=== PATIENT | female | born 1940 | race Caucasian/White ===

== ENCOUNTER → 2018-04-27 14:02 | Outpatient (POV) | payer MEDICARE, SELFPAY ==
[2018-04-27 14:19] VITALS: BP 152/66; PULSE 69; RESP 18; TEMP 36.1; O2SAT 98
--- NOTE | 2018-04-27 15:31 | HMH.PMCON ---
Assessment and Plan (1) Scoliosis Current visit: Yes Status: Chronic Category: Medical Code(s): M41.9 - Scoliosis, unspecified (2) Degenerative joint disease (DJD) of lumbar spine Current visit: Yes Status: Chronic Category: Medical Code(s): M47.816 - Spondylosis without myelopathy or radiculopathy, lumbar region - Assessment and plan all Dx Assessment and Plan for all problems:: We will schedule intrathecal pain pump trial for the patient. Patient understands she has to be off her [place] for 48 hours prior. Patient's tried and failed other conservative measures. I will follow-up with the patient after her trial if necessary. Patient has been told to call the office if she has any issues prior to her next appointment. Patient is not on any anticoagulation therapy. This note was dictated using voice recognition software and may contain errors or omissions HPI - Data of Consult Consult date: 04/27/18 Requesting Physician: Soledad Morales APRN - Consult Narrative Reason for consult: Back pain History of present illness: Ms. Van is a 78 year old female who presents today for intrathecal pain pump consultation. Patient rates her pain today a 3 out of 10. Patient has terrible scoliosis along with other degenerative issues. Patient has tried and failed injections in the past she is also tried and failed RFA therapy. Patient is interested in intrathecal therapy. Patient also has a psychological evaluation set up for Friday. Patient's currently on [place] 10 mg 1 p.o. 3 times daily from her primary care physician. Patient and I discussed weaning off of this she is more than willing to do so. Patient and I had a long discussion about intrathecal therapy, realistic goal setting. I answered the patient's questions. Patient has tried and failed physical therapy along with home stretching therapy. Patient is not on any anticoagulation therapy. Patient states most of her pain is in her low back and thoracic spine. States that it is constant pain. CC: Soledad Morales APRN [facility] History I have reviewed the patient's past medical history: Yes Medical History: Reports:: Heart Murmur, Hypertension Denies:: Cancer, Diabetes Mellitus Type 1, Diabetes Mellitus Type 2, MRSA Other Medical History: Reports: Arthritis Laterality Cases: Right: Carpal Tunnel Release Other Surgeries: Yes: Colon Resection Amputation: No Fractures: No - *Social History Educational Level: Completed High School Alcohol Intake: never Occupational Status: retired Housing: house Household Members: spouse - Psychiatric History Expresses thoughts of harming self/others: None Suicide Plan Description: No Plan *Family Hx:: Cancer Review of Systems - Review of Systems ROS General: no recent weight change, no fever, no sleep disturbances Respiratory: no cough, no shortness of air, no recurring pulmonary infections Cardiovascular/Peripheral Vascular: No chest pain, No palpitations, no edema, no shortness of breath. Gastrointestinal: no incontinence, normal bowel movements reported Genitourinary: no incontinence Musculoskeletal: Back pain Psychiatric: normal mood/ affect Neurological: [denies weakness in extremities], [denies balance issues] Meds Home Medications Medication Instructions Recorded Confirmed Type Amlodipine Besylate [Amlodipine 10 mg PO DAILY 04/27/18 04/27/18 History 10mg Tab] Fluoxetine HCl 20 mg PO DAILY 04/27/18 04/27/18 History Hydrocodone/Acetaminophen 1 each PO TID PRN 04/27/18 04/27/18 History [Hydrocodone-Acetamin 10-325 mg] Irbesartan 300 mg PO DAILY 04/27/18 04/27/18 History Tizanidine HCl 4 mg PO DAILY 04/27/18 04/27/18 History levETIRAcetam [Keppra Xr] 500 mg PO BID 04/27/18 04/27/18 History Objective Vital signs: Temp Pulse Resp BP Pulse Ox 97.0 F L 69 18 152/66 98 04/27/18 14:19 04/27/18 14:19 04/27/18 14:19 04/27/18 14:19 04/27/18 14:19 Narrative
--- NOTE | 2018-04-27 15:34 | P.CONS_ITS ---
Assessment and Plan (1) Scoliosis Current visit: Yes Status: Chronic Category: Medical Code(s): M41.9 - Scoliosis, unspecified (2) Degenerative joint disease (DJD) of lumbar spine Current visit: Yes Status: Chronic Category: Medical Code(s): M47.816 - Spondylosis without myelopathy or radiculopathy, lumbar region - Assessment and plan all Dx Assessment and Plan for all problems:: We will schedule intrathecal pain pump trial for the patient. Patient understands she has to be off her [place] for 48 hours prior. Patient's tried and failed other conservative measures. I will follow-up with the patient after her trial if necessary. Patient has been told to call the office if she has any issues prior to her next appointment. Patient is not on any anticoagulation therapy. This note was dictated using voice recognition software and may contain errors or omissions HPI - Data of Consult Consult date: 04/27/18 Requesting Physician: Soledad Morales APRN - Consult Narrative Reason for consult: Back pain History of present illness: Ms. Van is a 78 year old female who presents today for intrathecal pain pump consultation. Patient rates her pain today a 3 out of 10. Patient has terrible scoliosis along with other degenerative issues. Patient has tried and failed injections in the past she is also tried and failed RFA therapy. Patient is interested in intrathecal therapy. Patient also has a psychological evaluation set up for Friday. Patient's currently on [place] 10 mg 1 p.o. 3 times daily from her primary care physician. Patient and I discussed weaning off of this she is more than willing to do so. Patient and I had a long discussion about intrathecal therapy, realistic goal setting. I answered the patient's questions. Patient has tried and failed physical therapy along with home stretching therapy. Patient is not on any anticoagulation therapy. Patient states most of her pain is in her low back and thoracic spine. States that it is constant pain. CC: Soledad Morales APRN [facility] History I have reviewed the patient's past medical history: Yes Medical History: Reports:: Heart Murmur, Hypertension Denies:: Cancer, Diabetes Mellitus Type 1, Diabetes Mellitus Type 2, MRSA Other Medical History: Reports: Arthritis Laterality Cases: Right: Carpal Tunnel Release Other Surgeries: Yes: Colon Resection Amputation: No Fractures: No - *Social History Educational Level: Completed High School Alcohol Intake: never Occupational Status: retired Housing: house Household Members: spouse - Psychiatric History Expresses thoughts of harming self/others: None Suicide Plan Description: No Plan *Family Hx:: Cancer Review of Systems - Review of Systems ROS General: no recent weight change, no fever, no sleep disturbances Respiratory: no cough, no shortness of air, no recurring pulmonary infections Cardiovascular/Peripheral Vascular: No chest pain, No palpitations, no edema, no shortness of breath. Gastrointestinal: no incontinence, normal bowel movements reported Genitourinary: no incontinence Musculoskeletal: Back pain Psychiatric: normal mood/ affect Neurological: [denies weakness in extremities], [denies balance issues] Meds Home Medications Medication Instructions Recorded Confirmed Type Amlodipine Besylate [Amlodipine 10 mg PO DAILY 04/27/18 04/27/18 History 10mg Tab] Fluoxetine HCl 20 mg PO DAILY 04/27/18 04/27/18 History Hydrocodone/Acetaminophen 1 ea
== END ==
PROVIDERS: Visit Provider Clinical Nurse Specialist Family Health
DX: M47.816 Spondylosis without myelopathy or radiculopathy, lumbar region (principal); M41.9 Scoliosis, unspecified
CPT/HCPCS: 99202

== ENCOUNTER → 2018-05-20 09:11 | Outpatient (POV) | payer MEDICARE, SELFPAY ==
[2018-05-20 09:30] VITALS: BP 108/79; PULSE 68; RESP 18; O2SAT 98; BMI 20.1
--- NOTE | 2018-05-20 10:34 | P.CONS_ITS ---
Assessment and Plan (1) Degenerative joint disease (DJD) of lumbar spine Current visit: No Status: Chronic Category: Medical Code(s): M47.816 - Spondylosis without myelopathy or radiculopathy, lumbar region Consideration for pain stimulator implant trial with placement of the system if indicated (2) Scoliosis Current visit: No Status: Chronic Category: Medical Code(s): M41.9 - Scoliosis, unspecified Consideration for pain stimulator implant trial with placement permanently if indicated HPI - Data of Consult Patient: new to practice Consult date: 05/20/18 Requesting Physician: Maximiliano Fox MD Primary Care Provider: Moody Beth MD - Consult Narrative Reason for consult: Consideration for stimulator implant for management of chronic back pain History of present illness: Ms. Van is a 78 year old female seen by Dr. Stanton who is referred for consideration for placement of a pain stimulator implant for management of degenerative disc disease of the lumbar and thoracic spine as well as scoliosis. Per Dr. Palencia she is not an operative candidate. She has had other attempts at pain management with medications as well as procedures without success. CC: Maximiliano Fxo MD [facility] History Medical History: Reports:: Heart Murmur, Hypertension Denies:: Cancer, Diabetes Mellitus Type 1, Diabetes Mellitus Type 2, MRSA Other Medical History: Reports: Arthritis Comment: Illnesses-hypertension, heart murmur, anxiety, arthritis Laterality Cases: Right: Carpal Tunnel Release Other Surgeries: Yes: Colon Resection Amputation: No Fractures: No Comment: Operations-carpal tunnel surgery, hernia repair, colon surgery for colitis - *Social History Alcohol Intake: never Occupational Status: retired Housing: house Household Members: spouse - Psychiatric History Expresses thoughts of harming self/others: None Suicide Plan Description: No Plan *Family Hx:: Cancer Review of Systems - Review of Systems Review of systems:: pertinent systems reviewed and negative unless documented below - Constitutional Comments: Healthy-appearing white female in no distress - *Musculoskeletal Reports back pain, Reports muscle weakness, Reports radiating pain into limb Meds Home Medications Medication Instructions Recorded Confirmed Type Amlodipine Besylate [Amlodipine 10 mg PO DAILY 04/27/18 04/27/18 History 10mg Tab] Fluoxetine HCl 20 mg PO DAILY 04/27/18 04/27/18 History Hydrocodone/Acetaminophen 1 each PO TID PRN 04/27/18 04/27/18 History [Hydrocodone-Acetamin 10-325 mg] Irbesartan 300 mg PO DAILY 04/27/18 04/27/18 History Tizanidine HCl 4 mg PO DAILY 04/27/18 04/27/18 History levETIRAcetam [Keppra Xr] 500 mg PO BID 04/27/18 04/27/18 History Objective Vital signs: Pulse Resp BP Pulse Ox 68 18 108/79 98 05/20/18 09:30 05/20/18 09:30 05/20/18 09:30 05/20/18 09:30 Comments: Healthy-appearing white female in no distress - *Routine Respiratory Exam Comments: Chest clear - *Routine Cardiovascular Exam Present: RRR - *Routine Abdominal Exam Present: soft
== END ==
PROVIDERS: PCP Emergency Medicine; Visit Provider Surgery
DX: M41.9 Scoliosis, unspecified (principal); M47.816 Spondylosis without myelopathy or radiculopathy, lumbar region
CPT/HCPCS: 99212

== ENCOUNTER → 2021-08-13 14:50 | Day surgery (SDC) | payer MEDICARE, SELFPAY ==
[2021-08-13 14:57] VITALS: BP 150/54; PULSE 62; RESP 18; TEMP 36.9; O2SAT 98
[2021-08-13 15:04] VITALS: BP 157/64; PULSE 63; RESP 18; O2SAT 98
[2021-08-13 15:05] VITALS: BP 148/67; PULSE 58; RESP 18; O2SAT 100
--- NOTE | 2021-08-13 15:34 | P.PCN_ITS ---
- Procedure Date: 08/13/21 Time: 15:34 Anesthesiologist:: Virginia Silvestre APRN Complications:: None Pre-procedure Diagnosis:: Degenerative disc disease lumbar spine with lumbar radiculopathy symptoms Post-procedure Diagnosis:: Same Indications for Procedure:: Patient is a pleasant 81-year-old white female who presents today for intrathecal pain pump refill and reprogram. She previously seen in [place] and then transferred to the [facility]. She has asked to transfer to the [facility]. She is currently on intrathecal therapy of morphine at 1.8 mg/day. She denies any side effects and would like an increase. She was also started on diclofenac 75 mg 1 tablet p.o. twice daily. She does need a refill on this medication. She rates her pain a 5 out of 10. She has pain in her low back area. Physical exam General: Alert and oriented x3, no acute distress, pleasant and cooperative Lungs: Respirations even and unlabored, symmetrical chest expansion Eyes: PERRL Musculoskeletal: Flexion and extension of lumbar [spine] somewhat guarded secondary to pain, [antalgic gait noted] Neurological: Speech clear, no gross sensory deficit Procedure Details:: Informed consent was obtained and the risk and benefits of the procedure were explained to the patient. The patient was taken to the procedure room where noninvasive monitoring was placed including noninvasive blood pressure cuff and pulse oximeter. Patient's pump was interrogated. The area over the pump was cleansed with chlorhexidine as a cleansing solution. In sterile fashion the pump was accessed with a 22-gauge needle. Approximately 8 mls of the pump solution was removed and discarded appropriately. The pump was then refilled with 20 mL's of morphine 5 mg per male. The needle was withdrawn and a bandage was placed over the puncture site. The infusion rate was reprogrammed at increased to morphine at 2 mg/day. The patient tolerated well with no complication. Plan and Disposition:: We will refill the patient's diclofenac 75 mg 1 tablet p.o. twice daily. We will see the patient back in the clinic at the next intrathecal refill. Patient has been instructed to contact the clinic with any concerns before the next appointment. Dr. Stanton has reviewed this note and agrees with this plan of care. This note was dictated using voice recognition software and make contain errors or omissions.
== END ==
PROVIDERS: PCP Emergency Medicine; Visit Provider Clinical Nurse Specialist Family Health
DX: M51.16 Intervertebral disc disorders with radiculopathy, lumbar region (principal); Z45.1 Encounter for adjustment and management of infusion pump
CPT/HCPCS: 62370

== ENCOUNTER 2021-08-25 13:53 | Emergency (ER) | payer MEDICARE, SELFPAY ==
[2021-08-25] VITALS (7 sets, daily range): BP systolic 144–176; BP diastolic 68–99; PULSE 56–63; RESP 18–20; TEMP 36.8–36.9; O2SAT 97–100; BMI 22.0; BMI 22.8
--- NOTE | 2021-08-25 14:19 | XR_ITS ---
PROCEDURE INFORMATION: Exam: XR Chest Exam date and time: 08/25/2021 2:19 PM Age: 81 years old Clinical indication: Other: Weakness TECHNIQUE: Imaging protocol: XR of the chest. Views: 1 view. COMPARISON: No relevant prior studies available. FINDINGS: Tubes, catheters and devices: Metallic device overlies the left hemidiaphragm Lungs: Hyperexpanded lung gomez consistent with COPD Pleural spaces: Unremarkable. No pleural effusion. No pneumothorax. Heart/Mediastinum: Unremarkable. No cardiomegaly. Bones/joints: Levoscoliosis of the lumbar spine IMPRESSION: Hyperexpanded lung gomez consistent with COPD
--- NOTE | 2021-08-25 14:39 | ECG_ITS ---
APPROVED REPORT Exam: Resting ECG HR:57 bpm ECG Measurements Heart Rate 57 AXES WI 168 P 29 QRSd 88 QRS -31 QT 494 T 2 QTc 480 Conclusion Sinus bradycardia Left atrial enlargement Left axis deviation Left ventricular hypertrophy Nonspecific ST abnormality Abnormal ECG Electronically signed by : Edward Driver MD 08/26/2021 08:46:31
--- NOTE | 2021-08-25 14:40 | HMH.EDGENADL ---
ED Disposition Clinical Impression: Hot flashes, Chills, Hypokalemia Disposition: Home, Self-Care Condition on Discharge: Fair Instructions: DI for Hypokalemia Additional Instructions: Potassium as prescribed. Follow-up with your primary care provider on Friday for repeat potassium level. Follow-up with your primary care provider next week for your other symptoms, chills, hot flashes, restlessness. Prescriptions: Potassium Chloride [K-Tab ER 20 mEq] 20 meq PO DAILY #7 tab Transmission Status: Pending to [facility] Referrals: Moody Beth MD [Staff Physician] - - Critical Care Critical Care Time: No Attestation: On 08/25/21, the high probability of a clinically significant, sudden or life threatening deterioration of the following system(s) required my full and direct attention, intervention and personal management. The time I documented below is in addition to time spent performing reported procedures but includes the following listed in this critical care notation. Medical Decision Making - Bello Inquiry Pt receiving controlled substance: No Vital Signs: 08/25/21 13:54 08/25/21 18:00 08/25/21 18:30 Temperature 98.5 F Temperature Source Oral Pulse Rate 61 63 Pulse Rate [Radial] 58 L Respiratory Rate 18 Blood Pressure 160/68 H 157/75 H Blood Pressure [Right Arm] 171/75 H Blood Pressure Mean 119 120 Blood Pressure Mean [Right Arm] 107 Blood Pressure Position [Right Arm] Sitting 02 Sat by Pulse Oximetry 98 100 97 Oxygen Delivery Method Room Air 08/25/21 19:00 08/25/21 19:30 Temperature Temperature Source Pulse Rate 56 L 60 Pulse Rate [Radial] Respiratory Rate 20 20 Blood Pressure 144/99 H 165/69 H Blood Pressure [Right Arm] Blood Pressure Mean 114 101 Blood Pressure Mean [Right Arm] Blood Pressure Position [Right Arm] 02 Sat by Pulse Oximetry 100 100 Oxygen Delivery Method - Lab Data Lab Results 08/25/21 15:20: WBC 9.0, RBC 4.27, Hgb 13.8, Hct 39.4, MCV 92.2, MCH 32.4 H, MCHC 35.2, RDW 12.5, Plt Count 394, MPV 9.0, Neut % (Auto) 69.9, Lymph % (Auto) 21.8, [place] % (Auto) 6.1, Eos % (Auto) 1.5, Baso % (Auto) 0.7, Neut # (Auto) 6.3, Lymph # (Auto) 2.0, [place] # (Auto) 0.6, Eos # (Auto) 0.1, Baso # (Auto) 0.1 08/25/21 15:20: Sodium 122 L, Potassium 2.5 L*, Chloride 79 L, Carbon Dioxide 36 H, Anion Gap 9.5, BUN 13, Creatinine 0.40 L, Estimated Creat Clear 46, Estimated GFR 153, Est GFR ( Amer) 185, Glucose 109 H, Calcium 9.5, Total Bilirubin 0.7, AST 36, ALT 29, Alkaline Phosphatase 85, Total Protein 7.3, Albumin 4.3, Globulin 3.0, Albumin/Globulin Ratio 1.4 08/25/21 15:20: Troponin I < 0.01, Procalcitonin 0.059 08/25/21 15:20: SARS-CoV-2 (PCR) Not detected, Influenza A Untype (PCR) Not detected, Influenza Type B (PCR) Not detected 08/25/21 16:00: Urine Color Yellow, Urine Appearance Clear, Urine pH 7.0, Ur Specific [place] 1.015, Urine Protein Negative, Urine Glucose (UA) Negative, Urine Ketones Negative, Urine Blood Negative, Urine Nitrate Negative, Urine Bilirubin Negative, Urine Urobilinogen 1.0, Ur Leukocyte Esterase Negative, Urine RBC None, Urine WBC None, Ur Squamous Epith Cells None, Urine Bacteria None 08/25/21 18:00: Lactate 1.6 Result diagrams: 08/25/21 15:20 08/25/21 15:20 Orders (Tests/Meds): ED MEDICATIONS Generic Name Dose Route Start Last Admin Trade Name Freq PRN Reason Stop Dose Admin Potassium Chloride/Water 100 mls @ 100 mls/hr 08/25/21 18:15 08/25/21 20:02 Potassium Chloride 10meq/100ml Ivpb IV 08/25/21 20:14 100 mls/hr Q1H JAKUB Administration Sodium Chloride 1,000 mls @ 999 mls/hr 08/25/21 18:15 08/25/21 18:06 Sod Chlor 0.9% 1000ml Bag IV 08/25/21 19:15 999 mls/hr .Q1H1M JAKUB Administration Discontinued Medications Generic Name Dose Route Start Last Admin Trade Name Freq PRN Reason Stop Dose Admin Potassium Chloride 40 meq 08/25/21 16:09 08/25/21 16:36 Potassium Chloride 20meq Tab
[2021-08-25 15:45] LABS: Basophils # 0.1 K/mm3 (0-0.2); Basophils % 0.7 % (0.1-2.0); Eosinophils # 0.1 K/mm3 (0.0-0.4); Eosinophils % 1.5 % (0.1-12.0); Hematocrit 39.4 % (37.0-47.0); Hemoglobin 13.8 g/dL (12.2-16.2); Lymphocytes % 21.8 % (10-50); Mean Corpuscular HGB Conc 35.2 g/dL (31.8-35.4); Mean Corpuscular Hemoglobin 32.4 pg (27.0-31.2); Mean Corpuscular Volume 92.2 fl (81-99); Monocytes # 0.6 K/mm3 (0.1-1.0); Monocytes % 6.1 % (1.7-9.3); Neutrophils # 6.3 K/mm3 (1.8-7.8); Neutrophils % 69.9 % (37.0-80.0); Platelet Count 394 K/mm3 (142-424); Red Blood Count 4.27 M/mm3 (4.20-5.40); Red Cell Distribution Width 12.5 % (11.5-17.5)
[2021-08-25 15:46] LABS: Coronavirus 19, PCR Not Detected (NotDetected); Influenza A, PCR Not Detected (NotDetected); Influenza B, PCR Not Detected (NotDetected)
[2021-08-25 15:55] LABS: Alanine Aminotransferase 29 U/L (12-78); Albumin Level 4.3 g/dl (3.5-5.0); Albumin/Globulin Ratio 1.4 (1.1-1.8); Alkaline Phosphatase 85 U/L (38-126); Anion Gap 9.5 mEq/L (5-15); Aspartate Amino Transferase 36 U/L (14-36); Bilirubin,Total 0.7 mg/dl (0.2-1.3); Blood Urea Nitrogen 13 mg/dl (7-17); Calcium 9.5 mg/dl (8.4-10.2); Carbon Dioxide 36 mmol/L (22.0-30.0); Chloride 79 mmol/L (98-107); Creatinine Clearance Estimated 46 mL/min (50-200); Estimated Glomerular Filt Rate 153 ml/min (>60); GFR (African American) 185 ML/MIN (>60); Glucose 109 mg/dl (74-100); Sodium 122 mmol/L (136-145); Total Protein,Serum 7.3 g/dl (6.3-8.2)
[2021-08-25 15:57] LABS: Potassium 2.5 mmoL/L (3.5-5.1)
--- NOTE | 2021-08-25 15:58 | PC.NURSE ---
Spoke with Guadalupe in lab, whom reported a critical potassium of 2.5
[2021-08-25 16:09] LABS: Troponin I < 0.01 ng/ml (0.00-0.034)
[2021-08-25 16:12] LABS: Procalcitonin 0.059 ng/mL (0.0-2.0)
[2021-08-25 16:26] LABS: Appearance,Urine CLEAR (Clear); Bilirubin,Urine Negative (Negative); Blood, Urine Negative (Negative); Color,Urine YELLOW (Yellow); Glucose,Urine (UA) Negative (Negative); Ketones,Urine Negative (Negative); Leukocyte Esterase,Urine Negative (Negative); Microscopic, Urine URINE MICROSCOPIC (MICROSCOPIC); Nitrate,Urine Negative (Negative); Protein,Urine Negative (Negative); Specific Gravity, Urine 1.015 (1.005-1.030)
[2021-08-25 18:24] LABS: Lactic Acid 1.6 mmol/L (0.7-2.1)
--- NOTE | 2021-08-25 19:31 | PC.NURSE ---
introduced self to patient, pt denies complaints at this time. iv site free from infiltration.cb in reach, SR up X2
== END 2021-08-25 21:26 | disposition home or self-care (01) ==
PROVIDERS: Emergency Provider Emergency Medicine
DX: R23.2 Flushing (principal); E87.6 Hypokalemia; I10 Essential (primary) hypertension; M41.9 Scoliosis, unspecified
CPT/HCPCS: 71045; 80053; 81001; 83605; 84145; 84484; 85025; 87040; 93005; 96365; 96367; 99283; C9803; U0003; U0005

== ENCOUNTER 2021-12-21 10:11 | Day surgery (SDC) | payer MEDICARE, SELFPAY ==
[2021-12-21 10:30] VITALS: BP 170/79; PULSE 79; RESP 20; TEMP 36.4; O2SAT 99; BMI 19.2
[2021-12-21 10:33] VITALS: BP 166/64; PULSE 80; RESP 20; O2SAT 99
[2021-12-21 10:35] VITALS: BP 160/60; PULSE 82; RESP 20; O2SAT 99
[2021-12-21 10:55] VITALS: BP 149/77; PULSE 84; RESP 20; O2SAT 98
--- NOTE | 2021-12-21 11:15 | HMH.PMPROC ---
- Procedure Date: 12/21/21 Time: 11:15 Anesthesiologist:: Delbert Stanton MD Complications:: None Pre-procedure Diagnosis:: Degenerative disc disease of lumbar spine with lumbar radiculopathy symptoms Post-procedure Diagnosis:: Same Indications for Procedure:: This patient is a pleasant 81-year-old white female who we are treating for low back pain with lumbar radiculopathy symptoms. She has increasing pain in her back and down her legs. She is doing very well with her intrathecal morphine pain pump at 1 mg/day. She is currently on home refill service. She was sent here to us because home refill did notice some swelling around her pump. The swelling has now subsided. We will refill her pump today. We will continue her at 1 mg/day. Patient does take Tylenol occasionally to help with her pain symptoms. Her Bello and drug screen are all appropriate Bello [id number]. She does have an antalgic gait. Motor strength of the lower extremities is 5/5. There is no gross sensory deficit. Procedure Details:: Informed consent was obtained and the risks and benefits of the procedure was explained to the patient. The patient was taken to the procedure room. The pump was interrogated. The area over the pump was prepped using ChloraPrep. The pump was accessed with a 22-gauge needle. Approximately 6 mL's of the intrathecal solution was withdrawn and discarded. The pump was then refilled with 20 mL's of intrathecal morphine 5 mg/mL. The pump was interrogated and the infusion was continued at 1 mg/day. PTC boluses remained at 0.06 mg up to 4 times a day. Patient is not using her PTC very much. The patient tolerated the procedure well with no complication. Plan and Disposition:: She will continue with home refill. We will follow-up with her in 6 months. If she has any problems questions she is to call us back in the pain clinic.
== END 2021-12-21 10:56 | disposition home or self-care (01) ==
LOC: SC.PAINP 10:14
PROVIDERS: PCP Emergency Medicine; Visit Provider Anesthesiology
DX: M51.16 Intervertebral disc disorders with radiculopathy, lumbar region (principal); Z45.1 Encounter for adjustment and management of infusion pump
CPT/HCPCS: 95991

== ENCOUNTER → 2022-07-09 12:37 | Outpatient (POV) | payer MEDICARE, SELFPAY ==
[2022-07-09 12:45] VITALS: BP 174/90; PULSE 71; RESP 20; BMI 19.0
--- NOTE | 2022-07-09 13:20 | A.OFFVIS_ITS ---
[facility] Pain Management SOAP Note Subjective:: Patient is a pleasant 82-year-old female who presents today for follow-up. We are currently treating the patient for degenerative disc disease of lumbar spine with lumbar radiculopathy symptoms. Today the patient rates her pain a 5 out of 10 and states it is all in her low back. Patient describes this as a achy sensation that is worse with increased activity. She is currently managed with intrathecal morphine at 1 mg/day. She is currently on the home refill service. Today the patient did have some swelling around her pump. Patient denies any new trauma or injury to the site. Patient denies any additional pain or discomfort due to the swelling. She states she has had this happens in the past. She is scheduled to have a pump refill at the end of this month. Patient states she uses her PTC device rarely and is adequately managed at her current pump dose. She is not requesting an adjustment at today's visit. She states she previously had an increased dosage however had more confusion and has since been decreased with improvement of her cognitive symptoms. Patient does oc casionally take Tylenol to help with her pain symptoms. Patient does state that she recently has had more edema in her bilateral lower extremities. She has been prescribed Lasix from her primary care provider for this issue. Her Bello is [id number]. It has been reviewed and appropriate. Review of Systems: General: No recent weight changes, no fever, no sleep disturbances Respiratory: No cough, no shortness of air, no recurring pulmonary infections Cardiovascular/peripheral vascular: No chest pain, no palpitations, no edema, no shortness of breath Gastrointestinal: No new onset incontinence, normal bowel movements reported Genitourinary: No new onset incontinence Musculoskeletal: Low back pain Psychiatric: [Normal mood/affect] Neurological: [Denies weakness in extremities], [denies balance issues] Objective:: Physical Exam: General: Alert and oriented x3, no acute distress, pleasant and cooperative Lungs: Respirations even and unlabored, symmetrical chest expansion Eyes: PERRL Musculoskeletal: Flexion and extension of lumbar [spine] somewhat guarded secondary to pain, [antalgic gait noted] Neurological: Speech clear, no gross sensory deficit Skin: Mild edema anterior to pain pump Assessment:: Degenerative disc disease of lumbar spine with lumbar radiculopathy symptoms Plan:: Patient continues to have moderate low back pain. Patient did have mild edema anterior to her pain pump however denied any increased pain symptoms due to this. I have recommended the patient use her abdominal binder to help decrease swelling and promote reabsorption. I will order the patient a compounding cream at today's visit. Patient will continue her at home refill service and will follow-up in office in 6 months. Patient has been counseled to contact us if she continues to have problems with the edema or worsening of her symptoms. Patient has been instructed to contact the clinic with any concerns before the next appointment. Dr. Stanton has reviewed this note and agrees with this plan of care. This note was dictated using voice recognition software and make contain errors or omissions. PFSH PFSH Social History Smoking Status: Unknown if ever smoked second hand exposure: No alcohol intake: never current occupational status: retired Travel in the last 8 weeks: None household members: children housing: house current occupational exposures/hazards: No caffeine: Yes
== END ==
PROVIDERS: Visit Provider Nurse Practitioner Family
DX: M51.16 Intervertebral disc disorders with radiculopathy, lumbar region (principal)
CPT/HCPCS: 99212; G0463

== ENCOUNTER → 2023-05-07 09:24 | Outpatient (POV) | payer MEDICARE, SELFPAY ==
--- NOTE | 2023-05-07 10:08 | EXP.PAIN.SOA ---
[facility] Pain Management SOAP Note Subjective:: Patient is a pleasant 83-year-old female who presents today for follow-up. We are currently treating the patient for degenerative disc disease of lumbar spine with lumbar radiculopathy symptoms. Today she rates her pain a 4 out of 10. Patient denies any new trauma or injury. Patient states she continues to have pain at her low back with radiating symptoms more prominent into her left leg. Patient does state the pain does interfere with her ability perform activities of daily living such as cooking and cleaning. She does describe this as a constant aching sensation that is worse with increased activity. Patient is currently managed with intrathecal morphine 5 mg/mL with a daily dose of 1 mg/day. Patient denies any side effects from this medication. In the past she stated that she did have some increased confusion and had her pump medication decreased and that did help resolve those issues. She does state that she does not want to increase her pump because she is afraid she will have repeating issues. Patient does continue to have edema in her bilateral lower extremities that she is prescribed Lasix from her primary care doctor. Her Bello is [id number]. Its been reviewed and appropriate. Review of Systems: General: No recent weight changes, no fever, no sleep disturbances Respiratory: No cough, no shortness of air, no recurring pulmonary infections Cardiovascular/peripheral vascular: No chest pain, no palpitations, no edema, no shortness of breath Gastrointestinal: No new onset incontinence, normal bowel movements reported Genitourinary: No new onset incontinence Musculoskeletal: Low back pain, leg pain Psychiatric: [Normal mood/affect] Neurological: [Denies weakness in extremities], [denies balance issues] Objective:: Physical Exam: General: Alert and oriented x3, no acute distress, pleasant and cooperative Lungs: Respirations even and unlabored, symmetrical chest expansion Eyes: PERRL Musculoskeletal: Flexion and extension of lumbar [spine] somewhat guarded secondary to pain, [antalgic gait noted] Neurological: Speech clear, no gross sensory deficit Assessment:: Degenerative disc disease of lumbar spine with lumbar radiculopathy symptoms Plan:: Patient is experiencing significant pain in her low back and legs with limited range of motion. I have discussed with the patient that she may benefit from a lumbar epidural steroid injection. Risk and benefits were discussed with the patient and she would like to proceed forward with this plan of care. Patient is not on any blood thinners. Patient did present today with a seroma around her intrathecal pump medication however she states she does not have any additional pain related to the fluid accumulation. I have discussed with the patient that if this does become problematic we can aspirate the fluid off. We will discuss this at future visits if it continues to be an additional issue. We will schedule the patient for an LESI L4-L5. Patient has been instructed to contact the clinic with any concerns before the next appointment. Dr. Stanton has reviewed this note and agrees with this plan of care. This note was dictated using voice recognition software and make contain errors or omissions. [facility] Disclaimer: The information contained in this section may have been updated after the patient was seen, as this information can be updated by other users. Social History (Updated 07/09/22 @ 13:29 by Brittanie Mora APRN) Smoking Status: Unknown if ever smoked second hand exposure: No alcohol intake: never current occupational status: retired Travel in the last 8 weeks: None household members: children housing: house current occupational exposures/hazards: No caffeine: Yes
[2023-05-07 10:36] VITALS: BP 149/68; PULSE 61; RESP 18; O2SAT 97; BMI 21.0
== END ==
PROVIDERS: Visit Provider Nurse Practitioner Family
DX: M51.16 Intervertebral disc disorders with radiculopathy, lumbar region (principal)
CPT/HCPCS: 99212; G0463

== ENCOUNTER 2024-01-09 13:51 | Day surgery (SDC) | payer MEDICARE, SELFPAY ==
[2024-01-09 14:01] VITALS: BP 120/64; PULSE 69; RESP 20; TEMP 36.3; O2SAT 98; BMI 21.4
[2024-01-09 14:31] VITALS: BP 120/64; PULSE 69; RESP 20; TEMP 36.3; O2SAT 98; BMI 21.4
[2024-01-09 15:13] VITALS: BP 150/58; PULSE 62; RESP 18; O2SAT 96
[2024-01-09] MEDS: LIDOCAINE 1% 30ML PF VIAL 30 ML (15:13)
[2024-01-09] MEDS: methylPREDNISolone ACETATE 80MG/ML VIAL 80 MG (15:13)
[2024-01-09 15:14] VITALS: BP 150/58; PULSE 62; RESP 18; O2SAT 96
[2024-01-09 15:30] VITALS: BP 120/64; PULSE 69; RESP 20; O2SAT 96
--- NOTE | 2024-01-09 16:57 | EXP.PAIN.PRO ---
Procedure Date: 01/09/24 Time: 16:57 Anesthesiologist:: Delbert Stanton MD Complications:: None Pre-procedure Diagnosis:: Postlaminectomy syndrome lumbar spine with lumbar radiculopathy symptoms Post-procedure Diagnosis:: Same Indications for Procedure:: The patient was 83-year-old white female who we are treating for low back pain with lumbar radiculopathy symptoms. She does have an intrathecal pain pump in place. She is doing well with her pump. There is a seroma around her pump which occurs occasionally. The patient does put pressure on it and does resolve. This is not causing her any discomfort. She does have increasing pain in her low back radiating over to the right side. It has been over a year since her last lumbar pleural steroid injection. She has gotten good relief from these epidural steroid injections in the past with 80% relief in pain symptoms and she is much more functional. Will do a lumbar epidural steroid injection under fluoroscopy today to help with her pain symptoms. Procedure Details:: Informed consent was obtained and the risk and benefits of the procedure was explained to the patient. The patient was taken to the procedure room. The patient was placed prone on the procedure table. The patient was prepped and draped in sterile fashion. C-arm fluoroscopy was used to view the lumbar spine. Skin and subcutaneous tissues were anesthetized using lidocaine. I placed an 18-gauge epidural needle and advanced into the L4-L5 interspace using fluoroscopic guidance and [id number] to air. After confirmation of needle placement in the epidural space with dye I injected 2 mL of lidocaine 1.5% with Depo-Medrol 80 mg. Patient tolerated the procedure well with no complications. Plan and Disposition:: Will follow-up with this patient in 3 months. Will reevaluate her symptoms at that time. We will plan on repeat lumbar pleural steroid injection at that time if needed. She is under the care of [facility] for her pain pump. She is doing well with her pump.
== END 2024-01-09 15:30 | disposition home or self-care (01) ==
LOC: SDC 16:59 → SC.PAINP 01-12 12:13
PROVIDERS: PCP Internal Medicine; Visit Provider Anesthesiology
DX: M96.1 Postlaminectomy syndrome, not elsewhere classified (principal); M54.16 Radiculopathy, lumbar region; Z97.8 Presence of other specified devices
CPT/HCPCS: 62323; 99212; G0463; J1040

== ENCOUNTER 2024-05-24 10:33 | Outpatient (POV) | payer MEDICARE, SELFPAY ==
--- OUTSIDE RECORDS SUMMARY | 2024-05-24 10:37 | XMS_ITS | Continuity of Care Document ---
Author Name Unknown Address [address] [place] [address] Phone Organization [facility] Address [address] [place] [address] Phone Support Name Relationship Address Phone Dorothy Amandeep Personal Relationship Unknown Tyrone Pierre DO Personal Relationship [address] [place] [address] El Lynn MD Personal Relationship [address] [place] [address] Care Teams Patient Care Team Team Status: Active Member Role Status Dates Amandeep De La Cruz Primary Care Provider Active Visit Care Team Team Status: Inactive Member Role Status Dates Amandeep De La Cruz Primary Care Provider Active Start: March 15, 2024 End: March 15, 2024 Tyrone Aguirre DO Emergency Provider Active Start: March 15, 2024 End: March 15, 2024 Patient Care Team Team Status: Inactive Member Role Status Dates El Lynn MD Emergency Provider Active Start : May 10, 2024 End: May 10, 2024 Amandeep De La Cruz Primary Care Provider Active Start: May 10, 2024 End: May 10, 2024 Chief Complaint and Reason for Visit Chief Complaint Admit Date fall/hit head/on blood thinner March 15, 2024 7:10pm sent for low heart rate and bp May 102023 10:22am Allergies, Adverse Reactions, Alerts Allergen Type Severity Reaction Last Updated Verified Status Sulfa (Sulfonamide Antibiotics) Allergy Unknown UNKNOWN March 15, 2024 7:22pm Yes A ctive Social History Smoking Status Status Start Date End Date Date of Observa tion Smokes tobacco daily (finding) May 10, 2024 10:28am Observation Status Observation Response Date of Response substance use type does not use May 10 10:28am alcohol intake never May 10, 2024 1 0:28am Patient Sex Female May 10, 2024 2 :33pm Assigned Sex Female April 26 Status Not March 15, 2024 Problems Active Problems Medical Problem Onset Date Status Asymptomatic PVCs Active Minor traumatic injury of head with normal menta l status Active Bigeminal rhythm Active Renal insufficiency Active Syncope Active Medications Medication Status Dose Units Route Directions Qty Days St art Date Stop Date End Date Instructions Hydralazine 10 mg tablet Active 10 MG PO THREE TIMES A DAY March 15, 2024 12:00a m Potassium Chloride 10 mEq capsule, extended release Active 10 MEQ PO DAILY March 15, 2024 12:00a m Furosemide 20 mg tablet Active 20 - 40 MG PO DAILY as needed for edema March 15, 2024 12:00a m Nifedipine 60 mg tablet extended release Active 60 MG PO DAILY March 15, 2024 12:00a m Levetiraceta m 1,000 mg tablet Active 2000 MG PO DAILY March 15, 2024 12:00a m Quetiapine 25 mg tablet Active 25 MG PO once daily at bedtime March 15, 2024 12:00a m Donepezil 5 mg tablet Active 5 MG PO once daily at bedtime March 15, 2024 12:00a m Levothyroxin e 25 mcg tablet Active 25 MCG PO EVERY OTHER DAY March 15, 2024 12:00a m Famotidine 20 mg tablet Active 20 MG PO DAILY March 15, 2024 12:00a m Ferrous Sulfate (Ferrous Sulfate 325 Mg (65 Mg Iron) Tablet) 325 mg (65 mg iron) tablet Active 325 MG PO DAILY March 15, 2024 12:00a m Fluoxetine 10 mg capsule Active 10 MG PO DAILY March 15, 2024 12:00a m Losartan 100 mg tablet Active 100 MG PO DAILY March 15, 2024 12:00a m Fluoxetine 20 mg capsule Active 20 MG PO DAILY March 15, 2024 12:00a m Esomeprazole Magnesium 20 mg capsule,kiah yed release(DR/E C) Active 20 MG PO Every Morning March 15, 2024 12:00a m Immunizations Immunization Event Date Not Given Reason Dose Number 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[employer]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 Lot Number Vaccine Information Statement (VIS) Detail Moderna COVID-19 Vaccine (Age 18+) December 05, 2020 [id number] Moderna COVID-19 Vaccine (Age 18+) January 05, 2021 [id number] Procedures Procedure Date Performed Status CT head/brain wo con March 15, 2024 7:30pm compl eted CT cervical spine wo con March 15, 2024 7:30pm c ompleted XR chest 1V March 15, 2024 7:50pm completed Relevant Diagnostic Tests and/or Laboratory Data Laboratory Results Test Date/Time Result Interpretation Reference Range Result Comment Performing Site White Blood Count March 15, 2024 8:11pm 10.07 x10^3/uL 3.98-10.04 [facility] [id number] [address] [place] [address] White Blood Count May 10, 2024 11:10am 6.96 x10^3/uL 3.98-10.04 [facility] [id number] [address] [place] [address] Red Blood Count March 15, 2024 8:11pm 4.25 x10^6/uL 3.93-5.22 [facility] [id number] [address] [place] [address] Red Blood Count May 10, 2024 11:10am 4.26 x10^6/uL 3.93-5.22 [facility] [id number] [address] [place] [address] Hemoglobin March 15, 2024 8:11pm 13.7 g/dL 11.2-15.7 [facility] [id number] [address] [place] [address] Hemoglobin May 10, 2024 11:10am 13.8 g/dL 11.2-15.7 [facility] [id number] [address] [place] [address] Hematocrit March 15, 2024 8:11pm 39.2 % 34.1-44.9 [facility] [id number] [address] [place] [address] Hematocrit May 10, 2024 11:10am 40.5 % 34.1-44.9 [facility] [id number] [address] [place] [address] Mean Corpuscular Volume March 15, 2024 8:11pm 92.2 fL 79.4-94.8 [facility] [id number] [address] [place] [address] Mean Corpuscular Volume May 10, 2024 11:10am 95.1 fL 79.4-94.8 [facility] [id number] [address] [place] [address] Mean Corpuscular Hemoglobin March 15, 2024 8:11pm 32.2 pg 25.6-32.2 [facility] [id number] [address] [place] [address] Mean Corpuscular Hemoglobin May 10, 2024 11:10am 32.4 pg 25.6-32.2 [facility] [id number] [address] [place] [address] Mean Corpuscular Hemoglobin Concent March 15, 2024 8:11pm 34.9 g/dL 32.2-35.5 [facility] [id number] [address] [place] [address] Mean Corpuscular Hemoglobin Concent May 10, 2024 11:10am 34.1 g/dL 32.2-35.5 [facility] [id number] [address] [place] [address] RDW Standard Deviation March 15, 2024 8:11pm 40.3 fL 36.4-46.3 [facility] [id number] [address] [place] [address] RDW Standard Deviation May 10, 2024 11:10am 41.3 fL 36.4-46.3 [facility] [id number] [address] [place] [address] RDW Coefficient of Variation March 15, 2024 8:11pm 11.9 % 11.7-14.4 [facility] [id number] [address] [place] [address] RDW Coefficient of Variation May 10, 2024 11:10am 11.9 % 11.7-14.4 [facility] [id number] [address] [place] [address] Platelet Count March 15, 2024 8:11pm 256 x10^3/uL 182-369 [facility] [id number] [address] [place] [address] Platelet Count May 10, 2024 11:10am 238 x10^3/uL 182-369 [facility] [id number] [address] [place] [address] Mean Platelet Volume March 15, 2024 8:11pm 10.5 fL 9.4-12.3 [facility] [id number] [address] [place] [address] Mean Platelet Volume May 10, 2024 11:10am 11.3 fL 9.4-12.3 [facility] [id number] [address] [place] [address] Neutrophils (%) (Auto) March 15, 2024 8:11pm 76.5 % 34.0-71.1 [facility] [id number] [address] [place] [address] Neutrophils (%) (Auto) May 10, 2024 11:10am 57.2 % 34.0-71.1 [facility] [id number] [address] [place] [address] Lymphocytes (%) (Auto) March 15, 2024 8:11pm 18.4 % 19.3-51.7 [facility] [id number] [address] [place] [address] Lymphocytes (%) (Auto) May 10, 2024 11:10am 32.9 % 19.3-51.7 [facility] [id number] [address] [place] [address] Monocytes (%) (Auto) March 15, 2024 8:11pm 4.2 % 4.7-12.5 [facility] [id number] [address] [place] [address] Monocytes (%) (Auto) May 10, 2024 11:10am 7.3 % 4.7-12.5 [facility] [id number] [address] [place] [address] Eosinophils (%) (Auto) March 15, 2024 8:11pm 0.4 % 0.7-5.8 [facility] [id number] [address] [place] [address] Eosinophils (%) (Auto) May 10, 2024 11:10am 1.6 % 0.7-5.8 [facility] [id number] [address] [place] [address] Basophils (%) (Auto) March 15, 2024 8:11pm 0.3 % 0.1-1.2 [facility] [id number] [address] [place] [address] Basophils (%) (Auto) May 10, 2024 11:10am 0.9 % 0.1-1.2 [facility] [id number] [address] [place] [address] Nucleated Red Blood Cells % (auto) March 15, 2024 8:11pm 0.0 /100 WBC 0-0.2 [facility] [id number] [address] [place] [address] Nucleated Red Blood Cells % (auto) May 10, 2024 11:10am 0.0 /100 WBC 0-0.2 [facility] [id number] [address] [place] [address] Immature/Total Granulocytes (auto) March 15, 2024 8:11pm 0.200 % 0-0.429 [facility] [id number] [address] [place] [address] Immature/Total Granulocytes (auto) May 10, 2024 11:10am 0.100 % 0-0.429 [facility] [id number] [address] [place] [address] Neutrophils # (Auto) March 15, 2024 8:11pm 7.71 x10^3/uL 1.56-6.13 [facility] [id number] [address] [place] [address] Neutrophils # (Auto) May 10, 2024 11:10am 3.98 x10^3/uL 1.56-6.13 [facility] [id number] [address] [place] [address] Lymphocytes # (Auto) March 15, 2024 8:11pm 1.85 x10^3/uL 1.18-3.74 [facility] [id number] [address] [place] [address] Lymphocytes # (Auto) May 10, 2024 11:10am 2.29 x10^3/uL 1.18-3.74 [facility] [id number] [address] [place] [address] Monocytes # (Auto) March 15, 2024 8:11pm 0.42 x10^3/uL 0.24-0.86 [facility] [id number] [address] [place] [address] Monocytes # (Auto) May 10, 2024 11:10am 0.51 x10^3/uL 0.24-0.86 [facility] [id number] [address] [place] [address] Eosinophils # (Auto) March 15, 2024 8:11pm 0.04 x10^3/uL 0.04-0.36 [facility] [id number] [address] [place] [address] Eosinophils # (Auto) May 10, 2024 11:10am 0.11 x10^3/uL 0.04-0.36 [facility] [id number] [address] [place] [address] Basophils # (Auto) March 15, 2024 8:11pm 0.03 x10^3/uL 0.01-0.08 [facility] [id number] [address] [place] [address] Basophils # (Auto) May 10, 2024 11:10am 0.06 x10^3/uL 0.01-0.08 [facility] [id number] [address] [place] [address] Nucleated Red Blood Cells # March 15, 2024 8:11pm 0.000 x10^3/uL 0-0.012 [facility] [id number] [address] [place] [address] Nucleated Red Blood Cells # May 10, 2024 11:10am 0.000 x10^3/uL 0-0.012 [facility] [id number] [address] [place] [address] Absolute Immature Granulocyte (auto March 15, 2024 8:11pm 0.0200 X10^3/uL 0-0.0310 [facility] [id number] [address] [place] [address] Absolute Immature Granulocyte (auto May 10, 2024 11:10am 0.0100 X10^3/uL 0-0.0310 [facility] [id number] [address] [place] [address] Prothrombin Time May 10, 2024 11:10am 10.3 Seconds 9.2-11.9 [facility] [id number] [address] [place] [address] Prothromb Time International Ratio May 10, 2024 11:10am 0.97 0.80-1.31 INR Reference Range(Therapeutic ): 2.0 - 3.0Mechanical Heart Valve or Recurrent Thromboembolic Events: 2.5 - 3.5 [facility] [id number] [address] [place] [address] Activated Partial Thromboplast Time May 10, 2024 11:10am 25.8 Seconds 21.3-33.3 Normal Range for Patients on Heparin Therapy: 42.0-65.9 Sec [facility] [id number] [address] [place] [address] D-Dimer March 15, 2024 8:11pm 0.89 mg/L-FEU 0.19-0.49 [facility] D-dimer cut-off value is 0.50 mg/L FEUD-Dimer results < 0.50 mg/L-FEU are considered Negative.D-Dimer results >or= 0.50 mg/L-FEU are considered Positive. To be used in conjunction with clinical symptoms and other testing in the diagnosis of venous thromboembolism (VTE), deep vein thrombosis (DVT), or pulmonary embolism (PE). [facility] [id number] [address] [place] [address] Sodium Level March 15, 2024 8:11pm 139 mmol/L 136-145 [facility] [id number] [address] [place] [address] Sodium Level May 10, 2024 11:10am 139 mmol/L 136-145 [facility] [id number] [address] [place] [address] Potassium Level March 15, 2024 8:11pm 4.4 mmol/L 3.5-5.1 [facility] [id number] [address] [place] [address] Potassium Level May 10, 2024 11:10am 4.6 mmol/L 3.5-5.1 [facility] [id number] [address] [place] [address] Chloride Level March 15, 2024 8:11pm 104 mmol/L 98-107 [facility] [id number] [address] [place] [address] Chloride Level May 10, 2024 11:10am 102 mmol/L 98-107 [facility] [id number] [address] [place] [address] Carbon Dioxide Level March 15, 2024 8:11pm 27.1 mmol/L 21.0-32 [facility] [id number] [address] [place] [address] Carbon Dioxide Level May 10, 2024 11:10am 26.0 mmol/L 21.0-32 [facility] [id number] [address] [place] [address] Anion Gap March 15, 2024 8:11pm 7.9 mmol/L 5.0-15.0 [facility] [id number] [address] [place] [address] Anion Gap May 10, 2024 11:10am 11.0 mmol/L 5.0-15.0 [facility] [id number] [address] [place] [address] Blood Urea Nitrogen March 15, 2024 8:11pm 23 mg/dL 7.0-18.0 [facility] [id number] [address] [place] [address] Blood Urea Nitrogen May 10, 2024 11:10am 39 mg/dL 7.0-18.0 [facility] [id number] [address] [place] [address] Creatinine March 15, 2024 8:11pm 0.94 mg/dL 0.55-1.02 [facility] [id number] [address] [place] [address] Creatinine May 10, 2024 11:10am 1.24 mg/dL 0.55-1.02 [facility] [id number] [address] [place] [address] Estimat Glomerular Filtration Rate March 15, 2024 8:11pm 56.9 eGFR Interpretation: Disease State Ref Ranges (Calculated)Units : ml/min/1.73 m2 Stage eGFR Description I/II >60 Normal/Mildly reduced kidney function III 30-59 Moderately reduced kidney function IV 15-29 Severely reduced kidney function V <15 End-stage kidney failureCalculated using MDRD formula based on gender,race(*GFR AA is for the population),and age. GFR estimates are unreliable in patients with rapidly changing kidney function,recent dialysis,extremes in body size,severe malnutrition or obesity,loss of limbs, abnormal muscle mass,or during . In these patients,alternat shania determinations of GFR should be obtained. [facility] [id number] [address] [place] [address] Estimat Glomerular Filtration Rate May 10, 2024 11:10am 41.2 eGFR Interpretation: Disease State Ref Ranges (Calculated)Units : ml/min/1.73 m2 Stage eGFR Description I/II >60 Normal/Mildly reduced kidney function III 30-59 Moderately reduced kidney function IV 15-29 Severely reduced kidney function V <15 End-stage kidney failureCalculated using MDRD formula based on gender,race(*GFR AA is for the population),and age. GFR estimates are unreliable in patients with rapidly changing kidney function,recent dialysis,extremes in body size,severe malnutrition or obesity,loss of limbs, abnormal muscle mass,or during . In these patients,alternat shania determinations of GFR should be obtained. [facility] [id number] [address] [place] [address] Estimated GFR () March 15, 2024 8:11pm 56.9 [facility] [id number] [address] [place] [address] Estimated GFR () May 10, 2024 11:10am 41.2 [facility] [id number] [address] [place] [address] BUN/Creatinine Ratio March 15, 2024 8:11pm 24.5 Ratio 6.0-20.0 [facility] [id number] [address] [place] [address] BUN/Creatinine Ratio May 10, 2024 11:10am 31.5 Ratio 6.0-20.0 [facility] [id number] [address] [place] [address] Glucose Level March 15, 2024 8:11pm 119 mg/dL 70-99 Falsely depressed or elevated results may occur on samples drawn from patients taking Sulfasalazine and Sulfapyridine, if the blood sample is drawn before clearance of the drug. [facility] [id number] [address] [place] [address] Glucose Level May 10, 2024 11:10am 104 mg/dL 70-99 Falsely depressed or elevated results may occur on samples drawn from patients taking Sulfasalazine and Sulfapyridine, if the blood sample is drawn before clearance of the drug. [facility] [id number] [address] [place] [address] Calcium Level March 15, 2024 8:11pm 9.4 mg/dL 8.5-10.1 [facility] [id number] [address] [place] [address] Calcium Level May 10, 2024 11:10am 10.1 mg/dL 8.5-10.1 [facility] [id number] [address] [place] [address] Magnesium Level March 15, 2024 8:11pm 2.0 mg/dL 1.8-2.4 [facility] [id number] [address] [place] [address] Magnesium Level May 10, 2024 11:10am 2.0 mg/dL 1.8-2.4 [facility] [id number] [address] [place] [address] Total Bilirubin March 15, 2024 8:11pm 0.30 mg/dL 0.20-1.00 Use of this assay is not recommended for patients undergoing treatment with eltrombopag due to the potential for falsely elevated results [facility] [id number] [address] [place] [address] Total Bilirubin May 10, 2024 11:10am 0.40 mg/dL 0.20-1.00 Use of this assay is not recommended for patients undergoing treatment with eltrombopag due to the potential for falsely elevated results [facility] [id number] [address] [place] [address] Aspartate Amino Transf (AST/SGOT) March 15, 2024 8:11pm 24 U/L 15-37 Falsely depresse d or elevated results may occur on samples drawn from patients taking Sulfasalazine and Sulfapyridine, if the blood sample is drawn before clearance of the drug. [facility] [id number] [address] [place] [address] Aspartate Amino Transf (AST/SGOT) May 10, 2024 11:10am 37 U/L 15-37 Falsely depresse d or elevated results may occur on samples drawn from patients taking Sulfasalazine and Sulfapyridine, if the blood sample is drawn before clearance of the drug. [facility] [id number] [address] [place] [address] Alanine Aminotransfera se March 15, 2024 8:11pm 25 U/L 14-59 Falsely depresse d or elevated results may occur on samples drawn from patients taking Sulfasalazine and Sulfapyridine, if the blood sample is drawn before clearance of the drug. [facility] [id number] [address] [place] [address] Alanine Aminotransfera se May 10, 2024 11:10am 27 U/L 14-59 Falsely depresse d or elevated results may occur on samples drawn from patients taking Sulfasalazine and Sulfapyridine, if the blood sample is drawn before clearance of the drug. [facility] [id number] [address] [place] [address] Total Creatine Kinase March 15, 2024 8:11pm 98 U/L 26.00-192. 00 [facility] [id number] [address] [place] [address] Total Creatine Kinase May 10, 2024 11:10am 165 U/L 26.00-192. 00 [facility] [id number] [address] [place] [address] Creatine Kinase MB May 10, 2024 11:10am 3.1 ng/mL 0.00-3.60 CKMB Diagnostic Criteria CKMB Value CKMB % (Rel Index) ---------Non-AMI <=5.0 N/A ------Rico Zone >5.0 <=4.0 --------AMI >5.0 >4.0 [facility] [id number] [address] [place] [address] Creatine Kinase MB % May 10, 2024 11:10am TNP Test not performedUnable to calculate [facility] [id number] [address] [place] [address] Troponin I March 15, 2024 10:09pm 6 ng/L 4-51 Excess Biotin intake can cause falsely depressed results [facility] [id number] [address] [place] [address] Troponin I May 10, 2024 11:10am 7 ng/L 4-51 Excess Biotin intake can cause falsely depressed results [facility] [id number] [address] [place] [address] Total Protein March 15, 2024 8:11pm 7.8 g/dL 6.4-8.2 [facility] [id number] [address] [place] [address] Total Protein May 10, 2024 11:10am 8.1 g/dL 6.4-8.2 [facility] [id number] [address] [place] [address] Albumin March 15, 2024 8:11pm 3.9 g/dL 3.4-5.0 [facility] [id number] [address] [place] [address] Albumin May 10, 2024 11:10am 4.5 g/dL 3.4-5.0 [facility] [id number] [address] [place] [address] Albumin/Globul in Ratio March 15, 2024 8:11pm 1.0 Ratio 1.0-2.0 [facility] [id number] [address] [place] [address] Albumin/Globul in Ratio May 10, 2024 11:10am 1.2 Ratio 1.0-2.0 [facility] [id number] [address] [place] [address] Alkaline Phosphatase March 15, 2024 8:11pm 100 U/L 46-116 [facility] [id number] [address] [place] [address] Alkaline Phosphatase May 10, 2024 11:10am 100 U/L 46-116 [facility] [id number] [address] [place] [address] Diagnostic Imaging Reports Author John Torres [facility]. Authored March 15, 2024 9:06p m Report Dictated Date/Time Dictated By Status Radiology Report March 15, 2024 9:06pm John Torres MD completed [facility] [address] [place] [address] CT Scan Report Signed Council#: [id number] Patient: Viry Van MR#: [id number] 303 : 1940 Acct:[id number] Age/Sex: 83 / F ADM Date: 4 Loc: .ED Attending Provider: Ordering Provider: Dakota Ledesma MD Date of Service: 03/15/24 Procedure(s): CT cervical spine wo con Accession Number(s): [id number] cc: Dakota Ledesma MD~ EXAM: CT HEAD WITHOUT IV CONTRAST, CT CERVICAL SPINE WITHOUT IV CONTRAST DATE: 03/15/2024 8:02 PM CDT INDICATION: TRAUMA HISTORY: TECHNIQUE: Multidetector row CT volumetric acquisition was performed through the head and cervical spine without intravenous contrast. Dose lowering techniques such as automated exposure control, iterative reconstruction, and mA and/or kV adjustment for patient size was utilized for this examination. COMPARISON: None. FINDINGS: Brain: There is no evidence of acute intracranial hemorrhage. There are no extra-axial collections. No mass effect or midline shift. Normal rico-white matter differentiation is preserved. There are no large parenchymal hypodensities to suggest vascular territorial infarct. There are periventricular and deep white matter hypodensities that are likely secondary to small vessel ischemic changes. The ventricular system is normal in size and morphology. The basilar cisterns are preserved. The brainstem and structures of the posterior fossa are within normal limits although evaluation is limited by streak artifact. The sella and skull base are unremarkable. The globes and orbits are within normal limits. The bony calvarium is intact. The visualized paranasal sinuses and mastoid air cells are clear. 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 Small right parietal scalp hematoma Cervical Spine: No acute fracture or traumatic subluxation. Grade 1 anterolisthesis of C3 on C4. Mild multilevel, multifactorial degenerative spondylosis with small dorsal discussed effect complexes from C5-C7 resulting canal and foraminal stenosis. Pre and paravertebral soft tissues are within normal limits. Heterogeneous appearance of the bilateral thyroid lobes. Visualized soft tissues of the neck are grossly normal. Visualized lung apices are clear. IMPRESSION: 1. No evidence of acute intracranial hemorrhage, extra-axial collection, mass effect, or midline shift. No large hypodensity to suggest territorial infarction. 2. No evidence of acute traumatic injury to the cervical spine. 3. Small right parietal scalp hematoma 4. Heterogeneous appearance of the bilateral thyroid lobes, consider nonemergent thyroid ultrasound Electronically signed by: John Torres MD 03/15/2024 09:06 PM EDT Dictated By: John Torres MD 4 2105 Transcribed By: John Torres MD 2105 Signed By: <Electronically signed by John Torres MD in OV> 03/15/242105 Author John Torres [facility], [facility]. Authored March 15, 2024 9:06p m Report Dictated Date/Time Dictated By Status Radiology Report March 15, 2024 9:06pm John Torres MD completed [facility] [address] [place] [address] CT Scan Report Signed Council#: [id number] Patient: Viry Van MR#: [id number] : 1940 Acct:[id number] Age/Sex: 83 / F ADM Date: 4 Loc: .ED Attending Provider: Ordering Provider: Dakota Ledesma MD Date of Service: 03/15/24 Procedure(s): CT head/brain wo con Accession Number(s): [id number] cc: Dakota Ledesma MD~ EXAM: CT HEAD WITHOUT IV CONTRAST, CT CERVICAL SPINE WITHOUT IV CONTRAST DATE: 03/15/2024 8:02 PM CDT INDICATION: TRAUMA HISTORY: TECHNIQUE: Multidetector row CT volumetric acquisition was performed through the head and cervical spine without intravenous contrast. Dose lowering techniques such as automated exposure control, iterative reconstruction, and mA and/or kV adjustment for patient size was utilized for this examination. COMPARISON: None. FINDINGS: Brain: There is no evidence of acute intracranial hemorrhage. There are no extra-axial collections. No mass effect or midline shift. Normal rico-white matter differentiation is preserved. There are no large parenchymal hypodensities to suggest vascular territorial infarct. There are periventricular and deep white matter hypodensities that are likely secondary to small vessel ischemic changes. The ventricular system is normal in size and morphology. The basilar cisterns are preserved. The brainstem and structures of the posterior fossa are within normal limits although evaluation is limited by streak artifact. The sella and skull base are unremarkable. The globes and orbits are within normal limits. The bony calvarium is intact. The visualized paranasal sinuses and mastoid air cells are clear. 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 Small right parietal scalp hematoma Cervical Spine: No acute fracture or traumatic subluxation. Grade 1 anterolisthesis of C3 on C4. Mild multilevel, multifactorial degenerative spondylosis with small dorsal discussed effect complexes from C5-C7 resulting canal and foraminal stenosis. Pre and paravertebral soft tissues are within normal limits. Heterogeneous appearance of the bilateral thyroid lobes. Visualized soft tissues of the neck are grossly normal. Visualized lung apices are clear. IMPRESSION: 1. No evidence of acute intracranial hemorrhage, extra-axial collection, mass effect, or midline shift. No large hypodensity to suggest territorial infarction. 2. No evidence of acute traumatic injury to the cervical spine. 3. Small right parietal scalp hematoma 4. Heterogeneous appearance of the bilateral thyroid lobes, consider nonemergent thyroid ultrasound Electronically signed by: John Torres MD 03/15/2024 09:06 PM EDT Dictated By: John Torres MD 2105 Transcribed By: John Torres MD 2105 Signed By: <Electronically signed by John Torres MD in OV> 03/15/242105 Author Jr Valdez Bernard [facility]. Authored March 15, 2024 9:16p m Report Dictated Date/Time Dictated By Status Radiology Report March 15, 2024 9:16pm Jr Valdez Bernard MD completed [facility] [address] [place] [address] XRay Report Signed Council#: [id number] Patient: Viry Van MR#: [id number] 303 : 1940 Acct:[id number] Age/Sex: 83 / F ADM Date: Loc: .ED Attending Provider: Ordering Provider: Dakota Ledesma MD Date of Service: 03/15/24 Procedure(s): XR chest 1V Accession Number(s): [id number] cc: Dakota Ledesma MD~ CHEST 1 VIEW 03/15/2024 7:00 PM CDT INDICATION / CLINICAL INFORMATION: Chest pain. COMPARISON: Chest x-ray 08/17/2021 FINDINGS: SUPPORT DEVICES: None. HEART / MEDIASTINUM: No significant abnormality. LUNGS / PLEURA: No focal consolidations, large pleural effusions or pneumothoraces. ADDITIONAL FINDINGS: Degenerative scoliotic curvature of the spine. IMPRESSION: No acute pulmonary pathology. Electronically signed by: Valdez Bernard MD 03/15/2024 09:16 PM EDT Dictated By: Valdez Bernard Jr, MD 03/15/242115 Transcribed By: Valdez Bernard Jr, MD 03/15/242115 Signed By: <Electronically signed by Valdez Bernard Jr, MD in OV> 03/15/242115 Vital Signs Vital Reading Result Reference Range Collection Date/Time Height 62 [in_i] March 15, 2024 7:18pm Weight 115.00 [lb_av] March 15 7:18pm Body Temperature 98.4 [degF] 97.6-99.6 March 15, 2 024 7:18pm Heart Rate 77 /min 60-100 March 15, 2024 10:00pm Respiratory rate 20 /min 12-20 March 15, 2 024 10:00pm Oxygen saturation by Pulse oximetry 92 % 95-100 March 15, 2024 10:00 pm BP Systolic 119 mm[Hg] 90-120 March 15, 2024 10:00pm BP Diastolic 66 mm[Hg] 60-80 March 15, 2024 10:00pm BMI (Body Mass Index) 21.0 kg/m2 March 152023 7:18pm Height 62 [in_i] May 10, 2024 10:28am Weight 117.00 [lb_av] May 10 10:28am Body Temperature 97.9 [degF] 97.6-99.6 May 10, 2 024 2:32pm Heart Rate 86 /min 60-100 May 10, 2024 2:32pm Respiratory rate 14 /min -May 10, 2 024 2:32pm Oxygen saturation by Pulse oximetry 100 % 95-100 May 10, 2024 2:32p m BP Systolic 135 mm[Hg] 90-120 May 10, 2024 2:32pm BP Diastolic 66 mm[Hg] 60-80 May 10, 2024 2:32pm BMI (Body Mass Index) 21.4 kg/m2 May 102023 10:28am Advance Directives Advance Directive Response Recorded Date/ Time Advance Directives No March 15 7:41pm Living Will No March 15, 2024 7 :41pm Advance Directives No May 10 11:01am 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 Home Phone: Payer Policy Id Coverage Id Subscriber's Name Subscriber Id Effective Date Expiration Date Mehrdad Harlan [id number] Encounters Encounter Location(s) Arrival/Admit Date Discharge/Depart Date Provider(s) Departed Emergency [facility] Emergency Department March 15, 2024 7:10pm March 15, 2024 11:34pm null Departed Emergency [facility] Emergency Department May 10, 2024 10:22am May 10, 2024 2:33pm null Plan of Treatment Future Tests Future scheduled test information is unavailable Pending Tests Pending diagnostic test information is unavailable Future Visits Future appointment information is unavailable Referrals to Other Providers Reason for Referral Referral Start Date Provider Provider Contact Information Provider Address Amandeep No PSP Future Procedures Future procedure information is unavailable Future Medications Future medication information is unavailable Patient Instructions Instruction Admit Date Preventing falls in adults March 15 7:10pm Hospital Discharge Instructions Additional Instructions FOLLOW-UP WITH PRIMARY CARE PHYSICIAN. IF ANY PROBLEMS/CONCERNS, RETURN TO THE ER. Progress Note Author [email or web address] [facility] Note Date/Time May 10, 2024 1:47p m [facility] [address] [place] [address] Emergency Department Note Signed Patient: Viry Van MR#: [id number] : 1940 Acct:[id number] Age/Sex: 84 / F ADM Date: 4 Loc: .ED Attending: cc: Amandeep Lomeli PSP~ HPI - Recheck/Abnormal Lab/Rx General Chief Complaint: Recheck/Abnormal Lab/Rx Stated Complaint: dr sent for low heart rate and bp Time Seen by Provider: 05/10/24 10:36 Nurse Attestation Statement: I have reviewed the nurses notes. PMFSH/Allergies:: reviewed and noted by MD Source: patient and family Mode of arrival: ambulatory Limitations: no limitations History of Present Illness HPI narrative: #9 84-YEAR-OLD FEMALE, HISTORY OF HYPERTENSION, ANXIETY DISORDER, HYPOTHYROIDISM, RHEUMATIC FEVER. PRESENTS TO THE ER WITH COMPLAINTS OF SLOW HEART RATE. PATIENT WAS AT HER PRIMARY DOCTOR'S OFFICE FOR ROUTINE VISIT, WAS NOTICED TO HAVE A LOW HEART RATE AND BLOOD PRESSURE. PATIENT DENIES ANY COMPLAINTS OF CHEST PAIN/PALPITATIONS/SHORTNESS OF BREATH, DENIES CHEST PRESSURE/DIAPHORESIS. Initial visit (ago): hour(s) Description of abnormal result: BRADYCARDIA Symptoms since prior visit: no new symptoms Related Data Chronic Medication Use: Yes Home Medications ???Medication ???Instructions ???Recorded ???Confirmed donepezil 5 mg tablet 5 mg PO HS 03/15/24 03/15/24 esomeprazole magnesium 20 mg 20 mg PO QAM 03/15/24 03/15/24 capsule,delayed release famotidine 20 mg tablet 20 mg PO DAILY 03/15/24 03/15/24 ferrous sulfate 325 mg (65 mg 325 mg PO DAILY 03/15/24 03/15/24 iron) tablet (FeroSul) fluoxetine 10 mg capsule 10 mg PO DAILY 03/15/24 03/15/24 fluoxetine 20 mg capsule 20 mg PO DAILY 03/15/24 03/15/24 furosemide 20 mg tablet 20 - 40 mg PO DAILY PRN edema 03/15/24 03/15/24 hydralazine 10 mg tablet 10 mg PO TID 03/15/24 03/15/24 levetiracetam 1,000 mg tablet 2,000 mg PO DAILY 03/15/24 03/15/24 levothyroxine 25 mcg tablet 25 mcg PO EVERY OTHER DAY 03/15/24 03/15/24 losartan 100 mg tablet 100 mg PO DAILY 03/15/24 03/15/24 nifedipine 60 mg tablet,extended 60 mg PO DAILY 03/15/24 03/15/24 release potassium chloride 10 mEq 10 meq PO DAILY 03/15/24 03/15/24 capsule,extended release quetiapine 25 mg tablet 25 mg PO HS 03/15/24 03/15/24 Allergies Allergy/AdvReac Type Severity Reaction Status Date / Time Sulfa (Sulfonamide Allergy Unknown UNKNOWN Verified 03/15/24 19:22 Antibiotics) [facility] Historical Routines Medical History Dementia Gastro-esophageal reflux disease without esophagitis Hypothyroidism Depression Anxiety Seizure disorder Hypertension Surgical History Total knee replacement status Social History What is your current living situation: decline to answer In the past 12 months, utilities in danger of being shut off: decline to answer In past 12 months, lack of transportation kept you from medical appts, meetings,work, or getting things needed for daily living: Decline to answer Smoking Status: Current every day smoker Review of Systems ROS ROS: All systems reviewed & are negative except as noted in HPI & below Eyes Eyes: Denies blurry vision and Denies diplopia Resp Respiratory: Denies dyspnea Cardio Cardiovascular: Denies chest pain, Denies diaphoresis, Denies rapid heart rate, Denies lightheadedness and Denies dyspnea Exam 2 Const: General: cooperative, comfortable and no acute distress Orientation:alert, awake and oriented x3 HENMT: Head: normocephalic and atraumatic Neck: Neck: normal visual inspection and no lymphadenopathy Thyroid: thyroid normal Resp: Effort & Inspection: normal respiratory effort Auscultation: clear toauscultation bilaterally Cardio: Rate: regular rate and bradycardic Rhythm: regular rhythm Heart Sounds: S1 normal, S2 normal and no murmurs GI: Palpation: soft, no hepatosplenomegaly, not firm, no guarding and nontender Auscultation: normal bowel sounds Skin: General skin exam: no rashes or lesions noted, dry skin and turgor decreased Neuro: General: patient alert, patient awake and patient oriented x3 Cranial Nerves: PERRL and EOM intact bilaterally Speech: speech normal Motor: muscle tone normal throughout and strength 5/5 throughout Sensory Exam:no sensory deficits noted Extrem: Right lower extremity: no edema Left lower extremity: no edema Psych: Appearance: grossly normal Course Vital Signs Vital signs: Vital Signs Temperature 97.0 F L 05/10/24 10:28 Pulse Rate 36 L 05/10/24 10:28 Respiratory Rate 16 05/10/24 10:28 Blood Pressure 123/49 H 05/10/24 10:28 Pulse Oximetry 98 05/10/24 10:28 Oxygen Delivery Method Room Air 05/10/24 10:28 Temperature 97.0 F L 05/10/24 10:28 Pulse Rate 65 05/10/24 12:59 Respiratory Rate 16 05/10/24 10:42 Blood Pressure 138/64 H 05/10/24 12:59 Pulse Oximetry 96 05/10/24 10:42 Oxygen Delivery Method Room Air 05/10/24 10:28 MDM - Recheck/Abnormal Lab/Rx MDM Narrative Medical decision making narrative: 84-YEAR-OLD FEMALE, SENT TO THE ER FOR COMPLAINTS OF SLOW PULSE. PATIENT DENIESANY SYMPTOMS OF SHORTNESS OF BREATH/CHEST PAIN/LIGHTHEADEDNESS. 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 EXTREMITIES: NO EDEMA, NO DISCOLORATION. ER COURSE: LABS WITHIN NORMAL LIMITS, CREATININE OF 1.24, EKG SHOWS VENTRICULARECTOPICS/BIGEMINAL RHYTHM. NO ORTHOSTATIC CHANGE IN BLOOD PRESSURE. ON DISCUSSIONS WITH PATIENT'S SON, PATIENT WAS DIAGNOSED WITH PVCS/BIGEMINY YEARS AGO. PATIENT HAS NO SYMPTOMS. IMPRESSION: PVCS/BIGEMINY, RENAL INSUFFICIENCY. Lab Data 05/10/24 11:10 05/10/24 11:10 Labs: Lab Results 05/10/24 Range/Units 11:10 WBC 6.96 (3.98-10.04) x10^3/uL RBC 4.26 (3.93-5.22) x10^6/uL Hgb 13.8 (11.2-15.7) g/dL Hct 40.5 (34.1-44.9) % MCV 95.1 H (79.4-94.8) fL MCH 32.4 H (25.6-32.2) pg MCHC 34.1 (32.2-35.5) g/dL RDW Std Deviation 41.3 (36.4-46.3) fL RDW Coeff of Indu 11.9 (11.7-14.4) % Plt Count 238 (182-369) x10^3/uL MPV 11.3 (9.4-12.3) fL Neut % (Auto) 57.2 (34.0-71.1) % Lymph % (Auto) 32.9 (19.3-51.7) % [place] % (Auto) 7.3 (4.7-12.5) % Eos % (Auto) 1.6 (0.7-5.8) % Baso % (Auto) 0.9 (0.1-1.2) % Neut # (Auto) 3.98 (1.56-6.13) x10^3/uL Lymph # (Auto) 2.29 (1.18-3.74) x10^3/uL [place] # (Auto) 0.51 (0.24-0.86) x10^3/uL Eos # (Auto) 0.11 (0.04-0.36) x10^3/uL Baso # (Auto) 0.06 (0.01-0.08) x10^3/uL Abs Immat Gran (auto) 0.0100 (0-0.0310) X10^3/uL Nucleated RBC % (auto) 0.0 (0-0.2) /100 WBC Imm/Tot Granulo (auto) 0.100 (0-0.429) % Nucleated RBCs # 0.000 (0-0.012) x10^3/uL PT 10.3 (9.2-11.9) Seconds INR 0.97 (0.80-1.31) APTT 25.8 (21.3-33.3) Seconds Sodium 139 (136-145) mmol/L Potassium 4.6 (3.5-5.1) mmol/L Chloride 102 (98-107) mmol/L Carbon Dioxide 26.0 (21.0-32) mmol/L Anion Gap 11.0 (5.0-15.0) mmol/L BUN 39 H (7.0-18.0) mg/dL Creatinine 1.24 H (0.55-1.02) mg/dL Estimated GFR 41.2 Est GFR ( Amer) 41.2 BUN/Creatinine Ratio 31.5 H (6.0-20.0) Ratio Glucose 104 H (70-99) mg/dL Calcium 10.1 (8.5-10.1) mg/dL Magnesium 2.0 (1.8-2.4) mg/dL Total Bilirubin 0.40 (0.20-1.00) mg/dL AST 37 (15-37) U/L ALT 27 (14-59) U/L Alkaline Phosphatase 100 (46-116) U/L Total Creatine Kinase 165 (26.00-192.00) U/L CK-MB (CK-2) 3.1 (0.00-3.60) ng/mL CK-MB (CK-2) % TNP Troponin I 7 (4-51) ng/L Total Protein 8.1 (6.4-8.2) g/dL Albumin 4.5 (3.4-5.0) g/dL Albumin/Globulin Ratio 1.2 (1.0-2.0) Ratio ECG Data EKG #1: Attestation: I personally reviewed and interpreted this ECG as follows: ECG interpretation date: 05/10/24 Prior ECG tracings: not available for review Interpretation: SINUS RHYTHM, BRADYCARDIC, AXIS MINUS 40 DEGREES, NO ST/T CHANGES, FREQUENT PVCS/BIGEMINY. EKG Widget EKG Image: 2 No Data to Display Critical Care Time Critical Care Time Critical Care Time: No Discharge Plan Discharge Instructions Chief Complaint: Recheck/Abnormal Lab/Rx Clinical Impression: Asymptomatic PVCs, Bigeminal rhythm, Renal insufficiency Condition: Good Anticipated Discharge Date/Time: 05/10/24 13:00 Patient Disposition: Home or Self Care Prescriptions: No Action hydralazine 10 mg tablet 10 mg PO TID potassium chloride 10 mEq capsule, extended release 10 meq PO DAILY furosemide 20 mg tablet 20 - 40 mg PO DAILY PRN (Reason: edema) nifedipine 60 mg tablet extended release 60 mg PO DAILY levetiracetam 1,000 mg tablet 2,000 mg PO DAILY quetiapine 25 mg tablet 25 mg PO HS donepezil 5 mg tablet 5 mg PO HS levothyroxine 25 mcg tablet 25 mcg PO EVERY OTHER DAY famotidine 20 mg tablet 20 mg PO DAILY ferrous sulfate [FeroSul] 325 mg (65 mg iron) tablet 325 mg PO DAILY fluoxetine 10 mg capsule 10 mg PO DAILY losartan 100 mg tablet 100 mg PO DAILY fluoxetine 20 mg capsule 20 mg PO DAILY esomeprazole magnesium 20 mg capsule,delayed release(DR/EC) 20 mg PO QAM Referrals & Follow Ups: Amandeep De La Cruz [Primary Care Provider] - 3 - 5 days Stand Alone Forms: Patient Portal Enrollment Info Additional Instructions: FOLLOW-UP WITH PRIMARY CARE PHYSICIAN. IF ANY PROBLEMS/CONCERNS, RETURN TO THE ER. Print Language: Danish Documented By: El Lynn MD 05/10/24 1117 Signed By: <Electronically signed by El Lynn MD> 05/10/24 [id number]
--- OUTSIDE RECORDS SUMMARY | 2024-05-24 10:37 | XMS_ITS ---
Author Name Unknown Address [address] [place], [place] Phone Organization 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 Name Role Phone Hernan MADRID, Edward Michelle Unavailable [phone] Plan of Treatment Future Appointments Date Time Location Provi daniel Return Visit 09/16/2024 1:00PM [facility] Becerra MD Last Documented On 4:27PM ; [facility] - Implanted Devices Includes: Current and historical Devices No Medical Equipment Recorded Medications Includes: Current and historical Medications Current Medications (continue as prescribed) Aricept 5 MG Oral Tablet 11/27/2023 Provider: Diagnosis: Last Documented On 11/27/2023 2:53PM By Brittanie Grady ; [facility] NIFEdipine ER 60 MG Oral Tablet Extended Release 24 Ho ur 11/27/2023 Provider: Diagnosis: Last Documented On 11/27/2023 2:53PM By Brittanie Grady ; [facility] Potassium Chloride ER 10 MEQ Oral Tablet Extended Rele ase 11/27/2023 Provider: Diagnosis: Last Documented On 11/27/2023 2:53PM By Brittanie Grady ; [facility] NexIUM 20 MG Oral Capsule Delayed Release 11/27/2023 Provider: Diagnosis: Last Documented On 11/27/2023 2:53PM By Brittanie Grady ; [facility] hydrALAZINE HCl 10 MG Oral Tablet 11/27/2023 Provide r: Diagnosis: Last Documented On 11/27/2023 2:54PM By Brittanie Grady ; [place] [place] SEROquel 25 MG Oral Tablet 11/27/2023 Provider: Diagnosis: Last Documented On 11/27/2023 2:54PM By Brittanie Grady ; [facility], [facility] Lasix 20 MG Oral Tablet 11/27/2023 Provider: Diagnosis: Last Documented On 11/27/2023 2:54PM By Brittanie Grady ; [facility], [facility] Lipitor 40 MG Oral Tablet 11/27/2023 Provider: Diagnosis: Last Documented On 11/27/2023 2:54PM By Brittanie Grady ; [facility] Keppra 1000 MG Oral Tablet 11/27/2023 Provider: Diagnosis: Last Documented On 11/27/2023 2:54PM By Brittanie Grady ; [facility] Losartan Potassium 100 MG Oral Tablet 11/27/2023 Pro vider: Diagnosis: Last Documented On 11/27/2023 2:55PM By Brittanie Grady ; [facility] Aspirin 81 MG Oral Capsule 11/27/2023 Provider: Diagnosis: Last Documented On 11/27/2023 2:55PM By Brittanie Grady ; [place] Ferrous Sulfate 324 (65 Fe) MG Oral Tablet Delayed Rel ease 11/27/2023 Provider: Diagnosis: Last Documented On 11/27/2023 2:55PM By Brittanie Grady ; [place] FLUoxetine HCl 20 MG Oral Capsule 11/27/2023 Provide r: Diagnosis: Last Documented On 11/27/2023 2:55PM By Brittanie Grady ; [facility] Colace 100 MG Oral Capsule 11/27/2023 Provider: Diagnosis: Last Documented On 11/27/2023 2:55PM By Brittanie Grady ; [facility], [facility] Magnesium Oxide 400 MG Oral Tablet 11/27/2023 Provid er: Diagnosis: Last Documented On 11/27/2023 2:56PM By Brittanie Grady ; [facility] Multivitamin Adult Oral Tablet 11/27/2023 Provider: Diagnosis: Last Documented On 11/27/2023 2:56PM By Brittanie Grady ; [facility] Past Medications on file Lasix 20 MG Oral Tablet 11/27/2023 - 11/27/2023 Provid er: Diagnosis: Last Documented On 11/27/2023 2:54PM By Brittanie Grady ; [facility] Medications Administered Includes: Administered Medications in patient's chart No Administered Medications Recorded Vital Signs Includes: Vital Signs from 05/24/2023 through 05/24/2024 Vital Name 11/27/2023 04:09P Blood Pressure Sitting (mmHg) 122/66 Pulse Rate-Sitting (bpm) 69 Temp-Temporal 98.1 Height (in) 60.673942 Weight (lb) 117 Body Mass Index 22.1 Body Surface Area 1.5 Oxygen Saturation (%) 98 Flow Rate (l/min) (None (Room Air)) FiO2 (%) 21 Last Documented On: 11/27/2023 4:09PM ; [facility] Results Includes: Results from 05/24/2023 through 05/24/2024 No Results Recorded For Specified Dates History of Present Illness History of Present Illness not supported for this document type No History of Present Illness Recorded Social History Description Last Updated Never used tobacco 11/27/2023 Last Documented On 6:52PM ; [facility] Smoking Status Unknown Medical History Includes: Medical History in patient's chart No Medical History Recorded Family History Includes: Family History in patient's chart No Family History Recorded Review of Systems Review of Systems not supported for this document type No Review of Systems Recorded Mental Status No Mental Status Recorded Functional Status No Functional Status Recorded Physical Exam Physical Exam not supported for this document type No Physical Exam Recorded Allergies Includes: Active, inactive, and resolved Allergies Substance Type Reaction Onset Date Resolved Date Statu s Sulfa Antibiotics Allergy 11/27/2023 A ctive Last Documented On 3:46PM ; [facility] Encounters Includes: Encounters from 05/24/2023 through 05/24/2024 Encounter Provider Location Date Check-In Time Check- Out Time Diagnosis New Patient Level 2 Edward Becerra MD [facility] 4 3:09PM 4:26PM Insurance Includes: Active Insurance Policies Plan Name Member ID Group # Subscriber Relationship Effect shania Dates 1 - *Medicare [place] [employer] [id number] Viry Van Self 4 - Unknown Clinical Notes Includes: Signed Clinical Notes starting from 06/28/2023 * Progress note Date Encounter Last Documented by 11/27/2023 New Patient Level 2 Last documen sierra on 12/12/2023; 6:52 PM, Edward Becerra MD; [facility] Chief Complaint The Chief Complaint is: New pt referral- Seizures. History of Present Illness Viry Van is an 83 year old female. - Allergy list reviewed - Medication list reviewed Indication: Seizures Referring clinician: Dr. Riaz Mary PCP. Dr. Cho HPI: 83-year-old right-handed female with a diagnosis of seizures. She cannot give me details of her diagnosis. Records from Dr. Brian with limited to some office notes. 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 According to his notes the seizure was related to that. Patient however says that not the case. Patient is on Keppra 500 mg twice a day. Patient says last seizure occurred when she was placed on Cipro for an infection. On getting further history it is appears that her seizures are more of complex partial type seizures. She will have staring spells she has noted to have some mild short-term memory problems as well. She was started on Aricept approximately 2 months ago for this. Family feels it has helped. PMH: Hypertension. Hypothyroidism. Scoliosis with chronic back pain. Hyperlipidemia. GERD. Medication: Aricept 5 mg. Nifedipine ER 60 mg. Potassium. Nexium. Hydralazine. Seroquel 25 mg nightly for sleep. Lasix. Lipitor. Keppra 1000 mg twice daily. Losartan 100 mg daily. Aspirin 81 mg daily. Ferrous sulfate 325 mg daily. Prozac 20 mg daily. Colace 100 mg. Morphine every 6 hours as needed for chronic pain. Magnesium oxide 400 mg. Multivitamin daily. Family history noncontributory. Social history: Denies alcohol or tobacco use. . Retired. Past surgical history. Knee replacement on the left side. Previous colon surgery. Review of systems: Fatigue. Wears corrective lenses. Glaucoma. Hearing loss. Chronic sinus disease. Arthralgias. Back pain. Scoliosis. Dizziness. Seizures. Tremors. Memory loss. Thyroid disease. Heat and cold intolerance. Allergy to sulfa medication Physical exam Blood pressure 122/66. Pulse is 69. O2 sat 98%. Temperature 98.1. Weight 117 pounds. Height 155 cm. Pleasant. No acute distress. Atraumatic normocephalic Lungs are clear Heart shows a regular rate and rhythm Extremities show no cyanosis edema or rashes. Neurological exam She is awake alert and oriented. Memory is 3 out of 3 objects immediately and 2 out of 3 after 5 minutes. She is able to spell the word world backwards. She is able to do a 3 stage command. Naming is intact. Repetition is intact. Visual spatial testing was not done. Her extraocular movements are intact. Pupils are 3 mm and reactive. Visual gomez are confrontation. She has some mild thenar eminence atrophy bilaterally otherwise normal bulk tone and strength. Reflexes are symmetrical at 1-2+. Gait shows some mild postural instability. Impression Seizure disorder. 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 Patient family thinks it has been within the year or 2 when she had her last brain imaging study concerning the meningioma. She says this was stable. Will need to find the actual films. I told her that if anyone starts or any new medicine she should check with the pharmacist to make sure it does not interact with her current medicine or her seizures. I will see her back in September as he evidently has requested that date as a follow-up. Reason For Visit Referred by Dr. Mary. Current Medication - Aricept 5 MG Oral Tablet At bedtime 0 days, 0 refills - Aspirin 81 MG Oral Capsule Once a day 0 days, 0 refills - Colace 100 MG Oral Capsule Once a day 0 days, 0 refills - Ferrous Sulfate 324 (65 Fe) MG Oral Tablet Delayed Release Once a day 0 days, 0 refills - FLUoxetine HCl 20 MG Oral Capsule Once a day 0 days, 0 refills - hydrALAZINE HCl 10 MG Oral Tablet Three times a day 0 days, 0 refills - Keppra 1000 MG Oral Tablet Twice a Day 0 days, 0 refills - Lasix 20 MG Oral Tablet As needed 0 days, 0 refills - Lipitor 40 MG Oral Tablet At bedtime 0 days, 0 refills - Losartan Potassium 100 MG Oral Tablet Once a day 0 days, 0 refills - Magnesium Oxide 400 MG Oral Tablet Once a day 0 days, 0 refills - Multivitamin Adult Oral Tablet Once a day 0 days, 0 refills - NexIUM 20 MG Oral Capsule Delayed Release Once a day 0 days, 0 refills - NIFEdipine ER 60 MG Oral Tablet Extended Release 24 Hour Once a day 0 days, 0 refills - Potassium Chloride ER 10 MEQ Oral Tablet Extended Release Once a day 0 days, 0 refills - SEROquel 25 MG Oral Tablet At bedtime 0 days, 0 refills Social History Tobacco use: Never used tobacco. Allergies - Sulfa Antibiotics Physical Findings - Vitals taken 11/27/2023 04:09 pm BP-Sitting 122/66 mmHg 100 - 120/56 - 80 Pulse Rate-Sitting 69 bpm 50 - 100 Temp-Temporal 98.1 F 96 - 101 Height 154.94 cm 149.86 - 172.72 Weight 117 lbs 94 - 170 Body Mass Index 22.1 kg/m2 Body Surface Area 1.5 m2 Oxygen Saturation 98 % 93 - 100 O2 Device None (Room Air) FiO2 21 % Practice Management Medication list documented and review of medications documented. User Defined 20 No frequent falls while walking. No fear of falling. Most recent systolic blood pressure < 130 mmHg. Most recent diastolic blood pressure < 80 mmHg. Patient screened for future fall risk: documentation of no falls in past year.
--- OUTSIDE RECORDS SUMMARY | 2024-05-24 10:37 | XMS_ITS | Continuity of Care Document ---
Author Name Unknown Organization [facility] Address [facility] [address] [place] [address] Care Team Providers Care Net Developer Consultant Name Role Phone Unavailable Primary Care Physician Unavailab le Encounter(s) 05/15/21 - 05/15/21 [facility] [address] P: F: [place] [address]- Encounter Diagnosis Generalized tonic-clonic seizure(Discharge Diagnosis) - 05/15/21 Attending Physician: Riaz Keene MD Referring Physician: DR. EVERARDO GENAO Allergies, Adverse Reactions, Alerts Substance Reaction Severity Status sulfa drugs Active Assessment and Plan Extracted from: Title:Office Visit Note Author:Riaz Keene MD Date:02/02/19 1.??Generalized seizure??(G4 0.409) She has had no further seizures.?? I will continue her present schedule of Keppra. I will see her in followup in 1 year.? cc: Leland Ibanez M.D.? Orders: [id number] office outpatient visit 15 minutes (Charge), Quantity: 1, Generalized seizure ?? Functional Status 05/15/21 Recent Travel History No recent travel Family Member Travel History No recent t ravel Other Exposure to Infectious Disease Unk nown Medications Aspirin 81 mg oral (81 mg), po, daily, # 1 Start Date: 01/29/18 Status: Ordered Alexsandra 10 mg-40 mg oral tablet 1 tablet (10 mg-40 mg), po, daily, # 1 Start Date: 01/29/18 Status: Ordered Caltrate 600 with D 600 mg-400 intl units oral tablet 1 tablet (600 mg-400 intl units), po, tid, # 3 Start Date: 01/29/18 Stop Date: 01/29/18 Status: Discontinued Centrum Silver Therapeutic Multiple Vitamins with Minerals oral (Therapeutic Multiple Vitamins with Minerals), po, daily, # 1 Start Date: 01/29/18 Status: Ordered Clonidine Hydrochloride 0.1 mg oral tablet 1 tablet (0.1 mg), po, bid, # 2 tab(s) Start Date: 01/29/18 Status: Ordered diclofenac sodium 75 mg oral delayed release tablet 0 Refill(s), Type: Maintenance Start Date: 05/15/21 Status: Ordered Fluoxetine Hydrochloride 20 mg oral (20 mg), po, daily, # 1 Start Date: 01/29/18 Status: Ordered Gabapentin 300 mg oral (300 mg), po, daily, # 1 Start Date: 01/29/18 Status: Ordered Ibuprofen 800 mg oral tablet tablet (800 mg), po, tid, # 3 tab(s) Start Date: 01/29/18 Status: Ordered levETIRAcetam 500 mg oral tablet = 1 tab(s) ( 500 mg ), Oral, bid, # 180 tab(s), 3 Refill(s), Type: Maintenance, Pharmacy: [facility], 1 tab(s) Oral bid,x90 day(s) Start Date: 03/05/21 Stop Date: 02/28/22 Status: Ordered Levetiracetam 500 mg oral tablet 1 tablet (500 mg), po, bid, # 2 tab(s) Start Date: 01/29/18 Stop Date: 01/29/18 Status: Discontinued Levetiracetam 500 mg oral tablet 1 tablet (500 mg), po, bid, # 60, Type: Physician Stop Start Date: 01/17/14 Stop Date: 01/17/14 Status: Discontinued Levetiracetam 500 mg oral tablet 1 tablet (500 mg), po, bid, # 180, Type: Physician Stop Start Date: 05/20/14 Stop Date: 05/20/14 Status: Discontinued Levetiracetam 500 mg oral tablet 1 tablet (500 mg), po, bid, # 180, Type: Physician Stop Start Date: 11/22/14 Stop Date: 11/22/14 Status: Discontinued Levetiracetam 500 mg oral tablet 1 tablet (500 mg), po, bid, # 180 tab(s), Type: Physician Stop Start Date: 10/04/16 Stop Date: 10/04/16 Status: Discontinued levETIRAcetam 500 mg oral tablet = 1 tab(s) ( 500 mg ), Oral, bid, 0 Refill(s), Type: Maintenance Start Date: 02/02/19 Stop Date: 02/02/19 Status: Discontinued Lisinopril 20 mg oral tablet 1 tablet (20 mg), po, daily, # 1 tab(s) Start Date: 01/29/18 Stop Date: 01/29/18 Status: Discontinued Lovaza ethyl esters 1000 mg oral capsule 1 capsule (ethyl esters 1000 mg), po, bid, # 2 Start Date: 01/29/18 Status: Ordered Magnesium Oxide 400 mg oral tablet 1 tablet (400 mg), po, daily, # 1 tab(s) Start Date: 01/29/18 Stop Date: 01/29/18 Status: Discontinued morphine Instructions: pump, 0 Refill(s), Type: Maintenance Start Date: 02/02/19 Status: Ordered Nabumetone 500 mg oral tablet 1 tablet (500 mg), po, bid, # 2 tab(s) Start Date: 01/29/18 Status: Ordered Tizanidine Hydrochloride 4 mg oral (4 mg), po, daily, Instructions: at bedtime, # 1 Start Date: 01/29/18 Status: Ordered Vitamin B Complex (), Not Listed, daily, # 1 Start Date: 01/29/18 Status: Ordered Problem List Condition Effective Dates Status Health Status Inform ant Hx of meningioma of the brain(Confirmed) Active Hyperlipemia(Confirmed) Active Mild HTN(Confirmed) Active Generalized tonic-clonic seizure(Confirmed) Active Diagnosis Diagnosis Type Effective Dates Health Status Clinical Service Informant Generalized tonic-clonic seizure Discharge Diagnosis 05/15/21 Generalized seizure Discharge Diagnosis 02/02/19 Procedures Procedure Date Related Diagnosis Body Site Status CTS - Carpal tunnel syndrome Completed Results Radiology Reports * Exam Date Time Procedure Performing Provider Status 10/22/15 12:00 AM General Radiography Report Auth (Verified) [facility] [place] CONTRAST [facility] Final Report Ordering Clinician: RIAZ KEENE MD, [facility] Med Rec #: [id number] Class: O Date of Exam: 10/22/2015 Examination(s): MOB [id number] - MOB MRI BRAIN W/WO CONTRAST ACC# [id number] REPORT: History: seizures, no new symptoms 11ml multihance Routine MRI of the brain is performed. Contrast: 11 mL MultiHance Comparison: MRI brain 08/01/[address] head 12/02/2013 Findings: Stable enhancing calcified mass along the right sphenoid wing measuring 2 cm transverse dimension consistent with meningioma. Again noted is minimal edema in the right frontal lobe adjacent to the superior aspect of the meningioma. Similar appearance of chronic microvascular ischemic changes most prominently in the periatrial regions . Minimal chronic small vessel disease in the brainstem also noted. No areas of restricted diffusion. No intracranial hemorrhage or hydrocephalus. CONCLUSION: Impression: Stable exam again demonstrating 2 cm right sphenoid wing meningioma. No acute intracranial findings. Electronically Signed by: Keysha Bean MD Sales Representative Consultant: [employer] Date/Time: Oct 23 2015 7:52AM Read By: KEYSHA BEAN MD, [facility] Signed by: KEYSHA BEAN MD, [facility] * Exam Date Time Procedure Performing Provider Status 08/01/14 12:00 AM General Radiography Report Auth (Verified) MRI BRAIN W/WO CONTRAST [facility] Final Report Ordering Clinician: RIAZ KEENE MD, [facility] Med Rec #: [id number] Class: O Date of Exam: 08/01/2014 Examination(s): MR 5013 - MRI BRAIN W/WO CONTRAST ACC# [id number] REPORT: History: pacs, menigioma f/u, no new symptoms. one seizure 11/16 but none since. Interpretation: Comparison 12/03/2013. 11 mL of OptiMARK. No change in size of 1.8 x 2.0 cm calcified mildly enhancing mass along the right sphenoid wing minimal edema is seen along the superior aspect of the tumor. There is mild to moderate chronic small vessel ischemic change no new mass or new abnormal enhancement is seen. CONCLUSION: Impression: Stable right sphenoid wing meningioma from prior study. No new findings. Electronically Signed by: Jerardo Perez MD Sales Representative Consultant: [employer] Date/Time: Aug 01 2014 11:29AM Read By: JERARDO PEREZ MD, [facility] Signed by: JERARDO PEREZ MD, [facility] Vital Signs Most recent to oldest [Reference Range]: 1 2 3 Height Measured - Metric 154.94 cm (05/15/21 9:46 AM) 154.94 cm (02/02/19 9:09 AM) Weight Measured 119.13 lb (03/10/17 12:00 AM) 110.00 lb (06/18/16 12:00 AM) 118.00 lb (09/08/15 12:00 AM) Weight Measured - Metric 48 kg (05/15/21 9:46 AM) 50.2 kg (02/02/19 9:09 AM) Body Mass Index - Metric 19.99 kg/m2 (05/15/21 9:46 AM) 20.91 kg/m2 (02/02/19 9:09 AM) Temperature Oral 98.1 DegF (03/10/17 12:00 AM) Temperature Temporal [97.3-100 DegF] 98.2 DegF (05/15/21 9:46 AM) 97.9 DegF (02/02/19 9:09 AM) Blood Pressure [90-140/60-80 mmHg] 112/64mmHg (05/15/21 9:46 AM) Blood Pressure [90-130/60-80 mmHg] 110/52mmHg (02/02/19 9:09 AM) Blood Pressure 124/58mmHg (03/10/17 12:00 AM) Mean Arterial Pressure 80 mmHg (05/15/21 9:46 AM) 71 mmHg (02/02/19 9:09 AM) Peripheral Pulse Rate [60-100 bpm] 68 bpm (05/15/21 9:46 AM) 60 bpm (02/02/19 9:09 AM) Pulse Rate 64 bpm (03/10/17 12:00 AM) 64 bpm (06/18/16 12:00 AM) 72 bpm (09/08/15 12:00 AM) Respiratory Rate [14-20 br/min] 16 br/min (05/15/21 9:46 AM) 16 br/min (02/02/19 9:09 AM) Respiratory Rate 16 br/min (03/10/17 12:00 AM) Allergies Verified? Yes (05/15/21 9:46 AM) Yes (02/02/19 9:09 AM) Medication History Verified? Yes (05/15/21 9:46 AM) Yes (02/02/19 9:09 AM) Medical History Verified? Yes (05/15/21 9:46 AM) Yes (02/02/19 9:09 AM) Height Measured 61 in (02/02/19 9:09 AM) Height Measured 5.17 ft (03/10/17 12:00 AM) 5.17 ft (06/18/16 12:00 AM) Social History Social History Type Response Smoking Status Never (less than 100 in lifetime) entered on: 05/11/21 Sex Female Hospital Discharge Instructions Patient Education 05/15/2021 08:49:31 Epilepsy Epilepsy Epilepsy is a condition in which a person has repeated seizures over time. A seizure is a sudden burst of abnormal electrical and chemical activity in the brain. Seizures can cause a change in attention, behavior, or the ability to remain awake and alert (altered mental status). Epilepsy increases a person's risk of falls, accidents, and injury. It can also lead to complications, including: ??? Depression. ??? Poor memory. ??? Sudden unexplained in epilepsy (SUDEP). This complication is rare, and its cause is not known. Most people with epilepsy lead normal lives. What are the causes? This condition may be caused by: ??? A head injury. ??? An injury that happens at . ??? A high fever during childhood. ??? A stroke. ??? Bleeding that goes into or around the brain. ??? Certain medicines and drugs. ??? Having too little oxygen for a long period of time. ??? Abnormal brain development. ??? Certain infections, such as meningitis and encephalitis. ??? Brain tumors. ??? Conditions that are passed from parent to child (are hereditary). What are the signs or symptoms? Symptoms of a seizure vary greatly from person to person. They may include: ??? Convulsions. ??? Stiffening of the body. ??? Involuntary movements of the arms or legs. ??? Loss of consciousness. ??? Breathing problems. ??? Falling suddenly. ??? Confusion. ??? Head nodding. ??? Eye blinking or fluttering. ??? Lip smacking. ??? Drooling. ??? Rapid eye movements. ??? Grunting. ??? Loss of bladder control and bowel control. ??? Staring. ??? Unresponsiveness. Some people have symptoms right before a seizure happens (aura) and right after a seizure happens. Symptoms of an aura include: ??? Fear or anxiety. ??? Nausea. ??? Feeling like the room is spinning (vertigo). ??? A feeling of having seen or heard something before (d??j?? vu). ??? Odd tastes or smells. ??? Changes in vision, such as seeing flashing lights or spots. Symptoms that follow a seizure include: ??? Confusion. ??? Sleepiness. ??? Headache. How is this diagnosed? This condition is diagnosed based on: ??? Your symptoms. ??? Your medical history. ??? A physical exam. ??? A neurological exam. A neurological exam is similar to a physical exam. It involves checking your strength, reflexes, coordination, and sensations. ??? Tests, such as: ??? A painless test that creates a diagram of your brain waves (electroencephalogram, orEEG). ??? An MRI. ??? A CT scan. ??? A lumbar puncture, also called a spinal tap. ??? Blood tests to check for signs of infection or abnormal blood chemistry. How is this treated? Treatment can control seizures. Some types of epilepsy will need lifelong treatment, and some typesgo away in time. Treatment for this condition may involve: ??? Taking medicines to control seizures. ??? Having a device called a vagus nerve stimulator implanted in the chest. The device sends electrical impulses to the vagus nerve and to the brain to prevent seizures. This treatment may be recommended if medicines do not help. ??? Brain surgery. There are several kinds of surgeries that may be done to stop seizures from happening or to reduce how often seizures happen. ??? Having regular blood tests. You may need to have blood tests regularly to check that you are getting the right amount of medicine. Once this condition has been diagnosed, it is important to begin treatment as soon as possible. Forsome people, epilepsy eventually goes away. Follow these instructions at home: Medicines ??? Take amcp-gcu-ywkaiyl and prescription medicines only as told by your health care provider. ??? Avoid any substances that may prevent your medicine from working properly, such as alcohol. Activity ??? Get enough rest. Lack of sleep can make seizures more likely to occur. ??? Follow instructions from your health care provider about driving, swimming, and doing any otheractivities that would be dangerous if you had a seizure. ??? If you live in the [place] check with your local DMV (department of motor vehicles) to find out about local driving laws. Each state has specific rules about when you can legally return to driving. Educating others Teach friends and family what to do if you have a seizure. They should: ??? Lay you on the ground to prevent a fall. ??? Cushion your head and body. ??? Loosen any tight clothing around your neck. ??? Turn you on your side. If vomiting occurs, this helps keep your airway clear. ??? Stay with you until you recover. ??? Not hold you down. Holding you down will not stop the seizure. ??? Not put anything in your mouth. ??? Know whether or not you need emergency care. General instructions ??? Avoid anything that has ever triggered a seizure for you. ??? Keep a seizure diary. Record what you remember about each seizure, especially anything that might have triggered the seizure. ??? Keep all follow-up visits as told by your health care provider. This is important. Contact a health care provider if: ??? Your seizure pattern changes. ??? You have symptoms of infection or another illness. This might increase your risk of having a seizure. Get help right away if: ??? You have: ??? A seizure that does not stop after 5 minutes. ??? Several seizures in a row without a complete recovery between seizures. ??? A seizure that makes it harder to breathe. ??? A seizure that is different from previous seizures. ??? A seizure that leaves you unable to speak or use a part of your body. ??? You did not wake up immediately after a seizure. These symptoms may represent a serious problem that is an emergency. Do not wait to see if the symptoms will go away. Get medical help right away. Call your local emergency services (911 in the [place] Do not drive yourself to the hospital. Summary ??? Epilepsy is a condition in which a person has repeated seizures over time. Some types of epilepsy will need lifelong treatment, and some types go away in time. ??? Seizures can cause many symptoms, from brief staring spells or involuntary movements of the arms or legs to convulsions with loss of consciousness. ??? Treatment is effective at controlling seizures. Take teev-xre-pxnasww and prescription medicines only as told by your health care provider. ??? Follow instructions from your health care provider about driving, swimming, and doing any otheractivities that would be dangerous if you had a seizure. ??? Teach friends and family what to do if you have a seizure. This information is not intended to replace advice given to you by your health care provider. Make sure you discuss any questions you have with your health care provider. Document Released: 10/20/2006 Document Revised: 06/14/2019 Document Reviewed: 06/14/2019 [employer] Patient Education ?? 2020 Else[employer] Inc.
--- OUTSIDE RECORDS SUMMARY | 2024-05-24 10:37 | XMS_ITS | Continuity of Care Document ---
Author Name Unknown Organization [facility] Address [facility] [address] [place] [address] Encounter 05/15/21 - 05/15/21 [facility] [address] P: F: [place] [address]- Encounter Diagnosis Generalized tonic-clonic seizure(Discharge Diagnosis) - 05/15/21 Attending Physician: Riaz Guido MD Referring Physician: DR. EVERARDO GENAO Allergies, Adverse Reactions, Alerts Substance Reaction Severity Status sulfa drugs Active Assessment and Plan Extracted from: Title:Office Visit Note Author:Riaz Guido MD Date:05/15/21 1.??Generalized tonic-clonic seizure??(G40.409) She has had no further seizures.?? I will continue her present schedule of Lori. I will see her in followup in??1 year.? cc:?Everardo Genao D.O. ? Ordered: [id number] office o/p est low 20-29 min (Charge), Quantity: 1, Generalized tonic- clonic seizure ?? Functional Status 05/15/21 Recent Travel [...] 180 tab(s), 3 Refill(s), Type: Maintenance, Pharmacy: [facility], 1 tab(s) Oral bid,x90 day(s) Start Date: 03/05/21 Stop Date: 05/15/21 Status: Discontinued levETIRAcetam 500 mg oral tablet = 1 tab(s) ( 500 mg ), Oral, bid, # 180 tab(s), 3 Refill(s), Type: Maintenance, Pharmacy: [facility], 1 tab(s) Oral bid,x90 day(s), 154.94, cm, 05/15/21 9:46:00 EDT, Height Measured - Metric, 48, kg, 05/15/21 9:46:00 EDT, Weight Measured - Metric Start Date: 05/15/21 Stop Date: 05/10/22 Status: Ordered Levetiracetam 500 mg oral tablet [...] Informant Generalized tonic-clonic seizure Discharge Diagnosis 05/15/21 Procedures Procedure Date Related Diagnosis Body Site Status CTS - Carpal tunnel syndrome Completed Vital Signs Most recent to oldest [Reference Range]: 1 Height Measured - Metric 154.94 cm (05/15/21 9:46 AM) Weight Measured - Metric 48 kg (05/15/21 9:46 AM) Body Mass Index - Metric 19.99 kg/m2 (05/15/21 9:46 AM) Temperature Temporal [97.3-100 DegF] 98. 2 DegF (05/15/21 9:46 AM) Blood Pressure [90-140/60-80 mmHg] 112/6 4mmHg (05/15/21 9:46 AM) Mean Arterial Pressure 80 mmHg (05/15/21 9:46 AM) Peripheral Pulse Rate [60-100 bpm] 68 bp m (05/15/21 9:46 AM) Respiratory Rate [14-20 br/min] 16 br/mi n (05/15/21 9:46 AM) Allergies Verified? Yes (05/15/21 9:46 AM) Medication History Verified? Yes (05/15/21 9:46 AM) Medical History Verified? Yes (05/15/21 9:46 AM) Social History Social History Type Response [...] these instructions at home: Medicines ??? Take eeij-ffl-ymcvvag and prescription medicines only as told by [...] check with your local DMV (department of [employer] vehicles) to find out about local driving [...] Treatment is effective at controlling seizures. Take quge-pmh-ismhxgv and prescription medicines only as told by [...] 10/20/2006 Document Revised: 06/14/2019 Document Reviewed: 06/14/2019 Elsevier Patient Education ?? 2020 [employer]
--- OUTSIDE RECORDS SUMMARY | 2024-05-24 10:37 | XMS_ITS | Continuity of Care Document ---
Author Name Unknown Organization [facility] Address [facility] [address] [place] [address] Encounter 09/19/22 - 09/21/22 [facility] [address] P: F: [place] [address]- Attending Physician: Riaz Guido MD Referring Physician: DR. ALMA SANCHEZ Allergies, Adverse Reactions, Alerts Substance Reaction Severity Status sulfa drugs Mild Active Functional Status 09/19/22 Recent Travel History No recent travel Family Member Travel History No recent t ravel Other Exposure to Infectious Disease Unk nown Medications Aspirin 81 mg oral (81 mg), po, daily, # 1 Start Date: 01/29/18 Status: Ordered atorvastatin 40 mg oral tablet = 1 tab(s) ( 40 mg ), Oral, daily, # 90 tab(s), 0 Refill(s), Type: Maintenance Start Date: 09/19/22 Status: Ordered Centrum Silver Therapeutic Multiple Vitamins with Minerals oral (Therapeutic Multiple Vitamins with Minerals), po, daily, # 1 Start Date: 01/29/18 Status: Ordered famotidine 20 mg oral tablet 0 Refill(s), Type: Maintenance Start Date: 09/19/22 Status: Ordered FeroSul 325 mg (65 mg elemental iron) oral tablet 0 Refill(s), Type: Maintenance Start Date: 09/19/22 Status: Ordered Fluoxetine Hydrochloride 20 mg oral (20 mg), po, daily, # 1 Start Date: 01/29/18 Status: Ordered furosemide 20 mg oral tablet 0 Refill(s), Type: Maintenance Start Date: 09/19/22 Status: Ordered hydrALAZINE 10 mg oral tablet = 1 tab(s) ( 10 mg ), tid, 0 Refill(s), Type: Maintenance Start Date: 09/19/22 Status: Ordered Ibuprofen 800 mg oral tablet tablet (800 mg), po, tid, # 3 tab(s) Start Date: 01/29/18 Status: Ordered levETIRAcetam 1000 mg oral tablet = 1 tab(s) ( 1,000 mg ), bid, 0 Refill(s), Type: Maintenance Start Date: 09/19/22 Status: Ordered levothyroxine 25 mcg (0.025 mg) oral tablet = 1 tab(s) ( 25 mcg ), Oral, daily, # 30 tab(s), 0 Refill(s), Type: Maintenance Start Date: 09/19/22 Status: Ordered losartan 100 mg oral tablet = 1 tab(s) ( 100 mg ), Oral, daily, # 30 tab(s), 0 Refill(s), Type: Maintenance Start Date: 09/19/22 Status: Ordered Lovaza ethyl esters 1000 mg oral capsule 1 capsule (ethyl esters 1000 mg), po, bid, # 2 Start Date: 01/29/18 Status: Ordered morphine Instructions: pump, 0 Refill(s), Type: Maintenance Start Date: 02/02/19 Status: Ordered NIFEdipine (Eqv-Adalat CC) 90 mg oral tablet, extended release 0 Refill(s), Type: Maintenance Start Date: 09/19/22 Status: Ordered potassium citrate 10 mEq oral tablet, extended release 0 Refill(s), Type: Maintenance Start Date: 09/19/22 Status: Ordered QUEtiapine 25 mg oral tablet = 1 tab(s) ( 25 mg ), hs, 0 Refill(s), Type: Maintenance Start Date: 09/19/22 Status: Ordered Problem List Condition Confirmation Course Effective Dates Status Health St atus Informant Hx of meningioma of the brain Confirmed Active Hyperlipemia Confirmed Active Mild HTN Confirmed Active Generalized tonic-clonic seizure Confirmed Active Procedures Procedure Date Related Diagnosis Body Site Status CTS - Carpal tunnel syndrome Completed Vital Signs Most recent to oldest [Reference Range]: 1 Height Measured - Metric 154.94 cm (09/19/22 10:42 AM) Weight Measured - Metric 51.5 kg (09/19/22 10:42 AM) Body Mass Index - Metric 21.45 kg/m2 (09/19/22 10:42 AM) Temperature Temporal [97.3-100 DegF] 97. 1 DegF *LOW* (09/19/22 10:42 AM) Blood Pressure [90-120/60-80 mmHg] 112/5 0mmHg (09/19/22 10:42 AM) Mean Arterial Pressure 71 mmHg (09/19/22 10:42 AM) Peripheral Pulse Rate [60-100 bpm] 68 bp m (09/19/22 10:42 AM) Respiratory Rate [14-20 br/min] 16 br/mi n (09/19/22 10:42 AM) Allergies Verified? Yes (09/19/22 10:42 AM) Medication History Verified? Yes (09/19/22 10:42 AM) Medical History Verified? Yes (09/19/22 10:42 AM) Social History Social History Type Response Smoking Status Never (less than 100 in lifetime) entered on: 06/14/22 Sex Female
--- OUTSIDE RECORDS SUMMARY | 2024-05-24 10:37 | XMS_ITS | Continuity of Care Document ---
Author Name Unknown Organization [facility] Address [facility] [address] [place] [address] Care Team Providers Care Visual Merchandise Manager Name Role Phone Unavailable Primary Care Physician Unavailab le Encounter(s) 02/02/19 [facility] [address] P: F: [place] [address] [place] Attending Physician: Riaz Guido MD Referring Physician: DR. FEI FRANKLIN Allergies, Adverse Reactions, Alerts Substance Reaction Severity Status sulfa drugs Active Medications Aspirin 81 mg oral (81 mg), [...] 2 tab(s) Start Date: 01/29/18 Status: Ordered Fluoxetine Hydrochloride 20 mg oral (20 mg), po, daily, # 1 Start Date: 01/29/18 Status: Ordered Gabapentin 300 mg oral (300 mg), po, daily, # 1 Start Date: 01/29/18 Status: Ordered Ibuprofen 800 mg oral tablet tablet (800 mg), po, tid, # 3 tab(s) Start Date: 01/29/18 Status: Ordered Levetiracetam 500 mg oral tablet 1 tablet (500 mg), po, bid, # 180 tab(s), Type: Physician Stop Start Date: 10/04/16 Stop Date: 10/04/16 Status: Discontinued Levetiracetam 500 mg oral tablet [...] Date: 01/29/18 Stop Date: 01/29/18 Status: Discontinued Lisinopril 20 mg oral tablet [...] brain(Confirmed) Active Hyperlipemia(Confirmed) Active Mild HTN(Confirmed) Active Seizure(Confirmed) Active Procedures Procedure Date Related Diagnosis Body Site Status CTS - Carpal tunnel syndrome Completed Vital Signs Most recent to oldest [Reference Range]: 1 2 3 Height Measured - Metric 154.94 cm (02/02/19 9:09 AM) Weight Measured 119.13 lb (03/10/17 12:00 AM) 110.00 lb (06/18/16 12:00 AM) 118.00 lb (09/08/15 12:00 AM) Weight Measured - Metric 50.2 kg (02/02/19 9:09 AM) Body Mass Index - Metric 20.91 kg/m2 (02/02/19 9:09 AM) Temperature Oral 98.1 DegF (03/10/17 12:00 AM) Temperature Temporal [97.3-100 DegF] 97.9 DegF (02/02/19 9:09 AM) Blood Pressure [90-130/60-80 mmHg] 110/52mmHg (02/02/19 9:09 AM) Blood Pressure 124/58mmHg (03/10/17 12:00 AM) 162/66mmHg (06/18/16 12:00 AM) Mean Arterial Pressure 71 mmHg (02/02/19 9:09 AM) Peripheral Pulse Rate [60-100 bpm] 60 bpm (02/02/19 9:09 AM) Pulse Rate 64 bpm (03/10/17 12:00 AM) 64 bpm (06/18/16 12:00 AM) 72 bpm (09/08/15 12:00 AM) Respiratory Rate [14-20 br/min] 16 br/min (02/02/19 9:09 AM) Respiratory Rate 16 br/min (03/10/17 12:00 AM) Allergies Verified? Yes (02/02/19 9:09 AM) Medication History Verified? Yes (02/02/19 9:09 AM) Medical History Verified? Yes (02/02/19 9:09 AM) Height Measured 61 in (02/02/19 9:09 AM) Height Measured 5.17 ft (03/10/17 12:00 AM) 5.17 ft (06/18/16 12:00 AM) Social History Social History Type Response Smoking Status Never (less than 100 in lifetime) entered on: 06/10/18
--- OUTSIDE RECORDS SUMMARY | 2024-05-24 10:37 | XMS_ITS | Continuity of Care Document ---
Author Name Unknown Organization [facility] Address [facility] [address] [place] [address] Care Team Providers Care Salon Designer Name Role Phone Unavailable Primary Care Physician Unavailab le Encounter(s) 02/02/19 [facility] [address] P: [place]: [place] [address] [place] Attending Physician: Riaz Guido MD Referring [...] Date: 01/29/18 Stop Date: 01/29/18 Status: Discontinued Nabumetone 500 mg oral tablet 1 tablet [...] to oldest [Reference Range]: 1 2 3 Weight Measured 119.13 lb (03/10/17 12:00 AM) 110.00 lb (06/18/16 12:00 AM) 118.00 lb (09/08/15 12:00 AM) Temperature Oral 98.1 DegF (03/10/17 12:00 AM) Blood Pressure 124/58mmHg (03/10/17 12:00 AM) 162/66mmHg (06/18/16 12:00 AM) 112/60mmHg (09/08/15 12:00 AM) Pulse Rate 64 bpm (03/10/17 12:00 AM) 64 bpm (06/18/16 12:00 AM) 72 bpm (09/08/15 12:00 AM) Respiratory Rate 16 br/min (03/10/17 12:00 AM) Height Measured 5.17 ft (03/10/17 12:00 AM) 5.17 ft (06/18/16 12:00 AM) 5.17 ft (09/08/15 12:00 AM) Social History Social History Type Response Smoking Status Never (less than 100 in lifetime) entered on: 06/10/18
--- OUTSIDE RECORDS SUMMARY | 2024-05-24 10:37 | XMS_ITS | Clinical Summary ---
Author Name Unknown Address [address] [place], [place] Phone Organization [facility] Address [address] [place], [place] Phone Care Team Providers Care Grease Remover Name Role Phone Hernan MADRID, Edward Michelle Unavailable [phone] Reason for Visit and Chief Complaint referred by Dr. Mary - The Chief Complaint is: New pt referral- Seizures Plan of Treatment Future Appointments Date Time Location Provi daniel Return Visit 09/16/2024 1:00PM [facility] [place] [employer] MD Last Documented On 4:27PM ; [facility] - Implanted Devices Includes: Current Devices No Medical Equipment Recorded Medications Includes: Medications discussed during this encounter and other current Medications Current Medications (continue as prescribed) Aricept 5 MG Oral Tablet 11/27/2023 Provider: Diagnosis: Last Documented On 11/27/2023 2:53PM By Brittanie Grady ; [email or web address] NIFEdipine ER 60 MG Oral Tablet Extended Release 24 Ho ur 11/27/2023 Provider: Diagnosis: Last Documented On 11/27/2023 2:53PM By Brittanie Grady ; [facility] Potassium Chloride ER 10 MEQ Oral Tablet Extended Rele ase 11/27/2023 Provider: Diagnosis: Last Documented On 11/27/2023 2:53PM By Brittanie Grady ; [facility] NexIUM 20 MG Oral Capsule Delayed Release 11/27/2023 Provider: Diagnosis: Last Documented On 11/27/2023 2:53PM By Brittanie Grady ; [facility] hydrALAZINE HCl 10 MG Oral Tablet 11/27/2023 Provide r: Diagnosis: Last Documented On 11/27/2023 2:54PM By Brittanie Grady ; [facility] SEROquel 25 MG Oral Tablet 11/27/2023 Provider: Diagnosis: Last Documented On 11/27/2023 2:54PM By Brittanie Grady ; [facility] Lasix 20 MG Oral Tablet 11/27/2023 Provider: Diagnosis: Last Documented On 11/27/2023 2:54PM By Brittanie Grady ; [facility], [facility] Lipitor 40 MG Oral Tablet 11/27/2023 Provider: Diagnosis: Last Documented On 11/27/2023 2:54PM By Brittanie Grady ; [facility], [facility] Keppra 1000 MG Oral Tablet 11/27/2023 Provider: Diagnosis: Last Documented On 11/27/2023 2:54PM By Brittanie Grady ; [facility] Losartan Potassium 100 MG Oral Tablet 11/27/2023 Pro vider: Diagnosis: Last Documented On 11/27/2023 2:55PM By Brittanie Grady ; [facility] Aspirin 81 MG Oral Capsule 11/27/2023 Provider: Diagnosis: Last Documented On 11/27/2023 2:55PM By Brittanie Grady ; [facility] Ferrous Sulfate 324 (65 Fe) MG Oral Tablet Delayed Rel ease 11/27/2023 Provider: Diagnosis: Last Documented On 11/27/2023 2:55PM By Brittanie Grady ; [facility], [facility] FLUoxetine HCl 20 MG Oral Capsule 11/27/2023 Provide r: Diagnosis: Last Documented On 11/27/2023 2:55PM By Brittanie Grady ; [facility], [facility] Colace 100 MG Oral Capsule 11/27/2023 Provider: Diagnosis: Last Documented On 11/27/2023 2:55PM By Brittanie Grady ; [facility], [facility] Magnesium Oxide 400 MG Oral Tablet 11/27/2023 Provid er: Diagnosis: Last Documented On 11/27/2023 2:56PM By Brittanie Grady ; [employer] [employer] Multivitamin Adult Oral Tablet 11/27/2023 Provider: Diagnosis: Last Documented On 11/27/2023 2:56PM By Brittanie Grady ; [facility] Medications Administered Includes: Administered Medications from this encounter No Administered Medications Recorded Vital Signs Includes: Vital Signs from this encounter Vital Name 11/27/2023 04:09P Blood Pressure Sitting (mmHg) 122/66 Pulse Rate-Sitting (bpm) 69 Temp-Temporal 98.1 Height (in) 60.611057 Weight (lb) 117 Body Mass Index 22.1 Body Surface Area 1.5 Oxygen Saturation (%) 98 Flow Rate (l/min) (None (Room Air)) FiO2 (%) 21 Last Documented On: 11/27/2023 4:09PM ; [email or web address] Results Includes: Results discussed during this encounter No Results Recorded For Specified Dates History of Present Illness Includes: History of Present Illness from this encounter HPI Viry Van is an 83 year old [...] has requested that date as a follow-up. No frequent falls while walking. No fear of falling. Most recent systolic blood pressure < 130 mmHg. Most recent diastolic blood pressure < 80 mmHg. Patient screened for future fall risk: documentation of no falls in past year. Social History Description Last Updated Never used tobacco 11/27/2023 Last Documented On 4 6:52PM ; [employer] Smoking Status Unknown Procedures and Surgical History Includes: Procedures from this encounter Procedures Code Diagnosis Performing Provider Service L ocation Service Date medication list documented 1159F Last Documented On 4 4:11PM ; [place] [employer] [facility] review of medications documented 1160F Last Documented On 4 4:11PM ; [place] [employer] [facility] Medical History Includes: Medical History addressed during this encounter No Medical History Recorded Family History Includes: Family History addressed during this encounter No Family History Recorded Review of Systems Includes: Review of Systems from this encounter No Review of Systems Recorded Mental Status Includes: Mental Status from this encounter No Mental Status Recorded Functional Status Includes: Functional Status from this encounter No Functional Status Recorded Physical Exam Includes: Physical Exam from this encounter Allergies Includes: Active Allergies Substance Type Reaction Onset Date Resolved Date Statu s Sulfa Antibiotics Allergy 11/27/2023 A ctive Last Documented On 4 3:46PM ; [place] [employer] [facility] Encounters Encounter Provider Location Date Check-In Time Check- Out Time Diagnosis New Patient Level 2 Edward Becerra MD [facility] 4 3:09PM 4:26PM Insurance Includes: Active Insurance Policies Plan Name Member ID Group # Subscriber Relationship Effect shania Dates 1 - *Medic[employer] [id number] Viry Van Self 4 - Unknown Clinical Notes Includes: Clinical Notes from this encounter * Progress note Date Encounter Last Documented by 11/27/2023 New Patient Level 2 Last docjoss sierra on 12/12/2023; 6:52 PM, Edward Becerra MD; [facility] Chief Complaint The Chief Complaint is: New [...]
--- OUTSIDE RECORDS SUMMARY | 2024-05-24 10:37 | XMS_ITS ---
Care Plan - [facility] Created on: May 24, 2024 Viry Van : 1940 Sex: Female Author Name Unknown Address [address] [place], [place] Phone Organization [facility] [employer] [facility] Address [address] [place], [place] Phone Care Team Providers Care [employer] Consultant Name Role Phone Edward Becerra MD Unavailable [phone]
--- OUTSIDE RECORDS SUMMARY | 2024-05-24 10:38 | XMS_ITS | Continuity of Care Document ---
Author Name Unknown Organization [facility] Address [facility] [address] [place] [address] Encounter 02/02/19 - 02/04/19 [facility] [address] P: F: [place] [address] Encounter Diagnosis Generalized seizure(Discharge Diagnosis) - 02/02/19 Attending Physician: Riaz Guido MD Referring Physician: DR. LELAND FRANKLIN Allergies, Adverse Reactions, Alerts Substance Reaction Severity Status sulfa drugs Active Assessment and Plan Extracted from: Title:Office Visit Note Author:Riaz Guido MD Date:02/02/19 1.??Generalized seizure??(G4 0.409) She has had no further seizures.?? I will continue her present schedule of Lori. I will see her in followup in 1 year.? cc: Leland Franklin M.D.? Orders: [id number] office outpatient visit 15 minutes (Charge), Quantity: 1, Generalized seizure ?? Medications Aspirin 81 mg oral (81 mg), [...] 180 tab(s), 3 Refill(s), Type: Maintenance, Pharmacy: [facility], 1 tab(s) Oral bid,x90 day(s) Start Date: 02/02/19 Stop Date: 01/28/20 Status: Ordered levETIRAcetam 500 mg oral tablet = 1 tab(s) ( 500 mg ), Oral, bid, 0 Refill(s), Type: Maintenance Start Date: 02/02/19 Stop Date: 02/02/19 Status: Discontinued Levetiracetam 500 mg oral tablet [...] brain(Confirmed) Active Hyperlipemia(Confirmed) Active Mild HTN(Confirmed) Active Diagnosis Diagnosis Type Effective Dates Health Status Clinical Service Informant Generalized seizure Discharge Diagnosis 02/02/19 Procedures Procedure Date Related Diagnosis Body Site Status CTS - Carpal tunnel syndrome Completed Vital Signs Most recent to oldest [Reference Range]: 1 Height Measured - Metric 154.94 cm (02/02/19 9:09 AM) Weight Measured - Metric 50.2 kg (02/02/19 9:09 AM) Body Mass Index - Metric 20.91 kg/m2 (02/02/19 9:09 AM) Temperature Temporal [97.3-100 DegF] 97. 9 DegF (02/02/19 9:09 AM) Blood Pressure [90-130/60-80 mmHg] 110/5 2mmHg (02/02/19 9:09 AM) Mean Arterial Pressure 71 mmHg (02/02/19 9:09 AM) Peripheral Pulse Rate [60-100 bpm] 60 bp m (02/02/19 9:09 AM) Respiratory Rate [14-20 br/min] 16 br/mi n (02/02/19 9:09 AM) Allergies Verified? Yes (02/02/19 9:09 AM) Medication History Verified? Yes (02/02/19 9:09 AM) Medical History Verified? Yes (02/02/19 9:09 AM) Height Measured 61 in (02/02/19 9:09 AM) Social History Social History Type Response Smoking Status Never (less than 100 in lifetime) entered on: 06/10/18
--- OUTSIDE RECORDS SUMMARY | 2024-05-24 10:38 | XMS_ITS | Continuity of Care Document ---
Author Name Unknown Organization [facility] Address [facility] [address] [place] [address] Care Team Providers Care Food Service Worker Hospital Name Role Phone Unavailable Primary Care Physician Unavailab le Encounter(s) 09/19/22 [facility] [address] P: F: [place] [address] [place] Attending Physician: Riaz Keene MD Referring Physician: DR. 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 I will continue her present schedule of Keppra. I will see her in followup in??1 year.? cc:?Genie Beth D.O. ? Ordered: [id number] office o/p est low 20-29 min (Charge), Quantity: 1, Generalized tonic- clonic seizure ?? Extracted from: Title:Office Visit Note Author:Riaz Keene MD Date:02/02/19 1.??Generalized seizure??(G4 0.409) She has had no further seizures.?? I will continue her present schedule of Keppra. I will see her in followup in 1 year.? cc: Leland Ibanez M.D.? Orders: [id number] office outpatient visit 15 minutes (Charge), Quantity: 1, Generalized seizure ?? Functional Status 09/19/22 Recent Travel History No [...] Confirmed Active Generalized tonic-clonic seizure Confirmed Active Diagnosis Diagnosis Type Effective Dates Health Status Clinical Service Informant Generalized tonic-clonic seizure Discharge Diagnosis 05/15/21 Generalized seizure Discharge Diagnosis 02/02/19 Procedures Procedure Date Related Diagnosis Body Site Status CTS - Carpal tunnel syndrome Completed Results Radiology Reports * Exam Date Time Procedure Performing Provider Status 10/22/15 12:00 AM General Radiography Report Auth (Verified) [facility] MRI BRAIN W/WO CONTRAST [facility] Final Report Ordering Clinician: RIAZ KEENE MD, [facility] Med Rec #: [id number] Class: O Date of Exam: 10/22/2015 Examination(s): [facility] 0442 - [facility] MRI BRAIN W/WO CONTRAST ACC# [id number] REPORT: History: seizures, no new symptoms 11ml [...] findings. Electronically Signed by: Keysha Bean MD Brokerage Clerk: NAOMIE Transcribe Date/Time: Oct 23 2015 7:52AM Read By: KEYSHA BEAN MD, [facility] Signed by: KEYSHA BEAN MD, [facility] * Exam Date Time Procedure Performing Provider Status 08/01/14 12:00 AM General Radiography Report Auth (Verified) MRI BRAIN W/WO CONTRAST [facility] Final Report Ordering Clinician: RIAZ KEENE MD, [facility] Med Rec #: [id number] Class: O Date of Exam: 08/01/2014 Examination(s): MR 5013 - MRI BRAIN W/WO CONTRAST ACC# [id number] REPORT: History: pacs, menigioma f/u, no new [...] findings. Electronically Signed by: Jerardo Perez MD Brokerage Clerk: PSCChloe Transcribe Date/Time: Aug 01 2014 11:29AM Read By: JERARDO PEREZ MD, [facility] Signed by: JERARDO PEREZ MD, [facility] Vital Signs Most recent to oldest [Reference Range]: 1 2 3 Height Measured - Metric 154.94 cm (09/19/22 10:42 AM) 154.94 cm (05/15/21 9:46 AM) 154.94 cm (02/02/19 9:09 AM) Weight Measured 119.13 lb (03/10/17 12:00 AM) 110.00 lb (06/18/16 12:00 AM) 118.00 lb (09/08/15 12:00 AM) Weight Measured - Metric 51.5 kg (09/19/22 10:42 AM) 48 kg (05/15/21 9:46 AM) 50.2 kg (02/02/19 9:09 AM) Body Mass Index - Metric 21.45 kg/m2 (09/19/22 10:42 AM) 19.99 kg/m2 (05/15/21 9:46 AM) 20.91 kg/m2 (02/02/19 9:09 AM) Temperature Oral 98.1 DegF (03/10/17 12:00 AM) Temperature Temporal [97.3-100 DegF] 97.1 DegF *LOW* (09/19/22 10:42 AM) 98.2 DegF (05/15/21 9:46 AM) 97.9 DegF (02/02/19 9:09 AM) Blood Pressure [90-120/60-80 mmHg] 112/50mmHg (09/19/22 10:42 AM) Blood Pressure [90-140/60-80 mmHg] 112/64mmHg (05/15/21 9:46 AM) Blood Pressure [90-130/60-80 mmHg] 110/52mmHg (02/02/19 9:09 AM) Mean Arterial Pressure 71 mmHg (09/19/22 10:42 AM) 80 mmHg (05/15/21 9:46 AM) 71 mmHg (02/02/19 9:09 AM) Peripheral Pulse Rate [60-100 bpm] 68 bpm (09/19/22 10:42 AM) 68 bpm (05/15/21 9:46 AM) 60 bpm (02/02/19 9:09 AM) Pulse Rate 64 bpm (03/10/17 12:00 AM) 64 bpm (06/18/16 12:00 AM) 72 bpm (09/08/15 12:00 AM) Respiratory Rate [14-20 br/min] 16 br/min (09/19/22 10:42 AM) 16 br/min (05/15/21 9:46 AM) 16 br/min (02/02/19 9:09 AM) Allergies Verified? Yes (09/19/22 10:42 AM) Yes (05/15/21 9:46 AM) Yes (02/02/19 9:09 AM) Medication History Verified? Yes (09/19/22 10:42 AM) Yes (05/15/21 9:46 AM) Yes (02/02/19 9:09 AM) Medical History Verified? Yes (09/19/22 10:42 AM) Yes (05/15/21 9:46 AM) Yes (02/02/19 9:09 AM) Height Measured 61 in (02/02/19 9:09 AM) Height Measured 5.17 ft (03/10/17 12:00 AM) 5.17 ft (06/18/16 12:00 AM) Social History Social History Type Response Smoking Status Never (less than 100 in lifetime) entered on: 06/14/22 Sex Female Hospital Discharge Instructions Patient Education [...] these instructions at home: Medicines ??? Take [id number] and prescription medicines only as told by [...] Treatment is effective at controlling seizures. Take oozv-hky-nezpczi and prescription medicines only as told by [...] Reviewed: 06/14/2019 [employer] Patient Education ?? 2020 [employer] 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 She has had no further seizures. She is tolerating the Keppra without any untoward side effects.? Review of Systems Her past medical history is remarkable for hypertension, chronic low back pain, and hyperlipidemia.??She has an implanted intrathecal pump for the delivery of morphine. ?? The remainder of the 10 point review of systems, family history, and social history were reviewed as documented in the attached records and are unchanged compared to when I last saw her.? Physical Exam Vitals & Measurements T:??97.9(Temporal Artery)?? HR:??60(Peripheral)?? RR:??16?? BP:??110/52?? HT:??154.94??cm?? HT:??61??in?? WT:??50.2??kg?? BMI:??20.91?? On physical examination, the pupils are 3 mm equal and reactive. The extraocular movements are intact. The discs are flat. She has good tone throughout. She has??mild??bilateral, maximum right, thenar atrophy. Reflexes are 2+ and equal in the upper extremities, brisk at the knees, and the ankle jerks are hypoactive. Her gait is good.? Assessment/Plan 1.??Generalized seizure??(G40.409) She has had no further seizures.?? I will continue her present schedule of Keppra. I will see her in followup in 1 year.? cc: Leland Ibanez M.D.? Orders: [id number] office outpatient visit 15 minutes (Charge), Quantity: 1, Generalized seizure ?? Patient Information Name:Viry Van Address: [address] [address] Sex:Female Date of :1940 [facility]:[id number] Location:[facility] Date of Service:02/02/2019 Attending Physician: Riaz Keene MD, Problem List/Past Medical History Ongoing Hx of meningioma of the brain Hyperlipemia Mild HTN Historical No qualifying data Procedure/Surgical History ???CTS - Carpal tunnel syndrome ?? Medications ?Aspirin 81 mg oral: (81 mg), po, daily, 1. ?Fluoxetine Hydrochloride 20 mg oral: (20 mg), po, daily, 1. ?Gabapentin 300 mg oral: (300 mg), po, daily, 1. ?Centrum Silver Therapeutic Multiple Vitamins with Minerals oral: (Therapeutic Multiple Vitaminswith Minerals), po, daily, 1. ?Nabumetone 500 mg oral tablet: 1 tablet (500 mg), po, bid, 2 tab(s). ?Lovaza ethyl esters 1000 mg oral capsule: 1 capsule (ethyl esters 1000 mg), po, bid, 2. ?Tizanidine Hydrochloride 4 mg oral: (4 mg), po, daily, at bedtime, 1. ?Vitamin B Complex: (), Not Listed, daily, 1. ?Alexsandra 10 mg-40 mg oral tablet: 1 tablet (10 mg-40 mg), po, daily, 1. ?Clonidine Hydrochloride 0.1 mg oral tablet: 1 tablet (0.1 mg), po, bid, PRN, 2 tab(s). ?Ibuprofen 800 mg oral tablet: tablet (800 mg), po, tid, PRN, 3 tab(s). ?morphine: pump, 0 Refill(s). ?levETIRAcetam 500 mg oral tablet: 500 mg, 1 tab(s), Oral, bid, for 90 day(s), 180 tab(s), 3 Refill(s). ? Allergies sulfa drugs Social History Alcohol Never, 06/10/2018 Employment and Education Retired, 06/10/2018 Home and Environment Marital status: (Living together)., 06/10/2018 Substance Abuse Never, 06/10/2018 Tobacco Never (less than 100 in lifetime), 06/10/2018 Signed and Authored by Riaz Keene MD on 02/02/2019 09:41 AM EDT General Clinic Note (Established) * Event Display: General Clinic Note (Established) Neurology Note * Riaz Keene MD: PERFORM Event Display: Neurology Note Authored Date: [id number] Chief Complaint seizures doing well no sz History of Present Illness This is a followup visit of this??81-year-old white female with a 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 She has had no further seizures. She is tolerating the Keppra without any untoward side effects.? Review of Systems Her past medical history is remarkable for hypertension, chronic low back pain, and hyperlipidemia.??She has an implanted intrathecal pump for the delivery of morphine.?? She had a left total knee arthroplasty in 2019. ?? The remainder of the 10 point review of systems, family history, and social history were reviewed as documented in the attached records and are unchanged compared to when I last saw her.? Physical Exam Vitals & Measurements T:??98.2?F??(Temporal Artery)?? HR:??68??(Peripheral)?? RR:??16?? BP:??112/64?? HT:??154.94??cm?? WT:??48??kg?? BMI:??19.99?? On physical examination, the pupils are 3 mm equal and reactive. The extraocular movements are intact. The discs are flat. She has good tone throughout. She has??mild??bilateral, maximum right, thenar atrophy. Reflexes are 2+ and equal in the upper extremities, brisk at the knees, and the ankle jerks are hypoactive. Her gait is good.? 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 I will continue her present schedule of Lori. I will see her in followup in??1 year.? cc:?Genie Beth D.O. ?? Ordered: [id number] office o/p est low 20-29 min (Charge), Quantity: 1, Generalized tonic- clonic seizure ?? Patient Information Name:Viry Van Address: [address] [id number] Sex:Female Date of :1940 Location:[facility] Date of Service:05/15/2021 Attending Physician: Hay MADRID Riaz, Problem List/Past Medical History Ongoing Generalized tonic-clonic seizure Hx of meningioma of the brain Hyperlipemia Mild HTN Historical No qualifying data Procedure/Surgical History ???CTS - Carpal tunnel syndrome ?? Medications Aspirin 81 mg oral, (81 mg), Oral, daily Alexsandra 10 mg-40 mg oral tablet, 1 tablet (10 mg-40 mg), Oral, daily Centrum Silver Therapeutic Multiple Vitamins with Minerals oral, (Therapeutic Multiple Vitamins with Minerals), Oral, daily Clonidine Hydrochloride 0.1 mg oral tablet, 1 tablet (0.1 mg), Oral, bid, PRN diclofenac sodium 75 mg oral delayed release tablet Fluoxetine Hydrochloride 20 mg oral, (20 mg), Oral, daily Gabapentin 300 mg oral, (300 mg), Oral, daily Ibuprofen 800 mg oral tablet, tablet (800 mg), Oral, tid, PRN levETIRAcetam 500 mg oral tablet, 500 mg= 1 tab(s), Oral, bid, 3 refills Lovaza ethyl esters 1000 mg oral capsule, 1 capsule (ethyl esters 1000 mg), Oral, bid morphine Nabumetone 500 mg oral tablet, 1 tablet (500 mg), Oral, bid Tizanidine Hydrochloride 4 mg oral, (4 mg), Oral, daily Vitamin B Complex, (), daily Allergies sulfa drugs Social History Alcohol Never Electronic Cigarette/Vaping Electronic Cigarette Use: Never. Employment/School Retired Home/Environment Marital status: (Living together). Substance Abuse Never Tobacco Never (less than 100 in lifetime) Immunizations No Immunizations recorded for patient. Signed and Authored by Riaz Keene MD on 05/15/2021 10:04 AM EDT Radiology Note * Event Display: General Radiography Report [facility] Final Report Ordering Clinician: RIAZ KEENE MD, [facility] Med Rec #: [id number] Class: O Date of Exam: 10/22/2015 Examination(s): [facility] 0442 - [facility] MRI BRAIN W/WO CONTRAST ACC# [id number] REPORT: History: seizures, no new symptoms 11ml [...] findings. Electronically Signed by: Keysha Bean MD Brokerage Clerk: WhipCarB Transcribe Date/Time: Oct 23 2015 7:52AM Read By: KEYSHA BEAN MD, [facility] Signed by: KEYSHA BEAN MD, [facility] * Event Display: General Radiography Report [facility] Final Report Ordering Clinician: RIAZ KEENE MD, [facility] Med Rec #: [id number] Class: O Date of Exam: 08/01/2014 Examination(s): MR 5013 - MRI BRAIN W/WO CONTRAST ACC# [id number] REPORT: History: pacs, menigioma f/u, no new [...] findings. Electronically Signed by: Jerardo Perez MD Brokerage Clerk: NAOMIE Transcribe Date/Time: Aug 01 2014 11:29AM Read By: JERARDO PEREZ MD, [facility] Signed by: JERARDO PEREZ MD, [facility]
[2024-05-24 10:39] VITALS: BP 185/78; PULSE 54; RESP 18; O2SAT 97; BMI 21.0
--- NOTE | 2024-05-24 11:39 | EXP.PAIN.SOA ---
[facility] Disclaimer: The information contained in this section may have been updated after the patient was seen, as this information can be updated by other users. Medical History (Updated 05/24/24 @ 11:42 by Brittanie Mora APRN) Depression Seizures DDD (degenerative disc disease) HTN (hypertension) Family History Other No significant family history Social History Smoking Status: Never smoker second hand exposure: No alcohol intake: never current occupational status: other Travel in the last 8 weeks: None household members: children housing: house current occupational exposures/hazards: No caffeine: Yes PM Subjective & Objective Subjective Subjective:: Patient is a pleasant 84-year-old female who presents today for follow-up. Today she rates her pain a 5 out of 10. Patient states her pain is all in her low back with radiating numbness and tingling down into her lower extremities. Patient denies any new falls or injuries from our last visit. Patient did previously have a lumbar epidural of L4-L5 back in January that did provide 50% improvement lasting the first week and then she states that she still had additional relief lasting a couple more weeks however the percentage of improvement did go down as time went on. Patient does state towards the end it was only giving more 25% but she did state that it significantly improved her overall function. She states she was able to do more that she has not done for some time. Patient is interested in repeating this injection. She does state the pain is interfering with the perform activities of daily living such as cooking and cleaning now and that the pain is constant with numbness and tingling. Patient does have a intrathecal pain pump in place and denies any issues with it. She is scheduled for her pump refill with [facility] tomorrow. Her Bello has been reviewed and is appropriate. Review of Systems: General: No recent weight changes, no fever, no sleep disturbances Respiratory: No cough, no shortness of air, no recurring pulmonary infections Cardiovascular/peripheral vascular: No chest pain, no palpitations, no edema, no shortness of breath Gastrointestinal: No new onset incontinence, normal bowel movements reported Genitourinary: No new onset incontinence Musculoskeletal: Low back pain, leg pain Psychiatric: [Normal mood/affect] Neurological: [Denies weakness in extremities], [denies balance issues] Pain at rest (0-10 scale): 5 Objective Objective:: Physical Exam: General: Alert and oriented x3, no acute distress, pleasant and cooperative Lungs: Respirations even and unlabored, symmetrical chest expansion Eyes: PERRL Musculoskeletal: Flexion and extension of lumbar [spine] somewhat guarded secondary to pain, [antalgic gait noted] Neurological: Speech clear, no gross sensory deficit Has patient had previous pain injection?: Yes Percent improvement in pain since last injection: 50% Conservative treatment options previously tried: NSAIDS Length of treatment: Longer than 6 weeks, Home exercise plan Length of treatment: Longer than 6 weeks and Prescription medications Length of treatment: Longer than 6 weeks Meds Home Medications and Allergies Home Medications Medication Instructions Recorded Confirmed Type amlodipine 10 mg tablet (Norvasc) 10 mg PO DAILY BP 04/27/18 05/24/24 History fluoxetine 20 mg tablet 20 mg PO DAILY Depression 04/27/18 05/24/24 History levetiracetam 500 mg 500 mg PO BID SEIZURES 04/27/18 05/24/24 History tablet,extended release 24 hr (Keppra XR) aspirin 81 mg chewable tablet 81 mg PO DAILY heart health 12/21/21 05/24/24 History diclofenac sodium 75 mg 75 mg PO BID Pain 12/21/21 05/24/24 History tablet,delayed release hydrochlorothiazide 12.5 mg capsule 12.5 mg PO DAILY Fluid 12/21/21 05/24/24 History morphine 1 mg/mL (1 mL) in 0.9 % 1 mg IT CONT chronic pain 12/21/21 05/24/24 History sodium chloride intravenous syringe potassium chloride 20 mEq 20 meq PO DAILY Supplement 12/21/21 05/24/24 History tablet,extended release New Prescriptions to Start Prescriptions: Allergies Allergy/AdvReac Type Severity Reaction Status Date / Time Sulfa (Sulfonamide Allergy Mild Verified 05/24/24 10:40 Antibiotics) Assessment and Plan *Assessment and plan (1) Degenerative joint disease (DJD) of lumbar spine: Status: Chronic Qualifiers: Spinal osteoarthritis complication: with radiculopathy Qualified Code(s): M47.26 - Other spondylosis with radiculopathy, lumbar region Category: Medical Code(s): M47.816 - Spondylosis without myelopathy or radiculopathy, lumbar region (2) Lumbar radiculopathy: Status: Acute Category: Medical Code(s): M54.16 - Radiculopathy, lumbar region Plan Patient is experiencing worsening pain throughout her low back and legs with numbness and tingling. Patient did have limited range of motion of her lumbar spine during today's visit. I did discuss with patient that she may benefit from repeat lumbar epidural steroid injection. Risk and benefits were discussed with patient and she did previously get 50% initially from her last lumbar epidural in January. Patient did have overall improved function with decreased pain. She does state today that she would like to proceed forward with this injection. Patient has tried and failed conservative therapy including continued at home stretching and exercise for longer than 6 weeks and then between injections. We will submit to insurance for the LESI L4-L5 under fluoroscopy. Patient has been instructed to contact the clinic with any concerns before the next appointment. Dr. Stanton has reviewed this note and agrees with this plan of care. This note was dictated using voice recognition software and make contain errors or omissions.
== END 2024-05-24 23:59 | disposition home or self-care (01) ==
LOC: SC.PAIN 10:34
PROVIDERS: Visit Provider Nurse Practitioner Family
DX: M47.26 Other spondylosis with radiculopathy, lumbar region (principal); M51.36 Other intervertebral disc degeneration, lumbar region
CPT/HCPCS: 99212; G0463

== ENCOUNTER 2024-06-04 13:08 | Day surgery (SDC) | payer MEDICARE, SELFPAY ==
--- OUTSIDE RECORDS SUMMARY | 2024-06-04 13:11 | XMS_ITS ---
Care Plan - [facility] Created on: June 04, 2024 Viry Van : 1940 Sex: Female Author Organization [facility] Address [address] [place] [address] Phone Care Team Providers Care Mechanical Engineering Officer Name Role Phone Hernan MADRID, Edward Michelle Unavailable [phone]
--- OUTSIDE RECORDS SUMMARY | 2024-06-04 13:11 | XMS_ITS | Clinical Summary ---
Author Organization [facility] Address [address] [place] [address] Phone Care Team Providers Care Data Designer Name Role Phone Hernan MADRID, Edward Michelle Unavailable [phone] Reason for Visit and Chief Complaint referred by Dr. Mary - The Chief Complaint is: New pt referral- Seizures Plan of Treatment Future Appointments Date Time Location [facility] Return Visit 09/16/2024 1:00PM [facility] Edward Becerra MD Last Documented On 4:27PM ; [facility] Medical Equipment - Implanted Devices Includes: Current Devices No Medical Equipment Recorded Medications Includes: Medications discussed during this encounter and other current Medications Current Medications (continue as prescribed) Aricept 5 MG Oral Tablet 11/27/2023 Provider: Diagnosis: Last Documented On 11/27/2023 2:53PM By Brittanie Grady ; [facility] NIFEdipine ER 60 MG Oral Tablet Extended Release 24 Ho ur 11/27/2023 Provider: Diagnosis: Last Documented On 11/27/2023 2:53PM By Brittanie Grady ; [facility] Potassium Chloride ER 10 MEQ Oral Tablet Extended Rele ase 11/27/2023 Provider: Diagnosis: Last Documented On 11/27/2023 2:53PM By Brittanie Grady ; [facility] NexIUM 20 MG Oral Capsule Delayed Release 11/27/2023 Provider: Diagnosis: Last Documented On 11/27/2023 2:53PM By Brittanie Grady ; [facility] hydrALAZINE HCl 10 MG Oral Tablet 11/27/2023 Provide r: Diagnosis: Last Documented On 11/27/2023 2:54PM By Brittanie Grady ; [facility] SEROquel 25 MG Oral Tablet 11/27/2023 Provider: Diagnosis: Last Documented On 11/27/2023 2:54PM By Brittanie Grady ; [facility] Lasix 20 MG Oral Tablet 11/27/2023 Provider: Diagnosis: Last Documented On 11/27/2023 2:54PM By Brittanie Grady ; [facility] Lipitor 40 MG Oral Tablet 11/27/2023 Provider: Diagnosis: Last Documented On 11/27/2023 2:54PM By Brittanie Grady ; [facility] Keppra 1000 MG Oral Tablet 11/27/2023 Provider: Diagnosis: Last Documented On 11/27/2023 2:54PM By Brittanie Grady ; [facility] Losartan Potassium 100 MG Oral Tablet 11/27/2023 Pro vider: Diagnosis: Last Documented On 11/27/2023 2:55PM By Brittanie Grady ; [facility] Aspirin 81 MG Oral Capsule 11/27/2023 Provider: Diagnosis: Last Documented On 11/27/2023 2:55PM By Brittanie Grady ; [facility] Ferrous Sulfate 324 (65 Fe) MG Oral Tablet Delayed Rel ease 11/27/2023 Provider: Diagnosis: Last Documented On 11/27/2023 2:55PM By Brittanie Grady ; [facility] FLUoxetine HCl 20 MG Oral Capsule 11/27/2023 Provide r: Diagnosis: Last Documented On 11/27/2023 2:55PM By Brittanie Grady ; [facility] Colace 100 MG Oral Capsule 11/27/2023 Provider: Diagnosis: Last Documented On 11/27/2023 2:55PM By Brittanie Grady ; [facility] Magnesium Oxide 400 MG Oral Tablet 11/27/2023 Provid er: Diagnosis: Last Documented On 11/27/2023 2:56PM By Brittanie Grady ; [facility] Multivitamin Adult Oral Tablet 11/27/2023 Provider: Diagnosis: Last Documented On 11/27/2023 2:56PM By Brittanie Grady ; [facility] Medications Administered Includes: Administered Medications from this encounter No Administered Medications Recorded Vital Signs Includes: Vital Signs from this encounter Vital Name 11/27/2023 04:09P Blood Pressure Sitting (mmHg) 122/66 Pulse Rate-Sitting (bpm) 69 Temp-Temporal 98.1 Height (in) 60.155792 Weight (lb) 117 Body Mass Index 22.1 Body Surface Area 1.5 Oxygen Saturation (%) 98 Flow Rate (l/min) (None (Room Air)) FiO2 (%) 21 Last Documented On: 11/27/2023 4:09PM ; [facility] Results Includes: Results discussed during this encounter [...] 11/27/2023 Last Documented On 4 6:52PM ; [facility] Smoking Status Unknown Procedures and Surgical History Includes: Procedures from this encounter Procedures Code Diagnosis Performing Provider Service L ocation Service Date medication list documented 1159F Last Documented On 4 4:11PM ; [employer] [facility] review of medications documented 1160F Last Documented On 4 4:11PM ; [employer] [facility] Medical History Includes: Medical History addressed [...] ctive Last Documented On 4 3:46PM ; [facility] Encounters Encounter Provider Location Date Check-In Time Check- Out Time Diagnosis New Patient Level 2 Edward Becerra MD [facility] 4 3:09PM 4:26PM Insurance Includes: Active Insurance Policies Plan Name Member ID Group # Subscriber Relationship Effect shania Dates 1 - *Medicare [place] [employer] [id number] Viry Van Self 4 - Unknown Clinical Notes Includes: Clinical Notes from this encounter * Progress note Date Encounter Last Documented by 11/27/2023 New Patient Level 2 Last documen sierra on 12/12/2023; 6:52 PM, Edawrd Becerra MD; [facility] [employer] [facility] Chief Complaint The Chief Complaint is: [...]
--- OUTSIDE RECORDS SUMMARY | 2024-06-04 13:11 | XMS_ITS ---
Author Organization [facility] Address [address] [place], [place] Phone Care Team Providers Care Quarter Supervisor Name Role Phone Hernan MADRID, Edward Michlele Unavailable [phone] Plan of Treatment Future Appointments Date Time Location Pro[facility] daniel Return Visit 09/16/2024 1:00PM [facility] Edward Becerra MD Last Documented On 4:27PM ; [facility] Medical Equipment - Implanted Devices Includes: Current and historical Devices No Medical Equipment Recorded Medications Includes: Current and historical Medications Current Medications (continue as prescribed) Aricept 5 MG Oral Tablet 11/27/2023 Provider: Diagnosis: Last Documented On 11/27/2023 2:53PM By Brittanie Grady ; [facility] NIFEdipine ER 60 MG Oral Tablet Extended Release 24 Ho ur 11/27/2023 Provider: Diagnosis: Last Documented On 11/27/2023 2:53PM By Brittanie Grady ; [facility] Potassium Chloride ER 10 MEQ Oral Tablet Extended Rele ase 11/27/2023 Provider: Diagnosis: Last Documented On 11/27/2023 2:53PM By Brittanie Grady ; [facility] NexIUM 20 MG Oral Capsule Delayed Release 11/27/2023 Provider: Diagnosis: Last Documented On 11/27/2023 2:53PM By Brittanie Grady ; [facility] hydrALAZINE HCl 10 MG Oral Tablet 11/27/2023 Provide r: Diagnosis: Last Documented On 11/27/2023 2:54PM By Brittanie Grady ; [employer] [facility] [employer] SEROquel 25 MG Oral Tablet 11/27/2023 Provider: Diagnosis: Last Documented On 11/27/2023 2:54PM By Brittanie Grady ; [facility] Lasix 20 MG Oral Tablet 11/27/2023 Provider: Diagnosis: Last Documented On 11/27/2023 2:54PM By Brittanie Grady ; [facility], [facility] Lipitor 40 MG Oral Tablet 11/27/2023 Provider: Diagnosis: Last Documented On 11/27/2023 2:54PM By Brittanie Grady ; [facility], [facility] Keppra 1000 MG Oral Tablet 11/27/2023 Provider: Diagnosis: Last Documented On 11/27/2023 2:54PM By Brittanie Grady ; [facility], [facility] Losartan Potassium 100 MG Oral Tablet 11/27/2023 Pro vider: Diagnosis: Last Documented On 11/27/2023 2:55PM By Brittanie Grady ; [facility], [facility] Aspirin 81 MG Oral Capsule 11/27/2023 Provider: Diagnosis: Last Documented On 11/27/2023 2:55PM By Brittanie Grady ; [facility] Ferrous Sulfate 324 (65 Fe) MG Oral Tablet Delayed Rel ease 11/27/2023 Provider: Diagnosis: Last Documented On 11/27/2023 2:55PM By Brittanie Grady ; [facility], [facility] FLUoxetine HCl 20 MG Oral Capsule 11/27/2023 Provide r: Diagnosis: Last Documented On 11/27/2023 2:55PM By Brittanie Grady ; [facility], [facility] Colace 100 MG Oral Capsule 11/27/2023 Provider: Diagnosis: Last Documented On 11/27/2023 2:55PM By Brittanie Grady ; [facility], [facility] Magnesium Oxide 400 MG Oral Tablet 11/27/2023 Provid er: Diagnosis: Last Documented On 11/27/2023 2:56PM By Brittanie Grady ; [facility], [facility] Multivitamin Adult Oral Tablet 11/27/2023 Provider: Diagnosis: Last Documented On 11/27/2023 2:56PM By Brittanie Grady ; [facility], [facility] Past Medications on file Lasix 20 MG Oral Tablet 11/27/2023 - 11/27/2023 Provid er: Diagnosis: Last Documented On 11/27/2023 2:54PM By Brittanie Grady ; [facility] Medications Administered Includes: Administered Medications in patient's chart No Administered Medications Recorded Vital Signs Includes: Vital Signs from 06/04/2023 through 06/04/2024 Vital Name 11/27/2023 04:09P Blood Pressure Sitting (mmHg) 122/66 Pulse Rate-Sitting (bpm) 69 Temp-Temporal 98.1 Height (in) 60.136175 Weight (lb) 117 Body Mass Index 22.1 Body Surface Area 1.5 Oxygen Saturation (%) 98 Flow Rate (l/min) (None (Room Air)) FiO2 (%) 21 Last Documented On: 11/27/2023 4:09PM ; [employer] [facility] Results Includes: Results from 06/04/2023 through 06/04/2024 No Results Recorded For Specified Dates History of Present Illness History of Present Illness not supported for this document type No History of Present Illness Recorded Social History Description Last Updated Never used tobacco 11/27/2023 Last Documented On 6:52PM ; [place] [facility] Smoking Status Unknown Medical History Includes: Medical [...] A ctive Last Documented On 3:46PM ; [place] [facility] Encounters Includes: Encounters from 06/04/2023 through 06/04/2024 Encounter Provider Location Date Check-In Time Check- Out Time Diagnosis New Patient Level 2 Edward Becerra MD [facility] 4 3:09PM 4:26PM Insurance Includes: Active Insurance Policies Plan Name Member ID Group # Subscriber Relationship Effect shania Dates 1 - *Medicare [place] [employer] [id number] Viry Van Self 4 - Unknown Clinical Notes Includes: Signed Clinical Notes starting from 06/28/2023 * Progress note Date Encounter Last Documented by 11/27/2023 New Patient Level 2 Last winston esquivel on 12/12/2023; 6:52 PM, Edward Becerra MD; [employer] Chief Complaint The Chief Complaint is: New [...]
[2024-06-04 13:30] VITALS: BP 137/51; PULSE 64; RESP 16; TEMP 36.7; O2SAT 95; BMI 21.0
--- NOTE | 2024-06-04 14:50 | PC.NURSE ---
checked on pt at this time, pt states no needs. in room with pt.
[2024-06-04] MEDS: methylPREDNISolone ACETATE 80MG/ML VIAL 80 MG (15:26)
[2024-06-04] MEDS: LIDOCAINE 1% 30ML PF VIAL 30 ML (15:27)
[2024-06-04 15:28] VITALS: BP 127/60; PULSE 60; RESP 18; O2SAT 98
[2024-06-04 15:31] VITALS: BP 127/60; PULSE 60; RESP 18; O2SAT 98
[2024-06-04 15:32] VITALS: BP 154/51; PULSE 30; RESP 16; O2SAT 97
--- NOTE | 2024-06-04 15:34 | EXP.PAIN.PRO ---
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 She has severe scoliosis. She does have an intrathecal pain pump and. She has increasing pain down both legs. She does get benefit from previous lumbar epidural steroid injections. Her pain is starting to return we will do a repeat lumbar pleural steroid injection under fluoroscopy today. Procedure Details:: Informed consent was obtained and the risk and benefits of the procedure was explained to the patient. The patient was taken to the procedure room. The patient was placed prone on the procedure table. The patient was prepped and draped in sterile fashion. C-arm fluoroscopy was used to view the lumbar spine. Skin and subcutaneous tissues were anesthetized using lidocaine. I placed an 18-gauge epidural needle and advanced into the L4-L5 interspace using fluoroscopic guidance and [id number] to air. After confirmation of needle placement in the epidural space with dye I injected 2 mL of lidocaine 1.5% with Depo-Medrol 80 mg. Patient tolerated the procedure well with no complications. Plan and Disposition:: Will follow-up with this patient in 2 weeks. Will reevaluate symptoms at that time.
--- NOTE | 2024-06-04 15:41 | PC.NURSE ---
Addendum entered by Lexie Pierson RN 06/04/24 15:47: Dr. Stanton notifed at 1538 Original Note: Pt HR 30 bpm, pt sitting up in chair talking. Pt denies dizziness, lightheaded or chest pain. Notified Dr. Stanton. States to let pt sit for a few minutes and reassess.
[2024-06-04 15:45] VITALS: BP 154/58; PULSE 31; RESP 16; O2SAT 97
--- NOTE | 2024-06-04 15:50 | PC.NURSE ---
Notified Dr. Stanton pt HR still at 30 bpm. pt continues to deny dizziness, lightheadedness, or chest pain. Dr. Stanton requests to stand pt up and walk her to see how she does. pt stood on her on her own, ambulated with standby assist. NO difficulties with ambulation noted. Pt states she feels fine , denies any symptoms of feeling dizzy, lighthead or chest pain. Notified Dr. Stantno after ambulation pt HR 35-40. Dr. Stanton states that if pt is non-symptomatic he is okay for pt to be d/c. 1600- VS: 150/65 HR 32 SaO2 97% RR 16 Pt denies feeling dizzy, lightheaded, denies CP. Asked pt if she would be agreeable to be seen in ER, pt declines, states she feels fine. Pt verbalized understanding that if she should start to feel bad, any dizziness, lightheaded feeling or chest pain she should be seen in the ER at that time.
[2024-06-04 16:00] VITALS: BP 150/65; PULSE 32; RESP 18; O2SAT 97
== END 2024-06-04 16:00 | disposition home or self-care (01) ==
PROVIDERS: Visit Provider Anesthesiology
DX: M51.16 Intervertebral disc disorders with radiculopathy, lumbar region (principal); M41.9 Scoliosis, unspecified
CPT/HCPCS: 62323; J1010

== ENCOUNTER 2024-07-30 09:29 | Day surgery (SDC) | payer MEDICARE, SELFPAY ==
[2024-07-30 09:54] VITALS: BP 126/50; PULSE 59; RESP 18; O2SAT 97; BMI 20.5
[2024-07-30 10:23] VITALS: BP 111/43; PULSE 60; RESP 18; O2SAT 97
[2024-07-30 10:26] VITALS: BP 111/43; PULSE 60; RESP 18; O2SAT 97
[2024-07-30 10:40] VITALS: BP 104/54; PULSE 54; RESP 16; O2SAT 96
--- NOTE | 2024-07-30 12:40 | EXP.PAIN.PRO ---
Procedure Date: 07/30/24 Time: 10:52 Anesthesiologist:: Brittanie Mora APRN Complications:: None Pre-procedure Diagnosis:: Degenerative disc disease of lumbar spine with lumbar radiculopathy symptoms Post-procedure Diagnosis:: Same Indications for Procedure:: Patient is a pleasant 84-year-old female who presents today for intrathecal refill and reprogram. Today she rates her pain a 4 out of 10. Patient denies any new trauma or injury. Patient does state that overall her pump is working well. Patient is currently managed with morphine 5 mg/mL with a daily dose of 1 mg/day. She denies any side effects from this medication. She does state that occasionally she is still having some increased pain and is stating that if we could do a small increase she would be interested. Her Bello has been reviewed and is appropriate. Physical Exam: General: Alert and oriented x3, no acute distress, pleasant and cooperative Lungs: Respirations even and unlabored, symmetrical chest expansion Eyes: PERRL Musculoskeletal: Flexion and extension of lumbar [spine] somewhat guarded secondary to pain, [antalgic gait noted] Neurological: Speech clear, no gross sensory deficit Procedure Details:: Informed consent was obtained and the risk and benefits of the procedure were explained to the patient. The patient was taken to the procedure room where noninvasive monitoring was placed including noninvasive blood pressure cuff and pulse oximeter. Patient's pump was interrogated. The area over the pump was cleansed with chlorhexidine as a cleansing solution. In sterile fashion the pump was accessed with a 22-gauge needle. Approximately 6.2 mls of the pump solution was removed and discarded appropriately. The pump was then refilled with 20 mL's of morphine 5 mg/mL. The needle was withdrawn and a bandage was placed over the puncture site. The infusion rate was reprogrammed and increased to morphine 1.05 mg/day. The patient tolerated well with no complication. Patient did also have approximately 60 mL of fluid removed from a moderate-sized seroma surrounding her pump site. Patient was accessed using a 22-gauge sterile needle. Fluid was discarded and the needle withdrawn with a Band-Aid applied. Patient tolerated procedure well. Plan and Disposition:: Patient tolerated her intrathecal refill and reprogram as well as drainage of her moderate seroma at today's visit. Patient did state that she was not having any pain with the seroma however while we were already accessing the pump we went ahead and did remove 60 mL of fluid off her pump site. Patient will return to clinic on or before her next intrathecal refill date of October 02, 2024. Patient agrees with this plan of care. We will see the patient back in the clinic at the next intrathecal refill. Patient has been instructed to contact the clinic with any concerns before the next appointment. Dr. Stanton has reviewed this note and agrees with this plan of care. This note was dictated using voice recognition software and make contain errors or omissions. -- It Is medically necessary for this patient to continue to have their intrathecal pump refilled at regular intervals. This patient had an intrathecal pain pump implanted after meeting criteria of chronic intractable pain for greater than 3 months and failing conservative treatments. Patient has committed and been compliant to the treatment plan and all planned follow up care. Since implantation of the intrathecal pain pump, the patient has had decreased pain and been more functional. Oral medications have been reduced including intake of oral opioids. Patient continues to do well with intrathecal therapy with decrease in pain symptoms and increase in functional status. Stopping intrathecal medications can lead to life threatening withdrawal, seizures, cardiac arrest, severe pain, and possible . Pumps that are not refilled at regular intervals can be damages and cause and need for replacement. We continually titrate dose and concentration to optimize pain relief and function. We are limited in concentration for certain drugs to safely deliver medications through the pump and stay within the recommendations from the Polyanalgesic Consensus Committee Guidelines. Depending on dose and concentration these pumps may need to be refilled sooner than 3 months as we titrate.
== END 2024-07-30 10:42 | disposition home or self-care (01) ==
LOC: SC.PAINP 09:35
PROVIDERS: PCP Anesthesiology; Visit Provider Nurse Practitioner Family
DX: M51.16 Intervertebral disc disorders with radiculopathy, lumbar region (principal)
CPT/HCPCS: 62370

== ENCOUNTER 2024-10-08 12:30 | Day surgery (SDC) | payer MEDICARE, SELFPAY ==
--- OUTSIDE RECORDS SUMMARY | 2024-10-08 12:34 | XMS_ITS | Encounter Summary ---
Author Organization [facility] Address [address] [place] [address] Care Team Providers Care Hair Blender Name Role Phone Moody Polk MD Primary Care Provider Harmeet Gutierrez MD Unavailable [phone] Provider, Historical Unavailable Unavailable Encounter Details Date Type Department Care Team (Late st Contact Info) Description 05/02/2006 Historical Encounter Global Charles Avery MD [address] [facility] [address] [place] [address] Social History Tobacco Use Types Packs/Day Years Used Date Smoking Tobacco: Never Assessed Sex and Gender Information Value Date Recorded Sex Assigned at Not on file Gender Identity Not on file Sexual Orientation Not on file documented as of this encounter Plan of Treatment Not on file documented as of this encounter Visit Diagnoses Not on filedocumented in this encounter Care Teams Hair Blender Relationship Specialty Start Date End Date Moody Polk MD [address] [place] [address] PCP - General Family Medicine 07/02/17 Harmeet Gutierrez MD [address] [place] [address] Gastroenterology 07/02/17 Provider, Historical 07/22/17 documented as of this encounter
--- OUTSIDE RECORDS SUMMARY | 2024-10-08 12:34 | XMS_ITS | Encounter Summary ---
Author Organization [facility] Address [address] [place] [address] Care Team Providers Care Structural Engineering Drafting Officer Name Role Phone Genie Beth DO Primary Care Provider + Encounter Details Date Type Department Care Team (Latest Contact Info) Description 05/21/2019 8:25 AM EDT - 05/21/2019 11:59 PM EDT Hospital Encounter [facility] [address] [place] [address] Thien Gray MD [address] [place] [id number] Trochanteric bursitis, left hip Discharge Disposition: Home or Self Care Social History Tobacco Use Types Packs/Day Years Used Date Smoking Tobacco: Never Assessed Sex and Gender Information Value Date Recorded Sex Assigned at Female 01/09/2022 11:55 AM EST Gender Identity Female 01/09/2022 11:55 AM EST Sexual Orientation Not on file documented as of this encounter Plan of Treatment Not on file documented as of this encounter Visit Diagnoses Diagnosis Trochanteric bursitis, left hip documented in this encounter Care Teams Structural Engineering Drafting Officer Relationship Specialty Start Date End Date Genie Beth DO [address] [facility] [place] [address] PCP - General documented as of this encounter
--- OUTSIDE RECORDS SUMMARY | 2024-10-08 12:34 | XMS_ITS | Encounter Summary ---
Author Organization [facility] nter Address [address] [place] [address] Care Team Providers Care Analytical Tech Name Role Phone Genie Beth DO Primary Care Provider + Encounter Details Date Type Department Care Team (Latest Contact Info) Description 06/29/2019 10:50 AM EDT - 06/29/2019 11:59 PM EDT Hospital Encounter [facility] [address] [place] [address] Silvestre Baires PA [address] [place] [address] Unilateral primary osteoarthritis, left hip; Other bursitis of hip, left hip Discharge Disposition: Home or Self [...] on file documented as of this encounter Procedures Procedure Name Priority Date/Time Associated Diagnosis Comments XR HIP 2 OR 3 VIEWS LEFT Routine 06/29/2019 12:00 PM EDT documented in this encounter Results * XR hip 2 or 3 views left (06/29/2019 12:00 PM EDT) Anatomical Region Laterality Modality Lower Extremities, Hip Left Radiograp hic Imaging 06/29/2019 12:0 0 PM EDT Narrative 06/29/2019 1:19 PM EDT PROCEDURE: HIP LEFT 2-3 VIEWS: 06/29/2019 CLINICAL INFORMATION: Trochanteric bursitis, left hip COMPARISON: None. FINDINGS: ?? Joint space narrowing and osteophytosis. Bony demineralization. ??No evidence of acute fracture or dislocation. Impression: Left hip osteoarthrosis. No evidence of acute fracture or dislocation. Report Sign Date: 06/29/2019 1:17 PM, Electronically Signed By: ??Caden Mac Procedure Note Kamlesh Mac MD - 01/18/2022 PROCEDURE: HIP LEFT 2-3 VIEWS: 06/29/2019 CLINICAL INFORMATION: Trochanteric bursitis, left hip COMPARISON: None. FINDINGS: Joint space narrowing and osteophytosis. Bony demineralization. No evidence of acute fracture or dislocation. Impression: Left hip osteoarthrosis. No evidence of acute fracture or dislocation. Report Sign Date: 06/29/2019 1:17 PM, Electronically Signed By: Caden Mac [facility] IMG XR PROCEDURES documented in this encounter Visit Diagnoses Diagnosis Unilateral primary osteoarthritis, left hip Other bursitis of hip, left hip documented in this encounter Care Teams Analytical Tech Relationship Specialty Start Date End Date Genie Beth DO [address] [place] [address] PCP - General documented as of this encounter
--- OUTSIDE RECORDS SUMMARY | 2024-10-08 12:34 | XMS_ITS | Encounter Summary ---
Author Organization [facility] Address [address] [place] [address] Care Team Providers Care Magnetic Doctor Name Role Phone Moody Polk MD Primary Care Provider Harmeet Gutierrez MD Unavailable [phone] Provider, Historical Unavailable Unavailable Encounter Details Date Type Department Care Team (Late st Contact Info) Description 12/09/2006 Historical Encounter Global Charles Avery MD [address] [facility] [address] [place] [address] Social History Tobacco Use Types Packs/Day Years Used Date Smoking Tobacco: Never Assessed Sex and Gender Information Value Date Recorded Sex Assigned at Not on file Gender Identity Not on file Sexual Orientation Not on file documented as of this encounter Plan of Treatment Not on file documented as of this encounter Visit Diagnoses Not on filedocumented in this encounter Care Teams Magnetic Doctor Relationship Specialty Start Date End Date Moody Polk MD [address] [place] [address] PCP - General Family Medicine 07/02/17 Harmeet Gutierrez MD [address] [place] [address] Gastroenterology 07/02/17 Provider, Historical 07/22/17 documented as of this encounter
--- OUTSIDE RECORDS SUMMARY | 2024-10-08 12:34 | XMS_ITS | Clinical Summary ---
Author Organization [facility] Address [address] [place] [address] Care Team Providers Care Regional Wildlife Agent Name Role Phone Moody Polk MD Primary Care Provider [phone] Harmeet Gutierrez MD Unavailable [phone] Provider, Historical Unavailable Unavailable Allergies Active Allergy Reactions Criticality Noted Date Comments Sulfa (Sulfonamide Antibiotics) Other (See Comments) 07/02/2017 tingle all over Medications Medication Sig Dispensed Refills Start Date End Date Status FLUoxetine (PROZAC) 20 mg capsule Take 20 mg by mouth Daily. Active Irbesartan 300 mg Tab Take by mouth. Active cloNIDine HCl (CATAPRES) 0.1 mg tablet Take 0.1 mg by mouth Twice a day. Active amLODIPine (NORVASC) 10 mg tablet Take 10 mg by mouth Daily. Active gabapentin (NEURONTIN) 300 mg capsule Take 300 mg by mouth At bedtime. Active tiZANidine (ZANAFLEX) 4 mg Cap capsule Take 4 mg by mouth. Active levETIRAcetam (KEPPRA) 500 mg Take 500 mg by mouth Twice a day. Active HYDROcodone-acetaminop hen (NORCO) 7.5-325 mg per tablet Take 1 Tab by mouth Every 6 hours as needed for Pain. Active multivitamin,tx-minera ls (THERAGRAN M) Take 1 Tab by mouth Daily. Active aspirin 81 mg chewable tablet Take 81 mg by mouth Daily. Active Active Problems Problem Noted Date Diagnosed Date RLQ abdominal pain 07/03/2017 Neuropathic pain 07/03/2017 Social History Tobacco Use Types Packs/Day Years Used Date Smoking Tobacco: Never Smokeless Tobacco: Never Alcohol Use Standard Drinks/Week Comments No 0 (1 standard drink = 0.6 oz pur e alcohol) Sex and Gender Information Value Date Recorded Sex Assigned at Not on file Gender Identity Not on file Sexual Orientation Not on file Last Filed Vital Signs Vital Sign Reading Time Taken Comments Blood Pressure 146/73 07/02/2017 9:44 AM EDT Pulse 79 07/02/2017 9:44 AM EDT Temperature - - Respiratory Rate 18 07/02/2017 9:44 AM EDT Oxygen Saturation - - Inhaled Oxygen Concentration - - Weight 51.3 kg (113 lb) 07/02/2017 9:44 AM EDT Height 157.5 cm (5' 2 ) 07/02/2017 9:44 AM EDT Body Mass Index 20.67 07/02/2017 9:44 AM EDT Plan of Treatment Health Maintenance Due Date Last Done Comments ANNUAL WELLNESS EXAM 1943 DTAP/TDAP/TD VACCINE (1 - Tdap) 1959 Shingles Vaccine (Shingrix) (1 of 2) 1990 DEXA SCAN EVERY 2 YR (Osteop orosis Screen) 2005 PNEUMOCOCCAL VACCINE 65+ YEA RS (1 of 1 - PCV) 2005 INFLUENZA VACCINE (#1) 2024 HEP A VACCINE Aged Out No longer elig ible based on patient's age to complete this topic HIB VACCINE Aged Out No longer eligi ble based on patient's age to complete this topic ROTOVIRUS VACCINE Aged Out No longer eligible based on patient's age to complete this topic Care Teams Regional Wildlife Agent Relationship Specialty Start Date End Date Moody Polk MD [address] [place] [address] PCP - General Family Medicine 07/02/17 Harmeet Gutierrez MD [address] [place] [id number] Gastroenterology 07/02/17 Provider, Historical 07/22/17
--- OUTSIDE RECORDS SUMMARY | 2024-10-08 12:34 | XMS_ITS | Encounter Summary ---
Author Organization [facility] nter Address [address] [place] [address] Care Team Providers Care General Utility Maintenance Repairer Name Role Phone Genie Beth DO Primary Care Provider + Encounter Details Date Type Department Care Team (Latest Contact Info) Description 05/18/2021 2:00 PM EDT - 05/18/2021 11:59 PM EDT Hospital Encounter [facility] [address] [place] [address] Kacy Nuñez DO [address] [place] [phone] Encounter for gynecological examination (general) (routine) without abnormal findings; Pelvic and perineal pain Discharge Disposition: Home or Self Care Social [...] as of this encounter Visit Diagnoses Diagnosis Encounter for gynecological examination (general) (routine) without abnormal findings Pelvic and perineal pain documented in this encounter Care Teams General Utility Maintenance Repairer Relationship Specialty Start Date End Date Genie Beth DO [address] [facility] [place], [place] [id number] PCP - General documented as of this encounter
--- OUTSIDE RECORDS SUMMARY | 2024-10-08 12:34 | XMS_ITS | Encounter Summary ---
Author Organization [facility] nter Address [address] [place] [address] Care Team Providers Care Report Checker Name Role Phone Genie Beth DO Primary Care Provider + Encounter Details Date Type Department Care Team (Latest Contact Info) Description 12/16/2019 3:53 PM EST - 12/16/2019 11:59 PM EST Hospital Encounter [facility] CONVERSION OUTPATIENT [address] [place] [address] Thien Gray MD [address] [place] [address] Unilateral primary osteoarthritis, left knee Discharge Disposition: Home or Self Care Social [...] as of this encounter Visit Diagnoses Diagnosis Unilateral primary osteoarthritis, left knee documented in this encounter Care Teams Report Checker Relationship Specialty Start Date End Date Genie Beth DO [address] [facility] [place] [address] PCP - General documented as of this encounter
--- OUTSIDE RECORDS SUMMARY | 2024-10-08 12:34 | XMS_ITS | Encounter Summary ---
Author Organization [facility] Address [address] [place] [address] Care Team Providers Care Linen Supervisor Name Role Phone Moody Polk MD Primary Care Provider [phone] Harmeet Gutierrez MD Unavailable [phone] Reason for Visit * Reason Comments Abdominal Pain Encounter Details Date Type Department Care Team (Late st Contact Info) Description 07/02/2017 10:00 AM EDT Office Visit [facility] [address] [place] [address] Harmeet Gutierrez MD [address] [place] [address] Neuropathic pain (Primary Dx); Right lower quadrant abdominal pain Social History Tobacco Use Types Packs/Day Years Used Date Smoking Tobacco: Never Smokeless Tobacco: Never Alcohol Use Standard Drinks/Week Comments No 0 (1 standard drink = 0.6 oz pur e alcohol) Sex and Gender Information Value Date Recorded Sex Assigned at Not on file Gender Identity Not on file Sexual Orientation Not on file documented as of this encounter Last Filed Vital Signs Vital Sign Reading [...] Mass Index 20.67 07/02/2017 9:44 AM EDT documented in this encounter Progress Notes * Harmeet Gutierrez MD - 07/02/2017 10:00 AM EDT Viry Van is a 77 y.o. female who presents with a history of: Chief complaint Abdominal pain x years History of presenting illness She has been experiencing right sided lower abdominal pain x many years, believes that it may be related to her back. The pain improves when she takes Tylenol arthritis medication. Not taking narcotics. The lower abdominal pain is constant, worse with standing. Her back hurts all the time as well. No constipation nor diarrhea. Colonoscopy 5 years ago. Thereafter, eight inches of colon removed 5 years ago at [facility] There has been 5-6 pounds weight loss over 2 years Reports another colonoscopy at [facility] 2 years ago. ROS: There was no history of: fever, chills, rigors, diaphoresis, jaundice; facial pain nor swelling, neck pain, ear pain nor tinnitus; dyspnea, cough, chest pain, orthopnea, palpitations, nor paroxysmal nocturnal dyspnea; urinary frequency, hematuria nor dyspareunia; joint swelling nor gait problems; headaches, seizures, syncope nor speech difficulty; sweling of lymph nodes nor easy bruising; agitation, confusion, dysphoria nor hallucinations. Medical History Past Medical History: Diagnosis Date ??? Arthritis ??? Community acquired pneumonia ??? Hernia ??? Seizure Surgical History Past Surgical History: Procedure Laterality Date ??? HX COLON SURGERY ??? HX HERNIA REPAIR ??? HX OTHER SURGICAL HISTORY both wrist Family History No family history of IBD or microscopic colits, or Celiac disease Social History Social History Social History ??? Marital status: Spouse name: N/A ??? Number of children: N/A ??? Years of education: N/A Social History Main Topics ??? Smoking status: Never Smoker ??? Smokeless tobacco: Never Used ??? Alcohol use No ??? Drug use: No ??? Sexual activity: Not Asked Other Topics Concern ??? None Social History Narrative ??? None Allergies Allergies Allergen Reactions ??? Sulfa (Sulfonamide Antibiotics) Other (See Comments) tingle all over Medications Current Outpatient Prescriptions Medication Sig Dispense Refill ??? FLUoxetine (PROZAC) 20 mg capsule Take 20 mg by mouth Daily. ??? Irbesartan 300 mg Tab Take by mouth. ??? cloNIDine HCl (CATAPRES) 0.1 mg tablet Take 0.1 mg by mouth Twice a day. ??? amLODIPine (NORVASC) 10 mg tablet Take 10 mg by mouth Daily. ??? gabapentin (NEURONTIN) 300 mg capsule Take 300 mg by mouth At bedtime. ??? tiZANidine (ZANAFLEX) 4 mg Cap capsule Take 4 mg by mouth. ??? levETIRAcetam (KEPPRA) 500 mg Take 500 mg by mouth Twice a day. ??? HYDROcodone-acetaminophen (NORCO) 7.5-325 mg per tablet Take 1 Tab by mouth Every 6 hours as needed for Pain. ??? multivitamin,tx-minerals (THERAGRAN M) Take 1 Tab by mouth Daily. ??? aspirin 81 mg chewable tablet Take 81 mg by mouth Daily. No current facility-administered medications for this visit. Physical examination: BP 146/73 Pulse 79 Resp 18 Ht 5' 2 (157.5 cm) Wt 51.3 kg (113 lb) BMI 20.67 kg/m2 General: Well appearing, mucous membranes pink and moist, anicteric, acyanotic HEENT: Normocephalic. Atraumatic. PERRLA. No tenderness nor swelling, no exudates. Respiratory: Chest clear to auscultation, normal percussion notes Cardiovascular: Pulses regular in rhythm, normal in volume. Heart sounds 1 and 2 normal. No additional heart sounds. No murmurs, rubs nor gallops Abdomen: Soft, nontender, no organomegaly, no masses. Bowel sounds normal. Rectal: not performed Mental status: Alert and fully oriented. Follows commands appropriately Cranial nerves: Normal furrowing of the forehead skin, clenching of the teeth and tongue protrusion. Motor: Normal tone and power in all extremities Back: No CVA tenderness, no midline tenderness Extremities: No cyanosis, no edema, no tenderness Skin: No lesions, no excessive pigmentation Assessment: #1 Neuropathic lower abdominal pain Plan: - Colonoscopy from [facility] two years ago - no features of colonic pain - Neuropathic pain is more likely - Recommend PCP consider oprtions such as nortriptyline/amittriptyline, in addition to her Neurontin. documented in this encounter Plan of Treatment Not on file documented as of this encounter Visit Diagnoses Diagnosis Neuropathic pain- Primary Neuralgia, neuritis, and radiculitis, unspecified Right lower quadrant abdominal pain documented in this encounter Care Teams Linen Supervisor Relationship Specialty Start Date End Date Moody Polk MD [address] [place] [address] PCP - General Family Medicine 07/02/17 Harmeet Gutierrez MD [address] [place] [address] Gastroenterology 07/02/17 documented as of this encounter
--- OUTSIDE RECORDS SUMMARY | 2024-10-08 12:34 | XMS_ITS | Encounter Summary ---
Author Organization [facility] nter Address [address] [place] [address] Care Team Providers Care Dispatch Lead Name Role Phone Genie Beth DO Primary Care Provider + Encounter Details Date Type Department Care Team (Latest Contact Info) Description 07/13/2021 9:46 AM EDT - 07/13/2021 11:59 PM EDT Hospital Encounter [facility] CONVERSION OUTPATIENT [address] [place] [address] Kacy Nuñez DO [address] [place] [phone] Encounter for screening mammogram for malignant neoplasm of breast Discharge Disposition: Home or Self Care Social [...] Procedure Name Priority Date/Time Associated Diagnosis Comments BI MAMMOGRAM SCREENING TOMOSYNTHESIS BILATERAL Routine 07/13/2021 9:49 AM EDT BI MAMMOGRAM SCREENING TOMOSYNTHESIS BILATERAL Routine 07/13/2021 9:49 AM EDT documented in this encounter Results * BI Screening mammogram with tomosynthesis bilateral (07/13/2021 9:49 AM EDT) Anatomical Region Laterality Modality Breast Bilateral Mammography 07/13/2021 9:49 AM EDT Narrative 07/13/2021 10:19 AM EDT PROCEDURE: MA MAMMO SCREENING SOFIA W/STEFFEN: 07/13/2021 CLINICAL INFORMATION: SCREENING Interpretation was made with the benefit of CAD. COMPARISON: 02/18/2019 BREAST DENSITY: The breast tissue is heterogeneously dense. ??This may lower the sensitivity of mammography. FINDINGS: There is no evidence of suspicious calcification, dominant mass, or architectural distortion. Skin thickness and nipple shadows are normal in appearance. Impression: No mammographic evidence of malignancy. BIRADS: BIRADS 1 - Negative RECOMMENDATION: Annual screening mammogram. Your x-ray mammogram shows that your breast tissue is dense. ?Dense breast tissue is common among women and is not abnormal. ?However, women with dense breast tissue may have a slightly increased risk for developing beast cancer. ??Dense breast tissue may also make it more difficult to detect an early breast cancer on your x-ray mammogram. ??At this time, there are not specific recommendations for additional screening or other measures related to having dense breast tissue. ??However, you may want to talk to your doctor about other ways that you might be able to reduce your risk or breast cancer. ??A report of your results was sent to your ordering physician. ?? Negative mammography should not preclude biopsy of any clinically suspicious palpable lesions, which should be managed on clinical grounds, since 10% to 15% of malignancies are not mammographically visible and the rate is higher in patients with mammographically dense breast tissues. The results of your patient's mammogram will be forwarded by mail. It is the responsibility of the patient to provide the date and/or location of any previous mammograms to any new physician and/or supplier. Report Sign Date: 07/13/2021 10:17 AM, Electronically Signed By: ??Ramiro Lopez MD Procedure Note Ramiro Lopez MD - 01/18/2022 PROCEDURE: MA MAMMO SCREENING SOFIA W/STEFFEN: 07/13/2021 CLINICAL INFORMATION: SCREENING Interpretation was made with the benefit of CAD. COMPARISON: 02/18/2019 BREAST DENSITY: The breast tissue is heterogeneously dense. This maylower the sensitivity of mammography. FINDINGS: There is no evidence of suspicious calcification, dominantmass, or architectural distortion. Skin thickness and nipple shadows arenormal in appearance. Impression: No mammographic evidence of malignancy. BIRADS: BIRADS 1 - Negative RECOMMENDATION: Annual screening mammogram. Your x-ray mammogram shows that your breast tissue is dense. Dense breast tissue is common among women and is not abnormal. However, women with dense breast tissue may have a slightly increasedrisk for developing beast cancer. Dense breast tissue may also make itmore difficult to detect an early breast cancer on your x-ray mammogram.At this time, there are not specific recommendations for additionalscreening or other measures related to having dense breast tissue.However, you may want to talk to your doctor about other ways that youmight be able to reduce your risk or breast cancer. A report of yourresults was sent to your ordering physician. Negative mammography should not preclude biopsy of any clinicallysuspicious palpable lesions, which should be managed on clinical grounds,since 10% to 15% of malignancies are not mammographically visible and therate is higher in patients with mammographically dense breast tissues. Theresults of your patient's mammogram will be forwarded by mail. It is theresponsibility of the patient to provide the date and/or location of anyprevious mammograms to any new physician and/or supplier. Report Sign Date: 07/13/2021 10:17 AM, Electronically Signed By: Ramiro Lopez MD Kacy Nuñez DO IMG BI PROCEDURES * BI Screening mammogram with tomosynthesis bilateral (07/13/2021 9:49 AM EDT) Anatomical Region Laterality Modality Breast Bilateral Mammography 07/13/2021 9:49 AM EDT Narrative 07/13/2021 10:19 AM EDT PROCEDURE: MA MAMMO SCREENING SOFIA W/STEFFEN: 07/13/2021 CLINICAL INFORMATION: SCREENING Interpretation was made with the benefit of CAD. COMPARISON: 02/18/2019 BREAST DENSITY: The breast tissue is heterogeneously dense. ??This may lower the sensitivity of mammography. FINDINGS: There is no evidence of suspicious calcification, dominant mass, or architectural distortion. Skin thickness and nipple shadows are normal in appearance. Impression: No mammographic evidence of malignancy. BIRADS: BIRADS 1 - Negative RECOMMENDATION: Annual screening mammogram. Your x-ray mammogram shows that your breast tissue is dense. ?Dense breast tissue is common among women and is not abnormal. ?However, women with dense breast tissue may have a slightly increased risk for developing beast cancer. ??Dense breast tissue may also make it more difficult to detect an early breast cancer on your x-ray mammogram. ??At this time, there are not specific recommendations for additional screening or other measures related to having dense breast tissue. ??However, you may want to talk to your doctor about other ways that you might be able to reduce your risk or breast cancer. ??A report of your results was sent to your ordering physician. ?? Negative mammography should not preclude biopsy of any clinically suspicious palpable lesions, which should be managed on clinical grounds, since 10% to 15% of malignancies are not mammographically visible and the rate is higher in patients with mammographically dense breast tissues. The results of your patient's mammogram will be forwarded by mail. It is the responsibility of the patient to provide the date and/or location of any previous mammograms to any new physician and/or supplier. Report Sign Date: 07/13/2021 10:17 AM, Electronically Signed By: ??Ramiro Lopez MD Procedure Note Ramiro Lopez MD - 01/18/2022 PROCEDURE: MA MAMMO SCREENING SOFIA W/STEFFEN: 07/13/2021 CLINICAL INFORMATION: SCREENING Interpretation was made with the benefit of CAD. COMPARISON: 02/18/2019 BREAST DENSITY: The breast tissue is heterogeneously dense. This maylower the sensitivity of mammography. FINDINGS: There is no evidence of suspicious calcification, dominantmass, or architectural distortion. Skin thickness and nipple shadows arenormal in appearance. Impression: No mammographic evidence of malignancy. BIRADS: BIRADS 1 - Negative RECOMMENDATION: Annual screening mammogram. Your x-ray mammogram shows that your breast tissue is dense. Dense breast tissue is common among women and is not abnormal. However, women with dense breast tissue may have a slightly increasedrisk for developing beast cancer. Dense breast tissue may also make itmore difficult to detect an early breast cancer on your x-ray mammogram.At this time, there are not specific recommendations for additionalscreening or other measures related to having dense breast tissue.However, you may want to talk to your doctor about other ways that youmight be able to reduce your risk or breast cancer. A report of yourresults was sent to your ordering physician. Negative mammography should not preclude biopsy of any clinicallysuspicious palpable lesions, which should be managed on clinical grounds,since 10% to 15% of malignancies are not mammographically visible and therate is higher in patients with mammographically dense breast tissues. Theresults of your patient's mammogram will be forwarded by mail. It is theresponsibility of the patient to provide the date and/or location of anyprevious mammograms to any new physician and/or supplier. Report Sign Date: 07/13/2021 10:17 AM, Electronically Signed By: Ramiro Lopez MD Kacy Nuñez DO IMG BI PROCEDURES documented in this encounter Visit Diagnoses Diagnosis Encounter for screening mammogram for malignant neoplasm of breast documented in this encounter Care Teams Dispatch Lead Relationship Specialty Start Date End Date Genie Beth DO [address] [place] [address] PCP - General documented as of this encounter
--- OUTSIDE RECORDS SUMMARY | 2024-10-08 12:34 | XMS_ITS | Encounter Summary ---
Author Organization [facility] nter Address [address] [place] [address] Care Team Providers Care Apiarist Name Role Phone Genie Beth DO Primary Care Provider + Encounter Details Date Type Department Care Team (Latest Contact Info) Description 11/04/2019 10:22 AM EST - 11/04/2019 11:59 PM EST Hospital Encounter [facility] CONVERSION OUTPATIENT [address] [place] [address] Marlon Courtney MD [address] [place] [address] Unilateral primary osteoarthritis, left knee; Chronic obstructive pulmonary disease, unspecified (CMS/HCC) Discharge Disposition: Home or Self Care Social [...] Diagnoses Diagnosis Unilateral primary osteoarthritis, left knee Chronic obstructive pulmonary disease, unspecified documented in this encounter Care Teams Apiarist Relationship Specialty Start Date End Date Genie Beth DO [address] [place] [address] PCP - General documented as of this encounter
--- OUTSIDE RECORDS SUMMARY | 2024-10-08 12:34 | XMS_ITS | Referral Summary ---
Author Organization [facility] nter Address [address] [place], [place] [id number] [place] [address] Care Team Providers Care Manager Development Name Role Phone Genie Beth DO Primary Care Provider + Social History Tobacco Use Types Packs/Day Years Used Date Smoking Tobacco: Never Assessed Sex and Gender Information Value Date Recorded Sex Assigned at Female 01/09/2022 11:55 AM EST Gender Identity Female 01/09/2022 11:55 AM EST Sexual Orientation Not on file Plan of Treatment Not on file Care Teams Manager Development Relationship Specialty Start Date End Date Genie Beth DO [address] [facility] [place] [address] PCP - General
--- OUTSIDE RECORDS SUMMARY | 2024-10-08 12:34 | XMS_ITS | Encounter Summary ---
Author Organization [facility] nter Address [address] [place] [address] Care Team Providers Care It Infrastructure Engineer Name Role Phone Genie Beth DO Primary Care Provider + Encounter Details Date Type Department Care Team (Latest Contact Info) Description 07/04/2021 10:41 AM EDT - 07/04/2021 11:59 PM EDT Hospital Encounter [facility] CONVERSION OUTPATIENT [address] [place] [address] Kacy Nuñez DO [address] [place] [phone] Pelvic and perineal pain Discharge Disposition: Home [...] as of this encounter Visit Diagnoses Diagnosis Pelvic and perineal pain documented in this encounter Care Teams It Infrastructure Engineer Relationship Specialty Start Date End Date Genie Beth DO [address] [facility] [place] [address] PCP - General documented as of this encounter
--- OUTSIDE RECORDS SUMMARY | 2024-10-08 12:34 | XMS_ITS | Encounter Summary ---
Author Organization [facility] nter Address [address] [place] [address] Care Team Providers Care Chairman & Chief Executive Officer Name Role Phone Genie Beth DO Primary Care Provider + Encounter Details Date Type Department Care Team (Late st Contact Info) Description 03/15/2020 12:01 AM EDT - 03/15/2020 11:59 PM EDT Hospital Encounter [facility] CONVERSION OUTPATIENT [address] [place] [address] Kacy Nuñez DO [address] [place] [phone] Social History Tobacco Use Types Packs/Day Years [...] on filedocumented in this encounter Care Teams Chairman & Chief Executive Officer Relationship Specialty Start Date End Date Genie Beth DO [address] [facility] [place] [address] PCP - General documented as of this encounter
--- OUTSIDE RECORDS SUMMARY | 2024-10-08 12:34 | XMS_ITS | Encounter Summary ---
Author Organization [facility] nter Address [address] [place] [address] Care Team Providers Care Bleach Supervisor Name Role Phone Genie Beth DO Primary Care Provider + Encounter Details Date Type Department Care Team (Latest Contact Info) Description 07/29/2019 12:01 AM EDT - 07/29/2019 11:59 PM EDT Hospital Encounter PMC CONVERSION OUTPATIENT [address] [place] [address] Silvestre Baires PA [address] [place] [address] Unilateral primary osteoarthritis, left hip; Allergy status to sulfonamides; Other bursitis of hip, left hip Discharge [...] Procedure Name Priority Date/Time Associated Diagnosis Comments IR GENERAL HISTORICAL Routine 07/29/2019 11:39 AM EDT documented in this encounter Results * IR GENERAL HISTORICAL (07/29/2019 11:39 AM EDT) Anatomical Region Laterality Modality X-Ray Angiograph y 07/29/2019 11:3 9 AM EDT Narrative 07/29/2019 4:32 PM EDT Procedure: Fluoroscopically guided left hip injection 07/29/2019 Clinical Indication: Unilateral primary osteoarthritis, left hip Physician: Colby Caballero APRN assisted per Juani Middleton APRN ??Technologist: IR Technologist ??Nurse: IR Nurse ??Medications: 2% lidocaine used for local analgesia. ??Antibiotic prophylaxis: Not indicated for procedure. ??VTE prophylaxis: Not indicated for procedure. Technique: ??Following discussion of the risks and benefits of the procedure, informed written consent was obtained. Appropriate timeout was done to confirm patient identity and planned procedure. The patient was positioned supine on the fluoroscopy table. Hadoop Engineer image obtained. Strict hand hygiene protocol was observed. All personnel and the room were attired in surgical hat and mask. The operators were is surgical hat, mask, sterile gloves, and sterile gowns. The site was prepped and draped in the usual sterile manner. 2% lidocaine was used for local analgesia. A 22-gauge spinal needle was advanced under fluoroscopic guidance into the left hip joint. Small contrast injection confirms position. Medication injected (9 ml 1% lidocaine with 40 mg Kenalog). Needle removed. Complications: No immediate Impression: Technically successful fluoroscopically guided left hip injection. Critical Result: No Communication: Per this written report. Report Sign Date: 07/29/2019 4:30 PM, Electronically Signed By: ??Colby Caballero APRN Procedure Note Colby Caballero NP - 01/18/2022 Procedure: Fluoroscopically guided left hip injection 07/29/2019 Clinical Indication: Unilateral primary osteoarthritis, left hip Physician: Colby Caballero APRN assisted per Juani Middleton APRN Technologist: IR Technologist Nurse: IR Nurse Medications: 2% lidocaine used for local analgesia. Antibiotic prophylaxis: Not indicated for procedure. VTE prophylaxis: Not indicated for procedure. Technique: Following discussion of the risks and benefits of the procedure,informed written consent was obtained. Appropriate timeout was done toconfirm patient identity and planned procedure. The patient was positionedsupine on the fluoroscopy table. Hadoop Engineer image obtained. Strict hand hygiene protocol was observed. All personnel and the roomwere attired in surgical hat and mask. The operators were is surgical hat,mask, sterile gloves, and sterile gowns. The site was prepped and drapedin the usual sterile manner. 2% lidocaine was used for local analgesia. A 22-gauge spinal needle wasadvanced under fluoroscopic guidance into the left hip joint. Smallcontrast injection confirms position. Medication injected (9 ml 1%lidocaine with 40 mg Kenalog). Needle removed. Complications: No immediate Impression: Technically successful fluoroscopically guided left hip injection. Critical Result: No Communication: Per this written report. Report Sign Date: 07/29/2019 4:30 PM, Electronically Signed By: Colby Caballero APRN Silvestre CAMPBELL IMG IR PROCEDURES documented in this encounter Visit Diagnoses Diagnosis Unilateral primary osteoarthritis, left hip Allergy status to sulfonamides Other bursitis of hip, left hip documented in this encounter Care Teams Bleach Supervisor Relationship Specialty Start Date End Date Genie Beth DO [address] [facility] [place] [address] PCP - General documented as of this encounter
--- OUTSIDE RECORDS SUMMARY | 2024-10-08 12:34 | XMS_ITS | Encounter Summary ---
Author Organization [facility] nter Address [address] [place] [address] Care Team Providers Care Lap Polisher Name Role Phone Genie Beth DO Primary Care Provider + Encounter Details Date Type Department Care Team (Latest Contact Info) Description 05/14/2019 8:45 AM EDT - 05/14/2019 11:59 PM EDT Hospital Encounter [facility] CONVERSION OUTPATIENT [address] [place] [address] Thien Gray MD [address] [place] [phone] Bilateral primary osteoarthritis of knee; Osteoarthritis of knee, unspecified Discharge Disposition: Home or Self Care Social [...] as of this encounter Visit Diagnoses Diagnosis Bilateral primary osteoarthritis of knee Osteoarthritis of knee, unspecified documented in this encounter Care Teams Lap Polisher Relationship Specialty Start Date End Date Genie Beth DO [address] [facility] [place] [address] PCP - General documented as of this encounter
--- OUTSIDE RECORDS SUMMARY | 2024-10-08 12:34 | XMS_ITS | Encounter Summary ---
Author Organization [facility] nter Address [address] [place] [address] Care Team Providers Care Dictaphone Typist Name Role Phone Genie Beth DO Primary Care Provider + Encounter Details Date Type Department Care Team (Latest Contact Info) Description 11/16/2021 9:21 AM EST - 11/16/2021 11:59 PM EST Hospital Encounter [facility] CONVERSION OUTPATIENT [address] [place] [address] Adán Russell MD [address] [place] [address] Ventricular premature depolarization; Essential (primary) hypertension Discharge Disposition: Home or Self Care Social History Tobacco Use Types Packs/Day Years Used Date Smoking Tobacco: Never Assessed Sex and Gender Information Value Date Recorded Sex Assigned at Female 01/09/2022 11:55 AM EST Gender Identity Female 01/09/2022 11:55 AM EST Sexual Orientation Not on file documented as of this encounter Miscellaneous Notes * Legacy Note - Conversion Interface Provider - 11/16/2021 5:12 PM EST [facility] documented in this encounter Plan of Treatment Not on file documented as of this encounter Visit Diagnoses Diagnosis Ventricular premature depolarization Other premature beats Essential (primary) hypertension Unspecified essential hypertension documented in this encounter Care Teams Dictaphone Typist Relationship Specialty Start Date End Date Genie Beth DO [address] [facility] [place], [place] [id number] PCP - General documented as of this encounter
--- OUTSIDE RECORDS SUMMARY | 2024-10-08 12:34 | XMS_ITS | Encounter Summary ---
Author Organization [facility] Address [address] [place] [address] Care Team Providers Care Environmental Health Safety Engineer Name Role Phone Unavailable Primary Care Provider Unavailabl e Encounter Details Date Type Department Care Team (Late st Contact Info) Description 05/02/2006 Historical Encounter X-ray [address] [place] [address] Radiology, Radiologist, Social History Tobacco Use Types Packs/Day Years Used Date Smoking Tobacco: Never Assessed Sex and Gender Information Value Date Recorded Sex Assigned at Not on file Gender Identity Not on file Sexual Orientation Not on file documented as of this encounter Plan of Treatment Not on file documented as of this encounter Procedures Procedure Name Priority Date/Time Associated Diagnosis Comments CT ABD PELVIS-IV & ORAL CONTRAST 05/02/2006 12:08 PM EDT XR CHEST PA AND LATERAL 05/02/2006 5:[address] ABDOMEN & PELVIS-NO CONTRAST 05/02/2006 5:38 AM EDT documented in this encounter Results * CT ABDOMEN PELVIS W CONTRAST (05/02/2006 12:08 PM EDT) Anatomical Region Laterality Modality Abdomen, Pelvis, hip Other 05/02/2006 12:0 8 PM EDT Narrative 05/02/2006 12:08 PM EDT DATE OF EXAM: May 02 2006CT ?[id number] ??- ??CT ABDOMEN&PELVIS W/CONTRAST ??CPT:CLINICAL HISTORY: ?? \ACUTE PANCREATITISFULL RESULT: CLINICAL INDICATION: Questioned pancreatitis.TECHNIQUE: Axial images were obtained through the abdomen and pelvisfollowingadministration of intravenous and oral contrast.FULL RESULT: Very mild ground-glass opacity is seen in the lung base.Thedistal esophagus is air filled.There is probable cyst seen in the right lobe of the liver anteriorsegment.The pancreas and kidneys enhance normally.There is abnormal thickening of the splenic flexure of the colon withfluid seenalong the lateral conal fascia. ??No definite evidence for pancreatitisis seen,though early pancreatitis is not excluded. ??The left adrenal gland isprominent.Findings are more consistent with a colitis involving the distaltransverse andsplenic flexure of the colon where there is mucosal thickening. ?? Thereare smallparaaortic lymph nodes. ??Followup CT of the abdomen is recommended tosee if thefindings in the splenic flexure and descending colon resolve. ?? Thispotentiallycould represent an inflammatory or infectious colitis. ?? Otheretiologies are notexcluded. ??Followup is recommended.IMPRESSION: ??The splenic flexure and descending colon are abnormal inappearance.The pancreas shows no definite evidence of acute pancreatitis,although earlypancreatitis is not excluded. ??There may be a small amount of pelvicfluid seenbest on image number 70.Skein Yard Drier: PSCTranscribe Date/Time: May 02 2006 ??4:25PRead by : DRARYL BUITRAGO M.D.This document has been electronicallySigned by: DARRYL BUITRAGO M.D. On: May ??1 2005 ??2:36P Procedure Note Radiology, Radiologist - 01/03/2009 DATE OF EXAM: May 02 2006CT 9181 - CT ABDOMEN&PELVIS W/CONTRASTCPT:CLINICAL HISTORY: \ACUTE PANCREATITISFULL RESULT: CLINICAL INDICATION: Questioned pancreatitis.TECHNIQUE: Axial images were obtained through the abdomen and pelvisfollowingadministration of intravenous and oral contrast.FULLRESULT: Very mild ground-glass opacity is seen in the lung base.Thedistal esophagus is air filled.There is probable cyst seen in the right lobe of the liveranteriorsegment.The pancreas and kidneys enhance normally.There is abnormal thickening of thesplenic flexure of the colon withfluid seenalong the lateral conal fascia. Nodefinite evidence for pancreatitisis seen,though early pancreatitis is notexcluded. The left adrenal gland isprominent.Findings are more consistent with a colitisinvolving the distaltransverse andsplenic flexure of the colon where there is mucosalthickening. Thereare smallparaaortic lymph nodes. Followup CT of the abdomen isrecommended tosee if thefindings in the splenic flexure and descending colon resolve. Thispotentiallycould represent an inflammatory or infectious colitis. Otheretiologies are notexcluded. Followup is recommended.IMPRESSION: Thesplenic flexure and descending colon are abnormal inappearance.The pancreas showsno definite evidence of acute pancreatitis,although earlypancreatitis is notexcluded. There may be a small amount of pelvicfluid seenbest on image [id number].Skein Yard Drier: PSCTranscribe Date/Time: May 02 2006 4:25PRead by : DARRYL BUSTILLOThis document has been electronicallySigned by: DARRYL BUITRAGO M.D. On: May 03 20062:36P Radiologist Radiology MD IMG CT ORDERABL ES * XR CHEST PA AND LATERAL (05/02/2006 5:43 AM EDT) Anatomical Region Laterality Modality Chest Other 05/02/2006 5:43 AM EDT Narrative 05/02/2006 5:43 AM EDT DATE OF EXAM: May 02 2006XRY ?? [id number] ??- ??CHEST PA LAT ??CPT: ??[id number] HISTORY: ?? \ACUTE PANCREATITISFULL RESULT: Findings: ??Two views of the chest reveal emphysematouschanges of the lungs, nocardiac enlargement, and no acute disease.IMPRESSION: ??No acute disease is suspected.Skein Yard Drier: PSCTranscribe Date/Time: May 02 2006 ??6:51ARead by : JOSE NI M.D.This document has been electronicallySigned by: JOSE NI M.D. On: May 02 2006 ??7:00A Procedure Note Radiology, Radiologist - 01/03/2009 DATE OF EXAM: May 02 2006XRY 7101 - CHEST PA LAT CPT: [id number]: \ACUTE PANCREATITISFULL RESULT: Findings: Two views of the chest reveal emphysematouschanges of the lungs, nocardiac enlargement, and no acute disease.IMPRESSION: No acute disease is suspected.Skein Yard Drier:PSCTranscribe Date/Time: May 02 2006 6:51ARead by : JOSE NI M.D.This document hasbeen electronicallySigned by: JOSE NI M.D. On: May 02 2006 7:00A Radiologist Radiology IMG DIAGNOSTIC IMAGING ORDERABLES * CT ABDOMEN PELVIS WO CONTRAST (05/02/2006 5:38 AM EDT) Anatomical Region Laterality Modality Abdomen, Pelvis, hip Other 05/02/2006 5:38 AM EDT Narrative 05/02/2006 5:38 AM EDT DATE OF EXAM: May 02 2006CT ?[id number] ??- ??CT ABDOMEN&PELVIS W/O CONTR ??CPT:CLINICAL HISTORY: ?? Clinical concern regarding acute pancreatitis.TECHNIQUE: ??Nonenhanced CT of the abdomen and pelvis was performed.It was decided not to administer intravenous contrast because thepatient's serum creatinine level was unknown. ??Oral contrast wasadministered for the study and is limited.FULL RESULT: By nonenhanced CT, the pancreatic margins are thought carole well defined. ??Minimal free fluid is seen within the left paracolicgutter. ??Strand-like densities are seen about the descending colon.The descending colonic wall may be thickened. ??Oral contrastpreparation in this region is limited. ??Predominantly, the oralcontrast is within the stomach. ??Some of the oral contrast hasprogressed to small bowel, predominantly jejunum.No hydronephrosis. ??No hydroureter. ??Bibasilar subsegmentalatelectasis is suspected within the visualized lung bases. ??There aredegenerative changes of the spine. ??The uterus is retroverted. ??Theappendix is not identified with certainty. ??It may be within thevicinity of the right lower quadrant on images 55 - 64.There is a suspected left inguinal hernia which contains bowel,probably descending colon, and probably free fluid. ??No definite bowelobstruction is associated with the finding. ??However, considering theacute inflammatory process suspected about the descending colon,further evaluation of this finding may be pertinent with IV andfurther oral contrast preparation, to excluded strangulated bowel.IMPRESSION:1. ??Limited study as described.2. ??Acute inflammatory process is suspected within the left abdomenand pelvis about the descending colon with minimal free fluid in theparacolic gutter. ?? Findings may be related to a left inguinal herniawhich does contain bowel (probably descending colon). ??IV contrast andfurther oral contrast preparation may be useful to excludestrangulated bowel within this left inguinal hernia. ??No definitebowel obstruction.Skein Yard Drier: [id number] Date/Time: May 02 2006 ??8:15ARead by : JOSE NI M.D.This document has been electronicallySigned by: JOSE NI M.D. On: May ??1 2005 ??6:07A Procedure Note Radiology, Radiologist - 01/03/2009 DATE OF EXAM: May 02 2006CT 9180 - CT ABDOMEN&PELVIS W/O CONTRCPT:CLINICAL HISTORY: Clinical concern regarding acute pancreatitis.TECHNIQUE:Nonenhanced CT of the abdomen and pelvis was performed.It was decided not to administerintravenous contrast because thepatient's serum creatinine level was unknown. Oralcontrast wasadministered for the study and is limited.FULL RESULT: By nonenhancedCT, the pancreatic margins are thought carole well defined. Minimal free fluid isseen within the left paracolicgutter. Strand-like densities are seen about thedescending colon.The descending colonic wall may be thickened. Oralcontrastpreparation in this region is limited. Predominantly, the oralcontrast is within thestomach. Some of the oral contrast hasprogressed to small bowel, predominantly jejunum.No hydronephrosis. No hydroureter. Bibasilar subsegmentalatelectasis issuspected within the visualized lung bases. There aredegenerative changes of thespine. The uterus is retroverted. Theappendix is not identified with certainty. Itmay be within thevicinity of the right lower quadrant on images 55 - 64.There maria ines suspected left inguinal hernia which contains bowel,probably descending colon, andprobably free fluid. No definite bowelobstruction is associated with the finding.However, considering theacute inflammatory process suspected about the descending colon,further evaluation of this finding may be pertinent with IVandfurther oral contrast preparation, to excluded strangulated bowel.IMPRESSION:1.Limited study as described.2. Acute inflammatory process is suspected within the leftabdomenand pelvis about the descending colon with minimal free fluid in theparacolicgutter. Findings may be related to a left inguinal herniawhich does contain bowel(probably descending colon). IV contrast andfurther oral contrast preparation maybe useful to excludestrangulated bowel within this left inguinal hernia. Nodefinitebowel obstruction.Skein Yard Drier: [id number] Date/Time: May 02 20068:15ARead by : JOSE NI M.D.This document has been electronicallySigned by: JOSE LYNCH On: May 03 2006 6:07A Radiologist Radiology MD RANDOLPH CT ORDERABL ES documented in this encounter Visit Diagnoses Not on filedocumented in this encounter
--- OUTSIDE RECORDS SUMMARY | 2024-10-08 12:34 | XMS_ITS | Encounter Summary ---
Author Organization [facility] nter Address [address] [place] [address] Care Team Providers Care Nurse Reviewer Name Role Phone Genie Beth DO Primary Care Provider + Encounter Details Date Type Department Care Team (Latest Contact Info) Description 06/29/2019 10:48 AM EDT - 06/29/2019 11:59 PM EDT Hospital Encounter PMC CONVERSION OUTPATIENT [address] [place] [address] Silvestre Baires PA [address] [place] [phone] Unilateral primary osteoarthritis, left hip; Other bursitis [...] hip documented in this encounter Care Teams Nurse Reviewer Relationship Specialty Start Date End Date Genie Beth DO [address] [facility] [place] [phone] PCP - General documented as of this encounter
--- OUTSIDE RECORDS SUMMARY | 2024-10-08 12:34 | XMS_ITS | Referral Summary ---
Author Organization [facility] Address [address] [place] [address] Care Team Providers Care Manager Trading Name Role Phone Moody Polk MD Primary Care Provider [phone] Harmeet Gutierrez MD Unavailable [phone] Provider, Historical Unavailable Unavailable Allergies Active Allergy [...] 07/02/2017 9:44 AM EDT Plan of Treatment Not on file Care Teams Manager Trading Relationship Specialty Start Date End Date Moody Polk MD [address] [place] [address] PCP - General Family Medicine 07/02/17 Harmeet Gutierrez MD [address] [facility] [address] [place] [address] Gastroenterology 07/02/17 Provider, Historical 07/22/17
--- OUTSIDE RECORDS SUMMARY | 2024-10-08 12:34 | XMS_ITS | Encounter Summary ---
Author Organization [facility] nter Address [address] [place] [address] Care Team Providers Care Software Test Specialist Name Role Phone Genie Beth DO Primary Care Provider + Encounter Details Date Type Department Care Team (Latest Contact Info) Description 11/30/2019 10:07 AM EST - 11/30/2019 11:59 PM EST Hospital Encounter PMC CONVERSION OUTPATIENT [address] [place] [address] Silvestre Baires PA [address] [place] [address] Unilateral primary osteoarthritis, left knee Discharge Disposition: [...] Name Priority Date/Time Associated Diagnosis Comments XR KNEE 1-2 VIEWS LEFT Routine 11/30/2019 10:08 AM EST documented in this encounter Results * XR knee 1 or 2 views left (11/30/2019 10:08 AM EST) Anatomical Region Laterality Modality Lower Extremities, Knee Left Radiogra [facility] 11/30/2019 10:0 8 AM EST Narrative 11/30/2019 11:15 AM EST PROCEDURE: KNEE LEFT 1-2 VIEWS: 11/30/2019 CLINICAL INFORMATION: Unilateral primary osteoarthritis, unspecified knee There is postoperative change of previous total knee arthroplasty. Alignment is anatomic with no evidence of acute hardware complication. Soft tissues show surgical skin gin and a joint effusion. 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 Report Sign Date: 11/30/2019 11:13 AM, Electronically Signed By: ??Ramiro Lopez MD Procedure Note Ramiro Lopez MD - 01/18/2022 PROCEDURE: KNEE LEFT 1-2 VIEWS: 11/30/2019 CLINICAL INFORMATION: Unilateral primary osteoarthritis, unspecified knee There is postoperative change of previous total knee arthroplasty.Alignment is anatomic with no evidence of acute hardware complication.Soft tissues show surgical skin gin and a joint effusion. 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 Report Sign Date: 11/30/2019 11:13 AM, Electronically Signed By: Ramiro Lopez MD Thien Gray MD IMG XR PROCEDURES documented in this encounter Visit Diagnoses Diagnosis Unilateral primary osteoarthritis, left knee documented in this encounter Care Teams Software Test Specialist Relationship Specialty Start Date End Date Genie Beth DO [address] [facility] [place] [address] PCP - General documented as of this encounter
--- OUTSIDE RECORDS SUMMARY | 2024-10-08 12:34 | XMS_ITS | Encounter Summary ---
Author Organization [facility] nter Address [address] [place] [address] Care Team Providers Care Fuel Testing Technician Name Role Phone Genie Beth DO Primary Care Provider + Encounter Details Date Type Department Care Team (Latest Contact Info) Description 12/09/2019 1:03 PM EST - 12/09/2019 11:59 PM EST Hospital Encounter PMC CONVERSION OUTPATIENT [address] [address] Thien Gray MD [address] [place] [address] Unilateral primary osteoarthritis, left knee Discharge Disposition: [...] knee documented in this encounter Care Teams Fuel Testing Technician Relationship Specialty Start Date End Date Genie Beth DO [address] [place] [address] PCP - General documented as of this encounter
--- OUTSIDE RECORDS SUMMARY | 2024-10-08 12:34 | XMS_ITS | Encounter Summary ---
Author Organization [facility] nter Address [address] [place] [address] Care Team Providers Care Surgical Garment Inspector Name Role Phone Genie Beth DO Primary Care Provider + Encounter Details Date Type Department Care Team (Latest Contact Info) Description 01/06/2019 10:29 AM EST - 01/06/2019 11:59 PM EST Hospital Encounter PMC CONVERSION OUTPATIENT [address] [place] [address] Kacy Nuñez DO [address] [place] [phone] Encounter for screening mammogram for malignant neoplasm of breast; Encounter for gynecological examination (general) (routine) without abnormal findings Discharge Disposition: Home or Self Care Social [...] screening mammogram for malignant neoplasm of breast Encounter for gynecological examination (general) (routine) without abnormal findings documented in this encounter Care Teams Surgical Garment Inspector Relationship Specialty Start Date End Date Genie Beth DO [address] [facility] [place], [place] [phone] PCP - General documented as of this encounter
--- OUTSIDE RECORDS SUMMARY | 2024-10-08 12:34 | XMS_ITS | Encounter Summary ---
Author Organization [facility] nter Address [address] [place] [address] Care Team Providers Care Material Movers Name Role Phone Genie Beth DO Primary Care Provider + Encounter Details Date Type Department Care Team (Latest Contact Info) Description 04/23/2019 8:47 AM EDT - 04/23/2019 11:59 PM EDT Hospital Encounter [facility] CON[facility] OUTPAT[facility] [address] [place] [place] [address] Thien Gray MD [address] [place] [phone] Bilateral primary osteoarthritis of knee Discharge Disposition: Home or Self Care [...] Diagnoses Diagnosis Bilateral primary osteoarthritis of knee documented in this encounter Care Teams Material Movers Relationship Specialty Start Date End Date Genie Beth DO [address] [facility] [address] PCP - General documented as of this encounter
--- OUTSIDE RECORDS SUMMARY | 2024-10-08 12:34 | XMS_ITS | Clinical Summary ---
Author Organization [facility] nter Address [address] [place], [place] [id number] [place] [id number] Care Team Providers Care Engineering Specialist Technician Name Role Phone Genie Beth DO Primary Care Provider + Social History Tobacco Use Types Packs/Day Years Used Date Smoking Tobacco: Never Assessed Sex and Gender Information Value Date Recorded Sex Assigned at Female 01/09/2022 11:55 AM EST Gender Identity Female 01/09/2022 11:55 AM EST Sexual Orientation Not on file Plan of Treatment Health Maintenance Due Date Last Done Comments Bone Density Scan 1940 DTaP/Tdap/Td Vaccines (1 - Tdap) 1959 RSV 60+ and patient s (1 - 1-dose 60+ series) 2000 Pneumococcal Vaccine: 65+ Years (1 of 1 - PCV) 2005 Influenza Vaccine (#1) 2024 3, 08/31/2020, 09/19/2017 RSV under 20 month Aged Out No longer eligible based on patient's age to complete this topic Care Teams Engineering Specialist Technician Relationship Specialty Start Date End Date Genie Beth DO [address] [facility] [place] [address] PCP - General
--- OUTSIDE RECORDS SUMMARY | 2024-10-08 12:34 | XMS_ITS | Encounter Summary ---
Author Organization [facility] nter Address [address] [place] [address] Care Team Providers Care Pasting Machine Operator Name Role Phone Genie Beth DO Primary Care Provider + Encounter Details Date Type Department Care Team (Latest Contact Info) Description 04/30/2019 8:35 AM EDT - 04/30/2019 11:59 PM EDT Hospital Encounter [facility] CONVERSION OUTPATIENT [address] [place] [address] Thien Gray MD [address] [place] [phone] Bilateral primary osteoarthritis of knee Discharge Disposition: [...] knee documented in this encounter Care Teams Pasting Machine Operator Relationship Specialty Start Date End Date Genie Beth DO [address] [facility] [place] [address] PCP - General documented as of this encounter
--- OUTSIDE RECORDS SUMMARY | 2024-10-08 12:34 | XMS_ITS | Encounter Summary ---
Author Organization [facility] nter Address [address] [place] [address] Care Team Providers Care Health Care Social Worker Name Role Phone Genie Beth DO Primary Care Provider + Encounter Details Date Type Department Care Team (Latest Contact Info) Description 08/27/2019 9:42 AM EDT - 08/27/2019 11:59 PM EDT Hospital Encounter [facility] CONVERSION OUTPATIENT [address] [place] [address] Thien Gray MD [address] [place] [phone] Other bursitis of hip, left hip; Unilateral primary osteoarthritis, left knee Discharge Disposition: [...] as of this encounter Visit Diagnoses Diagnosis Other bursitis of hip, left hip Unilateral primary osteoarthritis, left knee documented in this encounter Care Teams Health Care Social Worker Relationship Specialty Start Date End Date Genie Beth DO [address] [facility] [place] [address] PCP - General documented as of this encounter
--- OUTSIDE RECORDS SUMMARY | 2024-10-08 12:34 | XMS_ITS | Encounter Summary ---
Author Organization [facility] nter Address [address] [place] [address] Care Team Providers Care Sign Erector And Repairer Name Role Phone Genie Beth DO Primary Care Provider + Encounter Details Date Type Department Care Team (Latest Contact Info) Description 11/16/2019 1:06 PM EST - 11/17/2019 5:12 PM EST Hospital Encounter [facility] CONVERSION OUTPATIENT [address] [place] [address] Thien Gray MD [address] [place] [address] Unilateral primary osteoarthritis, left knee; Essential (primary) hypertension; Hyperlipidemia, unspecified; Chronic pain syndrome; Anxiety disorder, unspecified; Major depressive disorder, single episode, unspecified; Scoliosis, unspecified; Allergy status to sulfonamides; 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 GRAY ON 11-30-19 AT 10:15AM. IF YOU HAVE ANY QUESTIONS PLEASE CONTACT [phone]. THANK YOU. documented in this encounter Progress Notes * Myriam Mcgraw PTA - 11/17/2019 5:11 PM EST SUBJECTIVE: Pt sitting in bedside chair upon arrival and agreeabe to walk with PT. Pt states that the CPM went well. RN OK'd treatment. at bedside. Observation: Encountered: out of bed in chair with chair alarm IV lock Precautions: HRF Rehab Potential: Good Exercise: LLE: reps: 5 AROM heelslides WB (Weight Bearing) restriction: LLE: WBAT Balance: Static sitting: Good Dynamic sitting: Good Static standing: Good Dynamic standing: Good with RW Other: Transfers: Sit to stand: SBA (Standby Assistance) Stand to sit: SBA (Standby Assistance) FIM Scores: Ambulation: SBA (Standby Assistance) FIM Score: 5= greater than 150ft, with or without device, no assistance Pt amb 300' SBA with RW. No LOB noted. Ambulation distance: 300 feet Ambulation duration: 11 minutes Gait device: Front Wheeled Walker(FWW) Patient Status: Improving Indication for Skilled PT: Facilitate ROM/strength gains, Correct gait deviations, Promote independence with transfers/mobility, Promote compliance with WB status, Promote compliance with positioning, Improve balance, Address safety during mobility to minimize fall risk, Increase independence with ADLs Plan: Therapeutic Exercise, CPM, Therapeutic Activity, Transfer Training, Gait Training, Pt/Family Education, ADL Training, Neuromuscular Re-education, Self-care/home management Pain: Previous Pain Score: 7 (11/17/2019 09:52) PAIN ASSESSMENT Scale used: Numerical LOCATION: knee L QUALITY: achey Pain Scale: 5 Acute Education: Learner(s): Patient, Spouse Education topic: Gait training Teaching Method: demonstrations Evaluation: return demo, needs assistance At the end of treatment patient was left: out of bed in chair with chair alarm, family present, needs/call villeda in reach, informed RN/RESIN REMOVER Set up pt home CPM unit and reviewed instructions for CPM use and Ice pack use. Gave pt handout and visual demonstration. Pt and acknowlege understanding. Treatment charge: TIME IN: 17-Nov-2019 14:10 TIME OUT: 17-Nov-2019 14:26 TOTAL TREATMENT TIME: 16 minutes Charge: Gait trainin Unit(s) Units Charged: 1 * Renuka De Luna NP - 11/17/2019 12:05 PM EST DATE OF SERVICE: 17-Nov-2019 SUBJECTIVE Complains of Pain OBJECTIVE Vital Signs: T: 97.7 F [36.5 C] (11/17/2019 07:25) P: B/P: Measurement DT NIBPS NIBPD 11/17/2019 07:25 120 61 RR: 18 (11/17/2019 07:25) PAIN: 7 (11/17/2019 09:52) WEIGHT: HEIGHT: Dressing: Dry and intact Hemovac removed DVT Assessment: SCDs in use Yes Signs and Symptoms of DVT are Negative Bilateral Pulses Strong IMPRESSION Arthroplasty: Total Knee Arthroplasty: PLAN Continue Physical Therapy: Yes DVT Prophlaxis: Yes Prob d/c this pm documented in this encounter Consult Notes * Steve العلي Cua PT - 11/17/2019 12:41 PM EST Evaluation completed and treatment initiated. * Lizzie Mascorro OT - 11/17/2019 9:24 AM EST Therapy not rendered. Reason: OT eval attempted, however pt denies need for skilled OT services at this time. Pt instructed to notify nursing/MD if OT needs arise prior to discharge. OT to sign off. documented in this encounter Miscellaneous Notes * Legacy Note - Sherice Merino - 11/17/2019 4:18 PM EST DATE/TIME OF DISCHARGE: 17-Nov-2019 16:18 MODE OF TRANSPORT: Wheelchair PERSON ACCOMPANIED PATIENT AT DISCHARGE: DISCHARGE DISPOSITION: Home DIAGNOSIS - Osteoarthritis of knee [LEFT TKA] DIET: Regular ACTIVITY/RETURN TO WORK/SCHOOL: Level of Activity/Restrictions: You cannot drive or operate heavy machinery until RELEASED BY DR GRAY OR WHILE TAKING PAIN MEDICATION FOLLOW UP WITH: Follow up with: [facility] Site/Services: Clinic Name/Site: [facility] Clinic, 6th Floor [address] [place] [address] GRAY ,Provider, in 11-30-19 AT 10:15 AM JUAN CARLOS Chavez CM, DC NOTE 11/17/2019 10:49 Local Title: CM: DISCHARGE DISPOSITION NOTE Standard Title: DME Agency [facility] Bedside Commode CPM Walker-Rolling Is patient aware of [facility]'s ownership of [facility] HME? Comment: [phone] HOME HEALTH PROVIDER'S LIST: Patient reviewed INSTR PT-FINANCIAL RELATION WITH: HOME HEALTH Home Health Agency [facility] Comment: PT Was patient/caregiver given the option of home health health agency? Yes Comment: [phone] Signed by: /jagdish/ CHRISTO KING JUNIOR ELECTRICAL ENGINEER 11/17/2019 10:51 11/17/2019 12:46 Local Title: ADDENDUM Standard Title: Provided pt. with samples of Xarelto 10 mg once daily X 30 days. Signed by: /jagdish/ CHRISTO KING JUNIOR ELECTRICAL ENGINEER 11/17/2019 12:47 HIP/KNEE REPLACEMENT HOME DISCHARGE ORDERS 1. Patient may be discharged home 2. Home medications per discharge medication reconciliation 3. Verify Home Medical Equipment needs have been arranged by Case Management/Phonograph Mechanic 4. Continue home diet 5. Follow up as previously scheduled 6. Bilateral MARY Hose 7. Ice three times for 20 minutes per day to surgical site 8. Activity as tolerated. Continue home therapy exercises as educated per physical therapy 9. May shower and change dressing on 19-Nov-2019 10. Change dressing on specified date and then every 5 days thereafter. Clean incision with alcohol and then apply aquacel 30 cm dressing to incision. Give Aquacel 30 cm dressing x 4. 11. Call temperature greater than 101.5, redness, drainage, or tenderness at surgical site. 12. Anticoagulants: Xarelto 10 mg PO Daily x 14 DAYS *Pneumococcal vaccination: Patient declined *Influenza vaccination:Patient declined YOU ARE TAKING RIVAROXABAN (XARELTO) --See your doctor immediately if you develop any of the following symptoms: 1) allergic reactions, 2) unexpected bleeding or bruising including bloody or black, tarry stools, red or dark brown urine, spitting up blood, etc. 3) changes in vision, 4) difficulty speaking, understanding or confusion, 5) severe headaches, 7)sudden numbness or weakness of the face, arm, or leg, 8) trouble walking, dizziness, loss of balance or coordination -Tell all health care providers that you are taking this medication -Tell your healthcare provide all the medicines, herbs, non-prescription drugs, or dietary supplements you use -If you take your medicine once a day and miss a dose, take the missed dose as soon as you remember. Patient did not receive Insulin during the hospital stay. Prescriptions given to: DAVIDA Please bring all of your prescription bottles to any follow-up appointments. Take pain medication as as directed, No alcohol SMOKING: If you currently smoke cigarettes/cigars/pipes &/or chewing tobacco, (or have smoked in the last year) it is important for you to STOP. Ask your physician for information or call 311 to help you stop smoking. If you don't smoke, don't start. Avoid second-hand smoke. CALL 911 IF YOU DEVELOP SHORTNESS OF BREATH OR CHEST PAIN If you are not feeling better within 1 to 2 days, call your doctor. SEEK IMMEDIATE MEDICAL ATTENTION IF existing symptoms get worse or new symptoms develop; such as chest pain, difficulty breathing, vomiting, belly pain, unusual sleepiness, confusion, convulsions, blurred vision, difficulty walking, a fever, cough, dry mouth, stiff neck, headache or you pass out. In small children also look for poor feeding, sunken eyes, decreased urination, a rash or increased irritability. Patient/Parent Signature Date/Time * Legacy Note - Conversion Interface Provider - 11/17/2019 3:25 PM EST Discharge Medication Reconciliation Report Nov 17, 2019@15:25:13 PATIENT: MASHA QUIROGA : 1940 FEMALE Reported Allergies: Patient has answered No Known Allergies This is a list of medications and their actions according to your latest visit. If this list is inaccurate, please let your provider know. CONTINUE taking the following meds: AMLODIPINE BESYLATE 5MG UD TAB: TAKE 2 TABLETS BY MOUTH ONCE A DAY Indication: FLUOXETINE HCL 20MG CAP UD: TAKE 1 CAPSULE BY MOUTH ONCE A DAY Indication: HYDROCHLOROTHIAZIDE 25MG TAB: TAKE 1 TABLET BY MOUTH ONCE A DAY Indication: IRBESARTAN 150MG TAB: TAKE 2 TABLETS BY MOUTH AT BEDTIME Indication: LEVETIRACETAM 500MG TAB: TAKE 1 TABLET BY MOUTH TWICE A DAY Indication: TIZANIDINE HCL 4MG TAB: TAKE 1 TABLET BY MOUTH AT BEDTIME Indication: Date Finalized: 11/17/19@15:25 by RENUKA DE LUNA (NURSE PRACTITIONER) * Legacy Note - Steve العلي Cua, PT - 11/17/2019 12:38 PM EST Account:[id number] Diagnoses: Total Knee Arthroplasty: LEFT Goals: STG (Short Term Goal): Time frame: 3 days 1. Pt will demonstrate and verbalize understanding of cpm and settings. 2. Pt will be independent with HEP (Home Exercise Program) 3. Pt will be able to ambulate 600 feet by using: FWW: SBA (Standby Assistance) Plan: Evaluation, Therapeutic Exercise, CPM, Therapeutic Activity, Transfer Training, Gait Training, Pt/Family Education, ADL Training, Neuromuscular Re-education, Self-care/home management Rehab Potential: Good Pt/Family participation: Yes Precautions: HRF WB (Weight Bearing) restriction: LLE: WBAT Treatment frequency: Bid * Legacy Note - Steve العلي Cua PT - 11/17/2019 12:33 PM EST Initial Eval TIME IN: 17-Nov-2019 09:00 TIME OUT: 17-Nov-2019 09:20 Observation patient: Yes Referring Physician: Thien Gray. Diagnoses: Total Knee Arthroplasty: LEFT SUBJECTIVE: Past Medical History: HTN,Anxiety,Depression, Chronic pain syndrome. Past Surgical History: Appendectomy,Tonsillectomy,colon resection. Social History: Pt lives with spouse @ home. Home Environment: Single Level Home: Stairs/Steps: 2 steps Live with: Self, Spouse Primary Caregiver: Self Prior Level Of Function: Independent with mobility, Independent with ADLs, Transfers Independently Precautions: HRF WB (Weight Bearing) restriction: LLE: WBAT Pain: Previous Pain Score: 7 (11/17/2019 09:52) Patient has no pain at this time. OBJECTIVE: Mental Status Alert Oriented x Person, Place, Time Observation: Encountered: out of bed in chair with chair alarm Peripheral IV, Telemetry, Pulse oximeter Balance: Static sitting: Good Dynamic sitting: Good Static standing: Good w/ RW Dynamic standing: Fair w/ RW Other: Transfers: Sit to supine: SBA (Standby Assistance) Sit to stand: SBA (Standby Assistance) Stand to sit: SBA (Standby Assistance) FIM Scores: 5= requires supervision/cueing/set-up Ambulation: SBA (Standby Assistance) FIM Score: 5= greater than 150ft, with or without device, no assistance Ambulation distance: 300 feet Gait device: Front Wheeled Walker(FWW) Range of Motion: Right Lower Extremity WFL Left Lower Extremity WFL Comment: 95 At the end of treatment patient was left: in bed, bed alarm in use, needs/call villeda in reach, informed RN/KYLE Cox RN. cpm on 95 Rehab Potential: Good Patient Goal: Go home, Ambulate independent, Transfer independent, Improve strength, Improve balance Barriers to Achieving Goals: Medical history Facilitating Factors: Support system, Patient motivation Patient Perception: Agreeable to therapy, Cooperative Equipment needs: BSC, Front Wheeled Walker, CPM Other services needed: None Discharge Recommendations: Home Health, Outpatient PT, Home Equipment, 24hr Family assist Therapy Problems: Decreased Balance, Decreased Strength, Decreased ROM, Decreased Transfers, Decreased Ambulation Indication for Skilled PT: Facilitate ROM/strength gains, Correct gait deviations, Promote independence with transfers/mobility, Improve balance, Address safety during mobility to minimize fall risk Plan: Evaluation, Therapeutic Exercise, CPM, Therapeutic Activity, Transfer Training, Gait Training, Pt/Family Education, ADL Training, Neuromuscular Re-education, Self-care/home management Education: Learner(s): Patient Education topic: Transfer training Teaching Method: verbal instruction, demonstrations Evaluation: verbalized understanding Gait training Teaching Method: verbal instruction, demonstrations Evaluation: verbalized understanding Gait belt Teaching Method: verbal instruction Evaluation: verbalized understanding CPT Codes: 78918 * Legacy Note - FERNANDO Santo - 11/17/2019 10:49 AM EST DME Agency [facility] Bedside Commode CPM Walker-Rolling Is patient aware of [facility] ownership of [facility]? Comment: [phone] HOME HEALTH PROVIDER'S LIST: Patient reviewed INSTR PT-FINANCIAL RELATION WITH: HOME HEALTH Home Health Agency [facility] Comment: PT Was patient/caregiver given the option of home health health agency? Yes Comment: [phone] -------Addendum by on 2019-11-17 12:47:02 Provided pt. with samples of Xarelto 10 mg once daily X 30 days. * Legacy Note - FERNANDO Santo - 11/17/2019 10:39 AM EST CONSULTS FOR: Patient/Patient Coal Shooter provided post acute care comparison document DME DME COMPANY: [employer] EQUIPMENT ORDERED: Bedside Commode, CPM, Walker-Rolling HOME HEALTH Home Health Agency referred to: [facility] ordered: Physical Therapy HOME HEALTH Physical Therapy MEDICATION ASSISTANCE/PRIOR AUTHORIZATIONS Xarelto 10 mg once daily X 14 days PHARMACY: Other (tod) [facility] SPOKE WITH: Patient Comment: AME[facility], [facility] INFORMATION FAXED: DETAILED WRITTEN ORDER, FACE SHEET, FACE TO FACE, H AND P, OPERATIVE NOTE STATUS Completed DISCHARGE DISPOSITION DME DME Agency: [employer] DME: Bedside Commode, CPM, Walker-Rolling Is patient aware of [facility]'s ownership of [facility]? HOME HEALTH Home Health Agency: [facility] Comment: PT Was patient/caregiver given the option of home health health agency? Yes MEDICATION ASSISTANCE/PRIOR AUTHORIZATIONS Xarelto 10 mg once daily X 14 days PHARMACY: Other (describe) Did Sql Etl Developer pay for the cost of this medication? No Was patient agreeable to pay this cost? Yes Comment: $117 copay if samples are not available Was a medication coverage card (copay or free trial card) provided to patient, if available? No * Legacy Note - FERNANDO Santo - 11/16/2019 4:31 PM EST This is a 79, NOT OR ,FEMALE who resides with Spouse at [address] [place] [address] This information was collected from Patient Patient requires assistance at home. Who helps patient at home? Family How often is this help available? as needed Contact number: [phone] Emergency Contact Number: . Patient does not have a Living Will. Oriented to: Place, Person, Time Patient is able to drive Patient will have a family member/friend driving them home on discharge. Patient insurance coverage: Medicare with prescription coverage The patient's primary care physician is Pamella The patient's regular pharmacy is Other (describe) Comment: [facility] The patient does not currently receive home health services. The patient currently has no durable medical equipment in the home. The patient currently does not have hospice services. At this time, the following needs have been identified: DME, Home health . These needs will be discussed with patient's attending physician and will continue to be monitored for changes or additions. CASE MANAGEMENT EDUCATION Discharge Plan Learner: patient Teaching Method: Lecture Evaluation: States understanding Who to call for help Learner: patient Teaching Method: Lecture Evaluation: States understanding CASE MANAGEMENT DISCHARGE PLAN: Initiated Priority: Medium Interventions: Pt to call Expected Outcome: Prepare/Discharge, Verb/Understand Review with patient/Family. INTER CASE CONFERENCE: Attendants: MD, Nursing, Partition Assembler, PT Needs identified: Continue current treatment plan DME HH ICC Handout was given? No ICC meeting complete? Yes documented in this encounter Plan of Treatment Not on file documented as of this encounter Procedures Procedure Name Priority Date/Time Associated Diagnosis Comments GFR CALCULATED Routine 11/17/2019 6:07 AM EST CBC WITH AUTO DIFFERENTIAL Routine 11/17/2019 6:07 AM EST BASIC METABOLIC PANEL Routine 11/17/2019 6:07 AM EST XR KNEE 1-2 VIEWS LEFT Routine 0 12:30 PM EST SCANNED LAB RESULT 11/16/2019 SCANNED LAB RESULT 11/16/2019 URINALYSIS WITH MICROSCOPIC Routine 11/04/2019 3:30 PM EST URINE CULTURE Routine 11/04/2019 3:16 PM EST GFR CALCULATED Routine 11/04/2019 1:24 PM EST CBC WITH AUTO DIFFERENTIAL Routine 11/04/2019 1:24 PM EST APTT Routine 11/04/2019 1:24 PM EST PROTIME-INR Routine 11/04/2019 1:24 PM EST COMPREHENSIVE METABOLIC PANEL Routine 11/04/2019 1:24 PM EST XR CHEST 1 VIEW Routine 11/04/2019 1:02 PM EST documented in this encounter Results * GFR CALCULATED (11/17/2019 6:07 AM EST) eGFR 80.6 60.0 - 200.0 ML/MIN 11/17/2019 7:08 AM EST [facility] 11/17/2019 6:07 AM EST 11/17/2019 6:07 AM EST Radha Stanley NP LAB CHG PERFORMABLES [facility] [address] * (ABNORMAL) CBC auto differential (11/17/2019 6:07 AM EST) Platelets 180 122 - 454 K/ul 11/17/2019 7:13 AM EST [facility] RBC 3.160(L) 3.450 - 5.400 M/ul 11/17/2019 7:13 AM EST [facility] MCV 97.1 78.2 - 101.8 fl 11/17/2019 7:13 AM EST [facility] MCH 33.3 26.4 - 33.3 pg 11/17/2019 7:13 AM EST [facility] MCHC 34.3 32.5 - 35.3 g/dL 11/17/2019 7:13 AM EST [facility] RDW 11.6 10.1 - 16.2 % 11/17/2019 7:13 AM EST [facility] MPV 8.8 6.4 - 10.4 fl 11/17/2019 7:13 AM EST [facility] Neutrophils % 66.3 43.0 - 83.0 % 11/17/2019 7:13 AM EST [facility] Neutrophils Absolute 4.3 2.7 - 6.9 K/ul 11/17/2019 7:13 AM EST [facility] Auto WBC 6.50 3.00 - 11.30 K/ul 11/17/2019 7:13 AM EST [facility] nRBC 0.00 11/17/2019 7:13 AM EST [facility] Basophils % 0.1 0.0 - 2.0 % 11/17/2019 7:13 AM EST [facility] Basophils Absolute 0.0 0.0 - 0.2 K/ul 11/17/2019 7:13 AM EST [facility] Eosinophils % 0.1 0.0 - 9.0 % 11/17/2019 7:13 AM EST [facility] Eosinophils Absolute 0.0 0.0 - 0.9 K/ul 11/17/2019 7:13 AM EST [facility] Lymphocytes % 24.6 10.0 - 42.0 % 11/17/2019 7:13 AM EST [facility] Lymphocytes Absolute 1.6 0.4 - 3.9 K/ul 11/17/2019 7:13 AM EST [facility] Monocytes % 8.9 1.0 - 14.0 % 11/17/2019 7:13 AM EST [facility] Monocytes Absolute 0.6 0.2 - 0.9 K/ul 11/17/2019 7:13 AM EST [facility] Hematocrit 30.7 29.9 - 45.5 % 11/17/2019 7:13 AM EST [facility] Hemoglobin 10.5 10.0 - 16.0 gm/dl 11/17/2019 7:13 AM EST [facility] 11/17/2019 6:07 AM EST 11/17/2019 7:13 AM EST Radha Stanley UTILITIES AND MAINTENANCE SUPERVISOR LAB BLOOD ORDERABLES Performing Organization Address [facility] Co de Phone Number [facility] [address] [place] [address], * (ABNORMAL) Basic metabolic panel (11/17/2019 6:07 AM EST) Calcium 8.7 8.5 - 10.1 mg/dL 11/17/2019 7:08 AM EST [facility] Chloride 106 98 - 107 mmol/L 11/17/2019 7:08 AM EST [facility] CO2 26 21 - 32 mmol/L 11/17/2019 7:08 AM EST [facility] Creatinine 0.70 0.60 - 1.30 MG/DL 11/17/2019 7:08 AM EST [facility] Potassium 3.5(L) 3.6 - 5.2 mmol/L 11/17/2019 7:08 AM EST [facility] Sodium 137 133 - 144 mmol/L 11/17/2019 7:08 AM EST [facility] BUN 17 7 - 18 MG/DL 11/17/2019 7:08 AM EST [facility] Glucose 95 70 - 110 MG/DL 11/17/2019 7:08 AM EST [facility] 11/17/2019 6:07 AM EST 11/17/2019 6:33 AM EST Radha Stanley UTILITIES AND MAINTENANCE SUPERVISOR LAB BLOOD ORDERABLES Performing Organization Address [facility] Co de Phone Number [facility] [address] [place] [address], * XR knee 1 or 2 views left (11/16/2019 12:30 PM EST) Anatomical Region Laterality Modality Lower Extremities, Knee Left Radiogra phic Imaging 11/16/2019 12:3 0 PM EST Narrative 11/16/2019 1:04 PM EST PROCEDURE: KNEE LEFT 1-2 VIEWS: 11/16/2019 CLINICAL INFORMATION: post op COMPARISON: 01/22/2019. Alignment of the left knee is anatomic. Patient is status post total knee arthroplasty. There is no evidence of acute hardware complication. There is no evidence of acute fractures. ??Postsurgical soft tissue changes noted. Impression: Status post total knee arthroplasty projecting in anatomic alignment without current evidence of hardware complication. Report Sign Date: 11/16/2019 1:02 PM, Electronically Signed By: ??Kamlesh Mac MD Procedure Note Kamlesh Mac MD - 01/18/2022 PROCEDURE: KNEE LEFT 1-2 VIEWS: 11/16/2019 CLINICAL INFORMATION: post op COMPARISON: 01/22/2019. Alignment of the left knee is anatomic. Patient is status post total kneearthroplasty. There is no evidence of acute hardware complication. Thereis no evidence of acute fractures. Postsurgical soft tissue changes noted. Impression: Status post total knee arthroplasty projecting in anatomic alignmentwithout current evidence of hardware complication. Report Sign Date: 11/16/2019 1:02 PM, Electronically Signed By: Kamlesh Mac MD Radha Stanley UTILITIES AND MAINTENANCE SUPERVISOR IMG XR PROCEDURES * SCANNED LAB RESULT (11/16/2019) Narrative 11/16/2019 Ordered by an unspecified provider. Default Authenticator Robert LAB BLOOD ORDE RABLES * SCANNED LAB RESULT (11/16/2019) Narrative 11/16/2019 Ordered by an unspecified provider. Default Authenticator Robert LAB BLOOD ORDE RABLES * (ABNORMAL) Urinalysis with microscopic (11/04/2019 3:30 PM EST) RBC, Urine 1 0 - 4 /hpf 11/04/2019 4:23 PM EST [facility] WBC, Urine 0 0 - 5 /hpf 11/04/2019 4:23 PM EST [facility] Squamous Epithelial, Urine 0 0 - 6 /hpf 11/04/2019 4:23 PM EST [facility] Bacteria, Urine NEGATIVE /hpf 11/04/2019 4:23 PM EST [facility] Hyaline Casts, Urine 1 0 - 4 /lpf 11/04/2019 4:23 PM EST [facility] Color, Urine DK YELLOW 11/04/2019 4:23 PM EST [facility] Clarity, Urine CLEAR 11/04/2019 4:23 PM EST [facility] Glucose, Urine NEGATIVE mg/dL 11/04/2019 4:23 PM EST [facility] Bilirubin, Urine NEGATIVE 11/04/2019 4:23 PM EST [facility] Specific Wilsey, Urine 1.014 1.006 - 1.035 11/04/2019 4:23 PM EST [facility] Blood, Urine NEGATIVE 11/04/2019 4:23 PM EST [facility] pH, Urine 5.0 5.0 - 9.0 11/04/2019 4:23 PM EST [facility] Protein, Urine NEGATIVE mg/dL 11/04/2019 4:23 PM [facility] Urobilinogen, Urine 0.2 E.U./DL 11/04/2019 4:23 PM [facility] Nitrite, Urine POSITIVE(A) 11/04/2019 4:23 PM [facility] Leukocytes, Urine NEGATIVE 11/04/2019 4:23 PM [facility] 11/04/2019 3:30 PM EST 11/04/2019 4:14 PM EST Thien Gray MD LAB URINE ORDERABLES Performing Organization Address [facility] [facility] Co ne Phone Number [facility] [address] [place] [address], * Urine culture (11/04/2019 3:16 PM EST) Urine Culture FINAL NO GROWTH 11/06/2019 6:33 AM [facility] 11/04/2019 3:16 PM EST 11/04/2019 5:50 PM EST Thien Gray MD LAB MICROBIOLOGY - G ENERAL ORDERABLES Performing Organization Address [facility] Co de Phone Number [facility] [address] [place] [address], * GFR CALCULATED (11/04/2019 1:24 PM EST) eGFR 60.3 60.0 - 200.0 ML/MIN 11/04/2019 3:09 PM EST [facility] 11/04/2019 1:24 PM EST 11/04/2019 1:24 PM EST Thien Gray MD LAB CHG PERFORMABLES [facility] [address] [place] [address], * (ABNORMAL) CBC auto differential (11/04/2019 1:24 PM EST) Platelets 221 122 - 454 K/ul 11/04/2019 2:09 PM [facility] RBC 4.740 3.450 - 5.400 M/ul 11/04/2019 2:09 PM [facility] MCV 97.9 78.2 - 101.8 fl 11/04/2019 2:09 PM [facility] MCH 33.4(H) 26.4 - 33.3 pg 11/04/2019 2:09 PM [facility] MCHC 34.1 32.5 - 35.3 g/dL 11/04/2019 2:09 PM [facility] RDW 12.1 10.1 - 16.2 % 11/04/2019 2:09 PM [facility] MPV 9.8 6.4 - 10.4 fl 11/04/2019 2:09 PM [facility] Neutrophils % 46.0 43.0 - 83.0 % 11/04/2019 2:09 PM [facility] Neutrophils Absolute 3.0 2.7 - 6.9 K/ul 11/04/2019 2:09 PM [facility] Clumped Platelets PRESENT(A ) 11/04/2019 2:09 PM [facility] Auto WBC 6.50 3.00 - 11.30 K/ul 11/04/2019 2:09 PM [facility] nRBC 0.20 11/04/2019 2:09 PM [facility] Basophils % 0.9 0.0 - 2.0 % 11/04/2019 2:09 PM [facility] Basophils Absolute 0.1 0.0 - 0.2 K/ul 11/04/2019 2:09 PM [facility] Eosinophils % 1.7 0.0 - 9.0 % 11/04/2019 2:09 PM [facility] Eosinophils Absolute 0.1 0.0 - 0.9 K/ul 11/04/2019 2:09 PM EST [facility] Lymphocytes % 45.7(H) 10.0 - 42.0 % 11/04/2019 2:09 PM EST [facility] Lymphocytes Absolute 3.0 0.4 - 3.9 K/ul 11/04/2019 2:09 PM EST [facility] Monocytes % 5.7 1.0 - 14.0 % 11/04/2019 2:09 PM EST [facility] Monocytes Absolute 0.4 0.2 - 0.9 K/ul 11/04/2019 2:09 PM EST [facility] Hematocrit 46.4(H) 29.9 - 45.5 % 11/04/2019 2:09 PM EST [facility] Hemoglobin 15.8 10.0 - 16.0 gm/dl 11/04/2019 2:09 PM EST [facility] 11/04/2019 1:24 PM EST 11/04/2019 1:56 PM EST Thien Gray MD LAB BLOOD ORDERABLES [facility] [address] * APTT (11/04/2019 1:24 PM EST) aPTT 27 22 - 30 sec 11/04/2019 2:31 PM EST [facility] 11/04/2019 1:24 PM EST 11/04/2019 1:56 PM EST Thien Gray MD LAB BLOOD ORDERABLES [facility] [address] * Protime-INR (11/04/2019 1:24 PM EST) Protime 10.4 9.6 - 11.8 sec 11/04/2019 2:31 PM EST [facility] INR 1.00 0.89 - 1.11 11/04/2019 2:31 PM EST [facility] 11/04/2019 1:24 PM EST 11/04/2019 1:56 PM EST Thien Gray MD LAB BLOOD ORDERABLES [facility] [address] * (ABNORMAL) Comprehensive metabolic panel (11/04/2019 1:24 PM EST) Globulin, Total 4.2 2.4 - 4.8 g/dL 11/04/2019 3:09 PM EST [facility] A/G Ratio 1.0 0.6 - 1.6 11/04/2019 3:09 PM [facility] Calcium 9.8 8.5 - 10.1 mg/dL 11/04/2019 3:09 PM [facility] Chloride 99 98 - 107 mmol/L 11/04/2019 3:09 PM [facility] CO2 27 21 - 32 mmol/L 11/04/2019 3:09 PM [facility] Creatinine 0.90 0.60 - 1.30 MG/DL 11/04/2019 3:09 PM [facility] Potassium 4.8 3.6 - 5.2 mmol/L 11/04/2019 3:09 PM [facility] Sodium 133 133 - 144 mmol/L 11/04/2019 3:09 PM [facility] Albumin 4.3 3.4 - 5.0 g/dL 11/04/2019 3:09 PM [facility] Alkaline Phosphatase 70 45 - 117 U/L 11/04/2019 3:09 PM [facility] Total Bilirubin 0.30 0.00 - 1.00 MG/DL 11/04/2019 3:09 PM [facility] ALT (SGPT) 23 12 - 78 U/L 11/04/2019 3:09 PM [facility] Total Protein 8.5(H) 6.4 - 8.4 g/dL 11/04/2019 3:09 PM [facility] AST 69(H) 15 - 37 U/L 11/04/2019 3:09 PM [facility] BUN 22(H) 7 - 18 MG/DL 11/04/2019 3:09 PM [facility] Glucose 81 70 - 110 MG/DL 11/04/2019 3:09 PM [facility] 11/04/2019 1:24 PM EST 11/04/2019 1:56 PM EST Thien Gray MD LAB BLOOD ORDERABLES [facility] [address] * XR chest 1 view (11/04/2019 1:02 PM EST) Anatomical Region Laterality Modality Chest Radiographic Mandy ging 11/04/2019 1:02 PM EST Narrative 11/04/2019 2:00 PM EST PROCEDURE: CHEST 1 VIEW: 11/04/2019 CLINICAL INFORMATION: Unilateral primary osteoarthritis, unspecified knee COMPARISON: None FINDINGS: No pneumothorax. ??No pleural effusion. ??No consolidative airspace opacity or suspicious mass/nodule. Mild background COPD. Cardiomediastinal contours are within normal limits. ?? No acute bone abnormality appreciated. Scoliotic curvature. Impression: No acute cardiopulmonary finding. Other chronic findings as noted. Report Sign Date: 11/04/2019 1:58 PM, Electronically Signed By: ??Kamlesh Mac MD Procedure Note Kamlesh Mac MD - 01/18/2022 PROCEDURE: CHEST 1 VIEW: 11/04/2019 CLINICAL INFORMATION: Unilateral primary osteoarthritis, unspecified knee COMPARISON: None FINDINGS: No pneumothorax. No pleural effusion. No consolidativeairspace opacity or suspicious mass/nodule. Mild background COPD.Cardiomediastinal contours are within normal limits. No acute bone abnormality appreciated. Scoliotic curvature. Impression: No acute cardiopulmonary finding. Other chronic findings as noted. 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
--- OUTSIDE RECORDS SUMMARY | 2024-10-08 12:34 | XMS_ITS | Encounter Summary ---
Author Organization [facility] nter Address [address] [place] [address] Care Team Providers Care Log Roper Name Role Phone Genie Beth DO Primary Care Provider + Encounter Details Date Type Department Care Team (Latest Contact Info) Description 08/17/2021 8:17 AM EDT - 08/19/2021 5:21 PM EDT Hospital Encounter [facility] CONVERSION OUTPATIENT [address] [place] [address] Pushpa Suero MD [address] [place] [address] Other chest pain; Bradycardia, unspecified; Dehydration; Hypokalemia; Restless legs syndrome; Contact with and (suspected) exposure to covid-19; Constipation, unspecified; Other fatigue; Presence of other specified functional implants; Essential (primary) hypertension; Nonrheumatic mitral (valve) prolapse; Presence of left artificial knee joint; Anxiety disorder, unspecified; Depression, unspecified; senior care (current) use of opiate analgesic; 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 Discharge Disposition: Home or Self Care Social History Tobacco Use Types Packs/Day Years Used Date Smoking Tobacco: Never Assessed Sex and Gender Information Value Date Recorded Sex Assigned at Female 01/09/2022 11:55 AM EST Gender Identity Female 01/09/2022 11:55 AM EST Sexual Orientation Not on file documented as of this encounter Discharge Summaries * Joaquin Barajas DO - 08/19/2021 1:02 PM EDT DATE OF SERVICE: 19-Aug-2021 [facility] [address] [place] [address] PATIENT NAME: MASHA QUIROGA MR#: [id number] : Apr ADMIT DATE: 17-Aug-2021 DISCHARGE DATE: 19-Aug-2021 ADMITTING PHYSICIAN: PUSHPA SUERO ADMISSION DIAGNOSIS: CHEST PAIN, BRADYCARDIA DISCHARGE DIAGNOSES 1. Atypical chest pain 2. Transient bradycardia with bigeminy 3. Dehydration 4. Hypertension 5. Restless leg syndrome CONSULTS (for the past 30 days) 1. Cardiology, Dr Zimmer PROCEDURES: 1. Echo 08/19/2021: EF >70%, grade 1 diastolic dysfunction, no mitral valve regurgitation H&P HPI per H&P: Patient is a 81-year-old lady with past medical history remarkable for only hypertension, transfer from [facility] where she presented today according to the ER physician of chest pain. He also mentioned that patient had a brief moment of her pulse dipping down to the 30s. But at the ER, patient pulse was within normal range. There was also concern of persistent bigeminy on teletypesetter monitor at ER. On discussing with patient, she says she woke up around 2 AM today and was having shortness of breath, and smelling smoke in the house. She moved around the house, and there was no smoke. She did not describe classical chest pain, but at the same time cannot describe exactly what she felt in her chest, but felt something was not right. She did not notice palpitation or fluttering, or skipped heartbeats. She also indicated that she felt cold, which son attested to, that she was cold when she came to see her. However at the emergency room, her temperature was normal. She denied any other symptom. Her son who is a flight EMS, indicated that her monitor showed persistent bigeminy which is new. Cardiology was on transfer line HOSPITAL COURSE Was admitted to the hospital service and placed onContinuous environmental monitoring specialist with oxygen saturation. Patient was noted to have atypical chest pain. Patient had serial cardiac enzymes. Patient was noted to have transient bradycardia. Cardiology services were consulted and did see the patient consultation on 2021-08-17. Patient's main complaint was lethargy. Patient has a pain pump with morphine that was recently increased. The son contacted patient's pain management provider who sent a rep yesterday to adjust the device. Patient's mental status has improved. Patient is overall improved. Per cardiology he thought the primary cause of ventricular bigeminy was the pain medication. Patient does not have any chest pain. No further cardiac work-up needed at this time per cardiology. They did sign off. Patient did undergo an echocardiogram on 2021-08-19 with a EF greater than 70%. Grade 1 diastolic dysfunction. I have seen and examined the patient today she is doing well with no complaints. Given clinical improvement resolution symptoms is felt patient is a max medical benefit from being in acute care will be discharged home. DISCHARGE PHYSICAL EXAM MOST RECENT VITAL SIGNS: T: 98.2 F [36.8 C] (08/19/2021 07:54) HR: Measurement DT HR 08/19/2021 11:53 52 B/P: Measurement DT NIBPS NIBPD 08/19/2021 11:53 162 64 RR: 18 (08/19/2021 03:24) PAIN: 7 (11/17/2019 09:52) WEIGHT: 93.7 lb [42.50 kg] (08/17/2021 10:37) HEIGHT: 62 in [157.5 cm] (08/17/2021 10:37) O2 SAT: No PO2 value % on Room air PHYSICAL EXAMINATION GENERAL APPEARANCE: 81 y/o F A&OX3, NAD SKIN, HAIR, NAILS: No rashes or lesions. HEAD: NCAT EYES: PERRLA,EOMI ENT: Oropharynx clear, moist mucous membranes. NECK: Supple, no JVD. LUNGS: CTA bilaterally HEART: RRR, no murmurs/rubs/gallops/clicks ABDOMEN: +BS, soft, non-tender, non-distended. /RECTAL: Deferred EXTREMITIES: No edema/clubbing/cyanosis; no calf tenderness, 2+ distal pulses. No joint tenderness. Full active ROM. NEURO Alertness: Awake Oriented x 3;Cranial nerves 2-12 intact; *Does patient have indwelling central venous line? No *Does patient have Perla Catheter? No LABORATORY DATA/RADIOLOGY/EKG LAB 24H Recent Lab Information For Date Range Aug 18, 2021@13:02:16 through Aug 19, 2021@13:02:16 Test: BMP Specimen: BLOOD Date/Time: 08/19/21@05:05:32 Test Result Flg Range Units -------- BUN 17 7 - 18 MG/DL SODIUM 138 133 - 144 mmol/L POTASSIUM 3.3 L 3.6 - 5.2 mmol/L CHLORIDE 104 98 - 107 mmol/L CO2 22 21 - 32 mmol/L CREATININE 0.60 0.60 - 1.30 MG/DL CALCIUM 9.4 8.5 - 10.1 mg/dL Test: GLUCOSE Specimen: BLOOD Date/Time: 08/19/21@05:05:32 Test Result Flg Range Units -------- GLUCOSE. 103 70 - 110 MG/DL Test: GFR Specimen: BLOOD Date/Time: 08/19/21@05:05:32 Test Result Flg Range Units -------- GLOMELULAR FILRATION RATE95.9 60.0 - 200.0 ML/MIN RADIOLOGY AAS: IMPRESSION : 1. No acute cardiopulmonary finding. COPD. 2. Slight increased stool burden suggesting constipation. No evidence of obstruction. DISCHARGE CONDITION: Stable DISPOSITION: Home DISCHARGE MEDICATIONS This is a list of medications and their actions according to your latest visit. If this list is inaccurate, please let your provider know. NEW meds that were prescribed today: AMLODIPINE BESYLATE 5MG UD TAB: TAKE 2 TABLETS BY MOUTH ONCE A DAY Hold for systolic blood pressure less than 100 Indication: Atypical chest pain AMLODIPINE BESYLATE 5MG TAB: TAKE 2 TABLETS BY MOUTH ONCE A DAY HOLD FOR SYSTOLIC BLOOD PRESSURE LESS THAN 100 Indication: LOSARTAN TAB: TAKE 200mg BY MOUTH ONCE A DAY Indication: Atypical chest pain The following meds were changed today: CONTINUE taking the following meds: LEVETIRACETAM 500MG TAB: TAKE 1 TABLET BY MOUTH TWICE A DAY Indication: LATANOPROST 0.005% OPH SOLN 2.5ML: INSTILL 1 DROP 0.005% IN AT BEDTIME Indication: DICLOFENAC NA 75MG EC TAB: TAKE 1 TABLET BY MOUTH TWICE A DAY Indication: STOP taking the following meds: HYDROCHLOROTHIAZIDE 25MG TAB: TAKE 1 TABLET BY MOUTH ONCE A DAY Indication: AMLODIPINE BESYLATE 5MG UD TAB: TAKE 1 TABLET BY MOUTH ONCE A DAY Indication: IRBESARTAN 150MG TAB: TAKE 2 TABLETS BY MOUTH ONCE A DAY Indication: Date Finalized: 08/19/21@13:40 by JOAQUIN BARAJAS (PHYSICIAN) INSTRUCTIONS Return to ER with new or worsening symptoms ACTIVITY/RETURN TO WORK/SCHOOL: You may resume your usual level of activity DIET: Other: Cardiac Return to ER with any new or worsening symptoms. FOLLOW UP WITH: Follow up with your Private Physician on 3-5 days Follow up with: [facility] Site/Services: Clinic Name/Site: with Cardiology,Provider, on 2 weeks Time Spent: Greater than 30 minutes Send a copy of the discharge report to: Pamella documented in this encounter Progress Notes * Pushpa Suero MD - 08/18/2021 10:15 AM EDT DATE OF SERVICE: 18-Aug-2021 HPI: Complain of restless leg/occasional jerking movement of the legs since this morning. Poor oral intake, andnausea, had 1 bowel movement this morning that was hard and small. Stilldoes not feel right according to her. Denies chest pain or palpitation. Still having moments of feeling cold and then warm. INPATIENT MEDICATIONS Active INPATIENT Medications 1) ASPIRIN TAB,CHEWABLE 81MG [GEQ: ASA] Give: 81MG PO DAILY 2) ATORVASTATIN TAB 40MG [GEQ: LIPITOR] Give: 80MG PO QHS 3) HEPARIN (PORCINE) 5000UNT/ML INJ,SOLN Give: 5000UNIT/1ML SC Q12H 4) LATANOPROST SOLN,OPH [GEQ: XALATAN] Give: 1 DROP OU QHS 5) LEVETIRACETAM TAB 500MG [GEQ: KEPPRA] Give: 500MG PO BID 6) LOSARTAN TAB 50MG [GEQ: COZAAR] Give: 100MG PO DAILY Hold for systolic blood pressure less than 100 7) MORPHINE INJ 2MG/ML [GEQ: DURAMORPH] Give: 2MG/1ML IV Q5MIN PRN every 5-30 minutes PRN for chest pain Notify if patient requires morethan 8mg/hour 8) NOZIN POPSWAB APPLICATOR Give: 1 SURAJ NASAL ONCE apply to bilateral nares on admission 9) NOZIN POPSWAB APPLICATOR Give: 1 SURAJ NASAL Q12H TO BILATERAL NARES 10) ONDANSETRON INJ,SOLN 2MG/ML [GEQ: Give: 4MG/2ML IV Q6H PRN 11) POTASSIUM CHLORIDE TAB,SA 20MEQ [GEQ: Give: 40MEQ PO ONCE 12) amLODIPine TAB 5MG [GEQ: NORVASC] Give: 5MG PO DAILY Hold for systolic blood pressure less than 100 MOST RECENT VITAL SIGNS: T: 99.5 F [37.5 C] (08/18/2021 08:00) HR: Measurement DT HR 08/18/2021 08:00 57 B/P: Measurement DT NIBPS NIBPD 08/18/2021 08:00 163 57 RR: 18 (08/18/2021 03:42) PAIN: 7 (11/17/2019 09:52) WEIGHT: 93.7 lb [42.50 kg] (08/17/2021 10:37) HEIGHT: 62 in [157.5 cm] (08/17/2021 10:37) O2 SAT: 99% on Room air GENERAL APPEARANCE: No distress SKIN, HAIR, NAILS: No rashes or lesions. HEAD: NCAT EYES: PERRLA,EOMI ENT: Oropharynx clear, Comment: Dry lips, tongue and oral mucosa NECK: Supple, no JVD. LUNGS: CTA bilaterally HEART: RRR, no murmurs/rubs/gallops/clicks Comment: Frequent regular ectopics ABDOMEN: /RECTAL: Deferred EXTREMITIES: No edema/clubbing/cyanosis; no calf tenderness, 2+ distal pulses. Occasional movement of her legs NEURO Alertness: Awake Oriented x 3;Cranial nerves 2-12 intact; *Does patient have indwelling central venous line? No *Does patient have Perla Catheter? No LABORATORY DATA/RADIOLOGY/EKG LAB 24H Recent Lab Information For Date Range Aug 17, 2021@10:15:27 through Aug 18, 2021@10:15:27 Test: UPPER RESP PNL, PCSpecimen: NASOPHARYNGEAL Date/Time: 08/17/21@15:46:38 Test Result Flg Range Units -------- BORDETELLA PARAPERTUSSI Not Detected < Not Detected NA BORDETELLA PERTUSSIS Not Detected < Not Detected NA CHLAMYDOPHILA PNEUMONIA Not Detected < Not Detected NA MYCOPLASMA PNEUMONIAE Not Detected < Not Detected NA SARS COV 2 RP21 Not Detected < Not Detected NA Test: EST. AVERAGE GLUCOSpecimen: OTHERE Date/Time: 08/18/21@03:11:36 Test Result Flg Range Units -------- EST. AVERAGE GLUCOSE 100 MG/DL Test: LDL Specimen: BLOOD Date/Time: 08/18/21@03:22:29 Test Result Flg Range Units -------- LDL 116.6 H 0.0 - 100.0 NA Test: HEMOGLOBIN A1C Specimen: BLOOD Date/Time: 08/18/21@03:11:35 Test Result Flg Range Units -------- HEMOGLOBIN A1C 5.10 % Test: BMP Specimen: BLOOD Date/Time: 08/17/21@18:39:29 Test Result Flg Range Units -------- BUN 30 H 7 - 18 MG/DL SODIUM 137 133 - 144 mmol/L POTASSIUM 4.2 3.6 - 5.2 mmol/L CHLORIDE 106 98 - 107 mmol/L CO2 24 21 - 32 mmol/L CREATININE 0.80 0.60 - 1.30 MG/DL CALCIUM 9.7 8.5 - 10.1 mg/dL Test: GLUCOSE Specimen: BLOOD Date/Time: 08/18/21@03:22:29 Test Result Flg Range Units -------- GLUCOSE. 115 H 70 - 110 MG/DL Test: GLUCOSE Specimen: BLOOD Date/Time: 08/17/21@18:39:29 Test Result Flg Range Units -------- GLUCOSE. 103 70 - 110 MG/DL Test: LIPID PANEL Specimen: BLOOD Date/Time: 08/18/21@03:22:29 Test Result Flg Range Units -------- TRIGLYCERIDE 72 30 - 200 mg/dL CHOLESTEROL 192 <<200 mg/dL HDL,SERUM 61 H 39 - 60 MG/DL TOT. CHOL / HDL RATIO 3.1 NA Test: MAGNESIUM Specimen: BLOOD Date/Time: 08/17/21@18:39:29 Test Result Flg Range Units -------- MAGNESIUM 2.4 1.7 - 2.4 MG/DL Test: PHOSPHORUS Specimen: BLOOD Date/Time: 08/17/21@18:39:29 Test Result Flg Range Units -------- PHOSPHORUS 3.1 2.5 - 4.9 mg/dL Test: TSH Specimen: BLOOD Date/Time: 08/17/21@18:49:14 Test Result Flg Range Units -------- TSH 0.481 0.358 - 3.740 ulU/ml Test: CMP Specimen: BLOOD Date/Time: 08/18/21@03:22:29 Test Result Flg Range Units -------- ALBUMIN 3.3 L 3.4 - 5.0 g/dL BILIRUBIN, TOTAL 0.47 0.00 - 1.00 MG/DL CALCIUM 8.8 8.5 - 10.1 mg/dL CHLORIDE 108 H 98 - 107 mmol/L CREATININE 0.70 0.60 - 1.30 MG/DL ALP (ALKALINE PHOSPHATA 66 45 - 117 U/L POTASSIUM 3.5 L 3.6 - 5.2 mmol/L PROTEIN, TOTAL 6.9 6.4 - 8.4 g/dL SODIUM 138 133 - 144 mmol/L GLOBULIN 3.6 2.4 - 4.8 g/dL A/G RATIO 0.9 0.6 - 1.6 NA AST 17 15 - 37 U/L BUN 27 H 7 - 18 MG/DL CO2 21 21 - 32 mmol/L ALT(SGPT) 19 12 - 78 U/L Test: B-TYPE N PEPTIDE Specimen: BLOOD Date/Time: 08/17/21@18:58:33 Test Result Flg Range Units -------- B-TYPE NATRIURETIC QPLBTT561.5 H 0.0 - 100.0 pg/mL Test: GFR Specimen: BLOOD Date/Time: 08/18/21@03:22:29 Test Result Flg Range Units -------- GLOMELULAR FILRATION RATE80.2 60.0 - 200.0 ML/MIN Test: GFR Specimen: BLOOD Date/Time: 08/17/21@18:39:31 Test Result Flg Range Units -------- GLOMELULAR FILRATION RATE68.8 60.0 - 200.0 ML/MIN Test: SURVEILLANCE Specimen: Surveillance Date/Time: 08/17/21@14:41:17 Test Result Flg Range Units -------- Test: TROPONIN-I Specimen: BLOOD Date/Time: 08/18/21@00:15:28 Test Result Flg Range Units -------- TROPONIN I HIGH SENS 14.4 0.0 - 53.7 ng/L Test: TROPONIN-I Specimen: BLOOD Date/Time: 08/17/21@22:06:36 Test Result Flg Range Units -------- TROPONIN I HIGH SENS 11.8 0.0 - 53.7 ng/L Test: TROPONIN-I Specimen: BLOOD Date/Time: 08/17/21@18:39:29 Test Result Flg Range Units -------- TROPONIN I HIGH SENS 11.7 0.0 - 53.7 ng/L Test: UPPER RESP PNL, PCSpecimen: NASOPHARYNGEAL Date/Time: 08/17/21@15:46:38 Test Result Flg Range Units -------- ADENOVIRUS Not Detected < Not Detected NA CORONAVIRUS HKU1 Not Detected < Not Detected NA CORONAVIRUS NL63 Not Detected < Not Detected NA CORONAVIRUS 229E Not Detected < Not Detected NA CORONAVIRUS OC43 Not Detected < Not Detected NA METAPNEUMOVIRUS. Not Detected < Not Detected NA RHINOVIRUS/ENTEROVIRUS Not Detected < Not Detected NA INFLUENZA B Not Detected < Not Detected NA PARAINFLUENZA VIRUS 1 Not Detected < Not Detected NA PARAINFLUENZA VIRUS 2 Not Detected < Not Detected NA PARAINFLUENZA VIRUS 3 Not Detected < Not Detected NA PARAINFLUENZA VIRUS 4 Not Detected < Not Detected NA RSV Not Detected < Not Detected NA IMAGING 24H Recent Imaging Information Imaging Date/Time Procedure Interpreting Staff Aug 17, 2021@12:50 CHEST 1 VIEW SRINATH TRIPLETT IMPRESSION : COPD. No acute infiltrates. Report Sign Date: 08/17/2021 1:13 PM, Electronically Signed By: Srinath Triplett MD ASSESSMENT/PLAN: 1. Atypical chest pain. No recurrence. Seen by cardiology. Troponins are negative, and no major ischemic EKG changes. Follow echo report 2. Transient bradycardia with persistent bigeminy. Likely from overmedication with opiates pump. Extended electrolyte, and TSH, and within normal limits. 3. Chills. Patient denies urinary symptoms, or cough. Urinalysis unremarkable for infection, chest x-ray showed no acute findings. 4. Severe dehydration. Continue gentle IV hydration, and continue to hold hydrochlorothiazide. 5. History of hypertension. Resume home medications except hydrochlorothiazide. 6. Restless leg/occasional twitching of the legs. Likely from the opiate overdose. Will need to see her pain physician to readjust the opiate pump. His son indicated that the pump was adjusted upward recently and noticed that her symptoms started after this. Give low-dose ropinirole. 7. Likely constipation as a cause of nausea and possibly poor oral intake. Get abdominal series, stool softness and laxative. Antiemetics. 8. Mild hypokalemia. Replace and monitor. 9. DVT prophylaxis. Subcutaneous heparin. LEVEL OF RISK ASSESSMENT Moderate * SHANNAN Hackett - 08/18/2021 10:14 AM EDT DATE OF SERVICE: 18-Aug-2021 HISTORY: Pt to be seen and examined per MD. Medications/Labs/Diagnostics Reviewed VITALS SIGNS: T: 99.5 F [37.5 C] (08/18/2021 08:00) HR: Measurement DT HR 08/18/2021 08:00 57 B/P: Measurement DT NIBPS NIBPD 08/18/2021 08:00 163 57 WEIGHT: 93.7 lb [42.50 kg] (08/17/2021 10:37) TELEMETRY: ventricular bigiminy 70bpm INPATIENT MEDICATIONS Active INPATIENT Medications 1) ASPIRIN TAB,CHEWABLE 81MG [GEQ: ASA] Give: 81MG PO DAILY 2) ATORVASTATIN TAB 40MG [GEQ: LIPITOR] Give: 80MG PO QHS 3) HEPARIN (PORCINE) 5000UNT/ML INJ,SOLN Give: 5000UNIT/1ML SC Q12H 4) LATANOPROST SOLN,OPH [GEQ: XALATAN] Give: 1 DROP OU QHS 5) LEVETIRACETAM TAB 500MG [GEQ: KEPPRA] Give: 500MG PO BID 6) LOSARTAN TAB 50MG [GEQ: COZAAR] Give: 100MG PO DAILY Hold for systolic blood pressure less than 100 7) MORPHINE INJ 2MG/ML [GEQ: DURAMORPH] Give: 2MG/1ML IV Q5MIN PRN every 5-30 minutes PRN for chest pain Notify if patient requires morethan 8mg/hour 8) NOZIN POPSWAB APPLICATOR Give: 1 SURAJ NASAL ONCE apply to bilateral nares on admission 9) NOZIN POPSWAB APPLICATOR Give: 1 SURAJ NASAL Q12H TO BILATERAL NARES 10) ONDANSETRON INJ,SOLN 2MG/ML [GEQ: Give: 4MG/2ML IV Q6H PRN 11) POTASSIUM CHLORIDE TAB,SA 20MEQ [GEQ: Give: 40MEQ PO ONCE 12) amLODIPine TAB 5MG [GEQ: NORVASC] Give: 5MG PO DAILY Hold for systolic blood pressure less than 100 PHYSICAL EXAM General: NAD Chest: CTA Cardiac: Regular rhythm Abdomen: soft/nontenter, bowel sounds normal Extremities: no edema Vascular: unchanged LABORATORY DATA/RADIOLOGY/EKG LAB BMP: SCL1 - BMP Collection DT Spec GLUCOSE BUN CREATIN SODIUM POTASSI CO2 CALCIUM 08/18/2021 02:23 BLOOD 115 H 27 H 0.70 138 3.5 L 21 8.8 LFT: SCL1 - LFT Collection DT Spec ALP (AL ALT(SGP AST BILIRUB PROTEIN ALBUMIN 08/18/2021 02:23 BLOOD 66 19 17 0.47 6.9 3.3 L CK/ TROPONIN I: SCL1 - CK/TROPONIN Collection DT Spec TROPONI 08/17/2021 23:11 BLOOD 14.4 IMAGING 24H Aug 17, 2021@12:50 CHEST 1 VIEW SRINATH TRIPLETT IMPRESSION : COPD. No acute infiltrates. IMPRESSIONS 1. Atypical Chest pain with Ventricular Bigeminy -troponin -x3 -arrythmia recall unavaliable but patient continues to have bigiminy -2D echo pending -monitor and replace electrolytes Cardiology attending note: Patient's primary issue is the pain pump that she has. This is most likely producing her arrhythmias in addition she has a mild hypokalemia no further cardiac input needed at this time. documented in this encounter H&P Notes * Pushpa Suero MD - 08/17/2021 2:26 PM EDT DATE OF SERVICE: 17-Aug-2021 HISTORY CHIEF COMPLAINT Chest Pain Duration: minutes Severity: Location: substernal Quality: Radiation: Associated Symptoms: Modifying Factors: Cardiac Risk Factors Hypertension: Yes Diabetes: No Dyslipidemia: No Smoking: No Family History: Yes Obesity: BMI:17 SOURCE: Patient Son, and transfer notes HISTORY OF PRESENT ILLNESS Patient is a 81-year-old lady with past medical history remarkable for only hypertension, transfer from [facility] where she presented today according to the ER physician of chest pain. He also mentioned that patient had a brief moment of her pulse dipping down to the 30s. But at the ER, patient pulse was within normal range. There was also concern of persistent bigeminy on teletypesetter monitor at ER. On discussing with patient, she says she woke up around 2 AM today and was having shortness of breath, and smelling smoke in the house. She moved around the house, and there was no smoke. She did not describe classical chest pain, but at the same time cannot describe exactly what she felt in her chest, but felt something was not right. She did not notice palpitation or fluttering, or skipped heartbeats. She also indicated that she felt cold, which son attested to, that she was cold when she came to see her. However at the emergency room, her temperature was normal. She denied any other symptom. Her son who is a flight EMS, indicated that her monitor showed persistent bigeminy which is new. Cardiology was on transfer line ALLERGIES: Patient has answered NKA *PAST MEDICAL HISTORY - Osteoarthritis of knee [LEFT TKA] Hypertension, mitral valve prolapse *PAST SURGICAL HISTORY Left knee arthroplasty. FAMILY HISTORY Father: from lung cancer Mother: Had colon cancer A brother from myocardial infarction. SOCIAL HISTORY Marital Status: Employment: *Smoking History Screening The patient has NOT SMOKED 5 packs of cigarettes during his/her lifetime. No history of tobacco use No history of drug use No history of alcohol use ADVANCE DIRECTIVES/CODE STATUS SPN - AD/Code Status 08/17/2021 11:27 Local Title: ADVANCE DIRECTIVES/CODE STATUS Standard Title: ADVANCE DIRECTIVES ASSESSMENT: The patient does not have an advance directive. Patient IS NOT interested in discussing advance directive options. Level of Support: LEVEL I Status: FULL CODE The patient is a Full Code and is to receive all available therapy including CPR. Ordering Provider: Fabiola (See Orders Tab for Code Status Order) Signed by: /jagdish/ CHRISTEL SU 08/17/2021 11:28 HOME MEDICATIONS Active HOME Medications 1) DICLOFENAC NA 75MG EC TAB Dosage: 75MG, Schedule: TWICE A DAY 2) LEVETIRACETAM 500MG TAB Dosage: 500MG, Schedule: TWICE A DAY 3) AMLODIPINE BESYLATE 5MG UD TAB Dosage: 5MG, Schedule: ONCE A DAY 4) HYDROCHLOROTHIAZIDE 25MG TAB Dosage: 25MG, Schedule: ONCE A DAY 5) IRBESARTAN 150MG TAB Dosage: 300MG, Schedule: ONCE A DAY 6) LATANOPROST 0.005% OPH SOLN 2.5ML Dosage: 1 DROP, Schedule: AT BEDTIME REVIEW OF SYSTEMS Constitutional: chills Eye: Negative ENMT: Negative Respiratory: SOB Cardiovascular: chest pain, Bradycardia Gastrointestinal: Negative Genitourinary: Negative Integumentary: Negative Neurologic: Negative Psychiatric: Negative PHYSICAL EXAMINATION MOST RECENT VITAL SIGNS: T: 97.7 F [36.5 C] (08/17/2021 10:37) HR: Measurement DT HR 08/17/2021 12:22 62 B/P: Measurement DT NIBPS NIBPD 08/17/2021 12:22 111 63 RR: 18 (11/17/2019 07:25) PAIN: 7 (11/17/2019 09:52) WEIGHT: 93.7 lb [42.50 kg] (08/17/2021 10:37) HEIGHT: 62 in [157.5 cm] (08/17/2021 10:37) O2 SAT: 100% on Nasal Cannula: 2L/min GENERAL APPEARANCE: No distress SKIN, HAIR, NAILS: No rashes or lesions. HEAD: NCAT EYES: PERRLA,EOMI ENT: Oropharynx clear, Comment: Dry lips, tongue and oral mucosa NECK: Supple, no JVD. LUNGS: CTA bilaterally HEART: RRR, no murmurs/rubs/gallops/clicks Comment: Frequent regular ectopics ABDOMEN: /RECTAL: Deferred EXTREMITIES: No edema/clubbing/cyanosis; no calf tenderness, 2+ distal pulses. NEURO Alertness: Awake Oriented x 3;Cranial nerves 2-12 intact; *Does patient have indwelling central venous line? No *Does patient have Perla Catheter? No LABORATORY DATA AND IMAGING FROM [facility] CBC; WBC 4.4, hemoglobin 12.7 hematocrit 38.4, platelets 210 thousand, MCV 97. CHEMISTRY; sodium 143, potassium 4.1, chloride 105, CO2 28.5, BUN 38 creatinine 1.2, glucose 95. Total bili 0.4 alkaline phosphatase 73, AST 19 ALT 21 INR 0.9 PTT 28.9 calcium 9.1 total protein 7.3 albumin 3.8. ABG showed a pH of 7.41, PCO2 37.7 PO2 90.2, bicarb 24, saturation 97.1% Covid serology was negative. Troponin was less than 0.017. Chest x-ray reported no acute abnormality. ASSESSMENT/PLAN 1. Atypical chest pain. Will admit patient with chest pain protocol, repeat troponins, and EKG, monitor on telemetry. Will put patient on aspirin, statin, and get echocardiogram. Will consult cardiology, who was on transfer line. Check lipid panel 2. Transient bradycardia with persistent bigeminy. Will monitor on telemetry, check extended electrolyte, TSH, and cardiology to see. 3. Chills. Patient denies urinary symptoms, or cough. Nonetheless we will check a UA, repeat a chest x-ray, and get upper respiratory panel. 4. Severe dehydration. Patient's lips tongue and oral mucosa were dry. We will give gentle IV hydration, and hold her hydrochlorothiazide. 5. History of hypertension. Resume home medications except hydrochlorothiazide. 6. DVT prophylaxis. Subcutaneous heparin. CORE MEASURES/MEANINGFUL USE Other Principal Diagnosis: Atypical chest pain Is the patient on VTE drug prophylaxis? Yes Is the patient on Mechanical VTE prophylaxis? No Did the patient take beta-bubba on a daily basis prior to this admission? No LEVEL OF RISK ASSESSMENT Moderate documented in this encounter Consult Notes * SHANNAN Hansen - 08/17/2021 2:03 PM EDT DATE OF SERVICE: 17-Aug-2021 PRIMARY MD: HOSPITATLIST REASON FOR CONSULTATION: CHEST PAIN/PVCS HISTORY CHIEF COMPLAINT: generalized pain PRESENT ILLNESS/CARDIAC HISTORY: Patient is an 81yof with past medical history as outlined below presenting to an outside facility with generalized pain and not feeling well and found to have frequent PVCs with bigeminy for which she was requested transfer to [facility] for cardiac evaluation. Patient has no known cad or arrhythmia history to note, does report hx of MVP. She denies any typical chest pain but reports just not feeling well. She denied any syncope or palpitations. HYPERTENSION: Yes DIABETES: No DYSLIPIDIEMIA : No *Smoking History Screening No history of tobacco use No history of drug use No history of alcohol use FAMILY HISTORY: noncontributory *PAST MEDICAL HISTORY Other: htn, hx seizure, arthritis, anx/dep *PAST SURGICAL HISTORY egd/colonoscopy/appendectomy/tonsillectomy/colon resection/l knee surgery/hand surgery ALLERGIES: Patient has answered NKA Review of Systems General: Unremarkable HEENT: Unremarkable Cerebro vasc: Unremarkable Cardiac: Unremarkable Pulmonary: Unremarkable Sleep: Unremarkable Gastrointestinal: Unremarkable PV: Unremarkable Genitourinary: Unremarkable Musculoskeletal: Unremarkable Skin: Unremarkable HOME MEDICATIONS Active HOME Medications 1) DICLOFENAC NA 75MG EC TAB Dosage: 75MG, Schedule: TWICE A DAY 2) LEVETIRACETAM 500MG TAB Dosage: 500MG, Schedule: TWICE A DAY 3) AMLODIPINE BESYLATE 5MG UD TAB Dosage: 5MG, Schedule: ONCE A DAY 4) HYDROCHLOROTHIAZIDE 25MG TAB Dosage: 25MG, Schedule: ONCE A DAY 5) IRBESARTAN 150MG TAB Dosage: 300MG, Schedule: ONCE A DAY 6) LATANOPROST 0.005% OPH SOLN 2.5ML Dosage: 1 DROP, Schedule: AT BEDTIME PSYCHOSOCIAL HISTORY Age: 81 Marital status: INPATIENT MEDICATIONS Active INPATIENT Medications 1) ASPIRIN TAB,CHEWABLE 81MG [GEQ: ASA] Give: 81MG PO DAILY 2) ATORVASTATIN TAB 40MG [GEQ: LIPITOR] Give: 80MG PO QHS 3) HEPARIN (PORCINE) 5000UNT/ML INJ,SOLN Give: 5000UNIT/1ML SC Q12H 4) MORPHINE INJ 2MG/ML [GEQ: DURAMORPH] Give: 2MG/1ML IV Q5MIN PRN every 5-30 minutes PRN for chest pain Notify if patient requires morethan 8mg/hour 5) NOZIN POPSWAB APPLICATOR Give: 1 SURAJ NASAL ONCE apply to bilateral nares on admission 6) NOZIN POPSWAB APPLICATOR Give: 1 SURAJ NASAL Q12H TO BILATERAL NARES 7) SODIUM CHLORIDE 0.9% INJ,SOLN in SODIUM CHLORIDE 0.9% [M] 1000 ML 100 ml/hr@0 IV PHYSICAL EXAMINATION MOST RECENT VITAL SIGNS: T: 97.7 F [36.5 C] (08/17/2021 10:37) HR: Measurement DT HR 08/17/2021 12:22 62 B/P: Measurement DT NIBPS NIBPD 08/17/2021 12:22 111 63 RR: 18 (11/17/2019 07:25) PAIN: 7 (11/17/2019 09:52) WEIGHT: 93.7 lb [42.50 kg] (08/17/2021 10:37) HEIGHT: 62 in [157.5 cm] (08/17/2021 10:37) O2 SAT: No PO2 value % on Room air General: nad HEENT: PERRLA Neck: Normal Chest: Good air entry bilaterally Cardiac: RRR Abdomen: Normal Extremities: Normal Neuro: Alert/ oriented Skin: Unremarkable LABS/CXR/EKG pending IMPRESSIONS Atypical Chest pain with Ventricular Bigeminy PLAN OF ACTION check complete echocardiogram review labs including tsh and electrolytes, replace as necessary ?ischemic evaluation optimize therapy as bp will allow md to follow with full plan based on evaluation Cardiology attending note: Patient's main complaint is lethargy. The patient is accompanied by her son. The patient has a device in her back for pain management which delivers unknown amount of opioids. The patient appears very lethargic. At this time I think this is the primary cause of her ventricular bigeminy. She does not have any chest pain. Would be advisable for the dose to be reduced in the opioid administration that she is receiving however we are incapable of doing that since this medication was put in by a another doctor in another city. documented in this encounter Miscellaneous Notes * Legacy Note - Cheli Serna - 08/19/2021 3:03 PM EDT DATE/TIME OF DISCHARGE: 19-Aug-2021 15:04 MODE OF TRANSPORT: Ambulatory PERSON ACCOMPANIED PATIENT AT DISCHARGE: SON DISCHARGE DISPOSITION: Home DIAGNOSIS - Osteoarthritis of knee [LEFT TKA] - Atypical chest pain DIET: Regular ACTIVITY/RETURN TO WORK/SCHOOL: You may resume your usual level of activity FOLLOW UP WITH: Follow up with your Private Physician on 3-5 DAYS [facility] with: [facility] Site/Services: Clinic Name/Site: [place] [address] ZIMMER ,Provider, on 10-Sep-2021 08:55 YOU WILL RECEIVE DISCHARGE INFORMATION AND INSTRUCTIONS ABOUT: BRADYCARDIA *Pneumococcal vaccination: Not indicated *Influenza vaccination:Not indicated Patient did not receive Insulin during the hospital stay. Prescriptions given to: E-SCRIPT Please bring all of your prescription bottles to any follow-up appointments. SMOKING: If you currently smoke cigarettes/cigars/pipes &/or [...] or increased irritability. Patient/Parent Signature Date/Time * [employer] Note - Conversion Interface Provider - 08/19/2021 1:40 PM EDT Discharge Medication Reconciliation Report Aug 19, 2021@13:40:37 PATIENT: MASHA QUIROGA : 1940 FEMALE Reported Allergies: Patient has answered No Known Allergies This is a list of medications and their actions according to your latest visit. If this list is inaccurate, please let your provider know. NEW meds that were prescribed today: AMLODIPINE BESYLATE 5MG UD TAB: TAKE 2 TABLETS BY MOUTH ONCE A DAY Hold for systolic blood pressure less than 100 Indication: Atypical chest pain AMLODIPINE BESYLATE 5MG TAB: TAKE 2 TABLETS BY MOUTH ONCE A DAY HOLD FOR SYSTOLIC BLOOD PRESSURE LESS THAN 100 Indication: LOSARTAN TAB: TAKE 200mg BY MOUTH ONCE A DAY Indication: Atypical chest pain The following meds were changed today: CONTINUE taking the following meds: LEVETIRACETAM 500MG TAB: TAKE 1 TABLET BY MOUTH TWICE A DAY Indication: LATANOPROST 0.005% OPH SOLN 2.5ML: INSTILL 1 DROP 0.005% IN AT BEDTIME Indication: DICLOFENAC NA 75MG EC TAB: TAKE 1 TABLET BY MOUTH TWICE A DAY Indication: STOP taking the following meds: HYDROCHLOROTHIAZIDE 25MG TAB: TAKE 1 TABLET BY MOUTH ONCE A DAY Indication: AMLODIPINE BESYLATE 5MG UD TAB: TAKE 1 TABLET BY MOUTH ONCE A DAY Indication: IRBESARTAN 150MG TAB: TAKE 2 TABLETS BY MOUTH ONCE A DAY Indication: Date Finalized: 08/19/21@13:40 by JOAQUIN BARAJAS (PHYSICIAN) * Legacy Note - Christel Su - 08/17/2021 11:28 AM EDT Patient assessment: Influenza Vaccine (August - January) Patient's age: 81 Adult patient (18 years of age or older) Contraindications Influenza vaccine is not indicated if: Patient/parent/legal guardian declined Pneumococcal Vaccine (PCV-13) (Year Round) Patient's age: 81 Contraindications Pneumococcal vaccine is not indicated if: Patient/parent/legal guardian declined * Legacy Note - Christel Su - 08/17/2021 11:27 AM EDT 1. Wish to be Person endorses thoughts about a wish to be or not alive anymore, or wish to fall asleep and not wake up Have you wished you were or wished you could go to sleep and never wake up? No Non-Specific Active Suicidal Thoughts (Past Month) General, non-specific thoughts of wanting to end one's life/commit suicide (e.g., I've thought about killing myself ) without thoughts of ways to kill oneself/associated methods, intent, or plan. Have you had any thoughts about killing yourself? No * Legacy Note - Christel Su - 08/17/2021 11:27 AM EDT ADVANCE DIRECTIVES ASSESSMENT: The patient does not have an advance directive. Patient IS NOT interested in discussing advance directive options. Level of Support: LEVEL I Status: FULL CODE The patient is a Full Code and is to receive all available therapy including CPR. Ordering Provider: Fabiola (See Orders Tab for Code Status Order) documented in this encounter Plan of Treatment Not on file documented as of this encounter Procedures Procedure Name Priority Date/Time Associated Diagnosis Comments GFR CALCULATED Routine 08/19/2021 2:26 AM EDT BASIC METABOLIC PANEL Routine 08/19/2021 2:26 AM EDT CBC Routine 08/18/2021 11:35 AM EDT XR ACUTE ABDOMINAL SERIES Routine 08/18/2021 11:17 AM EDT GFR CALCULATED Routine 08/18/2021 2:23 AM EDT HEMOGLOBIN A1C Routine 08/18/2021 2:23 AM EDT LIPID PANEL Routine 08/18/2021 2:23 AM EDT COMPREHENSIVE METABOLIC PANEL Routine 08/18/2021 2:23 AM EDT TROPONIN (HIGH SENSITIVE) Routine 08/17/2021 11:11 PM EDT TROPONIN (HIGH SENSITIVE) Routine 08/17/2021 8:59 PM EDT GFR CALCULATED Routine 08/17/2021 5:00 PM EDT TROPONIN (HIGH SENSITIVE) Routine 08/17/2021 5:00 PM EDT TSH Routine 08/17/2021 5:00 PM EDT PHOSPHORUS Routine 08/17/2021 5:00 PM EDT B-TYPE NATRIURETIC PEPTIDE Routine 08/17/2021 5:00 PM EDT MAGNESIUM Routine 08/17/2021 5:00 PM EDT BASIC METABOLIC PANEL Routine 08/17/2021 5:00 PM EDT UPPER RESPIRATORY PANEL Routine 08/17/2021 2:00 PM EDT SURVEILLANCE CULTURE Routine 08/17/2021 2:00 PM EDT XR CHEST 1 VIEW Routine 08/17/2021 12:50 PM EDT MEAN BLOOD GLUCOSE Routine 08/17/2021 12 :32 PM EDT LDL (CALCULATED) Routine 08/17/2021 12:3 2 PM EDT SCANNED CARDIOLOGY RESULT 08/17/2021 documented in this encounter Results * GFR CALCULATED (08/19/2021 2:26 AM EDT) eGFR 95.9 60.0 - 200.0 ML/MIN 08/19/2021 5:05 AM EDT [facility] 08/19/2021 2:26 AM EDT 08/19/2021 2:26 AM EDT Pushpa Suero MD LAB CHG PERFORMABLE S [facility] [address] [place] [address], * (ABNORMAL) Basic metabolic panel (08/19/2021 2:26 AM EDT) Pathologist [facility] Calcium 9.4 8.5 - 10.1 mg/dL 08/19/2021 5:05 AM EDT [facility] Chloride 104 98 - 107 mmol/L 08/19[facility]2021 [facility] CO2 22 21 - 32 mmol/L 08/19/2021 5:[facility] Creatinine 0.60 0.60 - 1.30 MG/DL 08/19/2021 5:[facility] Potassium 3.3(L) 3.6 - 5.2 mmol/L 08/19/2021 5:[facility] Sodium 138 133 - 144 mmol/L 08/19/2021 5:05 AM [facility] BUN 17 7 - 18 MG/DL 08/19/2021 5:05 AM [facility] Glucose 103 70 - 110 MG/DL 08/19/2021 5:05 AM [facility] 08/19/2021 2:26 AM EDT 08/19/2021 4:28 AM EDT Pushpa Suero MD LAB BLOOD ORDERABLE S [facility] [address] [place] [address], * CBC (08/18/2021 11:35 AM EDT) Pathologist [facility] Platelets 248 122 - 454 K/ul 08/18/2021 12:15 PM EDT [facility] RBC 4.310 3.450 - 5.400 M/ul 08/18/2021 12:[facility] MCV 92.5 78.2 - 101.8 fl 08/18/2021 12:15 [facility] MCH 32.6 26.4 - 33.3 pg 08/18/2021 12:15 [facility] MCHC 35.3 32.5 - 35.3 g/dL 08/18/2021 12:15 PM EDT [facility] RDW 11.7 10.1 - 16.2 % 08/18/2021 12:15 PM EDT [facility] MPV 9.5 6.4 - 10.4 fl 08/18/2021 12:15 PM EDT [facility] Auto WBC 8.60 3.00 - 11.30 K/ul 08/18/2021 12:15 PM EDT [facility] Hematocrit 39.9 29.9 - 45.5 % 08/18/2021 12:15 PM EDT [facility] Hemoglobin 14.1 10.0 - 16.0 gm/dl 08/18/2021 12:15 PM EDT [facility] 08/18/2021 11:3 5 AM EDT 08/18/2021 11:47 AM EDT Denita CAMPBELL LAB BLOOD ORDERABLES Performing Organization Address City/State/[facility] Co de Phone Number [facility] [address] [place] [address], * XR acute abdominal series (08/18/2021 11:17 AM EDT) Anatomical Region Laterality Modality Abdomen Radiographic Mandy ging 08/18/2021 11:1 7 AM EDT Narrative 08/18/2021 11:41 AM EDT PROCEDURE: ACUTE ABDOMINAL SERIES: 08/18/2021 CLINICAL INFORMATION: r/o Obstruction Vs constipation COMPARISON: 08/17/2021 CHEST ?? No pneumothorax. ??No pleural effusion. COPD with scarring and atelectasis. No consolidative airspace opacity or suspicious mass/nodule. ??Cardiomediastinal contours are within normal limits. ?? No acute bone abnormality appreciated. ABDOMEN No appreciable free air or pneumatosis. No dilated gas filled small bowel to suggest obstruction. Slight increased stool burden. No acute bone abnormality. ?? Impression: 1. No acute cardiopulmonary finding. COPD. 2. Slight increased stool burden suggesting constipation. No evidence of obstruction. Report Sign Date: 08/18/2021 11:39 AM, Electronically Signed By: ??Kamlesh Mac MD Procedure Note Kamlesh Mac MD - 01/18/2022 PROCEDURE: ACUTE ABDOMINAL SERIES: 08/18/2021 CLINICAL INFORMATION: r/o Obstruction Vs constipation COMPARISON: 08/17/2021 CHEST No pneumothorax. No pleural effusion. COPD with scarring andatelectasis. No consolidative airspace opacity or suspicious mass/nodule.Cardiomediastinal contours are within normal limits. No acute bone abnormality appreciated. ABDOMEN No appreciable free air or pneumatosis. No dilated gas filled small bowelto suggest obstruction. Slight increased stool burden. No acute boneabnormality. Impression: 1. No acute cardiopulmonary finding. COPD. 2. Slight increased stool burden suggesting constipation. No evidence ofobstruction. Report Sign Date: 08/18/2021 11:39 AM, Electronically Signed By: Kamlesh Mac MD Pushpa Suero MD IMG XR PROCEDURES * GFR CALCULATED (08/18/2021 2:23 AM EDT) Pathologist [facility] eGFR 80.2 60.0 - 200.0 ML/MIN 08/18/2021 3:22 AM EDT [facility] 08/18/2021 2:23 AM EDT 08/18/2021 2:23 AM EDT Pushpa Suero MD LAB CHG PERFORMABLE S [facility] [address] [place] [address], * (ABNORMAL) Lipid panel (08/18/2021 2:23 AM EDT) HDL 61(H) 39 - 60 MG/DL 08/18/2021 3:22 AM EDT [facility] T. Chol/HDL Ratio 3.1 021 3:22 AM EDT [facility] Cholesterol 192 0 - 200 mg/dL 08/18/2021 3:22 AM EDT [facility] Triglycerides 72 30 - 200 mg/dL 08/18/2021 3:22 AM EDT [facility] 08/18/2021 2:23 AM EDT 08/18/2021 2:40 AM EDT Pushpa Suero MD LAB BLOOD ORDERABLE S Performing Organization Address City/[facility]/ZIP Co de Phone Number [facility] [address] [place] [address], * Hemoglobin A1c (08/18/2021 2:23 AM EDT) Hemoglobin A1C 5.10 % 08/18/2021 3:11 AM EDT [facility] 08/18/2021 2:23 AM EDT 08/18/2021 2:42 AM EDT Pushpa Suero MD LAB BLOOD ORDERABLE S Performing Organization Address City/[facility]/ZIP Co de Phone Number [facility] [address] [place] [address], * (ABNORMAL) Comprehensive metabolic panel (08/18/2021 2:23 AM EDT) Globulin, Total 3.6 2.4 - 4.8 g/dL 08/18/2021 3:22 AM EDT [facility] A/G Ratio 0.9 0.6 - 1.6 08/18/2021 3:22 AM EDT [facility] Calcium 8.8 8.5 - 10.1 mg/dL 08/18/2021 3:22 AM EDT [facility] Chloride 108(H) 98 - 107 mmol/L 08/18/2021 3:22 AM T [facility] CO2 21 21 - 32 mmol/L 08/18/2021 3:22 AM [facility] Creatinine 0.70 0.60 - 1.30 MG/DL 08/18/2021 3:22 AM EDT [facility] Potassium 3.5(L) 3.6 - 5.2 mmol/L 08/18/2021 3:22 AM EDT [facility] Sodium 138 133 - 144 mmol/L 08/18/2021 3:22 AM [facility] Albumin 3.3(L) 3.4 - 5.0 g/dL 08/18/2021 3:[facility] Alkaline Phosphatase 66 45 - 117 U/L 08/18/2021 3:22 AM [facility] Total Bilirubin 0.47 0.00 - 1.00 MG/DL 08/18/2021 3:[facility] ALT (SGPT) 19 12 - 78 U/L 08/18/2021 3:22 AM [facility] Total Protein 6.9 6.4 - 8.4 g/dL 08/18/2021 3:22 [facility] AST 17 15 - 37 U/L 08/18/2021 3:22 AM [facility] BUN 27(H) 7 - 18 MG/DL 08/18/2021 3:22 AM [facility] Glucose 115(H) 70 - 110 MG/DL 08/18/2021 3:22 AM [facility] 08/18/2021 2:23 AM EDT 08/18/2021 2:40 AM EDT Pushpa Suero MD LAB BLOOD ORDERABLE S Performing Organization Address City/State/[facility] Co de Phone Number [facility] [address] [place] [address], * Troponin I (08/17/2021 11:11 PM EDT) Troponin, HS 14.4 0.0 - 53.7 ng/L 08/18/2021 12:15 AM EDT [facility] 08/17/2021 11:1 1 PM EDT 08/17/2021 11:30 PM EDT Pushpa Suero MD LAB BLOOD ORDERABLE S [facility] [address] [place] [address], [place] [phone] * Troponin I (08/17/2021 8:59 PM EDT) Troponin, HS 11.8 0.0 - 53.7 ng/L 08/17/2021 10:06 PM EDT [facility] 08/17/2021 8:59 PM EDT 08/17/2021 9:29 PM EDT Pushpa Suero MD LAB BLOOD ORDERABLE S Performing Organization Address City/[facility] Co de Phone Number [facility] [address] [place] [address], [place] [phone] * GFR CALCULATED (08/17/2021 5:00 PM EDT) eGFR 68.8 60.0 - 200.0 ML/MIN 08/17/2021 6:39 PM EDT [facility] 08/17/2021 5:00 PM EDT 08/17/2021 5:00 PM EDT Pushpa Suero MD LAB CHG PERFORMABLE S Performing Organization Address [facility]/ZIP Co de Phone Number [facility] [address] [place] [address], [place] [phone] * TSH (08/17/2021 5:00 PM EDT) TSH 0.481 0.358 - 3.740 ulU/ml 08/17/2021 6:48 PM EDT [facility] 08/17/2021 5:00 PM EDT 08/17/2021 6:08 PM EDT Pushpa Suero MD LAB BLOOD ORDERABLE S [facility] [address] [place] [address], [place] [phone] * Phosphorus (08/17/2021 5:00 PM EDT) Phosphorus 3.1 2.5 - 4.9 mg/dL 08/17/2021 6:39 PM EDT [facility] 08/17/2021 5:00 PM EDT 08/17/2021 6:08 PM EDT Pushpa Suero MD LAB BLOOD ORDERABLE S [facility] [address] [place] [address], [place] [phone] * Magnesium (08/17/2021 5:00 PM EDT) Magnesium 2.4 1.7 - 2.4 MG/DL 08/17/2021 6:39 PM EDT [facility] 08/17/2021 5:00 PM EDT 08/17/2021 6:08 PM EDT Pushpa Suero MD LAB BLOOD ORDERABLE S [facility] [address] [place] [address], [place] [phone] * Troponin I (08/17/2021 5:00 PM EDT) Troponin, HS 11.7 0.0 - 53.7 ng/L 08/17/2021 6:39 PM EDT [facility] 08/17/2021 5:00 PM EDT 08/17/2021 6:08 PM EDT Pushpa Suero MD LAB BLOOD ORDERABLE S [facility] [address] [place] [address], [place] [phone] * (ABNORMAL) Basic metabolic panel (08/17/2021 5:00 PM EDT) Calcium 9.7 8.5 - 10.1 mg/dL 08/17/2021 6:39 PM EDT [facility] Chloride 106 98 - 107 mmol/L 08/17/2021 6:39 PM EDT [facility] CO2 24 21 - 32 mmol/L 08/17/2021 6:39 PM EDT [facility] Creatinine 0.80 0.60 - 1.30 MG/DL 08/17/2021 6:39 PM EDT [facility] Potassium 4.2 3.6 - 5.2 mmol/L 08/17/2021 6:39 PM EDT [facility] Sodium 137 133 - 144 mmol/L 08/17/2021 6:39 PM EDT [facility] BUN 30(H) 7 - 18 MG/DL 08/17/2021 6:39 PM EDT [facility] Glucose 103 70 - 110 MG/DL 08/17/2021 6:39 PM EDT [facility] 08/17/2021 5:00 PM EDT 08/17/2021 6:08 PM EDT Pushpa Suero MD LAB BLOOD ORDERABLE S Performing Organization Address City/State/[facility] Co de Phone Number [facility] [address] [place] [address], * (ABNORMAL) B-type natriuretic peptide (08/17/2021 5:00 PM EDT) BNP 305.5(H) 0.0 - 100.0 pg/mL 08/17/2021 6:58 PM EDT [facility] 08/17/2021 5:00 PM EDT 08/17/2021 6:08 PM EDT Pushpa Suero MD LAB BLOOD ORDERABLE S [facility] [address] [place] [address], * Respiratory panel (08/17/2021 2:00 PM EDT) Influenza A Not Detected 08/17/2021 3:46 PM EDT [facility] Influenza B Not Detected 08/17/2021 3:46 PM EDT [facility] Adenovirus Not Detected 08/17/2021 3:46 PM EDT [facility] Coronavirus HKU1 Not Detected 08/17/2021 3:46 PM EDT [facility] Coronavirus NL63 Not Detected 08/17/2021 3:46 PM EDT [facility] Coronavirus 229E Not Detected 08/17/2021 3:46 PM EDT [facility] Coronavirus OC43 Not Detected 08/17/2021 3:46 PM EDT [facility] Human Metapneumovirus Not Detected 08/17/2021 3:46 PM EDT [facility] Rhino/Enterovirus Not Detected 08/17/2021 3:46 PM EDT [facility] Parainfluenza virus 1 Not Detected 08/17/2021 3:46 PM EDT [facility] Parainfluenza virus 2 Not Detected 08/17/2021 3:46 PM EDT [facility] Parainfluenza virus 3 Not Detected 08/17/2021 3:46 PM EDT [facility] Parainfluenza 4 Not Detected 08/17/2021 3:46 PM EDT [facility] RSV Not Detected 08/17/2021 3:46 PM EDT [facility] Bordetella pertussis Not Detected 08/17/2021 3:46 PM EDT [facility] Chlamydia pneumoniae Not Detected 08/17/2021 3:46 PM EDT [facility] Mycoplasma pneumoniae Not Detected 08/17/2021 3:46 PM EDT [facility] Bordetella parapertussis Not Detected 08/17/2021 3:46 PM EDT [facility] SARS COVID 2 Not Detected 08/17/2021 3:46 PM EDT [facility] 08/17/2021 2:00 PM EDT 08/17/2021 2:39 PM EDT Pushpa Suero MD LAB MICROBIOLOGY - GENERAL ORDERABLES Performing Organization Address [facility] Phone Number [facility] [address] [place] [address], * SURVEILLANCE CULTURE (08/17/2021 2:00 PM EDT) MRSA NOT APPLICABLE 08/17/2021 2:41 PM EDT [facility] Vancomycin Resistant Gene NOT APPLICABLE 08/17/2021 2:41 PM EDT [facility] Acinetobacter Screen Negative for MDR Acinetobacter. THIS TEST IS FOR SURVEILLANCE PURPOSES ONLY. 08/19/2021 7:55 AM EDT [facility] 08/17/2021 2:00 PM EDT 08/17/2021 2:40 PM EDT Pushpa Suero MD LAB MICROBIOLOGY - GENERAL ORDERABLES Performing Organization Address City/[facility] Phone Number [facility] [address] [place] [address], * XR chest 1 view (08/17/2021 12:50 PM EDT) Anatomical Region Laterality Modality Chest Radiographic Mandy ging 08/17/2021 12:5 0 PM EDT Narrative 08/17/2021 1:15 PM EDT PROCEDURE: CHEST 1 VIEW: 08/17/2021 CLINICAL INFORMATION: r/o pneumonia COMPARISON: 11/04/2019 Heart size is within normal limits. There is COPD. There is a generator pack projecting over the left lower abdomen region. No focal consolidation, pleural effusion or pneumothorax. Impression: COPD. No acute infiltrates. Report Sign Date: 08/17/2021 1:13 PM, Electronically Signed By: ??Srinath Triplett MD Procedure Note Srinath Triplett MD - 01/18/2022 PROCEDURE: CHEST 1 VIEW: 08/17/2021 CLINICAL INFORMATION: r/o pneumonia COMPARISON: 11/04/2019 Heart size is within normal limits. There is COPD. There is a generatorpack projecting over the left lower abdomen region. No focal consolidation, pleural effusion or pneumothorax. Impression: COPD. No acute infiltrates. Report Sign Date: 08/17/2021 1:13 PM, Electronically Signed By: Srinath Triplett MD Pushpa Suero MD IMG XR PROCEDURES * (ABNORMAL) LDL (CALCULATED) (08/17/2021 12:32 PM EDT) [facility] LDL CALCULATED 116.6(H) 0.0 - 100.0 08/18/2021 3:22 AM EDT [facility] [facility] 08/17/2021 12:3 2 PM EDT 08/17/2021 12:32 PM EDT Pushpa Suero MD LAB BLOOD BANK TEST ORDERABLES Performing Organization Address City/[facility]/ZIP Co de Phone Number [facility] [address] [place] [address], [place] [phone] * MEAN BLOOD GLUCOSE (08/17/2021 12:32 PM EDT) [facility] MEAN BLOOD GLUCOSE 100 MG/DL 08/18/2021 3:11 AM EDT [facility] 08/17/2021 12:3 2 PM EDT 08/17/2021 12:32 PM EDT Pushpa Suero MD LAB BLOOD ORDERABLE S Performing Organization Address City/[facility]/ZIP Co de Phone Number [facility] [address] [place] [address], [place] [phone] * SCANNED CARDIOLOGY RESULT (08/17/2021) Narrative 08/17/2021 Ordered by an unspecified provider. 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
--- OUTSIDE RECORDS SUMMARY | 2024-10-08 12:34 | XMS_ITS | Encounter Summary ---
Author Organization [facility] nter Address [address] [place] [address] Care Team Providers Care Condominium Manager Name Role Phone Genie Beth DO Primary Care Provider + Encounter Details Date Type Department Care Team (Latest Contact Info) Description 01/22/2019 10:38 AM EDT - 01/22/2019 11:59 PM EDT Hospital Encounter [facility] CONVERSION OUTPATIENT [address] [place] [address] Thien Gray MD [address] [place] [address] Bilateral primary osteoarthritis of knee Discharge Disposition: [...] Associated Diagnosis Comments XR KNEE 1-2 VIEWS BILATERAL Routine 01/22/2019 10:42 AM EDT documented in this encounter Results * XR knee 1-2 views bilateral (01/22/2019 10:42 AM EDT) Anatomical Region Laterality Modality Lower Extremities, Knee [facility] 01/22/2019 10:4 2 AM EDT Narrative 01/22/2019 11:36 AM EDT PROCEDURE: KNEE BILAT 1-2 VIEWS: 01/22/2019 CLINICAL INFORMATION: Pain in unspecified knee COMPARISON: None FINDINGS: ?? LEFT KNEE: ??Joint space narrowing and osteophytosis. No fracture or dislocation. No aggressive or erosive bony change. No joint effusion. RIGHT KNEE: ??Joint space narrowing and osteophytosis. No fracture or dislocation. No aggressive or erosive bony change. No joint effusion. Impression: Bilateral tricompartmental osteoarthrosis. No evidence of acute fracture or dislocation. Report Sign Date: 01/22/2019 11:34 AM, Electronically Signed By: ??Caden Mac Procedure Note Kamlesh Mac MD - 01/18/2022 PROCEDURE: KNEE BILAT 1-2 VIEWS: 01/22/2019 CLINICAL INFORMATION: Pain in unspecified knee COMPARISON: None FINDINGS: LEFT KNEE: Joint space narrowing and osteophytosis. No fracture ordislocation. No aggressive or erosive bony change. No joint effusion. RIGHT KNEE: Joint space narrowing and osteophytosis. No fracture ordislocation. No aggressive or erosive bony change. No joint effusion. Impression: Bilateral tricompartmental osteoarthrosis. No evidence of acute fractureor dislocation. Report Sign Date: 01/22/2019 11:34 AM, Electronically Signed By: Caden Mac Thien Gray MD IMG XR PROCEDURES documented in this encounter Visit Diagnoses Diagnosis Bilateral primary osteoarthritis of knee documented in this encounter Care Teams Condominium Manager Relationship Specialty Start Date End Date Genie Beth DO [address] [place] [address] PCP - General documented as of this encounter
--- OUTSIDE RECORDS SUMMARY | 2024-10-08 12:34 | XMS_ITS | Encounter Summary ---
Author Organization [facility] nter Address [address] [place] [address] Care Team Providers Care Cafeteria Attendant Name Role Phone Genie Beth Primary Care Provider + Encounter Details Date Type Department Care Team (Late st Contact Info) Description 02/18/2019 12:01 AM EDT - 02/18/2019 11:59 PM EDT Hospital Encounter [facility] CONVERSION OUTPATIENT [address] [place] [address] Kacy Nuñez DO [address] [place] [address] Social History Tobacco Use Types Packs/Day Years [...] Comments BI MAMMOGRAM SCREENING TOMOSYNTHESIS BILATERAL Routine 02/18/2019 8:33 AM EDT documented in this encounter Results * BI Screening mammogram with tomosynthesis bilateral (02/18/2019 8:33 AM EDT) Anatomical Region Laterality Modality Breast Bilateral Mammography 02/18/2019 8:33 AM EDT Narrative 02/23/2019 8:30 AM EDT PROCEDURE: MA MAMMO SCREENING SOFIA W/STEFFEN: 02/18/2019 CLINICAL INFORMATION: SCREENING COMPARISON: Outside mammogram 09/22/2017. BREAST DENSITY: The breast tissue is heterogeneously dense. ??This may lower the sensitivity of mammography. FINDINGS: No suspicious mass, calcification, or region of architectural distortion within either breast. Redemonstration of changes of prior excisional biopsy on the right. Benign type calcifications bilaterally. Overall appearance of the breast unchanged over the interval. Impression: Benign. BIRADS: BIRADS 2 - Benign RECOMMENDATION: Bilateral screening mammogram in 1 year. Negative mammography should not preclude biopsy of [...] new physician and/or supplier. Report Sign Date: 02/23/2019 8:28 AM, Electronically Signed By: ??Cesar Harper Procedure Note Nam Harper MD - 01/18/2022 PROCEDURE: MA MAMMO SCREENING SOFIA W/STEFFEN: 02/18/2019 CLINICAL INFORMATION: SCREENING COMPARISON: Outside mammogram 09/22/2017. BREAST DENSITY: The breast tissue is heterogeneously dense. This maylower the sensitivity of mammography. FINDINGS: No suspicious mass, calcification, or region of architecturaldistortion within either breast. Redemonstration of changes of priorexcisional biopsy on the right. Benign type calcifications bilaterally.Overall appearance of the breast unchanged over the interval. Impression: Benign. BIRADS: BIRADS 2 - Benign RECOMMENDATION: Bilateral screening mammogram in 1 year. Negative mammography should not preclude biopsy of [...] new physician and/or supplier. Report Sign Date: 02/23/2019 8:28 AM, Electronically Signed By: Cesar Harper Kacy Nuñez DO IMG BI PROCEDURES documented in this encounter Visit Diagnoses Not on filedocumented in this encounter Care Teams Cafeteria Attendant Relationship Specialty Start Date End Date Kirit, Genie Candice, DO [address] [place] [facility] [place] [address] PCP - General documented as of this encounter
--- OUTSIDE RECORDS SUMMARY | 2024-10-08 12:35 | XMS_ITS ---
Author Organization [facility] Address [address] [place], [place] Phone Care Team Providers Care Carton Forming Machine Adjuster Name Role Phone Hernan MADRID, Edward Mondragon [phone] Plan of Treatment Future Appointments Date Time Location Provi daniel Return Visit 11/11/2024 2:20PM [facility] Edward Becerra MD Last Documented On 10:42AM ; [facility] Medical Equipment - Implanted Devices Includes: Current and historical Devices No Medical Equipment Recorded Medications Includes: Current and historical Medications Current Medications (continue as prescribed) Aricept 5 MG Oral Tablet 11/27/2023 Provider: Diagnosis: Last Documented On 11/27/2023 2:53PM By Brittanie Grady ; [facility] NIFEdipine ER 60 MG Oral Tablet Extended Release 24 Ho ur 11/27/2023 Provider: Diagnosis: Last Documented On 11/27/2023 2:53PM By Brittanie Grady ; [facility] Potassium Chloride ER 10 MEQ Oral Tablet Extended Rele ase 11/27/2023 Provider: Diagnosis: Last Documented On 11/27/2023 2:53PM By Brittanie Grady ; [facility] NexIUM 20 MG Oral Capsule Delayed Release 11/27/2023 Provider: Diagnosis: Last Documented On 11/27/2023 2:53PM By Brittanie Grady ; [employer] hydrALAZINE HCl 10 MG Oral Tablet 11/27/2023 Provide r: Diagnosis: Last Documented On 11/27/2023 2:54PM By Brittanie Grady ; [employer] SEROquel 25 MG Oral Tablet 11/27/2023 Provider: Diagnosis: Last Documented On 11/27/2023 2:54PM By Brittanie Grady ; [facility] Lasix 20 MG Oral Tablet 11/27/2023 Provider: Diagnosis: Last Documented On 11/27/2023 2:54PM By Brittanie Grady ; [facility] Lipitor 40 MG Oral Tablet 11/27/2023 Provider: Diagnosis: Last Documented On 11/27/2023 2:54PM By Brittanie Grady ; [facility], [facility] Keppra 1000 MG Oral Tablet 11/27/2023 Provider: Diagnosis: Last Documented On 11/27/2023 2:54PM By Brittanie Grady ; [facility], [facility] Losartan Potassium 100 MG Oral Tablet 11/27/2023 Pro vider: Diagnosis: Last Documented On 11/27/2023 2:55PM By Brittanie Grady ; [facility], [facility] Aspirin 81 MG Oral Capsule 11/27/2023 Provider: Diagnosis: Last Documented On 11/27/2023 2:55PM By Brittanie Grady ; [facility] Ferrous Sulfate 324 (65 Fe) MG Oral Tablet Delayed Rel ease 11/27/2023 Provider: Diagnosis: Last Documented On 11/27/2023 2:55PM By Brittanie Grady ; [facility], [facility] FLUoxetine HCl 20 MG Oral Capsule 11/27/2023 Provide r: Diagnosis: Last Documented On 11/27/2023 2:55PM By Brittanie Grady ; [facility] Colace 100 MG Oral Capsule 11/27/2023 Provider: Diagnosis: Last Documented On 11/27/2023 2:55PM By Brittanie Grady ; [facility], [facility] Magnesium Oxide 400 MG Oral Tablet 11/27/2023 Provid er: Diagnosis: Last Documented On 11/27/2023 2:56PM By Brittanie Grady ; [facility] Multivitamin Adult Oral Tablet 11/27/2023 Provider: Diagnosis: Last Documented On 11/27/2023 2:56PM By Brittanie Grady ; [facility] Past Medications on file Lasix 20 MG Oral Tablet 11/27/2023 - 11/27/2023 Provid er: Diagnosis: Last Documented On 11/27/2023 2:54PM By Brittanie Grady ; [employer] [facility] Medications Administered Includes: Administered Medications in patient's chart No Administered Medications Recorded Vital Signs Includes: Vital Signs from 10/08/2023 through 10/08/2024 Vital Name 11/27/2023 04:09P Blood Pressure Sitting (mmHg) 122/66 Pulse Rate-Sitting (bpm) 69 Temp-Temporal 98.1 Height (in) 60.123538 Weight (lb) 117 Body Mass Index 22.1 Body Surface Area 1.5 Oxygen Saturation (%) 98 Flow Rate (l/min) (None (Room Air)) FiO2 (%) 21 Last Documented: On 11/27/2023 4:09PM ; [employer] Results Includes: Results from 10/08/2023 through 10/08/2024 No Results Recorded For Specified Dates History of Present Illness History of Present Illness not supported for this document type No History of Present Illness Recorded Social History Description Last Updated Never used tobacco 11/27/2023 Last Documented On 6:52PM ; [employer] [facility] Smoking Status Unknown Medical History Includes: [...] A ctive Last Documented On 3:46PM ; [id number] Encounters Includes: Encounters from 10/08/2023 through 10/08/2024 Encounter Provider Location Date Check-In Time Check- Out Time Diagnosis New Patient Level 2 Edward Becerra MD [facility] 4 3:09PM 4:26PM Insurance Includes: Active Insurance Policies Plan Name Member ID Group # Subscriber Relationship Effect shania Dates 1 - *Medicare [place] [employer] [id number] Viry Van Self 4 - Unknown Clinical Notes Includes: Signed Clinical Notes starting from 06/28/2023 * Progress note Date Encounter Last Documented by 11/27/2023 New Patient Level 2 Last winston esquivel on 12/12/2023; 6:52 PM, Edward Becerra MD; [email or web address] Chief Complaint The Chief Complaint is: New [...]
--- OUTSIDE RECORDS SUMMARY | 2024-10-08 12:35 | XMS_ITS | Encounter Summary ---
Author Organization [facility] Address [address] [place] [address] Care Team Providers Care Cutter Inspector Name Role Phone Unavailable Primary Care Provider Unavailabl e Encounter Details Date Type Department Care Team (Late st Contact Info) Description 02/10/2013 Orders Only BS CC AMB Charles Benavides MD [address] [facility] [address] [place] [address] Social History Tobacco Use Types Packs/Day Years Used Date Smoking Tobacco: Never Assessed Sex and Gender Information Value Date Recorded Sex Assigned at Not on file Gender Identity Not on file Sexual Orientation Not on file documented as of this encounter Plan of Treatment Not on file documented as of this encounter Procedures Procedure Name Priority Date/Time Associated Diagnosis Comments COLONOSCOPY HISTORICAL PROCEDURE Routine 02/10/2013 documented in this encounter Results * COLONOSCOPY HISTORICAL PROCEDURE (02/10/2013) 02/10/2013 Charles Avery MD [facility] [employer] [facility] documented in this encounter Visit Diagnoses Not on filedocumented in this encounter
--- OUTSIDE RECORDS SUMMARY | 2024-10-08 12:35 | XMS_ITS | Encounter Summary ---
Author Organization [facility] Address [address] [place] [address] Care Team Providers Care Credit Report Checker Name Role Phone Provider, No Known Primary Care Provider Unavail able Encounter Details Date Type Department Care Team (Late st Contact Info) Description 01/20/2006 Historical Mammograp hy Encounter [facility] [address] [place] [address] Interface, See Report Social History Tobacco Use Types Packs/Day Years Used Date Smoking Tobacco: Never Assessed Comments Unknown Sex and Gender Information Value Date Recorded Sex Assigned at Not on file Legal Sex Female 10:33 AM EDT Gender Identity Not on file Sexual Orientation Not on file documented as of this encounter Plan of Treatment Not on file documented as of this encounter Procedures Procedure Name Priority Date/Time Associated Diagnosis Comments MAMMO HISTORICAL RESULT Routine 01/20/2006 11:27 AM EST documented in this encounter Results * MAMMO HISTORICAL RESULT (01/20/2006 11:27 AM EST) Anatomical Region Laterality Modality Breast Mammography 01/20/2006 11:2 7 AM EST Narrative 01/21/2006 4:51 PM EST ? [address] ??[place], [place] [address] ? NAME: MASHA QUIROGA ? : ??40 ??MR#: [id number] ? LOC: ?? DIS ? AGE: 65Y ?? Pt type: CO ?Exam Date: 01/20/06 1130 ? SEX: F ?? AN#:[id number] ?Ck-in#: [id number] ? NANCY,CHITRA W ? [address] ? [address] ? [place] ?[place] ?[address] ? Chk-in # ?? Order ?Exam ?[id number] ?? 0001 ? [id number] ??BC MAMMOGRAM SCREENING BILATERAL ? Ord Diag: SCREENING ? HISTORY: ?? The patient is a 65 year old female with no personal or family history of breast cancer for routine screening. ?? BILATERAL MAMMOGRAM: ?? FILM COMPARISON: ??The exam is compared to prior exams, most recently dated January 2005. ?? FINDINGS: ??The breast parenchymal pattern is heterogeneously dense. Scar markers are seen overlying the superior right breast. ??There is no mass, cluster of microcalcifications or architectural distortion to suggest malignancy. ?? IMPRESSION: ??Stable mammogram. No findings suspicious for malignancy. ?? RECOMMENDATION: ??Yearly mammography, yearly physical exam, monthly self breast exam. ?? Bi-Rads II, benign. ?? The standard false negative rate of mammography is between 10 and 25%. Complex patterns or increased breast density will markedly elevate the false negative rate of mammography. ?? The images were overread by computerized image detection system. ?? A copy of this report in lay terminology has been sent to the patient. ?/READ BY/ AKBAR RILEY ?/Released By/ AKBAR RILEY ?Released By Date/Time: ??01/21/06 1640 ?Painter Set: ??JBW ? FINAL ? Page ??1 ? RADIOLOGY REPORT us See Report Interface IMG MAMMOGRAPHY ORDERABLES Final Result documented in this encounter Visit Diagnoses Not on filedocumented in this encounter Care Teams Credit Report Checker Relationship Specialty Start Date End Date Provider, [place] [address] PCP - General 07/19/15 documented as of this encounter
--- OUTSIDE RECORDS SUMMARY | 2024-10-08 12:35 | XMS_ITS | Clinical Summary ---
Author Organization [facility] Address [address] [place] [address] Phone Care Team Providers Care Consumer Affairs Specialist Name Role Phone Hernan MADRID, Edward Michelle Unavailable [phone] Reason for Visit and Chief Complaint referred by Dr. Mary - The Chief Complaint is: New pt referral- Seizures Plan of Treatment Future Appointments Date Time Location Provi daniel Return Visit 11/11/2024 2:20PM [facility] Becerra MD Last Documented On 10:42AM ; [employer] Medical Equipment - Implanted Devices Includes: Current Devices No Medical Equipment Recorded Medications Includes: Medications discussed during this encounter and other current Medications Current Medications (continue as prescribed) Aricept 5 MG Oral Tablet 11/27/2023 Provider: Diagnosis: Last Documented On 11/27/2023 2:53PM By Brittanie Grady ; [employer] NIFEdipine ER 60 MG Oral Tablet Extended Release 24 Ho ur 11/27/2023 Provider: Diagnosis: Last Documented On 11/27/2023 2:53PM By Brittanie Grady ; [employer] Potassium Chloride ER 10 MEQ Oral Tablet Extended Rele ase 11/27/2023 Provider: Diagnosis: Last Documented On 11/27/2023 2:53PM By Brittanie Grady ; [employer] NexIUM 20 MG Oral Capsule Delayed Release 11/27/2023 Provider: Diagnosis: Last Documented On 11/27/2023 2:53PM By Brittanie Grady ; [employer] hydrALAZINE HCl 10 MG Oral Tablet 11/27/2023 Provide r: Diagnosis: Last Documented On 11/27/2023 2:54PM By Brittanie Grady ; [facility] SEROquel 25 MG Oral Tablet 11/27/2023 Provider: Diagnosis: Last Documented On 11/27/2023 2:54PM By Brittanie Grady ; [facility] Lasix 20 MG Oral Tablet 11/27/2023 Provider: Diagnosis: Last Documented On 11/27/2023 2:54PM By Brittanie Grady ; [facility] Lipitor 40 MG Oral Tablet 11/27/2023 Provider: Diagnosis: Last Documented On 11/27/2023 2:54PM By Brittanie Grady ; [facility] Keppra 1000 MG Oral Tablet 11/27/2023 Provider: Diagnosis: Last Documented On 11/27/2023 2:54PM By Brittanie Grady ; [facility] Losartan Potassium 100 MG Oral Tablet 11/27/2023 Pro vider: Diagnosis: Last Documented On 11/27/2023 2:55PM By Brittanie Grady ; [facility] Aspirin 81 MG Oral Capsule 11/27/2023 Provider: Diagnosis: Last Documented On 11/27/2023 2:55PM By Brittanie Grady ; [facility] Ferrous Sulfate 324 (65 Fe) MG Oral Tablet Delayed Rel ease 11/27/2023 Provider: Diagnosis: Last Documented On 11/27/2023 2:55PM By Brittanie Grady ; [facility] FLUoxetine HCl 20 MG Oral Capsule 11/27/2023 Provide r: Diagnosis: Last Documented On 11/27/2023 2:55PM By Brittanie Grady ; [facility] Colace 100 MG Oral Capsule 11/27/2023 Provider: Diagnosis: Last Documented On 11/27/2023 2:55PM By Brittanie Grady ; [facility] Magnesium Oxide 400 MG Oral Tablet 11/27/2023 Provid er: Diagnosis: Last Documented On 11/27/2023 2:56PM By Brittanie Grady ; [facility] Multivitamin Adult Oral Tablet 11/27/2023 Provider: Diagnosis: Last Documented On 11/27/2023 2:56PM By Brittanie Grady ; [employer] Medications Administered Includes: Administered Medications from this encounter No Administered Medications Recorded Vital Signs Includes: Vital Signs from this encounter Vital Name 11/27/2023 04:09P Blood Pressure Sitting (mmHg) 122/66 Pulse Rate-Sitting (bpm) 69 Temp-Temporal 98.1 Height (in) 60.309831 Weight (lb) 117 Body Mass Index 22.1 Body Surface Area 1.5 Oxygen Saturation (%) 98 Flow Rate (l/min) (None (Room Air)) FiO2 (%) 21 Last Documented: On 11/27/2023 4:09PM ; [employer] Results Includes: Results discussed during this encounter [...] 11/27/2023 Last Documented On 4 6:52PM ; [employer] Smoking Status Unknown Procedures and Surgical History Includes: Procedures from this encounter Procedures Code Diagnosis Performing Provider Service L ocation Service Date medication list documented 1159F Last Documented On 4 4:11PM ; [employer] [facility] review of medications documented 1160F Last Documented On 4 4:11PM ; [place] [employer] [facility] Medical History Includes: Medical History addressed during [...] ctive Last Documented On 4 3:46PM ; [employer] Encounters Encounter Provider Location Date Check-In Time Check- Out Time Diagnosis New Patient Level 2 Edward Becerra MD [facility] 4 3:09PM 4:26PM Insurance Includes: Active Insurance Policies Plan Name Member ID Group # Subscriber Relationship Effect shania Dates 1 - *Medicare [place] Gba [id number] Viry Van Self 4 - Unknown Clinical Notes Includes: Clinical Notes from this encounter * Progress note Date Encounter Last Documented by 11/27/2023 New Patient Level 2 Last documen sierra on 12/12/2023; 6:52 PM, Edward Becerra MD; [facility] Chief Complaint The Chief Complaint is: New [...]
--- OUTSIDE RECORDS SUMMARY | 2024-10-08 12:35 | XMS_ITS | Encounter Summary ---
Author Organization [facility] ystem Address [address] [place] [address] Care Team Providers Care Communications Analyst Name Role Phone Provider, No Known Primary Care Provider Unavail able Encounter Details Date Type Department Care Team (Late st Contact Info) Description 02/28/2010 Historical Mammograp hy Encounter [facility] HISTORICAL CONV [address] [facility] [place] [address] Interface, See Report Social History [...] Associated Diagnosis Comments MAMMO HISTORICAL RESULT Routine 02/28/2010 8:20 AM EDT documented in this encounter Results * MAMMO HISTORICAL RESULT (02/28/2010 8:20 AM EDT) Anatomical Region Laterality Modality Breast Mammography 02/28/2010 8:20 AM EDT Narrative 02/28/2010 3:10 PM EDT ?[facility] ? [address] ??[place], [place] [address] ? NAME: MASHA QUIROGA ? : ??40 ??MR#: [id number] ? LOC: ?? CO ? AGE: 69Y ?? Pt type: CO ?Exam Date: 02/28/10821 ? SEX: F ?? AN#:[id number] ?Ck-in#: [id number] ? CHITRA CRUZ W ? [address] ? [address] ? [place] ?[place] ?[address] ? Chk-in # ?? Order ?Exam ?[id number] ?? 0001 ? [id number] ??BC MAMM SCREEN BILAT DIG PNL ? Ord Diag: SCREENING ? BILATERAL SCREENING DIGITAL MAMMOGRAM: ? HISTORY: 69-year-old female for routine screening mammogram. No personal or family history of breast cancer. ?? FILM COMPARISON: Prior exams most recently dated 02/27/2009. ? FINDINGS: ??The breast parenchymal pattern is a mixture of fat and heterogeneously dense fibroglandular tissue. Surgical changes on the right are stable. ?? There is no mass, cluster of microcalcifications, or architectural distortion to suggest development of malignancy. ? IMPRESSION: No findings suspicious for malignancy. ?? RECOMMENDATION: Yearly mammogram, yearly physical exam, and monthly self breast exam. ? BIRADS CATEGORY II, BENIGN. ? iCAD was utilized. ?? The standard false-negative rate of mammography is between 10 and 25%. Complex patterns or increased breast density will markedly elevate the false-negative rate of mammography. ? A letter, in lay terminology, with the results of this exam will be ? FINAL ?CONTINUED ?Page ??1 ? RADIOLOGY REPORT ?[facility] ? [address] ??[place], [place] [address] ? NAME: MASHA QUIROGA ? : ??40 ??MR#: [id number] ? LOC: ?? CO ? AGE: 69Y ?? Pt type: CO ?Exam Date: 02/28/10821 ? SEX: F ?? AN#:[id number] ?Ck-in#: [id number] ? CHITRA CRUZ W ? [address] ? [address] ? [place] ?[place] ?[address] ? Checkin-Exam Code Summary ? [phone] mailed to the patient. ?/READ BY/ AKBAR JOHNSTON ?/Released By/ AKBAR JOHNSTON ?Released By Date/Time: ??/28/10 1503 ?Jigger Artisan: ??DME ? FINAL ? Page ??2 ? RADIOLOGY REPORT us See Report Interface IMG MAMMOGRAPHY ORDERABLES Final Result documented in this encounter Visit Diagnoses Not on filedocumented in this encounter Care Teams Communications Analyst Relationship Specialty Start Date End Date Provider, [place] [address] PCP - General 07/19/15 documented as of this encounter
--- OUTSIDE RECORDS SUMMARY | 2024-10-08 12:35 | XMS_ITS ---
Care Plan - [facility] Created on: October 08, 2024 Viry Van : 1940 Sex: Female Author Organization [facility] Address [address] [place] [address] Phone Care Team Providers Care Ball Racker Name Role Phone Hernan MADRID, Edward Michelle Unavailable [phone]
--- OUTSIDE RECORDS SUMMARY | 2024-10-08 12:35 | XMS_ITS | Encounter Summary ---
[facility] Address [address] [place] [address] Care Team Providers Care Asphalt Paving Foreman Name Role Phone Provider, No Known Primary Care Provider Unavail able Reason for Referral * (Routine) - Closed Specialty Diagnoses / Procedures Referred By Flo nazario Referred To Contact Radiology Diagnoses Visit for screening mammogram Procedures Mammo Screening Digital Tomosynthesis Bilateral With CAD Faisal Hatfield MD [address] [facility] [address] [place] [address] Phone: tel: fax: Referral ID Status Reason Start Date Expiration Date Visits Re quested Visits Authorized [id number] Closed 08/27/2017 08/27/2018 1 1 Reason for Visit * (Routine) - Closed Specialty Diagnoses / Procedures Referred By Flo nazario Referred To Contact Radiology Diagnoses Visit for screening mammogram Procedures Mammo Screening Digital Tomosynthesis Bilateral With CAD Faisal Hatfield MD [address] [facility] [address] [place] [address] Phone: tel: fax: Referral ID Status Reason Start Date Expiration Date Visits Re quested Visits Authorized [id number] Closed 08/27/2017 08/27/2018 1 1 Encounter Details Date Type Department Care Team (Late st Contact Info) Description 09/22/2017 8:46 AM EST - 09/22/2017 11:59 PM EST Hospital Encounter [facility] [address] [facility] [address] [place] [address] Faisal Hatfield MD [address] [facility] [address] [place] [address] Visit for screening mammogram Discharge Disposition: Home or Self Care Social History Tobacco Use Types Packs/Day Years Used Date Smoking Tobacco: Never Assessed Comments No Sex and Gender Information Value Date Recorded Sex Assigned at Not on file Legal Sex Female 10:33 AM EDT Gender Identity Not on file Sexual Orientation Not on file documented as of this encounter Plan of Treatment Not on file documented as of this encounter Procedures Procedure Name Priority Date/Time Associated Diagnosis Comments MAMMO SCREENING DIGITAL TOMOSYNTHESIS BILATERAL W CAD Routine 09/22/2017 9:22 AM EST Visit for screening mammogram documented in this encounter Results * Mammo Screening Digital Tomosynthesis Bilateral With CAD (09/22/2017 9:22 AM EST) Anatomical Region Laterality Modality Breast N/A Mammography 09/22/2017 12:2 1 PM EST Impressions 09/22/2017 12:22 PM EST Negative screening mammogram. RECOMMENDATION: ??Continue annual screening mammography. BI-RADS CATEGORY 1, NEGATIVE. CAD was utilized. The standard false-negative rate of mammography is between 10% and 25%. Complex patterns or increased breast density will markedly elevate the false-negative rate of mammography. ?? A letter, in lay terminology, with the results of this exam will be mailed to the patient. ?? This report was finalized on 09/22/2017 12:[address] Sharon Thomas MD. Narrative 09/22/2017 12:22 PM EST BILATERAL SCREENING MAMMOGRAM WITH TOMOSYNTHESIS: HISTORY: No personal or significant family history of breast cancer and no focal breast complaints at the time of screening mammography. The patient has lost 7 pounds since her last mammogram. TECHNIQUE: ??Low dose full field digital breast tomosynthesis imaging was performed with 2D and 3D acquisitions. COMPARISON: ??09/04/2016, 07/19/2015, 07/15/2014, 03/17/2012, and 03/11/2011. FINDINGS: ??There are scattered areas of fibroglandular density. ?? The fibroglandular pattern is stable. ??There are no suspicious masses, worrisome calcifications, nonsurgical areas of architectural distortion, or other secondary signs of malignancy. us Faisal Hatfield MD IMG MAMMOGRAPHY ORDERABLES Final Result documented in this encounter Visit Diagnoses Diagnosis Visit for screening mammogram documented in this encounter Care Teams Asphalt Paving Foreman Relationship Specialty Start Date End Date Provider, [place] [address] PCP - General 07/19/15 documented as of this encounter
--- OUTSIDE RECORDS SUMMARY | 2024-10-08 12:35 | XMS_ITS | Encounter Summary ---
Author Organization [facility] yste Address [address] [place] [address] Care Team Providers Care Hiv Prevention Specialist Name Role Phone Provider, No Known Primary Care Provider Unavail able Encounter Details Date Type Department Care Team (Late st Contact Info) Description 01/21/2007 Historical Mammograp hy Encounter [facility] HISTORICAL CONV [address] [facility] [address] Interface, See Report Social History [...] Associated Diagnosis Comments MAMMO HISTORICAL RESULT Routine 01/21/2007 10:54 AM EDT documented in this encounter Results * MAMMO HISTORICAL RESULT (01/21/2007 10:54 AM EDT) Anatomical Region Laterality Modality Breast Mammography 01/21/2007 10:5 4 AM EDT Narrative 01/21/2007 4:57 PM EDT ? [address] ??[place], [place] [address] ? NAME: MASHA QUIROGA ? : ??40 ??MR#: [id number] ? LOC: ?? CO ? AGE: 66Y ?? Pt type: CO ?Exam Date: 01/21/07 1059 ? SEX: F ?? AN#:[id number] ?Ck-in#: [id number] ? NANCY,CHITRA W ? [address] ? [address] ? [place] ?[place] ?[address] ? Chk-in # ?? Order ?Exam ?[id number] ?? 0001 ? [id number] ??BC MAMM SCREENING BILAT DIGIT PNL ? Ord Diag: SCREENING ? HISTORY: ??66 year old female for annual screening mammography with no reported breast complaints. No personal or family history of breast cancer is given. ?? BILATERAL DIGITAL MAMMOGRAM: ?? COMPARISON USED: ?? 01/20/06, digitized. ?? TECHNIQUE: ??CC and MLO digital views of both breasts as well as exaggerated lateral digital CC views were performed (total 6 films). ?? FINDINGS: ??The breast parenchyma is exceedingly dense. There are no discrete masses, areas of fixed architectural distortion nor any worrisome calcifications appreciated. ?? Nodular parenchyma is noted and is stable. Very mild vascular calcifications are noted bilaterally. ??Left axillary lymph nodes are identified. ??Post-surgical changes are again noted in the upper outer quadrant of the right breast and are stable. ?? IMPRESSION: ??No mammographic evidence of malignancy or change from January,. ??Bi-Rads II, benign. ?? RECOMMENDATION: ??Yearly mammography, yearly physical exam, monthly self breast exam. ?? The standard false negative rate of mammography is between 10 and 25%. Complex patterns or increased breast density will markedly elevate the false negative rate of mammography. ? FINAL ?CONTINUED ?Page ??1 ? RADIOLOGY REPORT ?[facility] ? [address] ??[place], [place] [address] ? NAME: MASHA QUIROGA ? : ??40 ??MR#: [id number] ? LOC: ?? CO ? AGE: 66Y ?? Pt type: CO ?Exam Date: 01/21/07 105 ? SEX: F ?? AN#:[id number] ?Ck-in#: [id number] ? NANCY,CHITRA W ? [address] ? [address] ? [place] ?[place] ?[address] ? Checkin-Exam Code Summary ? [id number] ?? The images were overread by iCAD. ?? A copy of this report in lay terminology has been sent to the patient. ?/READ BY/ DAVID Sampson ATMICA ?/Released By/ DAVID CHAVEZ ?Released By Date/Time: ??01/21/072 ?Interactive Marketing Strategist: ??JBW ? FINAL ? Page ??2 ? RADIOLOGY REPORT us See Report Interface IMG MAMMOGRAPHY ORDERABLES Final Result documented in this encounter Visit Diagnoses Not on filedocumented in this encounter Care Teams Hiv Prevention Specialist Relationship Specialty Start Date End Date Provider, [place] [address] PCP - General 07/19/15 documented as of this encounter
--- OUTSIDE RECORDS SUMMARY | 2024-10-08 12:35 | XMS_ITS | Encounter Summary ---
[facility] [address] [place] [address] Care Team Providers Care Freelance Makeup Artist Name Role Phone Provider, No Known Primary Care Provider Unavail able Reason for Referral * (Routine) - Closed Specialty Diagnoses / Procedures Referred By Flo nazario Referred To Contact Radiology Diagnoses Visit for screening mammogram Procedures Mammo Screening Digital Tomosynthesis Bilateral With CAD Faisal Hatfield MD [address] [facility] [address] [place] [address] Phone: tel: fax: Referral ID Status Reason Start Date Expiration Date Visits Re quested Visits Authorized [id number] Closed 08/14/2016 02/10/2017 1 1 Reason for Visit * (Routine) - Closed Specialty Diagnoses / Procedures Referred By Flo nazario Referred To Contact Radiology Diagnoses Visit for screening mammogram Procedures Mammo Screening Digital Tomosynthesis Bilateral With CAD Faisal Hatfield MD [address] [facility] [address] [place] [address] Phone: tel: fax: Referral ID Status Reason Start Date Expiration Date Visits Re quested Visits Authorized [id number] Closed 08/14/2016 02/10/2017 1 1 Encounter Details Date Type Department Care Team (Late st Contact Info) Description 09/04/2016 9:06 AM EDT - 09/04/2016 11:59 PM EDT Hospital Encounter [facility] [address] [facility] [address] [place] [address] Faisal Hatfield MD [address] [facility] [address] [place] [id number] Visit for screening mammogram Discharge Disposition: Home [...] SCREENING DIGITAL TOMOSYNTHESIS BILATERAL W CAD Routine 09/04/2016 9:27 AM EDT Visit for screening mammogram documented in this encounter Results * Mammo Screening Digital Tomosynthesis Bilateral With CAD (09/04/2016 9:27 AM EDT) Anatomical Region Laterality Modality Breast N/A Mammography 09/04/2016 1:42 PM EDT Impressions 09/04/2016 1:42 PM EDT No findings suspicious for malignancy. ? BI-RADS CATEGORY: ??II, BENIGN RECOMMENDATION: Yearly mammogram, yearly physical exam, and monthly self breast exam. CAD was used. The standard false negative rate of mammography is between 10% and 25%. Complex patterns or increased breast density will markedly elevate the false negative rate of mammography. A letter, in lay terminology, with the results of this exam will be mailed to the patient. ?? If there is a palpable area of concern, biopsy should be considered regardless of imaging findings. This report was finalized on 09/04/2016 1:[address] Rylee Patel MD. Narrative 09/04/2016 1:42 PM EDT ROUTINE DIGITAL SCREENING MAMMOGRAM WITH TOMOSYNTHESIS HISTORY: Routine screening. ? TECHNIQUE: Low dose full field digital breast tomosynthesis imaging was performed with 2D and 3D acquisitions. ? IMAGE COMPARISON: ??07/19/2015, 07/15/2014, 03/17/2012, 03/11/2011. FINDINGS: ??There are scattered areas of fibroglandular density. The bilateral fibroglandular pattern is stable including stable postoperative changes in the right breast from a previous excisional biopsy. There is no mass, worrisome microcalcifications, or architectural distortion to suggest development of malignancy. us Faisal Hatfield MD IMG MAMMOGRAPHY ORDERABLES Final Result documented in this encounter Visit Diagnoses Diagnosis Visit for screening mammogram documented in this encounter Care Teams Freelance Makeup Artist Relationship Specialty Start Date End Date Provider, [place] [address] PCP - General 07/19/15 documented as of this encounter
--- OUTSIDE RECORDS SUMMARY | 2024-10-08 12:35 | XMS_ITS | Clinical Summary ---
Author Organization [facility] Address [address] [place] [address] Care Team Providers Care Soap Tender Name Role Phone Unavailable Primary Care Provider Unavailabl e Active Problems Problem Noted Date Diagnosed Date Family history of colon cancer 02/08/2013 Overview (01/19/2022): Mother Social History Tobacco Use Types Packs/Day Years Used Date Smoking Tobacco: Never Assessed Sex and Gender Information Value Date Recorded Sex Assigned at Not on file Gender Identity Not on file Sexual Orientation Not on file Plan of Treatment Not on file
--- OUTSIDE RECORDS SUMMARY | 2024-10-08 12:35 | XMS_ITS | Clinical Summary ---
Author Organization [facility] yste Address [address] [place] [address] Care Team Providers Care Sleeve Baster Name Role Phone Provider, No Known Primary Care Provider Unavail able Family History Medical History Relation Name Comments Breast cancer Neg Hx Ovarian cancer Neg Hx Social History Tobacco Use Types Packs/Day Years Used Date Smoking Tobacco: Never Assessed Abuse Screen Answer Date Recorded Unsafe at Home or Work/School Not on file Feels Threatened by Someone? Not on file 07/2023 Does Anyone Keep You from Co ntacting Others or Doint Things Outside the Home? Not on file 08/11/2023 Physical Sign of Abuse Present Not on file 1 Housing Stability Answer Date Recorded Current Living Arrangements Not on file 07/2023 Potentially Unsafe Housing Conditions Not on robe e 08/11/2023 Family and Community Support Answer [place] e Recorded Help with Day-to-Day Activities Not on file 08/11/2023 Lonely or Isolated Not on file 08/11/2023 Employment Answer Date Recorded Do you want help finding or keeping work or a tian b? Not on file 08/11/2023 Disabilities Answer Date Recorded Concentrating, Remembering, or Making Decisions Difficulty Not on file 08/11/2023 Doing Errands Independently Difficulty Not on fi le 08/11/2023 Education Answer Date Recorded Help with school or training? Not on file Preferred Language Not on file 08/11/2023 Comments No Sex and Gender Information Value Date Recorded Sex Assigned at Not on file Legal Sex Female 10:33 AM EDT Gender Identity Not on file Sexual Orientation Not on file Plan of Treatment Health Maintenance Due Date Last Done Comments ANNUAL WELLNESS VISIT 1940 DXA SCAN 1940 TDAP/TD VACCINES (1 - Tdap) 1959 ZOSTER VACCINE (1 of 2) 1990 Pneumococcal Vaccine 65+ (1 of 1 - PCV) 2005 RSV Vaccine - Adults (1 - 1-dose 75+ series) 5 INFLUENZA VACCINE 05/03/2024 COVID-19 Vaccine (1 - 2023-25 season) 2024 Insurance [facility] MEDICARE REPLACE Care Teams Sleeve Baster Relationship Specialty Start Date End Date Provider, No Known [facility] [place] [address] PCP - General 07/19/15
--- OUTSIDE RECORDS SUMMARY | 2024-10-08 12:35 | XMS_ITS | Encounter Summary ---
Author Organization [facility] ystem Address [address] [place] [address] Care Team Providers Care Tank Insulator Rubber Name Role Phone Provider, No Known Primary Care Provider Unavail able Encounter Details Date Type Department Care Team (Late st Contact Info) Description 03/11/2011 Historical Mammograp hy Encounter [facility] HISTORICAL CONV [address] [facility] [place] [address] Interface, See Report Social History [...] Associated Diagnosis Comments MAMMO HISTORICAL RESULT Routine 03/11/2011 8:34 AM EDT documented in this encounter Results * MAMMO HISTORICAL RESULT (03/11/2011 8:34 AM EDT) Anatomical Region Laterality Modality Breast Mammography 03/11/2011 8:34 AM EDT Narrative 03/11/2011 11:01 AM EDT ?[facility] ? [address] ??[place], [place] [address] ? NAME: MASHA QUIROGA ? : ??40 ??MR#: [id number] ? LOC: ?? CO ? AGE: 70Y ?? Pt type: CO ?Exam Date: 03/11/11834 ? SEX: F ?? AN#:[id number] ?Ck-in#: [id number] ? CHITRA CRUZ W ? [address] ? [address] ? [place] ?[place] ?[address] ? Chk-in # ?? Order ?Exam ?[id number] ?? 0001 ? [id number] ??BC MAMM SCREEN BILAT DIG PNL ? Ord Diag: RTN MMG ? BILATERAL SCREENING DIGITAL MAMMOGRAM: ? HISTORY: Routine screening. ??The patient is status post a prior benign excisional biopsy involving the right breast. She has no reported breast complaints. She has no family history of breast cancer. ?? IMAGE COMPARISON: ??02/28/2010, 02/27/2009, 02/26/2008. ?? TECHNIQUE: Routine bilateral CC and MLO digital mammographic images were obtained and supplemented with bilateral laterally exaggerated CC views. ?? FINDINGS: ??There are scattered fibroglandular densities which could obscure a lesion on mammography. The fibroglandular pattern is stable compared to the prior studies. There are stable postbiopsy changes present in the right breast. There is no mass, worrisome microcalcifications, or architectural distortion to suggest development of malignancy. ?? IMPRESSION: No findings suspicious for malignancy. ?? Stable postbiopsy changes right breast. ?? ACR BI-RADS CATEGORY: ??II, BENIGN ?? RECOMMENDATION: Yearly mammogram, yearly physical exam, and monthly self breast exam. ?? iCAD was used. ? FINAL ?CONTINUED ?Page ??1 ? RADIOLOGY REPORT ?[facility] ? [address] ??[place], [place] [address] ? NAME: MASHA QUIROGA ? : ??40 ??MR#: [id number] ? LOC: ?? CO ? AGE: 70Y ?? Pt type: CO ?Exam Date: 03/11/11 08 ? SEX: F ?? AN#:[id number] ?Ck-in#: [id number] ? NANCY,CHITRA W ? [address] ? [address] ? [place] ?[place] ?[address] ? Checkin-Exam Code Summary ? [phone] The standard false negative rate of mammography is between 10 and 25%. Complex patterns or increased breast density will markedly elevate the false negative rate of mammography. ?? A letter, in lay terminology, with the results of this exam will be mailed to the patient. ? If there is a palpable area of concern, biopsy should be considered regardless of imaging findings. ?/READ BY/ MIRELA MARTÍNEZ ?/Released By/ MIRELA MARTÍNEZ ?Released By Date/Time: ??03/11/111057 ?Optometry Teacher: ??DME ? FINAL ? Page ??2 ? RADIOLOGY REPORT us See Report Interface IMG MAMMOGRAPHY ORDERABLES Final Result documented in this encounter Visit Diagnoses Not on filedocumented in this encounter Care Teams Tank Insulator Rubber Relationship Specialty Start Date End Date Provider, [place] [address] PCP - General 07/19/15 documented as of this encounter
--- OUTSIDE RECORDS SUMMARY | 2024-10-08 12:35 | XMS_ITS | Data Portability ---
Author Organization [place] [facility] Address [address] [place] [address] Assessment Encounter Date Assessment Date Assessment LastModified by Organization Details LastModified Time 01/09/2021 01/09/2021 We will follow up with the patient at her next pain pump refill. She she is welcome to contact the clinic prior to that appointment if she has any concerns. [email or web address] Not available 01/09/2021 13:40:03 03/06/2021 03/06/2021 We will follow up with the patient at her next pain pump refill. Patient's been instructed to call the office if she has any issues prior to her next appointment. [email or web address] Not available 03/06/2021 13:15:08 04/24/2021 04/24/2021 This patient is 80-year-old female who underwent pain pump refill today and tolerated the procedure well without any complications. We will continue her with constant flow with the PTC. She is on morphine 5 mg/mL with 0.06 mg boluses four times a day with a 6-hour lockout. Her total max daily dose is 1.73 mg/day. Her next refill is June 11, 2021. We will follow up with her on or before June 11, 2021 for her next pump refill Not available 04/24/2021 16:37:59 05/29/2021 05/29/2021 Patient tolerated the procedure well with any complications. She states that her pain Improved somewhat since undergoing a slight increase in her daily pump dosing at the last clinic visit. She states that although her pain has improved she is needing an additional adjustment for additional pain relief. We will increase her daily pump dosing by 10% today-intratheca l morphine 5mg/ml at constant flow of 1.65mg/day and PTC boluses of 0.06mg 4 times a day 4 times a day with a 6 hours lockout with a total max daily dose of 1.84mg/day. Her next refill date is on 07/14/21. We will follow up with her on or before this date for her next pump refill. Not available 05/30/2021 18:55:30 07/03/2021 07/03/2021 This patient did well with her pump refill. She would like to continue with doing her refills on her [facility] the pain clinic. We will transfer her to that pain clinic. Her next refill is on her before August 14, 2021. We will change her concentration to morphine 10 mg/mL next refill.She does have an antalgic gait. Motor strength of the lower extremities is 5/5. There is no gross sensory deficit. Bello and drug screen are all appropriate. [email or web address] Not available 07/03/2021 14:26:28 Plan of Treatment Reminders Order Date Submit Date Provider Last Modified By Organization Details Last Modified Time Details Appointments None recorded. Lab None recorded. Referral None recorded. Procedures None recorded. Surgeries None recorded. Imaging None recorded. Medication Orders diclofenac sodium 75 mg tablet,kiah yed release 2020 021 [email or web address] Not available 09:27:41 diclofenac sodium 75 mg tablet,kiah yed release 2020 021 Not available 07:35:46 diclofenac sodium 75 mg tablet,kiah yed release 2020 021 [facility], [address] [place] [address] , [place], [address], 16:08:42 Patient TargetsNo targets recorded. Patient InstructionsNo instructions recorded. Reason for Referral None Reported. Results Created Date Observation Date Name Description Value Unit Range Abnormal Flag Note LastModifiedBy Organization Detail LastModifiedTime 01/10/20 21 01/09/2021 6-Mon oacet ylmor phine (6-MA M), QN, urine 6-acetylmorp samara Negati ve NG/mL 5 normal Negat shania-E xpect ed Not Available [address], [place], [address], 01/11/2021 15:21:24 01/10/20 21 01/09/2021 6-Mon oacet ylmor phine (6-MA M), QN, urine 7-aminoclona zepam Negati ve NG/mL 5 normal Negat shania-E xpect ed Not Available [address], [address], 01/11/2021 15:21:24 01/10/20 21 01/09/2021 6-Mon oacet ylmor phine (6-MA M), QN, urine alpha-hydrox yalprazolam Negati ve NG/mL 5 normal Negat shania-E xpect ed Not Available [address], [address], 01/11/2021 15:21:24 01/10/20 21 01/09/2021 6-Mon oacet ylmor phine (6-MA M), QN, urine alprazolam Negati ve NG/mL 5 normal Negat shania-E xpect ed Not Available [address], [address], 01/11/2021 15:21:24 01/10/20 21 01/09/2021 6-Mon oacet ylmor phine (6-MA M), QN, urine amitriptylin e Negati ve NG/mL 10 normal Negat shania-E xpect ed Not Available [address], [address], 01/11/2021 15:21:24 01/10/20 21 01/09/2021 6-Mon oacet ylmor phine (6-MA M), QN, urine amphetamine Negati ve NG/mL 25 normal Negat shania-E xpect ed Not Available [facility] [address], [address], 01/11/2021 15:21:24 01/10/20 21 01/09/2021 6-Mon oacet ylmor phine (6-MA M), QN, urine benzoylecgon ine Negati ve NG/mL 20 normal Negat shania-E xpect ed Not Available [facility] [address], [address], 01/11/2021 15:21:24 01/10/20 21 01/09/2021 6-Mon oacet ylmor phine (6-MA M), QN, urine buprenorphin e Negati ve NG/mL 5 normal Negat shania-E xpect ed Not Available [facility] [address], [address], 01/11/2021 15:21:24 01/10/20 21 01/09/2021 6-Mon oacet ylmor phine (6-MA M), QN, urine carisoprodol Negati ve NG/mL 10 normal Negat shania-E xpect ed Not Available [address], [address], 01/11/2021 15:21:24 01/10/20 21 01/09/2021 6-Mon oacet ylmor phine (6-MA M), QN, urine clonazepam Negati ve NG/mL 5 normal Negat shania-E xpect ed Not Available [facility] [address], [address], 01/11/2021 15:21:24 01/10/20 21 01/09/2021 6-Mon oacet ylmor phine (6-MA M), QN, urine codeine Negati ve NG/mL 50 normal Negat shania-E xpect ed Not Available [address], [address], 01/11/2021 15:21:24 01/10/20 21 01/09/2021 6-Mon oacet ylmor phine (6-MA M), QN, urine cyclobenzapr ine Negati ve NG/mL 5 normal Negat shania-E xpect ed Not Available [address], [address], 01/11/2021 15:21:24 01/10/20 21 01/09/2021 6-Mon oacet ylmor phine (6-MA M), QN, urine EDDP Negati ve NG/mL 100 normal Negat shania-E xpect ed Not Available [address], [address], 01/11/2021 15:21:24 01/10/20 21 01/09/2021 6-Mon oacet ylmor phine (6-MA M), QN, urine fentanyl Negati ve NG/mL 1 normal Negat shania-E xpect ed Not Available [address], [address], 01/11/2021 15:21:24 01/10/20 21 01/09/2021 6-Mon oacet ylmor phine (6-MA M), QN, urine gabapentin Negati ve NG/mL 1000 normal Negat shania-E xpect ed Not Available [address], [address], 01/11/2021 15:21:24 01/10/20 21 01/09/2021 6-Mon oacet ylmor phine (6-MA M), QN, urine hydrocodone Negati ve NG/mL 5 normal Negat shania-E xpect ed Not Available [address], [address], 01/11/2021 15:21:24 01/10/20 21 01/09/2021 6-Mon oacet ylmor phine (6-MA M), QN, urine hydromorphon e Negati ve NG/mL 5 normal Negat shania-E xpect ed Not Available [facility] [address], [address], 01/11/2021 15:21:24 01/10/20 21 01/09/2021 6-Mon oacet ylmor phine (6-MA M), QN, urine lorazepam Negati ve NG/mL 10 normal Negat shania-E xpect ed Not Available [facility] [address], [address], 01/11/2021 15:21:24 01/10/20 21 01/09/2021 6-Mon oacet ylmor phine (6-MA M), QN, urine mda Negati ve NG/mL 10 normal Negat shania-E xpect ed Not Available [address], [address], 01/11/2021 15:21:24 01/10/20 21 01/09/2021 6-Mon oacet ylmor phine (6-MA M), QN, urine mdea Negati ve NG/mL 5 normal Negat shania-E xpect ed Not Available [address], [address], 01/11/2021 15:21:24 01/10/20 21 01/09/2021 6-Mon oacet ylmor phine (6-MA M), QN, urine MDMA Negati ve NG/mL 10 normal Negat shania-E xpect ed Not Available [facility] [address], [address], 01/11/2021 15:21:24 01/10/20 21 01/09/2021 6-Mon oacet ylmor phine (6-MA M), QN, urine meperidine Negati ve NG/mL 2 normal Negat shania-E xpect ed Not Available [facility] [address], [address], 01/11/2021 15:21:24 01/10/20 21 01/09/2021 6-Mon oacet ylmor phine (6-MA M), QN, urine meprobamate Negati ve NG/mL 100 normal Negat shania-E xpect ed Not Available [facility] [address], [address], 01/11/2021 15:21:24 01/10/20 21 01/09/2021 6-Mon oacet ylmor phine (6-MA M), QN, urine methadone Negati ve NG/mL 50 normal Negat shania-E xpect ed Not Available [address], [address], 01/11/2021 15:21:24 01/10/20 21 01/09/2021 6-Mon oacet ylmor phine (6-MA M), QN, urine methylphenid ate Negati ve NG/mL 50 normal Negat shania-E xpect ed Not Available [facility] [address], [address], 01/11/2021 15:21:24 01/10/20 21 01/09/2021 6-Mon oacet ylmor phine (6-MA M), QN, urine mitragynine Negati ve NG/mL 5 normal Negat shania-E xpect ed Not Available [address], [address], 01/11/2021 15:21:24 01/10/20 21 01/09/2021 6-Mon oacet ylmor phine (6-MA M), QN, urine morphine 632 NG/mL 50 abnormal Posit shania-U nexpe cted Not Available [address], [address], 01/11/2021 15:21:24 01/10/20 21 01/09/2021 6-Mon oacet ylmor phine (6-MA M), QN, urine norbuprenorp samara Negati ve NG/mL 5 normal Negat shania-E xpect ed Not Available [address], [address], 01/11/2021 15:21:24 01/10/20 21 01/09/2021 6-Mon oacet ylmor phine (6-MA M), QN, urine nordiazepam Negati ve NG/mL 5 normal Negat shania-E xpect ed Not Available [address], [address], 01/11/2021 15:21:24 01/10/20 21 01/09/2021 6-Mon oacet ylmor phine (6-MA M), QN, urine norfentanyl Negati ve NG/mL 2 normal Negat shania-E xpect ed Not Available [address], [address], 01/11/2021 15:21:24 01/10/20 21 01/09/2021 6-Mon oacet ylmor phine (6-MA M), QN, urine norhydrocodo ne Negati ve NG/mL 10 normal Negat shania-E xpect ed Not Available [facility] [address], [address], 01/11/2021 15:21:24 01/10/20 21 01/09/2021 6-Mon oacet ylmor phine (6-MA M), QN, urine noroxycodone Negati ve NG/mL 25 normal Negat shania-E xpect ed Not Available [facility] [address], [address], 01/11/2021 15:21:24 01/10/20 21 01/09/2021 6-Mon oacet ylmor phine (6-MA M), QN, urine oxazepam Negati ve NG/mL 10 normal Negat shania-E xpect ed Not Available [facility] [address], [address], 01/11/2021 15:21:24 01/10/20 21 01/09/2021 6-Mon oacet ylmor phine (6-MA M), QN, urine oxycodone Negati ve NG/mL 10 normal Negat shania-E xpect ed Not Available [facility] [address], [address], 01/11/2021 15:21:24 01/10/20 21 01/09/2021 6-Mon oacet ylmor phine (6-MA M), QN, urine oxymorphone Negati ve NG/mL 10 normal Negat shania-E xpect ed Not Available [facility] [address], [address], 01/11/2021 15:21:24 01/10/20 21 01/09/2021 6-Mon oacet ylmor phine (6-MA M), QN, urine phencyclidin e Negati ve NG/mL 5 normal Negat shania-E xpect ed Not Available [address], [address], 01/11/2021 15:21:24 01/10/20 21 01/09/2021 6-Mon oacet ylmor phine (6-MA M), QN, urine phentermine Negati ve NG/mL 25 normal Negat shania-E xpect ed Not Available [facility] [address], [address], 01/11/2021 15:21:24 01/10/20 21 01/09/2021 6-Mon oacet ylmor phine (6-MA M), QN, urine pregabalin Negati ve NG/mL 500 normal Negat shania-E xpect ed Not Available [address], [address], 01/11/2021 15:21:24 01/10/20 21 01/09/2021 6-Mon oacet ylmor phine (6-MA M), QN, urine propoxyphene Negati ve NG/mL 10 normal Negat shania-E xpect ed Not Available [address], [address], 01/11/2021 15:21:24 01/10/20 21 01/09/2021 6-Mon oacet ylmor phine (6-MA M), QN, urine temazepam Negati ve NG/mL 10 normal Negat shania-E xpect ed Not Available [address], [address], 01/11/2021 15:21:24 01/10/20 21 01/09/2021 6-Mon oacet ylmor phine (6-MA M), QN, urine thca Negati ve NG/mL 25 normal Negat shania-E xpect ed Not Available [facility] - [address], [address], 01/11/2021 15:21:24 01/10/20 21 01/09/2021 6-Mon oacet ylmor phine (6-MA M), QN, urine tramadol Negati ve NG/mL 25 normal Negat shania-E xpect ed Not Available [facility] - [address], [address], 01/11/2021 15:21:24 01/10/20 21 01/09/2021 6-Mon oacet ylmor phine (6-MA M), QN, urine creatinine 62.22 mg/L normal In Range Not Available [facility] [address], [address], 01/11/2021 15:21:24 01/10/20 21 01/09/2021 6-Mon oacet ylmor phine (6-MA M), QN, urine oxidant 0 ug/mL normal In Range Not Available [facility] - [address], [address], 01/11/2021 15:21:24 01/10/20 21 01/09/2021 6-Mon oacet ylmor phine (6-MA M), QN, urine pH 7.2 none normal In Range Not Available [facility] - [address], [address], 01/11/2021 15:21:24 01/10/20 21 01/09/2021 6-Mon oacet ylmor phine (6-MA M), QN, urine specific gravity 1.016 none normal In Range Not Available [facility] - [address], [address], 01/11/2021 15:21:24 01/10/20 21 01/09/2021 6-Mon oacet ylmor phine (6-MA M), QN, urine etg Negati ve NG/mL 500 normal Negat shania-E xpect ed Not Available [facility] [address], [address], 01/11/2021 15:21:24 01/10/20 21 01/09/2021 6-Mon oacet ylmor phine (6-MA M), QN, urine ethyl alcohol Negati ve mg/dL 20 normal Negat shania-E xpect ed Not Available [facility] [address], [address], 01/11/2021 15:21:24 01/10/20 21 01/09/2021 6-Mon oacet ylmor phine (6-MA M), QN, urine methamphetam ine Negati ve NG/mL 500 normal Negat shania-E xpect ed Not Available [facility] [address], [address], 01/11/2021 15:21:24 01/10/20 21 01/09/2021 6-Mon oacet ylmor phine (6-MA M), QN, urine acetylfentan yl Negati ve NG/mL 2 normal Negat shania-E xpect ed Not Available [facility] [address], [address], 01/11/2021 15:21:24 01/10/20 21 01/09/2021 6-Mon oacet ylmor phine (6-MA M), QN, urine acetylnorfen tanyl Negati ve NG/mL 5 normal Negat shania-E xpect ed Not Available [facility] [address], [address], 01/11/2021 15:21:24 01/10/20 21 01/09/2021 6-Mon oacet ylmor phine (6-MA M), QN, urine acrylfentany l Negati ve NG/mL 2 normal Negat shania-E xpect ed Not Available [facility] [address], [address], 01/11/2021 15:21:24 01/10/20 21 01/09/2021 6-Mon oacet ylmor phine (6-MA M), QN, urine butyrylfenta nyl Negati ve NG/mL 10 normal Negat shania-E xpect ed Not Available [facility] [address], [address], 01/11/2021 15:21:24 01/10/20 21 01/09/2021 6-Mon oacet ylmor phine (6-MA M), QN, urine butyrylnorfe ntanyl Negati ve NG/mL 10 normal Negat shania-E xpect ed Not Available [facility] [address], [place], [address], 01/11/2021 15:21:24 01/10/20 21 01/09/2021 6-Mon oacet ylmor phine (6-MA M), QN, urine dyj-3-djephf fentanyl Negati ve NG/mL 10 normal Negat shania-E xpect ed Not Available [facility] [address], [address], 01/11/2021 15:21:24 01/10/20 21 01/09/2021 6-Mon oacet ylmor phine (6-MA M), QN, urine nrh-2-setekc norfentanyl Negati ve NG/mL 10 normal Negat shania-E xpect ed Not Available [facility] [address], [place], [address], 01/11/2021 15:21:24 01/10/20 21 01/09/2021 6-Mon oacet ylmor phine (6-MA M), QN, urine diazepam Negati ve NG/mL 5 normal Negat shania-E xpect ed Not Available [facility] [address], [address], 01/11/2021 15:21:24 01/10/20 21 01/09/2021 6-Mon oacet ylmor phine (6-MA M), QN, urine furanylfenta nyl Negati ve NG/mL 2 normal Negat shania-E xpect ed Not Available [facility] [address], [address], 01/11/2021 15:21:24 01/10/20 21 01/09/2021 6-Mon oacet ylmor phine (6-MA M), QN, urine hydroxybupro pion Negati ve NG/mL 10 normal Negat shania-E xpect ed Not Available [address], [address], 01/11/2021 15:21:24 01/10/20 21 01/09/2021 6-Mon oacet ylmor phine (6-MA M), QN, urine N-desmethyl- [id number] Negati ve NG/mL 5 normal Negat shania-E xpect ed Not Available [facility] [address], [address], 01/11/2021 15:21:24 01/10/20 21 01/09/2021 6-Mon oacet ylmor phine (6-MA M), QN, urine norcarfentan il Negati ve NG/mL 5 normal Negat shania-E xpect ed Not Available [facility] [address] [place], [address], 01/11/2021 15:21:24 01/10/20 21 01/09/2021 6-Mon oacet ylmor phine (6-MA M), QN, urine O-desmethylt ramadol Negati ve NG/mL 100 normal Negat shania-E xpect ed Not Available [facility] [address] [place], [address], 01/11/2021 15:21:24 01/10/20 21 01/09/2021 6-Mon oacet ylmor phine (6-MA M), QN, urine [id number] Negati ve NG/mL 5 normal Negat shania-E xpect ed Not Available [facility] [address] [place], [address], 01/11/2021 15:21:24 Result Notes None recorded. Problems Name Problem SNOMED Code Status Onset Date Resolution Date Notes Provider Name and Address Organization Details Recorded Time Chronic pain syndrome 044145967 Active 2019 Gladys garcia, [place] - [facility] 0 12:38:43 Lumbosacral radiculopathy 3738340 Active 2019 Gladys garcia, [place] - [facility] 0 12:38:45 Degeneration of intervertebral disc 70725563 Active 2019 Gladys garcia, [place] - [facility] 0 12:38:46 Problem Notes None recorded. Procedures Surgical History Date Name Laterality Status Provider Name and Address Organization Details Recorded Time 07/03/2021 Pump Refill completed Delbert Stanton MD [address], [address], [place] - [facility] 07/03/2021 14:25:05 05/29/2021 Pump Refill completed Jocelyn Fofana [place] - [facility] 05/30/2021 18:56:04 04/24/2021 Pump Refill completed Jocelyn Felizra [place] - [facility] 04/24/2021 16:36:37 03/06/2021 Pump Refill completed Soledad Morales [place] - [facility] 03/06/2021 13:14:37 01/09/2021 Pump Refill completed MAXX WALDRON NP [address], [place], [address], [place] [facility] 01/09/2021 13:39:20 11/07/2020 Pump Refill completed Delbert Stanton MD [address], [place], [address], [place] [facility] 11/07/2020 11:29:53 09/12/2020 Pump Refill completed Gladys Angel [place] - [facility] 09/12/2020 12:35:15 Imaging Results None recorded. Procedure Notes None recorded. Medical Equipment None Reported. Medications Name Sig Start Date Stop Date Status Note LastModified by Organization Details LastModified Time morphine 5 DISPENSE IN 20 ML FOR INTRATHEC AL PUMP INFUSION 2023 active Not Available Not Available Not Avai lable morphine 5 DISPENSE IN 20 ML FOR INTRATHEC AL PUMP INFUSION 2023 active Not Available Not Available Not Avai lable morphine 5 DISPENSE IN 20 ML FOR INTRATHEC AL PUMP INFUSION 2022 active Not Available Not Available Not Avai lable morphine 5 DISPENSE IN 20 ML FOR INTRATHEC AL PUMP INFUSION 2023 active Not Available Not Available Not Avai lable quetiapine 25 mg tablet TAKE 1 TABLET BY MOUTH AT BEDTIME active Not Available Not Available No t Available latanoprost 0.005 % eye drops active Not Available Not Available Not Available atorvastati n 40 mg tablet TAKE 1 TABLET BY MOUTH ONCE DAILY active Not Available Not Available No t Available hydralazine 10 mg tablet TAKE 1 TABLET BY MOUTH THREE TIMES DAILY active Not Available Not Available No t Available potassium chloride ER 10 mEq capsule,ext ended release TAKE 1 CAPSULE BY MOUTH ONCE DAILY WITH LASIX active Not Available Not Available No t Available doxycycline hyclate 100 mg capsule active Not Available Not Available N ot Available donepezil 5 mg tablet TAKE 1 TABLET BY MOUTH AT BEDTIME active Not Available Not Available No t Available azithromyci n 250 mg tablet TAKE 2 TABLETS BY MOUTH ON DAY 1 THEN 1 TABLET BY MOUTH ON DAYS 2 THROUGH 5 11/07 completed Not Available Not Available Not Available nifedipine ER 90 mg tablet,exte nded release TAKE 1 TABLET BY MOUTH ONCE DAILY active Not Available Not Available No t Available tizanidine 4 mg tablet active Not Available Not Available Not Available fluconazole 150 mg tablet active Not Available Not Available Not Available levetiracet am 500 mg tablet active Not Available Not Available Not Available amlodipine 5 mg tablet 07/03 completed Not Available Not Available Not Available ciprofloxac in 500 mg tablet 11/07 completed Not Available Not Available Not Available hydrocodone 10 mg-acetamin ophen 325 mg tablet 11/07 completed Not Available Not Available Not Available levothyroxi ne 25 mcg tablet TAKE 1 TABLET BY MOUTH EVERY OTHER DAY active Not Available Not Available No t Available oxycodone-a cetaminophe n 5 mg-325 mg tablet 11/07 completed Not Available Not Available Not Available ofloxacin 0.3 % ear drops active Not Available Not Available Not Available amoxicillin 875 mg tablet active Not Available Not Available Not Available famotidine 20 mg tablet TAKE 1 TABLET BY MOUTH ONCE DAILY active Not Available Not Available No t Available magnesium oxide 400 mg (241.3 mg magnesium) tablet TAKE 1 TABLET BY MOUTH ONCE DAILY active Not Available Not Available No t Available DOK 100 mg capsule active Not Available Not Available Not Available nifedipine ER 90 mg tablet,exte nded release 24 hr active Not Available Not Available Not Available amlodipine 10 mg tablet active Not Available Not Available Not Available potassium citrate ER 10 mEq (1,080 mg) tablet,exte nded release TAKE 1 TABLET BY MOUTH WITH EACH LASIX TABLET active Not Available Not Available No t Available cephalexin 500 mg capsule 11/07 completed Not Available Not Available Not Available clotrimazol e-betametha sone 1 %-0.05 % topical cream active Not Available Not Available Not Available diclofenac sodium 75 mg tablet,kiah yed release TAKE 1 TABLET(S) TWICE A DAY BY MOUTH DIRECTED FOR 90 DAYS. 2020 active Not Available Not Available Not Avai lable montelukast 10 mg tablet TAKE 1 TABLET BY MOUTH EVERY DAY active Not Available Not Available No t Available hydrochloro thiazide 25 mg tablet active Not Available Not Available No t Available furosemide 20 mg tablet TAKE 1 TO 2 TABLETS BY MOUTH ONCE DAILY NEEDED active Not Available Not Available No t Available levofloxaci n 500 mg tablet 01/09 completed Not Available Not Available Not Available methylpredn isolone 4 mg tablets in a dose pack active Not Available Not Available Not Available celecoxib 100 mg capsule 11/07 completed Not Available Not Available Not Available nifedipine ER 60 mg tablet,exte nded release TAKE 1 TABLET BY MOUTH ONCE DAILY active Not Available Not Available No t Available losartan 100 mg tablet TAKE 1 TABLET BY MOUTH ONCE DAILY active Not Available Not Available No t Available fluoxetine 20 mg capsule TAKE 1 CAPSULE BY MOUTH ONCE DAILY active Not Available Not Available No t Available fluticasone propionate 50 mcg/actuati on nasal spray,suspe nsion USE 2 SPRAY(S) IN EACH NOSTRIL ONCE DAILY active Not Available Not Available No t Available doxycycline hyclate 100 mg tablet 04/24 completed Not Available Not Available Not Available irbesartan 300 mg tablet active Not Available Not Available Not Available amoxicillin 875 mg-potassiu m clavulanate 125 mg tablet 04/24 completed Not Available Not Available Not Available esomeprazol e magnesium 20 mg capsule,del ayed release TAKE 1 CAPSULE BY MOUTH IN THE MORNING active Not Available Not Available No t Available nitrofurant oin monohydrate /macrocryst als 100 mg capsule TAKE 1 CAPSULE BY MOUTH TWICE DAILY active Not Available Not Available No t Available levetiracet am 1,000 mg tablet TAKE 2 TABLETS BY MOUTH ONCE DAILY active Not Available Not Available No t Available FeroSul 325 mg (65 mg iron) tablet TAKE 1 TABLET BY MOUTH ONCE DAILY active Not Available Not Available No t Available levocetiriz ine 5 mg tablet TAKE 1 TABLET BY MOUTH ONCE DAILY NEEDED FOR ALLERGIES active Not Available Not Available No t Available Fluad Quad 4134-3412(6 5yr up)(PF) 60 mcg (15 mcg x 4)/0.5mL IM syringe ADM 0.5ML IM UTD 11/07 completed Not Available Not Available Not Available Vitals Date Recorded Body height Body mass index (BMI) Body weight Provider Name and Address Organization Details Last Updated DateTime 01/09/2021 157.48 cm 20.1 kg/m2 46101.16 g [facility] 01/09/2021 13:04:43 Social History Question Answer Notes LastModified by Organizat ion Details LastModified Time Tobacco Smoking Status Never Smoker [facility] 01/09/2021 13:07:49 Do You Or Have You Ever Used E-cigarettes Or Vape? Never Used Electronic Cigarettes Information not available 01/09/2021 What Was The Date Of Your Most Recent Tobacco Screening? 01/09/2021 Information not available 01/09/2021 Do You Or Have You Ever Used Smokeless Tobacco? Never Used Smokeless Tobacco Information not available 01/09/2021 How Much Tobacco Do You Smoke? No Information not available 01/09/2021 Sex: Unknown Functional Status None recorded. Mental Status None recorded. Family History Relationship Description Onset Age of this Age Resolved Age Notes LastModified by Organization Details LastModified Time Father No current problems or disability Not available 01/09 13:05:16 Mother No current problems or disability Not available 01/09 13:05:16 Medical History Condition Response Coronary Artery Disease N Gout N Head Trauma/Injury N Depression N COPD N Anxiety Disorder Y Arthritis Y Acid Reflux (GERD) N Cancer N Stroke N Headaches N Fibromyalgia N Kidney Disease N Ulcers N Bleeding Disorder N Tuberculosis N AIDS/HIV N Asthma N Substance Abuse N Hepatitis N Hernia N Back Injury N High Cholesterol N Liver Disease N Thyroid Problems N Anemia N Heart Attack (MT) N Diabetes N Heart Disease N Hypertension Y Osteoporosis Y Gynecological HistoryNo gynecological history recorded. Obstetrics History GPAL:G 0 P 0 0 0 0 Past Encounters Encounter ID Performer Location Encounter Start Date Encounter Closed Date Diagnosis/Indication Diagnosis SNOMED-CT Code Diagnosis ICD10 Code [id number] Delbert Stanton MD [facility] [address] [place] [address] 09/12/2020 08:15:47 09/27/2020 13:40:28 Chronic pain syndrome 176327123 G89.4 Lumbosacra l radiculopathy 2330125 M54.17 Degenerati on of intervertebral disc 49785645 M51.27 [id number] Delbert Stanton MD [facility] [address] [address] [place] [address] 11/07/2020 09:36:46 11/07/2020 11:05:54 Chronic pain syndrome 398852570 G89.4 Lumbosacra l radiculopathy 3856461 M54.17 Degenerati on of intervertebral disc 08463822 M51.27 545 MAXX WALDRON NP [facility] [address] [facility] [address] [place] [address] 01/09/2021 12:50:35 01/15/2021 12:14:32 Chronic pain syndrome 653215809 G89.4 Lumbosacra l radiculopathy 3686290 M54.17 Degenerati on of intervertebral disc 12153661 M51.27 [id number] Soledad Morales [facility] [address] [facility] [address] [place] [address] 03/06/2021 12:50:05 03/06/2021 16:26:44 Chronic pain syndrome 932181237 G89.4 Lumbosacra l radiculopathy 4193060 M54.17 Degenerati on of intervertebral disc 12621121 M51.[id number] [facility],[address] [address] 04/24/2021 14:09:53 04/24/2021 15:02:23 Degeneration of intervertebral disc 08798091 M51.[id number] [facility],[address] [address] 05/29/2021 13:13:34 05/29/2021 13:55:05 Lumbosacral radiculopathy 2456458 M54.17 [id number] Delbert Stanton MD [facility] [address] [facility],[address] [address] 07/03/2021 13:07:03 07/03/2021 14:09:56 Lumbosacral radiculopathy 8278314 M54.17 Degenerati on of intervertebral disc 47701243 M51.27 Chronic pain syndrome 37 6227381 G89.4 Health Concerns Section Related Observation LastModified by Organization Detai ls LastModified Time None Recorded Concern Status LastModified by Organization Details LastModified Time None Recorded Advance Directives Directive None Recorded Payers Encounter Date Sequence Insurance Name Policy Number Policy Del Cid Covered Member ID Del Cid Member ID Guarantor Name 01/09/2021 2 [facility] (MEDICARE REPLACEMENT/AD VANTAGE - PPO) [id number] Inaudrey Van [id number] In Van 03/06/2021 1 [place] [id number] Inaudrey S Van [id number] In Van 04/24/2021 1 [place] [id number] Inaudrey S Van [id number] In Van 05/29/2021 1 [place] [id number] Inaudrey Santiago Van [id number] In Van 07/03/2021 1 [place] Inaudrey Van [id number] In Van Notes Date Note Type Note Provider Name and Address Organization Details Recorded Time 01/09/2021 text/html Patient is a pleasant 80-year-old white female here today for pain pump refill and reprogram. She states she is doing well on her current dose as well as diclofenac that was started at her last visit. MAXX WALDRON NP [address], [address], [place] - [facility] 01/09/2021 13:40:51 03/06/2021 text/html Patient is a pleasant 80-year-old white female here today for pain pump refill and reprogram. Patient states that she is having a little bit of increased pain and would like a slight increase in her overall daily dose. Soledad garcia, [place] - [facility] 03/06/2021 13:15:29 OBGyn Episode No OBEpisode recorded.
--- OUTSIDE RECORDS SUMMARY | 2024-10-08 12:35 | XMS_ITS | Encounter Summary ---
Author Organization [facility] ystem Address [address] [place] [address] Care Team Providers Care Foreign Food Specialty Cook Name Role Phone Provider, No Known Primary Care Provider Unavail able Encounter Details Date Type Department Care Team (Late st Contact Info) Description 02/26/2008 Historical Mammograp hy Encounter [facility] HISTORICAL CONV [address] [facility] [place] [address] Interface, See Report Social History [...] Associated Diagnosis Comments MAMMO HISTORICAL RESULT Routine 02/26/2008 8:49 AM EDT documented in this encounter Results * MAMMO HISTORICAL RESULT (02/26/2008 8:49 AM EDT) Anatomical Region Laterality Modality Breast Mammography 02/26/2008 8:49 AM EDT Narrative 02/26/2008 3:01 PM EDT ?[facility] ? [address] ??[place], [place] [address] ? NAME: MASHA QUIROGA ? : ??40 ??MR#: [id number] ? LOC: ?? CO ? AGE: 67Y ?? Pt type: CO ?Exam Date: 02/26/08851 ? SEX: F ?? AN#:[id number] ?Ck-in#: [id number] ? CHITRA CRUZ W ? [address] ? [address] ? [place] ?[place] ?[address] ? Chk-in # ?? Order ?Exam ?[id number] ?? 0001 ? 15089 ??BC MAMM SCREEN BILAT DIG PNL ? Ord Diag: SCREENING ? DIGITAL SCREENING MAMMOGRAM: ?? HISTORY: ??The patient is a 67-year-old female for routine digital screening mammogram with no personal or family history of breast cancer. ?? FILM COMPARISON: The exam is compared to prior exams most recently dated 01/07. ?? FINDINGS: ??The breast parenchymal pattern is heterogeneously dense. There are surgical scar markers over the right upper outer breast from previous benign excision. ??There is no mass, cluster of microcalcifications or architectural distortion to suggest malignancy. ?? IMPRESSION: ??Stable mammogram. ??No findings suspicious for malignancy. ?? RECOMMENDATION: ??Yearly mammography, yearly physical exam, monthly self breast exam. ?? Bi-Rads II, benign. ?? ICAD was utilized. ?? A copy of this report in lay terminology has been sent to the patient. ?/READ BY/ AKBAR RILEY ?/Released By/ DAVID CHAVEZ ?Released By Date/Time: ??02/26/08 [facility] ?Dot Compliance Coordinator: ??MJP ? FINAL ? Page ??1 ? RADIOLOGY REPORT us See Report Interface IMG MAMMOGRAPHY ORDERABLES Final Result documented in this encounter Visit Diagnoses Not on filedocumented in this encounter Care Teams Foreign Food Specialty Cook Relationship Specialty Start Date End Date Provider, [place] [address] PCP - General 07/19/15 documented as of this encounter
--- OUTSIDE RECORDS SUMMARY | 2024-10-08 12:35 | XMS_ITS | Encounter Summary ---
Author Organization [facility] ystem Address [address] [place] [address] Care Team Providers Care Cloth Classer Name Role Phone Provider, No Known Primary Care Provider Unavail able Encounter Details Date Type Department Care Team (Late st Contact Info) Description 02/27/[address] En[address] [facility] HISTORICAL CONV [address] [facility] [address] Interface, See Report Social History [...] Associated Diagnosis Comments MAMMO HISTORICAL RESULT Routine 02/27/2009 9:08 AM EDT documented in this encounter Results * MAMMO HISTORICAL RESULT (02/27/2009 9:08 AM EDT) Anatomical Region Laterality Modality Breast Mammography 02/27/2009 9:08 AM EDT Narrative 02/27/2009 12:29 PM EDT ?[facility] ? [address] ??[place], [place] [address] ? NAME: MASHA QUIROGA ? : ??40 ??MR#: [id number] ? LOC: ?? CO ? AGE: 68Y ?? Pt type: CO ?Exam Date: 02/27/09908 ? SEX: F ?? AN#:[id number] ?Ck-in#: [id number] ? CHITRA CRUZ W ? [address] ? [address] ? [place] ?[place] ?[address] ? Chk-in # ?? Order ?Exam ?[id number] ?? 0001 ? [id number] ??BC MAMM SCREEN BILAT DIG PNL ? Ord Diag: SCREENING ? HISTORY: ??The patient is 68 years old. ??No personal or family history of breast cancer. ?? DIGITAL BILATERAL SCREENING MAMMOGRAM: ?? COMPARISON: ??Prior studies back to 01/20/06. ?? TECHNICAL: ??Bilateral CC and MLO digital images were obtained, plus additional right MLO view. ?? FINDINGS: ??The breast parenchymal pattern is mild to fatty replaced. There are no worrisome masses, areas of architectural distortion, new asymmetries or pleomorphic calcifications. Patches of denser tissue are scattered in both breasts in a mildly nodular pattern, which is stable. Benign bilateral axillary lymph nodes are identified. ??Benign calcification noted on the right and benign vascular calcifications noted on the left. ?? IMPRESSION: ??No mammographic evidence of malignancy or suspicious change from prior study. ??Bi-Rads II, benign. ?? RECOMMENDATION: ??Yearly mammography, yearly physical exam and monthly self- breast exam. ?? The standard false-negative rate of mammography is between 10 and 25%. Complex patterns or increased breast density will markedly elevate the false negative rate of mammography. ?? ICAD was utilized. ? FINAL ?CONTINUED ?Page ??1 ? RADIOLOGY REPORT ?[facility] ? [address] ??[place], [place] [address] ? NAME: MASHA QUIROGA ? : ??40 ??MR#: [id number] ? LOC: ?? CO ? AGE: 68Y ?? Pt type: CO ?Exam Date: 02/27/09 09 ? SEX: F ?? AN#:[id number] ?Ck-in#: [id number] ? NANCY,CHITRA W ? [address] ? [address] ? [place] ?[place] ?[address] ? Checkin-Exam Code Summary ? [phone] ?? A letter, in lay terminology, with the results of this exam will be mailed to the patient. ?/READ BY/ DAVID L ATKINS ?/Released By/ DAVID L ATKINS ?Released By Date/Time: ??04/27/09 1215 ?Supervisor Plasma: ??MM ? FINAL ? Page ??2 ? RADIOLOGY REPORT us See Report Interface IMG MAMMOGRAPHY ORDERABLES Final Result documented in this encounter Visit Diagnoses Not on filedocumented in this encounter Care Teams Cloth Classer Relationship Specialty Start Date End Date Provider, [place] [address] PCP - General 07/19/15 documented as of this encounter
--- OUTSIDE RECORDS SUMMARY | 2024-10-08 12:35 | XMS_ITS | Encounter Summary ---
Author Organization [facility] ystem Address [address] [place] [address] Care Team Providers Care Casino Operations Supervisor Name Role Phone Provider, No Known Primary Care Provider Unavail able Encounter Details Date Type Department Care Team (Late st Contact Info) Description 03/17/2012 Historical Mammograp hy Encounter [facility] HISTORICAL CONV [address] [place] [address] Interface, See Report Social History [...] Associated Diagnosis Comments MAMMO HISTORICAL RESULT Routine 03/17/2012 9:42 AM EDT documented in this encounter Results * MAMMO HISTORICAL RESULT (03/17/2012 9:42 AM EDT) Anatomical Region Laterality Modality Breast Mammography 03/17/2012 9:42 AM EDT Narrative 03/19/2012 1:21 PM EDT ?[facility] ? [address] ??[place], [place] [address] ? NAME: MASHA QUIROGA ? : ??40 ??MR#: [id number] ? LOC: ?? DIS ? AGE: 71Y ?? Pt type: CO ?Exam Date: 03/17/12942 ? SEX: F ?? AN#:[id number] ?Ck-in#: [id number] ? NANCY,CHITRA W ? [address] ? [address] ? [place] ?[place] ?[address] ? Chk-in # ?? Order ?Exam ?[id number] ?? 0001 ? [id number] ??BC MAMM SCREEN BILAT DIG PNL ? Ord Diag: RTN MMG ? ROUTINE DIGITAL SCREENING MAMMOGRAM ?? HISTORY: Routine screening. ?? IMAGE COMPARISON: ??03/11/2011, 02/28/2010, 02/27/2009. ?? TECHNIQUE: Routine digital bilateral MLO and CC views were obtained. ?? FINDINGS: ??The breast tissue is heterogeneously dense. ??This may lower the sensitivity of mammography. The fibroglandular pattern is stable bilaterally. There are stable postbiopsy changes present superiorly in the right breast. The patient had a benign excisional biopsy in this area. There is no mass, worrisome microcalcifications, or architectural distortion to suggest development of malignancy. ?? IMPRESSION: No findings suspicious for malignancy. ? ACR BI-RADS CATEGORY: ??II, BENIGN ?? RECOMMENDATION: Yearly mammogram, yearly physical exam, and monthly self breast exam. ?? iCAD was used. ?? The standard false negative rate of mammography is between 10 and 25%. Complex patterns or increased breast density will markedly elevate the false negative rate of mammography. ? FINAL ?CONTINUED ?Page ??1 ? RADIOLOGY REPORT ?[facility] ? [address] ??[place], [place] [address] ? NAME: MASHA QUIROGA ? : ??40 ??MR#: [id number] ? LOC: ?? DIS ? AGE: 71Y ?? Pt type: CO ?Exam Date: 03/17/12 0943 ? SEX: F ?? AN#:[id number] ?Ck-in#: [id number] ? CHITRA CRUZ W ? [address] ? [address] ? [place] ?[place] ?[address] ? Checkin-Exam Code Summary ? [phone] A letter, in lay terminology, with the results of this exam will be mailed to the patient. ? If there is a palpable area of concern, biopsy should be considered regardless of imaging findings. ?/READ BY/ MIRELA MARTÍNEZ ?/Released By/ MIRELA MARTÍNEZ ?Released By Date/Time: ??05/17/12 1134 ?Drapery Examiner: ??JBW ? FINAL ? Page ??2 ? RADIOLOGY REPORT us See Report Interface IMG MAMMOGRAPHY ORDERABLES Final Result documented in this encounter Visit Diagnoses Not on filedocumented in this encounter Care Teams Casino Operations Supervisor Relationship Specialty Start Date End Date Provider, [place] [address] PCP - General 07/19/15 documented as of this encounter
--- OUTSIDE RECORDS SUMMARY | 2024-10-08 12:35 | XMS_ITS | Encounter Summary ---
[facility] Address [address] [place] [id number] Care Team Providers Care Automatic Centrifugal Station Operator Name Role Phone Unavailable Primary Care Provider Unavailabl e Encounter Details Date Type Department Care Team (Late st Contact Info) Description 07/15/2014 1:17 PM EDT - 07/15/2014 11:59 PM EDT Hospital Encounter [facility] [address] [facility] [address] [place] [address] Faisal Hatfield MD [address] [facility] [address] [place] [address] Social History Tobacco Use Types Packs/Day Years [...] Priority Date/Time Associated Diagnosis Comments MAMMO SCREENING BILATERAL W CAD Routine 07/15/2014 1:21 PM EDT documented in this encounter Results * MAMMOGRAPHY SCREENING BILATERAL (07/15/2014 1:21 PM EDT) Anatomical Region Laterality Modality Breast Bilateral Mammography 07/15/2014 1:21 PM EDT Narrative 07/18/2014 10:58 AM EDT ROUTINE DIGITAL SCREENING MAMMOGRAM WITH TOMOSYNTHESIS: HISTORY: Routine screening. ?? IMAGE COMPARISON: ??03/17/2012 and 03/11/2011. TECHNIQUE: ??Low dose full field digital breast tomosynthesis examination was performed with 2D and 3D acquisitions. FINDINGS: ??There are moderate scattered areas of fibroglandular density. The fibroglandular pattern appears stable. ??There is no mass, worrisome microcalcifications, or architectural distortion to suggest development of malignancy. IMPRESSION- No findings suspicious for malignancy. ACR BI-RADS CATEGORY: ??I, NEGATIVE. RECOMMENDATION: Yearly mammogram, yearly physical exam, and [...] should be considered regardless of imaging findings. ? Reading Radiologist- MIRELA MARTÍNEZ ? Releasing Radiologist- MIRELA MARTÍNEZ ? Released Date Time- 07/18/14 1222 ? Farm Service Consultant- Ailyn Faisal Hatifeld MD [facility] MAMMOGRAPHY ORDERABLES Final Result documented in this encounter Visit Diagnoses Not on filedocumented in this encounter
--- OUTSIDE RECORDS SUMMARY | 2024-10-08 12:35 | XMS_ITS | Encounter Summary ---
[facility] Address [address] [place] [address] Care Team Providers Care Account Support Rep Name Role Phone Provider, No Known Primary Care Provider Unavail able Encounter Details Date Type Department Care Team (Late st Contact Info) Description 07/19/2015 12:49 PM EDT - 07/19/2015 11:59 PM EDT Hospital Encounter [facility] [address] [facility] [address] [place] [address] Faisal Hatfield MD [address] [facility] [address] [place], [place] [id number] Discharge Disposition: Home or Self Care Social [...] Comments MAMMO SCREENING BILATERAL W CAD Routine 07/19/2015 12:38 PM EDT documented in this encounter Results * MAMMOGRAPHY SCREENING BILATERAL (07/19/2015 12:38 PM EDT) Anatomical Region Laterality Modality Breast Bilateral Mammography 07/19/2015 12:3 8 PM EDT Narrative 07/20/2015 12:47 PM EDT Exam Room: [facility] Exam Start: [id number] Exam Stop: [id number] ROUTINE DIGITAL SCREENING MAMMOGRAM WITH TOMOSYNTHESIS HISTORY- Routine screening. ? TECHNIQUE- Low dose full field digital breast tomosynthesis imaging was performed with 2D and 3D acquisitions. ? IMAGE COMPARISON- ??07/15/2014, 03/17/2012, 03/11/2011, 02/20/2010. FINDINGS- ??There are scattered areas of fibroglandular density. The bilateral fibroglandular pattern is stable in appearance including stable postoperative changes from a previous excisional biopsy in the superior right breast. There is no mass, worrisome microcalcifications, or architectural distortion to suggest development of malignancy. IMPRESSION- No findings suspicious for malignancy. ? BI-RADS CATEGORY- ??II, BENIGN RECOMMENDATION- Yearly mammogram, yearly physical exam, and monthly [...] regardless of imaging findings. ? Reading Radiologist- RYLEE PATEL ? Releasing Radiologist- RYLEE PATEL ? Released Date Time- 07/20/15 1250 ? Frame Aligner- Winston Read By: RYLEE PATEL Released By: RYLEE PATEL Procedure Note Rylee Patel MD - 08/27/2015 Exam Room: [facility] Exam Start: [id number] Exam Stop: [id number] ROUTINE DIGITAL SCREENING MAMMOGRAM WITH TOMOSYNTHESIS HISTORY- Routine screening. TECHNIQUE- Low dose full field digital breast tomosynthesis imaging was performed with 2D and 3D acquisitions. IMAGE COMPARISON- 07/15/2014, 03/17/2012, 03/11/2011, 02/20/2010. FINDINGS- There are scattered areas of fibroglandular density. The bilateral fibroglandular pattern is stable in appearance including stable postoperative changes from a previous excisional biopsy in the superior right breast. There is no mass, worrisome microcalcifications, or architectural distortion to suggest development of malignancy. IMPRESSION- No findings suspicious for malignancy. BI-RADS CATEGORY- II, BENIGN RECOMMENDATION- Yearly mammogram, yearly physical exam, and monthly self breast exam. CAD was used. The standard false negative rate of mammography is between 10% and 25%. Complex patterns or increased breast density will markedly elevate the false negative rate of mammography. A letter, in lay terminology, with the results of this exam will be mailed to the patient. If there is a palpable area of concern, biopsy should be considered regardless of imaging findings. Reading Radiologist- RYLEE PATEL Releasing Radiologist- RYLEE PATEL Released Date Time- 07/20/15 1250 Frame AlignerKathy Montero Read By: RYLEE PATEL Released By: RYLEE PATEL us Faisal Hatfield MD [facility] [place] ORDERABLES Final Result documented in this encounter Visit Diagnoses Not on filedocumented in this encounter Care Teams Account Support Rep Relationship Specialty Start Date End Date Provider, [place] [address] PCP - General 07/19/15 documented as of this encounter
--- OUTSIDE RECORDS SUMMARY | 2024-10-08 12:36 | XMS_ITS | Data Portability ---
Author Organization MD - [facility] Todd MD Address [address] [facility] [address] [place] [address] Care Team Providers Care Cardiopulmonary Physical Therapist Name Role Phone EVERARDO BETH Referring Provider Assessment Encounter Date Assessment Date Assessment LastModified by Organization Details LastModified Time 11/21/2020 11/21/2020 The patient gave verbal consent using TelePhonic services and the consent is documented in the medical record prior to using the service. The patient has been informed of what a TeleMedicine visit is. Patient is located at home. Provider is located at office. Names and roles of persons in addition to the patient and provider participating in telemedicine services include none. The patient had a 13 minute TeleMedicine consultation via phone call to discuss the following: HTN, lower extremity edema, complaint of congestion.. The nature of this call is not tied to a face to face office visit or procedure that occurred within the past seven days. ??? Not available 11/21/2020 13:18:20 Plan of Treatment Reminders Order Date Submit Date Provider Last Modified By Organization Details Last Modified Time Details Appointments None recorded. Lab culture, urine 2020 021 [facility], [address] [facility], [place], [address], 1 07:19:06 Referral None recorded. Procedures None recorded. Surgeries None recorded. Imaging None recorded. Medication Orders levetirace angel 500 mg tablet 2019 020 [facility], [address] [place] [address] , [place], [address], 0 10:33:18 fluoxetine 20 mg capsule 2019 [facility], [address] [place] [address] , [place], [address], 0 10:33:19 Linzess 72 mcg capsule 2019 INTERFACE [facility], [address] [place] [address] , [place], [address], 0 10:33:19 Colace 100 mg capsule 2019 [facility], [address] [place] [address] , [place], [address], 0 10:33:18 hydrochlor othiazide 25 mg tablet 2019 [facility], [address] [place] [address] , [place], [address], 0 10:33:20 irbesartan 300 mg tablet 2019 [facility], [address] [place] [address] , [place], [address], 0 10:33:21 amlodipine 5 mg tablet 2019 [facility], [address] [place] [address] , [place], [address], 0 10:33:20 amoxicilli n 875 mg-potassi um clavulanat e 125 mg tablet [address] [facility], [address] [place] [address] , [place], [address], 1 16:29:09 Medrol (Saulo) 4 mg tablets in a dose pack [address], [address] [place] [address] , [place], [address], 1 16:28:55 Diflucan 150 mg tablet 2020 [facility], [address] [place] [address] , [place], [address], 16:29:02 dexamethas one sodium phosphate 4 mg/mL injection solution 2020 [email or web address] Not available 13:25:54 Medrol (Saulo) 4 mg tablets in a dose pack 2020 [facility], [address] [place] [address] , [place], [address], 13:22:54 ceftriaxon e 1 gram solution for injection 2020 [email or web address] Not available 13:25:13 doxycyclin e hyclate [address] [facility], [address] [place] [address] , [place], [address], 13:22:52 fluconazol e [address] [facility], [address] [place] [address] , [place], [address], 13:22:53 ofloxacin 0.3 % ear drops 2020 [facility], [address] [place] [address] , [place], [address], 13:47:19 Patient TargetsNo targets recorded. Patient Instructions Encounter Date Encounter Id Patient Instructions Last Modified By Organization Details Last Modified Time 03/30/2020 [id number] alcohol misuse* Not available 03/30/2020 15:19:36 fall risk screening* Not available 03/30/2020 15:19:36 depression screening* Not available 03/30/2020 15:19:36 dementia rating scale-2* Not available 03/30/2020 15:19:36 constipation: ca re instructions Not available 03/30/2020 15:19:36 high blood pressure: care instructions Not available 03/30/2020 15:19:36 learning about h igh blood pressure Not available 03/30/2020 15:19:36 multi-dimensiona l health assessment questionnaire* Not available 03/30/2020 15:19:36 advance directiv es: care instructions Not available 03/30/2020 15:19:36 [place] Advance Directive Form Not available 03/30/2020 15:19:36 advance care planning: care instructions Not available 03/30/2020 15:19:36 Personalized a lt Plan and Screening Recommendations Advance Directives - Do you have one? {{Yes* No}} {{You have indicated that you are capable of preparing your advance care directive I recommend consulting with an Accounts Receivable Supervisor, family member, or friend to assist you.}} Advance Directives - Do we have your advance directive on file in your health record? {{Yes No, please bring in a copy at your earliest convenience*}} Primary Prevention/Interven tion (prevents or decreases the chance of common diseases from occurring) Smoking Risk: {{Non Smoker* Smoker}} {{Refer to attached smoking cessation handouts Refer to attached handouts and prescription will be sent to pharmacy Continue to consider stopping smoking and call if we can assist you Recommend screening for possible Emphysema with pulmonary function testing Recommend lung cancer screening with low dose CT scan of the chest}} Alcohol Misuse Screening: {{Negative* Positiv e}} {{Refer to attached alcohol cessation handout Refer to attached handout and prescription will be sent to pharmacy Decrease alcohol intake to 1 or less servings per day Continue to consider stopping alcohol and call if we can assist you Recommend referral for alcohol counseling/rehabili tation}} Weight: {{Appropriate* Over weight Underweight} } {{continue your current weight loss efforts try to lose 5% of your body weight try to lose 10% of your body weight try to lose 15% of your body weight consultation with a dietitian monitor weight weekly and call if continue to lose weight}} Physical activity: {{Appropriate physical activity* Need more exercise/physical activity}} {{minimum of 10-20 minutes of activity that causes mild breathlessness/day minimum of 20-30 minutes activity that causes mild breathlessness/day* minimum of 30-40 minutes of activity that causes mild breathlessness/day decrease sitting time to no more than 5hr/day}} Nutrition: {{Good Average* Poo r}} {{Refer to attached handout Heart-Healthy Diet: After Your Visit * Refer to attached handout DASH Diet: After Your Visit Recommend consultation with a foley artist}} Fall Risk (screened today): {{Low* Intermediate High}} {{Refer to attached handout Preventing Falls: After your Visit * Recommend regular use of cane or walker Referral for physical therapy Referral for home health nurse evaluation Referral for home health nurse evaluation with physical therapy}} Vaccines Pneumococcal: {{Ordered Recommend ed today Recommended today, but you have declined No further needed* Your next one in: }} Influenza: {{Your next one in the fall of 2019# Ordered Recom mended today Recommended today, but you have declined Your next one in the fall of this year}} Chronic Disease Risks Stroke: {{Low Risk Intermediate Risk* High Risk}} {{I have no recommendations Continue current treatment plan* My recommendation would be to make an appointment for further testing}} Heart Attack: {{Low risk Intermediate Risk* High Risk}} {{I have no recommendations Con tinue current treatment plan* My recommendation would be to make an appointment for further testing}} Clogging of the Arteries: {{Low risk Intermediate Risk* High risk}} {{I have no recommendations Con tinue current treatment plan* My recommendation would be to make an appointment for further testing}} Diabetes: {{Low Risk* Intermediate Risk High Risk}} {{I have no recommendations* Re david to attached handout ? Pre-diabetes: After Your Visit? Drastically limit sugar and products made with any type of flour (bread, pasta, cereal, cookies, crackers, etc.) My recommendation would be to make an appointment for further testing}} Secondary Prevention/Interven tion (detects treatable diseases before they may cause symptoms, disability, or ) Breast Cancer Screening with mammogram: {{Your next mammogram: Ordered Recommended today Recommended today, but you have declined No screening necessary*}} Cervical/Uterine/Ov german Cancer Screening: {{Your next PAP/pelvic in: Referral to zoning engineer Recomm ended today Recommended today, but you have declined No screening necessary*}} Osteoporosis Screening: {{Your next DEXA in: Ordered Recomme nded today Recommended today, but you have declined No screening necessary*}} Date Screening Last Performed: _[address] Chang, will request records Colon Cancer Screening: {{Colonoscopy* Feca l Occult Blood Cologuard (DNA stool test) No screening necessary}} {{In: Ordered Recom mended Recommended today, but you have declined No screening necessary*}} Date Screening Last Performed: Eye Disease Screening: {{Your next exam in: as recommended per specialist# Ordered Recommended today Recommended today, but you have declined No Eye exam necessary}} Dementia Risk: {{Low* Intermediate High}} {{I have no recommendations* My recommendation would be to have further medical evaluation, make an appointment with primary care physician My recommendation would be to have an appointment with the Neurologist}} Depression Screening: {{Negative* Positiv e Not applicable}} {{Recommend additional evaluation and/or treatment as noted above Recommend follow appointment to further evaluate Recommend Behavioral Health referral Continue your current depression treatment}} Not available 03/30/2020 23:56:41 05/01/2020 [id number] knee arthritis: care instructions Not available 05/01/2020 10:38:14 constipation: ca re instructions Not available 05/01/2020 10:33:15 leg and ankle edema: care instructions Not available 05/01/2020 10:33:36 high blood pressure: care instructions Not available 05/01/2020 10:33:15 learning about h igh blood pressure Not available 05/01/2020 10:33:15 11/21/2020 [id number] leg and ankle edema: care instructions Not available 11/21/2020 13:16:16 high blood pressure: care instructions Not available 11/21/2020 13:16:16 learning about h igh blood pressure Not available 11/21/2020 13:16:16 upper respirator y infection (cold): care instructions Not available 11/21/2020 13:16:16 Due to the COVID -19 (Novel Coronavirus) pandemic, it is within this context (and with the understanding that this method of patient encounter is in the patient? s best interest as well as the health and safety of other patients and the public) that ? telehealth? is being provided for this patient encounter rather than a [id number]-[id number] visit. This patient encounter is appropriate at this time. This patient has been advised of the potential risks and limitations of this mode of treatment (including, but not limited to, the absence of in-person examination) and has agreed to be treated in a remote fashion despite these risks. Any and all of the patient? s/patient? s family? s questions on this issue have been answered, and I have made no promises or guarantees to the patient. The patient has also been advised to contact this office for worsening conditions or problems, and seek emergency medical treatment and/or call 911 if the patient deems either necessary. HPI and/or vitals, if listed, were provided by the patient. Not available 11/21/2020 11:48:59 06/25/2021 [id number] alcohol misuse* Not available 06/25/2021 12:51:54 depression screening* Not available 06/25/2021 12:51:54 dementia rating scale-2* Not available 06/25/2021 12:51:54 allergies: care instructions Not available 06/25/2021 13:22:50 managing your allergies: care instructions Not available 06/25/2021 13:22:50 frequent urinati on: care instructions Not available 06/25/2021 12:51:54 multi-dimensiona l health assessment questionnaire* Not available 06/25/2021 12:51:54 advance directiv es: care instructions Not available 06/25/2021 12:51:53 [place] Advance Directive Form Not available 06/25/2021 12:51:54 advance care planning: care instructions Not available 06/25/2021 12:51:54 care plan* Not available 06/25 12:51:54 Personalized [facility] lt Plan and Screening Recommendations Advance Directives - Do you have one? {{Yes No*}} {{You have indicated that you are capable of preparing your advance care directive* I recommend consulting with an Accounts Receivable Supervisor, family member, or friend to assist you.}} Advance Directives - Do we have your advance directive on file in your health record? {{Yes No, please bring in a copy at your earliest convenience*}} Primary Prevention/Interven tion (prevents or decreases the chance of common diseases from occurring) Smoking Risk: {{Non Smoker* Smoker}} {{Refer to attached smoking cessation handouts Refer to attached handouts and prescription will be sent to pharmacy Continue to consider stopping smoking and call if we can assist you Recommend screening for possible Emphysema with pulmonary function testing Recommend lung cancer screening with low dose CT scan of the chest}} Alcohol Misuse Screening: {{Negative* Positiv e}} {{Refer to attached alcohol cessation handout Refer to attached handout and prescription will be sent to pharmacy Decrease alcohol intake to 1 or less servings per day Continue to consider stopping alcohol and call if we can assist you Recommend referral for alcohol counseling/rehabili tation}} Weight: {{Appropriate Overw eight Underweight*} } {{continue your current weight loss efforts try to lose 5% of your body weight try to lose 10% of your body weight try to lose 15% of your body weight consultation with a dietitian monitor weight weekly and call if continue to lose weight*}} Physical activity: {{Appropriate physical activity Need more exercise/physical activity*}} {{minimum of 10-20 minutes of activity that causes mild breathlessness/day minimum of 20-30 minutes activity that causes mild breathlessness/day minimum of 30-40 minutes of activity that causes mild breathlessness/day decrease sitting time to no more than 5hr/day*}} Nutrition: {{Good Average* Poo r}} {{Refer to attached handout Heart-Healthy Diet: After Your Visit * Refer to attached handout DASH Diet: After Your Visit Recommend consultation with a foley artist}} Fall Risk (screened today): {{Low Intermediate* High}} {{Refer to attached handout Preventing Falls: After your Visit * Recommend regular use of cane or walker Referral for physical therapy Referral for home health nurse evaluation Referral for home health nurse evaluation with physical therapy}} Vaccines Pneumococcal: {{Ordered Recommend ed today Recommended today, but you have declined No further needed* Your next one in: }} Influenza: {{Your next one in the fall# Ordered Recom mended today Recommended today, but you have declined Your next one in the fall of this year}} Chronic Disease Risks Stroke: {{Low Risk Intermediate Risk* High Risk}} {{I have no recommendations Continue current treatment plan* My recommendation would be to make an appointment for further testing}} Heart Attack: {{Low risk Intermediate Risk* High Risk}} {{I have no recommendations Con tinue current treatment plan* My recommendation would be to make an appointment for further testing}} Clogging of the Arteries: {{Low risk Intermediate Risk* High risk}} {{I have no recommendations Con tinue current treatment plan* My recommendation would be to make an appointment for further testing}} Diabetes: {{Low Risk* Intermediate Risk High Risk}} {{I have no recommendations* Re david to attached handout ? Pre-diabetes: After Your Visit? Drastically limit sugar and products made with any type of flour (bread, pasta, cereal, cookies, crackers, etc.) My recommendation would be to make an appointment for further testing}} Secondary Prevention/Interven tion (detects treatable diseases before they may cause symptoms, disability, or ) Breast Cancer Screening with mammogram: {{Your next mammogram: Ordered Recommended today Recommended today, but you have declined No screening necessary*}} Cervical/Uterine/Ov german Cancer Screening: {{Your next PAP/pelvic in: Referral to zoning engineer Recomm ended today Recommended today, but you have declined No screening necessary*}} Osteoporosis Screening: {{Your next DEXA in: as recommended per specialist# Your next DEXA in: Ordered Recomme nded today Recommended today, but you have declined No screening necessary}} Date Screening Last Performed: 2017 Colon Cancer Screening: {{No screening necessary # Colonoscopy Fecal Occult Blood Cologuard (DNA stool test) No screening necessary}} {{In: Ordered Recom mended Recommended today, but you have declined No screening necessary*}} Date Screening Last Performed: Eye Disease Screening: {{Your next exam in: as needed# Ordered Rec ommended today Recommended today, but you have declined No Eye exam necessary}} Dementia Risk: {{Low* Intermediate High}} {{I have no recommendations* My recommendation would be to have further medical evaluation, make an appointment with primary care physician My recommendation would be to have an appointment with the Neurologist}} Depression Screening: {{Negative* Positiv e Not applicable}} {{Continue your current treatment# Recommen d additional evaluation and/or treatment as noted above Recommend follow appointment to further evaluate Recommend Behavioral Health referral Continue your current depression treatment}} Not available 06/30/2021 16:02:19 Reason for Referral None Reported. Results Created Date Observation Date Name Description Value Unit Range Abnormal Flag Note LastModifiedBy Organization Detail LastModifiedTime 05/22/20 20 05/23/2020 cultu re, aerob ic + anaer obic source LOWER BACK Na Not Available [address], [address], 05/26/2020 14:11:21 05/22/20 20 05/26/2020 cultu re, aerob ic + anaer obic culture anaerobic SEE BELOW Na Preli minar y repor t Not Available [address], [address], 05/26/2020 14:11:21 05/22/20 20 05/26/2020 cultu re, aerob ic + anaer obic result 1 SEE BELOW Na Growt h obser yesenia. Furth er testi ng to rule out possi ble patho gen(s ) is in progr ess. Perfo rmed at: CB, [facility] [address] [place], [address] [address] Ronald sandra hdz, PhD, Phone : [phone] Not Available [address], [address], 05/26/2020 14:11:21 05/22/20 20 05/26/2020 cultu re, aerob ic + anaer obic culture aerobic Final report Na abnormal Preli minar y repor t Previ ous value was SEE BELOW , verif ied by I/AUT at 17:08 on 05/25. Not Available [address], [address], 05/26/2020 14:11:21 05/22/20 20 05/26/2020 cultu re, aerob ic + anaer obic result 1 SEE BELOW Na abnormal Enter ococc us faeca lis Heavy growt h For Enter ococc us speci es, amino glyco sides (exce pt for high- level resis tanhumberto duvall) , cepha lospo rins, clind amyci n, and trime thopr im-willis lfame thoxa zole are not effec tive clini carolyn . (CLSI , M100- S26, 2016) Not Available [address], [address], 05/26/2020 14:11:21 05/22/20 20 05/26/2020 cultu re, aerob ic + anaer obic antimicrobia l suscept SEE BELOW Na S = Susce ptibl e; I = Inter media te; R = Resis tant P = Posit shania; N = Negat shania MICS are expre ssed in micro grams per mL Antib iotic RSLT# 1 RSLT# 2 RSLT# 3 RSLT# 4 Penic illin S Vanco mycin S Perfo rmed at: CB, [facility] [address] [facility], [place], [address] Ronald hdz, PhD, Phone : [phone] Not Available [address], [address], 05/26/2020 14:11:21 05/22/20 20 05/23/2020 cultu re, aerob ic + anaer obic source LOWER BACK Na Not Available [address], [address], 05/26/2020 16:12:54 05/22/20 20 05/26/2020 cultu re, aerob ic + anaer obic culture anaerobic SEE BELOW Na abnormal Preli minar y repor t Not Available [address], [address], 05/26/2020 16:12:54 05/22/20 20 05/26/2020 cultu re, aerob ic + anaer obic result 1 SEE BELOW Na abnormal Strep tococ cus inter mediu s Heavy growt h Perfo rmed at: CB, [facility] n [address] [facility], [place], [address] Ronald sandra hdz, PhD, Phone : [phone] Not Available [address], [address], 05/26/2020 16:12:54 05/22/20 20 05/26/2020 cultu re, aerob ic + anaer obic culture aerobic Final report Na abnormal Preli minar y repor t Previ ous value was SEE BELOW , verif ied by I/AUT at 17:08 on 05/25. Not Available [address], [address], 05/26/2020 16:12:54 05/22/20 20 05/26/2020 cultu re, aerob ic + anaer obic result 1 SEE BELOW Na abnormal Enter ococc us faeca lis Heavy growt h For Enter ococc us speci es, amino glyco sides (exce pt for high- level resis tance scree eloina) , cepha lospo rins, clind amyci n, and trime thopr im-willis lfame thoxa zole are not effec tive clini carolyn . (CLSI , M100- S26, 2016) Not Available [address], [address], 05/26/2020 16:12:54 05/22/20 20 05/26/2020 cultu re, aerob ic + anaer obic antimicrobia l suscept SEE BELOW Na S = Susce ptibl e; I = Inter media te; R = Resis tant P = Posit shania; N = Negat shania MICS are expre ssed in micro grams per mL Antib iotic RSLT# 1 RSLT# 2 RSLT# 3 RSLT# 4 Penic illin S Vanco mycin S Perfo rmed at: CB, [facility] [address] [facility], [place], [address] Ronald hdz, PhD, Phone : [phone] Not Available [address], [address], 05/26/2020 16:12:54 05/22/20 20 05/23/2020 cultu re, aerob ic + anaer obic source LOWER BACK Na Not Available [address], [address], 05/29/2020 12:08:42 05/22/20 20 05/26/2020 cultu re, aerob ic + anaer obic culture aerobic Final report Na abnormal Preli minar y repor t Previ ous value was SEE BELOW , verif ied by I/AUT at 17:08 on 05/25. Not Available [address], [address], 05/29/2020 12:08:42 05/22/20 20 05/26/2020 cultu re, aerob ic + anaer obic result 1 SEE BELOW Na abnormal Enter ococc us faeca lis Heavy growt h For Enter ococc us speci es, amino glyco sides (exce pt for high- level resis tance scree eloina) , cepha lospo rins, clind amyci n, and trime thopr im-willis lfame thoxa zole are not effec tive clini carolyn . (CLSI , M100- S26, 2016) Not Available [address], [address], 05/29/2020 12:08:42 05/22/20 20 05/26/2020 cultu re, aerob ic + anaer obic antimicrobia l suscept SEE BELOW Na S = Susce ptibl e; I = Inter media te; R = Resis tant P = Posit shania; N = Negat shania MICS are expre ssed in micro grams per mL Antib iotic RSLT# 1 RSLT# 2 RSLT# 3 RSLT# 4 Penic illin S Vanco mycin S Perfo rmed at: , [facility] [address] [facility], [place], [address] Ronald hdz, PhD, Phone : [phone] Not Available [address], [address], 05/29/2020 12:08:42 05/22/20 20 05/29/2020 cultu re, aerob ic + anaer obic culture anaerobic Final report Na abnormal Preli minar y repor t Previ ous value was SEE BELOW , verif ied by I/AUT at 16:11 on 05/26. Not Available [address], [address], 05/29/2020 12:08:42 05/22/20 20 05/29/2020 cultu re, aerob ic + anaer obic result 1 SEE BELOW Na abnormal Strep tococ cus inter mediu s Heavy growt h Perfo rmed at: , [facility] n [address] [facility], [place], [address] Ronald hdz, PhD, Phone : [phone] Not Available [address], [address], 05/29/2020 12:08:42 06/29/20 20 06/30/2020 cultu re, aerob ic + anaer obic source lower back Na Not Available [address], [address], 07/04/2020 18:09:40 06/29/20 20 07/03/2020 cultu re, aerob ic + anaer obic culture aerobic Final report Na Preli minar y repor t Previ ous value was SEE BELOW , verif ied by I/AUT at 16:08 on 07/02. Not Available [address], [address], 07/04/2020 18:09:40 06/29/20 20 07/03/2020 cultu re, aerob ic + anaer obic result 1 SEE BELOW Na No growt h in 36 - 48 hours . Perfo rmed at: , [facility] n [address] [place], [address] 2586 Ronald hdz, PhD, Phone : [phone] Not Available [address], [address], 07/04/2020 18:09:40 06/29/20 20 07/04/2020 cultu re, aerob ic + anaer obic culture anaerobic Final report Na Not Available [address], [address], 07/04/2020 18:09:40 06/29/20 20 07/04/2020 cultu re, aerob ic + anaer obic result 1 SEE BELOW Na No aerob ic or anaer obic growt h in 72 hours . Perfo rmed at: , [facility] n [address] [place], [address] 8688 Ronald hdz, PhD, Phone : [phone] Not Available [address], [address], 07/04/2020 18:09:40 08/16/20 20 08/16/2020 SARS CoV 2 RNA, QL probe , unspe cifie d speci men covid19 Ag by shane NEGATI VE Na negati ve Negat shania resul ts from patie nts with sympt om onset beyon d five days shoul d be treat ed as presu mptiv e and comfi rmed with a molec ular assay , if neces sebastián for patie nt manag ement . Negat shania resul ts do not rule out Covid 19 and shoul d not be used as the sole basis for treat ment or patie nt manag ement decis ions. Negat shanai resul ts shoul d be consi dered in the césar xt of a patie nt's recen t expos ures, histo ry and prese nce of clini bina signs and sympt oms consi stent with Covid 19. This test (Quid el SARS Antig en SHANE has been autho rized by the FDA under an Emerg ency Use Autho rizat ion (EUA) for use by autho rized labor jenny s. Not Available [address], [address], 08/16/2020 10:13:16 08/16/20 20 08/18/2020 methi cilli n resis tant staph yloco ccus aureu s, cultu re, unspe cifie d speci men MRSA screening MRSA Screen ing Negati ve Not Available [address], [address], 08/18/2020 08:00:05 08/17/20 21 08/17/2021 XR, chest , 1 view No observ ation record ed. lauxier [address], [address], 08/17/2021 13:02:04 Result Notes None recorded. Problems Name Problem SNOMED Code Status Onset Date Resolution Date Notes Provider Name and Address Organization Details Recorded Time Osteoart hritis 403326871 Active 2017 Dwain Pope RN null, [facility] 8 14:14:08 Seizure disorder 661389097 Active 2017 spot on brain being followed by Neuralog ist Dwain Pope RN null, [facility] 8 14:14:33 Depressi ve disorder 21748296 Active 2017 Dwain Pope RN null, [facility] 8 14:14:45 Hyperten sive disorder 32439969 Completed 201711/04/2019 Everardo Beth DO [address], [place], [place], [address], [facility] 0 08:59:20 Osteoart hritis of knee 925907809 Active 2018 Everardo Beth DO [address], [place], [place], [address], [facility] 9 11:48:58 Electroc ardiogra m abnormal 218066769 Active 2018 DO Selene Weaver [address], [place], [place], [address], [facility] 9 11:49:49 Mixed anxiety and depressi ve disorder 227261195 Active 2018 DO Selene Weaver [address], [place], [place], [address], [facility] 9 11:50:59 Essentia l hyperten reece 10044804 Active 2018 DO Selene Weaver [address], [place], [place], [address], [facility] 9 11:51:01 Seizure 03778300 Active 2018 DO [address], [place], [place], [address], [facility] 9 11:51:58 Constipa tion 16171445 Active [address], [place], [place], [address], [facility] 9 11:53:35 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 DO Seelne Weaver, [place], [place], [address], [facility] 0 08:57:53 Rheumato id factor detected 493568758 Active 2019 Everardo Beth DO [address], [place], [address], [facility] 0 08:45:16 Chronic pain syndrome 729721875 Active 2019 Everardo Beth DO [address], [place], [address], [facility] 0 08:45:18 Long-ter m current use of opiate analgesi c drug [id number] 4108 Active 2019 Everardo Beth DO [address], [place], [address], [facility] 0 08:45:59 Hyperlip idemia 29547042 Active 2019 Everardo Beth DO [address], [place], [place], [address], [facility] 0 09:19:55 Edema of lower extremit y 541693967 Active 2019 Everardo Beth DO [address], [place], [address], [facility] 0 10:33:31 Problem Notes None recorded. Procedures Surgical History Date Name Laterality Status Provider Name and Address Organization Details Recorded Time 06/25/20 21 Medicare Wellness CPT Code, subsequent completed Jennifer NIELSON [facility] 06/25/2021 12:27:52 03/30/20 20 Medicare Wellness CPT Code, Initial completed Dwain Pope RN [facility] 03/30/2020 13:44:36 10/03/20 17 Date of Last Mammogram completed Dwain Pope RN [facility] 01/14/2018 14:16:30 10/03/20 17 Date of Last Pap Smear completed Dwain Pope RN [facility] 01/14/2018 14:16:36 11/03/19 17 Date of Last Colonoscopy completed Dwain Pope RN [facility] 01/14/2018 14:16:02 Colectomy w/leonila-rectum pouch completed Dwain Pope RN [facility] 01/14/2018 14:19:03 Appendectomy completed Dwain Pope RN [facility] 01/14/2018 14:19:44 total knee replacement completed Everardo Beth, DO [address] [place], [address], [facility] 03/30/2020 14:34:06 Imaging Results Imaging Date Name Status LastModified by Organiz ation Details LastModified Time 08/17/2021 XR, chest, 1 view completed [facility] [address] [place], [address], 08/17/2021 13:02:04 Procedure Notes None recorded. Medical Equipment None Reported. Allergies Allergen ID Allergen Name Allergen Category Reaction Reaction Severity Criticality Documentation Date Start Date Code Code System Note Provider Name and Address Organization Details Recorded Time 42774 Substance with sulfonami de structure and antibacte rial mechanism of action (substanc e) medicatio n itching severe Not available 01/14/2018 13478 8003 SNOMED Dwain Pope RN null, [facility] 8 14:10:09 Medications Name Sig Start Date Stop Date Status Note LastModified by Organization Details LastModified Time latanopro st 0.005 % eye drops active Not Available Not Available Not Available doxycycli ne hyclate 100 mg capsule Take 1 capsule twice a day by oral route for 14 days. active Not Available Not Available No t Available Depo-Medr ol 40 mg/mL suspensio n for injection Take 40 mg by injectio n route. 02/09 completed Not Available Not Available Not Available azithromy keaton 250 mg tablet TAKE 2 TABLETS BY MOUTH ON DAY 1 THEN 1 TABLET BY MOUTH ON DAYS 2 THROUGH 5 12/29 completed Not Available Not Available Not Available tizanidin e 4 mg tablet Take 1 tablet every day by oral route for 30 days. 06/25 completed Not Available Not Available Not Available fluconazo le 150 mg tablet Take 1 tab PO at onset of yeast infectio n symptoms , may repeat dose in 72 hours if symptoms persist active Not Available Not Available No t Available levetirac etam 500 mg tablet Take 1 tablet twice a day by oral route for 30 days. active Not Available Not Available No t Available Claritin 10 mg tablet Take 1 tablet every day by oral route for 30 days. 2019 active Not Available Not Available Not Avai lable penicilli n V potassium 500 mg tablet 01/14 completed Not Available Not Available Not Available meclizine 12.5 mg tablet Take 1 tablet 3 times a day by oral route for 5 days. 04/09 completed Not Available Not Available Not Available metronida zole 500 mg tablet 01/14 completed Not Available Not Available Not Available amlodipin e 5 mg tablet Take 1 tablet every day by oral route for 90 days. active Not Available Not Available No t Available ciproflox acin 500 mg tablet 11/21 completed Not Available Not Available Not Available hydrocodo ne 10 mg-acetam inophen 325 mg tablet 1 po every 8 hours prn active Not Available Not Available No t Available tramadol 50 mg tablet 01/14 completed Not Available Not Available Not Available meloxicam 7.5 mg tablet 05/01 completed Not Available Not Available Not Available oxycodone -acetamin ophen 5 mg-325 mg tablet 05/01 completed Not Available Not Available Not Available ceftriaxo ne 1 gram solution for injection Take 1 g by injectio n route. 2020 active Patient tolerate d injectio n well, no reaction Not Available Not Available Not Available ofloxacin 0.3 % ear drops INSTILL 10 DROPS INTO AFFECTED EAR(S) BY OTIC ROUTE ONCE DAILY for 7 days active Not Available Not Available No t Available amoxicill in 875 mg tablet Take 1 tablet every 12 hours by oral route for 10 days. 01/04 completed Not Available Not Available Not Available potassium chloride ER 20 mEq tablet,ex tended release(p art/cryst ) active Not Available Not Available Not Available DOK 100 mg capsule Take 1 capsule twice a day by oral route as directed for 30 days. active Not Available Not Available No t Available amlodipin e 10 mg tablet Take 1 tablet every day by oral route for 30 days. 05/01 completed decrease d dose Not Available Not Available Not Available hydrocodo ne 7.5 mg-acetam inophen 325 mg tablet 01/14 completed Not Available Not Available Not Available cephalexi n 500 mg capsule 01/20 completed Not Available Not Available Not Available fluoxetin e 20 mg tablet 04/09 completed Not Available Not Available Not Available clotrimaz ole-betam ethasone 1 %-0.05 % topical cream APPLY TO THE AFFECTED AND SURROUND ING AREAS OF SKIN BY TOPICAL ROUTE 2 TIMES PER DAY IN THE MORNING AND EVENING FOR 2 WEEKS 05/01 completed Not Available Not Available Not Available diclofena c sodium 75 mg tablet,de layed release active Not Available Not Available Not Available monteluka st 10 mg tablet TAKE 1 TABLET BY MOUTH EVERY DAY active Not Available Not Available No t Available hydrochlo rothiazid e 25 mg tablet TAKE ONE TABLET BY MOUTH EVERY DAY active Not Available Not Available No t Available gabapenti n 100 mg capsule take 1-3 caps PO TID as directed 10/11 completed Not Available Not Available Not Available dexametha sone sodium phosphate 4 mg/mL injection solution Inject 4 mg by intramus cular route. 2020 active Patient tolerate d injectio n well, no reaction Not Available Not Available Not Available levofloxa keaton 500 mg tablet 05/01 completed Not Available Not Available Not Available methylpre dnisolone 4 mg tablets in a dose pack Take po as directed on pack active Not Available Not Available No t Available celecoxib 100 mg capsule active Not Available Not Available Not Available ondansetr on 4 mg disintegr ating tablet active Not Available Not Available Not Available cefdinir 300 mg capsule Take 1 capsule every 12 hours by oral route with meals for 10 days. 02/09 completed Not Available Not Available Not Available fluoxetin e 20 mg capsule Take 1 capsule every day by oral route for 90 days. active Not Available Not Available No t Available fluticaso ne propionat e 50 mcg/actua tion nasal spray,kwan pension spray 1 spray into each nostril daily active Not Available Not Available No t Available doxycycli ne hyclate 100 mg tablet 05/01 completed Not Available Not Available Not Available irbesarta n 300 mg tablet Take 1 tablet every day by oral route for 90 days. 11/29/ 2021 active Not Available Not Available Not Avai lable amoxicill in 875 mg-potass ium clavulana te 125 mg tablet Take 1 tablet twice a day by oral route with meals for 7 days. 12/29 completed Not Available Not Available Not Available morphine Intrathe bina pump, 0.68mg/d ay to 0.8211 mg/day; Rx by [facility] pain manageme nt active Not Available Not Available No t Available olopatadi ne 0.2 % eye drops active Not Available Not Available No t Available Havrix (PF) 1,440 HETAL unit/mL intramusc ular syringe 11/21 completed document ed x 1 Not Available Not Available Not Available Linzess 72 mcg capsule Take 1 capsule every day by oral route in the morning for 30 days. 2019 active Not Available Not Available Not Avai lable Fluad Quad (65yr up)(PF) 60 mcg (15 mcg x 4)/0.5mL IM syringe ADM 0.5ML IM UTD 11/21 completed document ed Not Available Not Available Not Available Vitals Date Recorded Body height Body mass index (BMI) Body weight Provider Name and Address Organization Details Last Updated DateTime 03/30/2020 157.48 cm 20 kg/m2 13381.36 g Dwain Pope RN [facility] 03/30/2020 13:46:19 Date Recorded Body height Body mass index (BMI) Body weight Heart rate Oxygen saturation Oxygen saturation in Arterial blood by Pulse oximetry Systolic blood pressure Diastolic blood pressure Provider Name and Address Organization Details Last Updated DateTime 0 157.48 cm 20.1 kg/m2 04766.1 6 g 66 /min 97 % 97 % 161 mm[Hg] 67 mm[Hg] Dwain Pope RN [facility] 0 09:48:23 Date Recorded Body height Body mass index (BMI) Body weight Body temperature Heart rate Respiratory rate Oxygen saturation Oxygen saturation in Arterial blood by Pulse oximetry Systolic blood pressure Diastolic blood pressure Provider Name and Address Organization Details Last Updated DateTime 0 157.48 cm 20.1 kg/m2 21665.1 6 g 98.3 [degF] 70 /min 20 /min 98 % 98 % 160 mm[Hg] 70 mm[Hg] NAGA Her [facility] 0 11:52:36 Date Recorded Body height Provider Name an d Address Organization Details Last Updated DateTime 11/21/2020 157.48 cm Jennifer Gray Indra [facility] 11/21/2020 11:49:02 Date Recorded Body height Body mass index (BMI) Body weight Heart rate Oxygen saturation Oxygen saturation in Arterial blood by Pulse oximetry Systolic blood pressure Diastolic blood pressure Provider Name and Address Organization Details Last Updated DateTime 1 157.48 cm 18.5 kg/m2 95375.8 3 g 63 /min 97 % 97 % 146 mm[Hg] 67 mm[Hg] Jennifer Gray [facility] 1 12:30:00 Social History Question Answer Notes LastModified by Organization Details LastModified Time Tobacco Smoking Status Never Smoker Dwain Pope RN [facility] 01/14/2018 14:17:49 Do You Have An Advance Directive? No Information not available 06/30/2021 What Is Your Level Of Alcohol Consumption? None Information not available 01/14/2018 Are You Blind Or Do You Have Difficulty Seeing? No Information not available 03/30/2020 What Is Your Level Of Caffeine Consumption? Moderate Soda, 2 Cans Per Day Information not available 01/14/2018 How Much Tobacco Do You Chew? None Information not available 03/30/2020 In The 14 Days Before Symptom Onset, Have You Had Close Contact With A Laboratory-confi rmed COVID-19 While That Case Was Ill? No Information not available 03/30/2020 In The 14 Days Before Symptom Onset, Have You Had Close Contact With A Person Who Is Under Investigation For COVID-19 While That Person Was Ill? No Information not available 03/30/2020 In The 14 Days Before Symptom Onset, Did The Patient Spend Time In [facility]? No Information not available 02/14/2020 Have You Been To An Area Known To Be High Risk For COVID-19? No Information not available 02/14/2020 Are You Currently Employed? No Information not available 06/25/2021 Are You Deaf Or Do You Have Serious Difficulty Hearing? No Information not available 03/30/2020 What Type Of Diet Are You Following? REGULAR Information not available 03/30/2020 Which Illicit Or Recreational Drugs Have You Used? None Information not available 01/14/2018 Have You Processed Blood Or Body Fluids From An Ebola Virus Disease Patient Without Appropriate PPE? No [email or web address] Information not available 06/25/2021 Do You Reside In Or Have You Traveled To An Area Where Ebola Virus Transmission Is Active? No [email or web address] Information not available 06/25/2021 Do You Or Have You Ever Used E-cigarettes Or Vape? Never Used Electronic Cigarettes Information not available 03/30/2020 Education 12 Information not available 03/30/2020 What Is The Highest Grade Or Level Of School You Have Completed Or The Highest Degree You Have Received? 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 Yes Information not available 03/30/2020 Which Of Your Hands Is Dominant? Right [email or web address] Information not available 06/25/2021 Single Or Multi-level Home/work? Multi Level Home Information not available 01/14/2018 Do You Use Insect Repellent Routinely? No [email or web address] Information not available 06/25/2021 Where Do You Live? [place]LevelHouse [email or web address] Information not available 06/25/2021 Live Alone Or With Others? With Others Information not available 01/14/2018 Presence Of Domestic Violence No Information not available 03/30/2020 Marital Status Informatio n not available 01/14/2018 Do You Have A Medical Power Of Accounts Receivable Supervisor? No [email or web address] Information not available 06/25/2021 What Was The Date Of Your Most Recent Tobacco Screening? 06/25/2021 [email or web address] Information not available 06/25/2021 How Many Children Do You Have? 1 Information not available 03/30/2020 Do You Have Any Pets? No [email or web address] Information not available 06/25/2021 What Is Your Relationship Status? [email or web address] Information not available 06/25/2021 Do You Use Your Seat Belt Or Car Seat Routinely? Yes [email or web address] Information not available 06/25/2021 Seat Belts Used Routinely Yes Information not available 03/30/2020 Smoke Alarm In Home Yes Information not available 03/30/2020 Do You Have Smoke And Carbon Monoxide Detectors In Your Home? Yes [email or web address] Information not available 06/25/2021 Are You Passively Exposed To Smoke? No [email or web address] Information not available 06/25/2021 Do You Or Have You Ever Used Smokeless Tobacco? Never Used Smokeless Tobacco Information not available 03/30/2020 How Much Tobacco Do You Smoke? No Information not available 03/30/2020 Do You Participate In Social Media? Yes [email or web address] Information not available 06/25/2021 General Stress Level Low Information not available 03/30/2020 Do You Feel Stressed (tense, Restless, Nervous, Or Anxious, Or Unable To Sleep At Night)? [id number] [email or web address] Information not available 06/25/2021 Do You Use Any Illicit Or Recreational Drugs? No Information not available 06/25/2021 Do You Use Sunscreen Routinely? No Information not available 03/30/2020 Has Tobacco Cessation Counseling Been Provided? No [email or web address] Information not available 06/25/2021 How Many Years Have You Smoked Tobacco? 0 Information not available 03/30/2020 Have You Recently Traveled Abroad? No [email or web address] Information not available 06/25/2021 Are You Currently In School? No Information not available 06/25/2021 Sex: Unknown Functional Status Question Answer Note LastModified by Organizat ion Details LastModified Time Do you have difficulty walking or climbing stairs? Yes Information not available 03/30/2020 Do you have transportation difficulties? No [email or web address] Information not available 06/25/2021 Are you able to walk? YESWOREST [email or web address] Information not available 06/25/2021 Do you have difficulty doing errands alone? No Information not available 03/30/2020 Are you able to care for yourself? Yes [email or web address] Information not available 06/25/2021 Do you have difficulty dressing or bathing? No Information not available 03/30/2020 Mental Status Question Answer Note LastModified by Organization D etails LastModified Time Do you have difficulty concentrating, remembering or making decisions? No Information no t available 03/30/2020 Family History Relationship Description Onset Age of this Age Resolved Age Notes LastModified by Organization Details LastModified Time Father Chronic obstructive pulmonary disease 76 Not available 2017 14:17:28 Mother Malignant tumor of colon 76 Not available 2017 14:17:41 Medical History Condition Response RHEUMATIC FEVER N STROKE N DIABETES N PROSTATE N RADIATION / CHEMOTHERAPY N EYE PROBLEMS N EXCESSIVE FATIGUE N CAROTID BLOCKAGE N SEIZURES Y DEPRESSION (INCLUDING POST ) Y FEMALE PROBLEMS / INFECTIONS N BOWEL PROBLEMS N BACK / NECK PROBLEMS Y HAVE YOU BEEN HOSPITALIZED OR SEEN IN [facility] IN THE PAST YEAR ? N THYROID DISEASE N ATHEROSCLEROSIS N ULCERS N BREAST PROBLEMS N DIALYSIS N HIV / AIDS N ADHD N ANEURYSM N OSTEOPOROSIS N URINARY/BLADDER/KIDNEY PROBLEMS N ARTHRITIS Y HEADACHES N USE OF BLOOD THINNERS N SKIN PROBLEMS N HIGH CHOLESTEROL N HEARTBURN / REFLUX N BLOOD CLOTS N ASTHMA N HEPATITIS / LIVER DISEASE N PULMONARY DISEASE N GOUT N SLEEP DISORDER N HERPES N DEMENTIA N ALLERGIES N VASCULAR DISEASE N DIZZINESS N KIDNEY DISEASE N EAR PROBLEMS N LUNG DISORDER N HYPERTENSION Y CARDIAC ARRHYTHMIA N CANCER: SPECIFY N ANXIETY DISORDER N ANEMIA/BLOOD DISORDER N PNEUMONIA N PULMONARY EMBOLISM N BRONCHITIS N HEART DISEASE N CORONARY ARTERY DISEASE N TUBERCULOSIS N Gynecological History Statement/Question Response Date of Last Mammogram 10/03/2017 Date of Last Colonoscopy 11/03/2016 Date of LMP 11/03/1999 Date of Last Pap Smear 10/03/2017 Age at Menarche 13 Age at First Child 25 Obstetrics History GPAL:G 1 P 1 0 0 1 Type Value Full Term 1 Living 1 Total 1 Immunizations Vaccine Type Date Status Provider Name and Address Organization Details Recorded Time Influenza, adjuvanted, trivalent, PF 08/03/2017 completed Not Available [facility] 12/07/2021 21:05:44 Hep A, adult 08/31/2018 completed Not Available [facility] 12/07/2021 21:05:44 Influenza, high-dose, quadrivalent, PF 08/31/2018 completed Not Available [facility] 12/07/2021 21:05:44 Influenza, high-dose, trivalent, PF 09/17/2019 completed Not Available [facility] 12/07/2021 21:05:44 Influenza, high-dose, trivalent, PF 08/31/2020 completed Not Available [facility] 12/07/2021 21:05:44 pneumococcal polysaccharide PPV23 11/03/2016 completed Not Available [facility] 2021 21:05:44 zoster live 11/03/2017 completed Not Available [facility] 12/07/2021 21:05:44 Past Encounters Encounter ID Performer Location Encounter Start Date Encounter Closed Date Diagnosis/Indication Diagnosis SNOMED-CT Code Diagnosis ICD10 Code [id number] Everardo Beth DO [facility] [place] [address] [address] 01/14/2018 13:58:37 01/15/2018 08:05:04 Acute maxillary sinusitis 50632373 J01.00 Allergic rhinitis 542555 04 J30.9 Rib pain 091696228 R07.8 1 Lumbar radiculopathy 128 546094 M54.16 [id number] Nam Scott NP [facility] [place] [address] [address] 02/09/2018 14:50:05 02/10/2018 10:45:35 Osteoarthritis 449083373 M41.20 [id number] Nam Scott NP [facility] [place] [address] [address] 04/29/2018 15:02:35 04/30/2018 08:52:29 Osteoarthritis 879771966 M41.20 Hypertensive disorder 38 075616 I10 Seizure disorder 1843605 02 G40.909 Mixed anxi ety and depressive disorder 176961113 F41.8 Lumbar radiculopathy 128 022646 M54.16 Allergic rhinitis 062498 04 J30.9 [id number] Nam Scott NP [facility] [place] [address] [address] 06/05/2018 15:06:23 06/05/2018 16:28:31 Hypertensive disorder 71010411 I10 Seizure disorder 5493853 02 G40.909 Mixed anxi ety and depressive disorder 093879773 F41.8 Lumbar radiculopathy 128 655089 M54.16 Osteoarthritis 587295540 M41.20 Allergic rhinitis 851850 04 J30.9 [id number] Edna Solano, MICKIE [facility] [address] [place] [address] 10/04/2018 15:40:47 10/04/2018 15:59:21 Acute sinusitis 91529522 J01.90 [id number] Nam Scott NP [facility] [place] [address] [place] [address], [place] [address] 01/11/2019 08:03:44 01/11/2019 09:29:11 Hypertensive disorder 44649815 I10 Osteoarthritis 096216057 M41.20 Vitamin D deficiency 347 [address] E55.9 Vitamin B deficiency 479 25232 E53.9 [id number] Nam Scott NP [facility] [address] [place] [address], [place] [address] 01/14/2019 07:56:10 01/14/2019 10:24:08 Hypertensive disorder 28489766 I10 Osteoarthritis 475415385 M41.20 Lumbar radiculopathy 128 700842 M54.16 Seizure disorder 0479108 02 G40.909 [id number] Everardo Beth, DO [facility] [address] [place], [place] [address], [place] [address] 10/11/2019 09:48:42 11/01/2019 08:27:56 Bradycardia 65358572 R00.1 Osteoarthr itis of knee 301808638 M17.12 Electrocar diogram abnormal 813004842 R94.31 Mixed anxi ety and depressive disorder 078285773 F41.8 Essential hypertension 35875658 I10 Seizure 58082265 R56.9 Constipation 62391725 K5 9.00 [id number] Everardo Beth DO [facility] [address] [place] [address] [place] [address] 11/04/2019 08:07:09 11/04/2019 10:06:20 Osteoarthritis 899530174 M17.12 Scoliosis deformity of spine 881321295 M41.9 Essential hypertension 35925340 I10 [id number] Everardo [facility]irit DO [facility] [address] [place] [address] 01/21/2020 08:26:05 01/21/2020 15:45:40 Essential hypertension 43953212 I10 Constipation 07148971 K5 9.00 Mixed anxi ety and depressive disorder 489831791 F41.8 Seizure 89750571 R56.9 Allergic rhinitis 976441 04 J30.9 Hyperlipid emia screening 612280260 Z13.220 Vitamin D deficiency 347 29451 E55.9 Vitamin B deficiency 479 84988 E53.9 Hyperglycemia 23678670 R 73.9 Chronic pain syndrome 37 6378956 G89.4 Rheumatoid factor detected 508572449 R76.0 Hepatitis C screening 41 3005587 Z11.59 Long-term current use of opiate analgesic drug 4022276960 99478 Z79.891 Sebaceous cyst of skin 029180514 L72.3 [id number] MD Lucius Lamas [facility] [address] [place] [address] 02/14/2020 10:00:21 02/14/2020 10:34:18 Infection of sebaceous cyst 672157756 L72.3 [id number] MD INDIA [facility] [address] [address] 02/21/2020 11:30:27 02/21/2020 11:41:23 Infection of sebaceous cyst 262665059 L72.3 [id number] MD Lucius Lamas [address] [address] 03/13/2020 11:57:58 03/13/2020 12:21:57 Infection of sebaceous cyst 796500783 L72.3 [id number] Everardo Beth DO [facility] [address] [place] [address] 03/30/2020 13:25:55 03/31/2020 07:47:00 Adult health examination 120091269 Z00.00 Screening for disorder 135670676 Z13.89 Essential hypertension 51281201 I10 Constipation 68818372 K5 9.00 Infection of sebaceous cyst 990964603 L72.3 [id number] Everardo eBth DO [facility] [address] [address] 05/01/2020 09:14:48 05/01/2020 10:41:36 Essential hypertension 87827222 I10 Constipation 55746813 K5 9.03 K59.04 Seizure 64174340 R56.9 Mixed anxi ety and depressive disorder 911320811 F41.8 Edema of l ower extremity 813500535 R60.0 Osteoarthr itis of knee 256327571 M17.12 [id number] Vanesa Acosta MD [facility] [address] [place] [address] 05/22/2020 11:42:09 05/22/2020 15:32:04 [id number] Everardo Beth DO [facility] [address] [address] 11/21/2020 11:47:23 11/21/2020 13:24:33 Essential hypertension 62272239 I10 Edema of l ower extremity 164311869 R60.0 Acute uppe r respiratory infection 74097565 J06.9 [id number] Everardo Beth DO [facility] [address] [address] 06/25/2021 11:33:34 07/03/2021 09:09:00 Adult health examination 283372955 Z00.00 Screening for disorder 461155267 Z13.89 Increased frequency of urination 932723418 R35.0 Acute urin jessica tract infection 379477930 N39.0 Allergic rhinitis 737063 04 J30.9 Acute otitis externa 302 96872 H60.509 Health Concerns Section Related Observation LastModified by Organization Detai ls LastModified Time None Recorded Concern Status LastModified by Organization Details LastModified Time None Recorded Advance Directives Directive N: Payers Encounter Date Sequence Insurance Name Policy Number Policy Del Cid Covered Member ID Del Cid Member ID Guarantor Name 03/30/2020 1 [facility] [id number] Inaudrey Van [id number] Inaudrey Van 05/01/2020 1 [employer] [id number] Inaudrey Van [id number] Inaudrey Van 05/22/2020 1 [employer] [id number] Inaudrey Van [id number] Inaudrey Van 11/21/2020 1 [employer] [id number] Inaudrey Van [id number] Inaudrey Van 06/25/2021 1 [place] Inaudrey Van [id number] Inaudrey Van Notes Date Note Type Note Provider Name and Address Organization Details Recorded Time 03/30/2020 text/html Hypertension F/UReported bypatient.Associated Symptoms:no dizziness; no lightheadedness; no chest pain; no shortness of breath; no palpitations; no calf pain with exertion;edema(ankles) Lifestyle:regular exercise; limiting/avoiding salt Medications:taking medications as directed; no side effects from medicationSkin LesionReported bypatient.Location:[facility] (right low back) Quality:sore; improving, not draining Severity:mild Duration:started 2 month(s) ago Onset/Timing:abrupt (started as a small bump); constant; improving Context:no known trigger; following with Dr. Acosta, wants wound looked at again today Alleviating Factors:antibiotics Aggravating Factors:lying on her back Associated Symptoms:no fever; no vomiting; no diarrhea; no urinary symptoms; no draining; no lesions multiplying; scabbed over now 79yo female nonsmoker presents to clinic for medicare annual wellness visit and follow-up skin lesion, HTN, complaint of constipation. Past medical history of HTN controlled with medication, seizures controlled with medication and following with neurology Comes in [place], chronic back pain with morphine pain pump, heart murmur and rheumatic fever, and arthritis. She reports having 8 inches of her colon removed due to having a pocket of infection from colitis, at [facility]. constipationyearsworse recentlytaking colace daily, this usually helpshas been taking miralax daily for the last week [facility] [address] [facility] [place] - her arm swelled and hurt for 2 days afterwardshingles - once at [facility] in 2018 cancer screenings/health maintenanceDEXA - approx 2018, bones thin but not osteoporosis per pt, with Dr Mittal - Dr. Chang at [facility], saw approx 2 years ago? Everardo Beth, DO [address] [place], [address], [facility] 03/31/2020 00:02:09 05/01/2020 text/html Hypertension F/UReported bypatient.Associated Symptoms:no dizziness; no lightheadedness; no chest pain; no shortness of breath; no palpitations; no calf pain with exertion;edema(bilater al lower extremities) Lifestyle:regular exercise; limiting/avoiding salt Medications:taking medications as directed; no side effects from medication; checks blood pressure at home (range ) (high 138/73 at home)Skin LesionReported bypatient.Location:[facility] (right low back) Quality:sore; improving, not draining Severity:mild Duration:started 3 month(s) ago Onset/Timing:abrupt (started as a small bump); constant; improving Context:no known trigger; saw Dr. Acosta, wants wound looked at again today Alleviating Factors:antibiotics Aggravating Factors:lying on her back Associated Symptoms:no fever; no vomiting; no diarrhea; no urinary symptoms; no draining; no lesions multiplying; scabbed over now 79yo female nonsmoker presents to clinic for follow-up skin lesion, HTN, constipation. Past medical history of HTN controlled with medication, seizures controlled with medication and following with neurology Comes in [place], chronic back pain with morphine pain pump, heart murmur and rheumatic fever, and arthritis. She reports having 8 inches of her colon removed due to having a pocket of infection from colitis, at [facility]. constipationyearsworse recentlycolace, miralaxlinzess 145mcg samples helped but too strongdrinking more water and this helps somewhat vaccinesflu at [facility] 11[facility]2019[facility] [address] [facility] [place] - her arm swelled and hurt for 2 days afterwardshingles - once at [facility] in 2018 cancer screenings/health maintenanceDEXA - approx 2018, bones thin but not osteoporosis per pt, with Dr Mittal - Dr. Chang at [facility], saw approx 2 years ago? Everardo Beth, DO [address] [place], [address], [facility] 05/01/2020 10:38:39 11/21/2020 text/html Hypertension F/UReported bypatient.Associated Symptoms:no dizziness; no lightheadedness; no chest pain; no shortness of breath; no palpitations Lifestyle:regular exercise; limiting/avoiding salt Medications:taking medications as directed; no side effects from medication; checks blood pressure at home (range ) (about 125 SBP)Upper Respiratory SymptomsReported bypatient.Location:[facility]; ears feel full, not painful Quality:congested; no sore throat Severity:moderate Duration:symptoms lasting over 2 weeks Onset/Timing:gradual Context:no sick contacts; no foreign travel; non-smoker;allergies; covid test negative at [facility] before [place], flu vaccine 08/2020 Modifying Factors:Z saulo 10/2020 ineffective, singulair ineffective., flonase. claritin Associated Symptoms:no sputum production; no shortness of breath; no sweats; no sore throat; no vomiting; no diarrhea; no rash; no nausea;morning cough(dry); drainage worse at night, ears feel full, no pressure in her face 80yo female nonsmoker presents via telephonic visit/telemedicine for follow-up HTN, lower extremity edema, complaint of congestion.. Past medical history of HTN controlled with medication, seizures controlled with medication and following with neurology Dr. White in [place], chronic back pain with morphine pain pump, heart murmur and rheumatic fever, and arthritis. She reports having 8 inches of her colon removed due to having a pocket of infection from colitis, at [facility]. Everardo Beth, DO [address] [place], [address], [facility] 11/21/2020 13:21:07 06/25/2021 text/html Headache - GeneralReported bypatient.Location:[facility] Quality:not the worst headache ever; similar to previous headaches Severity:mild to moderate Duration:intermittent Onset/Timing:gradual; occur during particular seasons of the year Context: triggered by:allergies? Modifying Factors: Improved with:meds usually help but she hasn't taken anything recently Associated Symptoms:no vomiting; no sensitivity to noise; no slurred speech; no nosebleedsUrinary FrequencyReported bypatient.Severity:mod erate Onset/Timing:sudden Context:success with short term antibiotics Alleviating Factors:trying azo OTC, cranberry juice Aggravating Factors:unsure Associated Symptoms:no chills; no blood in the urine; no vomiting; no fever;abdominal pain;back pain;feelings of urgency; fatigue 81yo female nonsmoker presents to clinic for MEDICARE ANNUAL WELLNESS VISITPt also presents with complaint of urinary frequency and headache. Past medical history of HTN controlled with medication, seizures controlled with medication and following with neurology Comes in [place], chronic back pain with morphine pain pump, heart murmur and rheumatic fever, and arthritis. She reports having 8 inches of her colon removed due to having a pocket of infection from colitis, at [facility]. Everardo Beth, DO [address] [place], [address], [facility] 06/30/2021 16:04:25 OBGyn Episode No OBEpisode recorded.
[2024-10-08 13:12] VITALS: BP 113/51; PULSE 65; RESP 16; TEMP 36.7; O2SAT 98; BMI 20.1
[2024-10-08 13:36] VITALS: BP 122/59; PULSE 65; RESP 18; O2SAT 99
[2024-10-08 13:37] VITALS: BP 122/59; PULSE 65; RESP 18; O2SAT 99
--- NOTE | 2024-10-08 13:56 | P.PCN_ITS ---
Procedure Date: 10/08/24 Time: 13:56 Anesthesiologist:: Brittanie Mora APRN Complications:: None Pre-procedure Diagnosis:: Degenerative disc disease of lumbar spine with lumbar radiculopathy symptoms, chronic seroma Post-procedure Diagnosis:: Same Indications for Procedure:: Patient is a pleasant 84-year-old female who presents today for intrathecal refill and reprogram as well as incision and drainage of seroma around her lateral pump. Today she rates her pain a 4 out of 10. Patient does state that she has had significant pain over the last week and believes a lot of it is related to her arthritis. She denies any new injuries or falls. Patient is currently managed with morphine 5 mg/mL with a daily dose of 1.05 mg/day. She denies any side effects of this medication. She does state that she takes Tylenol arthritis on the side to help with her pains. Her Bello has been rev iewed and is appropriate. Physical Exam: General: Alert and oriented x3, no acute distress, pleasant and cooperative Lungs: Respirations even and unlabored, symmetrical chest expansion Eyes: PERRL Musculoskeletal: Flexion and extension of lumbar [spine] somewhat guarded secondary to pain, [antalgic gait noted] Neurological: Speech clear, no gross sensory deficit Skin: Significant seroma around her left lateral pump site Procedure Details:: Informed consent was obtained and the risk and benefits of the procedure were explained to the patient. The patient had noninvasive monitoring placed including noninvasive blood pressure cuff and pulse oximeter. Patient's pump was interrogated. The area over the pump was cleansed with chlorhexidine as a cleansing solution. Using a sterile 22-gauge needle we did access the seroma around her pump site and did remove approximately 76 mL of solution. Needle was removed and using a second sterile 22-gauge needle we then accessed her intrathecal pump. Approximately 6.5 mls of the pump solution was removed and discarded appropriately. The pump was then refilled with 20 mL's of morphine 5 mg/mL. The needle was withdrawn and a bandage was placed over the puncture site. The infusion rate was reprogrammed and continued at 1.05 mg/day. The patient tolerated well with no complication. Plan and Disposition:: Patient tolerated her procedure well with no complications. I did discuss with patient that I will order her a compounded cream to see if this also helps with some of her daily arthritis symptoms. We will also get her a abdominal binder from the operating room today to see about making sure to use this to help minimize additional seroma formation. Patient agrees with this plan of care. Patient will return to clinic on or before her next intrathecal refill. We will see the patient back in the clinic at the next intrathecal refill. Patient has been instructed to contact the clinic with any concerns before the next appointment. Dr. Stanton has reviewed this note and agrees with this plan of care. This note was dictated using voice recognition software and make contain errors or omissions. -- It Is medically necessary for this patient to continue to have their intrathecal pump refilled at regular intervals. This patient had an intrathecal pain pump implanted after meeting criteria of chronic intractable pain for greater than 3 months and failing conservative treatments. Patient has committed and been compliant to the treatment plan and all planned follow up care. Since implantation of the intrathecal pain pump, the patient has had decreased pain and been more functional. Oral medications have been reduced including intake of oral opioids. Patient continues to do well with intrathecal therapy with decrease in pain symptoms and increase in functional status. Stopping intrathecal medications can lead to life threatening withdrawal, seizures, cardiac arrest, severe pain, and possible . Pumps that are not refilled at regular intervals can be damages and cause and need for replacement. We continually titrate dose and concentration to optimize pain relief and function. We are limited in concentration for certain drugs to safely deliver medications through the pump and stay within the recommendations from the Polyanalgesic Consensus Committee Guidelines. Depending on dose and concentration these pumps may need to be refilled sooner than 3 months as we titrate.
[2024-10-08 14:21] VITALS: BP 110/68; PULSE 54; RESP 16; O2SAT 98
== END 2024-10-08 14:21 | disposition home or self-care (01) ==
LOC: SC.PAINP 12:32 → SC.PAIN 13:35
PROVIDERS: PCP Anesthesiology; Visit Provider Nurse Practitioner Family
DX: M51.16 Intervertebral disc disorders with radiculopathy, lumbar region (principal); M96.843 Postprocedural seroma of a musculoskeletal structure following other procedure
CPT/HCPCS: 62370; 99212; G0463

== ENCOUNTER 2024-12-03 10:23 | Day surgery (SDC) | payer MEDICARE, SELFPAY ==
[2024-12-03 10:44] VITALS: BP 132/56; PULSE 66; RESP 16; TEMP 36.4; O2SAT 98; BMI 19.3
--- NOTE | 2024-12-03 10:46 | EXP.PAIN.PRO ---
Procedure Date: 12/03/24 Time: 10:50 Anesthesiologist:: Brittanie Mora APRN Complications:: None Pre-procedure Diagnosis:: Degenerative disc disease of lumbar spine with lumbar radiculopathy symptoms Post-procedure Diagnosis:: Same Indications for Procedure:: Patient is a pleasant 84-year-old female who presents today for intrathecal refill and reprogram. Today she rates her pain a 5 out of 10. She does states she has been having a lot more increased pain in and around her left hip that goes towards her groin and does go a little bit into her upper leg. She states this is constant with increased activity and does even have some popping with that joint with ambulation. Patient does state that she is interested in injection therapy.Patient is currently managed with morphine 5 mg/mL with a daily dose of 1.05 mg/day. She denies any side effects. Her Bello has been reviewed and is appropriate. Physical Exam: General: Alert and oriented x3, no acute distress, pleasant and cooperative Lungs: Respirations even and unlabored, symmetrical chest expansion Eyes: PERRL Musculoskeletal: Flexion and extension of left hip somewhat guarded secondary to pain, [antalgic gait noted] Neurological: Speech clear, no gross sensory deficit Procedure Details:: Informed consent was obtained and the risk and benefits of the procedure were explained to the patient. The patient had noninvasive monitoring placed including noninvasive blood pressure cuff and pulse oximeter. Patient's pump was interrogated. The area over the pump was cleansed with chlorhexidine as a cleansing solution. In sterile fashion the pump was accessed with a 22-gauge needle. Approximately 7.1 mls of the pump solution was removed and discarded appropriately. The pump was then refilled with 20 mL's of morphine 5 mg/mL. The needle was withdrawn and a bandage was placed over the puncture site. The infusion rate was reprogrammed and continued at morphine 1.05 mg/day. The patient tolerated well with no complication. Plan and Disposition:: Patient tolerated the procedure well with no complications and was discharged neurologically intact. Patient is experiencing worsening pain in her left hip with limited range of motion. I did discuss with the patient due to her limited range of motion and increasing groin pain that she may benefit from a left intra-articular joint injection. Risk and benefits were discussed with patient and she would like to proceed forward with this plan of care. Patient has tried and failed conservative therapy including continued at home stretching exercise for longer than 12 weeks between injections that was physician guided. I do not show that the patient has had a previous intra-articular injection with our office. We will submit for a left intra-articular joint injection under fluoroscopy. We will also give her her next intrathecal refill appointment date. We will see the patient back in the clinic at the next intrathecal refill. Patient has been instructed to contact the clinic with any concerns before the next appointment. Dr. Stanton has reviewed this note and agrees with this plan of care. This note was dictated using voice recognition software and make contain errors or omissions. -- It Is medically necessary for this patient to continue to have their intrathecal pump refilled at regular intervals. This patient had an intrathecal pain pump implanted after meeting criteria of chronic intractable pain for greater than 3 months and failing conservative treatments. Patient has committed and been compliant to the treatment plan and all planned follow up care. Since implantation of the intrathecal pain pump, the patient has had decreased pain and been more functional. Oral medications have been reduced including intake of oral opioids. Patient continues to do well with intrathecal therapy with decrease in pain symptoms and increase in functional status. Stopping intrathecal medications can lead to life threatening withdrawal, seizures, cardiac arrest, severe pain, and possible . Pumps that are not refilled at regular intervals can be damages and cause and need for replacement. We continually titrate dose and concentration to optimize pain relief and function. We are limited in concentration for certain drugs to safely deliver medications through the pump and stay within the recommendations from the Polyanalgesic Consensus Committee Guidelines. Depending on dose and concentration these pumps may need to be refilled sooner than 3 months as we titrate. A UDS is needed to verify patient's compliance with our office pain contract. This is ordered based off specific treatments related to chronic pain with the potential to abuse certain medications.
[2024-12-03 11:00] VITALS: BP 132/56; PULSE 66; RESP 16; O2SAT 98
== END 2024-12-03 11:00 | disposition home or self-care (01) ==
PROVIDERS: Visit Provider Nurse Practitioner Family
DX: M51.16 Intervertebral disc disorders with radiculopathy, lumbar region (principal)
CPT/HCPCS: 62370

== ENCOUNTER 2025-01-11 10:45 | Day surgery (SDC) | payer MEDICARE, SELFPAY ==
[2025-01-11 10:55] VITALS: BP 112/48; PULSE 62; RESP 16; TEMP 36.4; O2SAT 99; BMI 30.5
[2025-01-11 11:26] VITALS: BP 110/50; PULSE 55; RESP 16; O2SAT 99
--- NOTE | 2025-01-11 12:06 | EXP.PAIN.PRO ---
Procedure Date: 01/11/25 Time: 11:30 Anesthesiologist:: Rudy Alejandra CRNA Complications:: None Pre-procedure Diagnosis:: DJD left hip. Chronic left hip pain. Post-procedure Diagnosis:: Same. Indications for Procedure:: Patient is a very pleasant 84-year-old female comes our clinic today for a left intra-articular hip injection of cortisone and local anesthetic. Patient describes left anterior hip pain as constant, dull, aching. Pain intensifies with abduction. She rates her pain 6/10. Procedure Details:: Details of the procedure were explained to the patient. The patient was taken to procedure room placed in the supine position. The area over the left hip was cleaned using chlorhexidine as a cleansing solution. Using fluoroscopy guidance a 3 and half inch 22-gauge spinal needle was used to access the left hip joint without difficulty. After negative aspiration 3 cc of 1% lidocaine +3 cc of 0.25% Marcaine and 40 mg of Depo-Medrol was injected. Needle was withdrawn. Band-Aid applied. Patient tolerated procedure without difficulty. There are no complications. Plan and Disposition:: Patient was discharged without incident.
[2025-01-11] MEDS: methylPREDNISolone ACETATE 80MG/ML VIAL 80 MG (12:53)
[2025-01-11] MEDS: LIDOCAINE 1% 5ML PF VIAL 5 ML (12:53)
[2025-01-11] MEDS: BUPIVACAINE 0.25% 10ML INJ 25 MG IJ (12:53)
== END 2025-01-11 11:26 | disposition home or self-care (01) ==
LOC: SC.PAINP 10:49
PROVIDERS: Visit Provider Nurse Anesthetist, Certified Registered
DX: M16.12 Unilateral primary osteoarthritis, left hip (principal); M25.552 Pain in left hip; G89.29 Other chronic pain
CPT/HCPCS: 20610; J1010

== ENCOUNTER 2025-01-28 10:48 | Day surgery (SDC) | payer MEDICARE, SELFPAY ==
[2025-01-28 11:11] VITALS: BP 115/52; PULSE 58; RESP 16; TEMP 36.9; O2SAT 99; BMI 19.3
--- NOTE | 2025-01-28 11:23 | P.PCN_ITS ---
Procedure Date: 01/28/25 Time: 11:30 Anesthesiologist:: Brittanie Mora APRN Complications:: None Pre-procedure Diagnosis:: Degenerative disc disease of lumbar spine with lumbar radiculopathy symptoms Post-procedure Diagnosis:: Same Indications for Procedure:: Patient is a pleasant 84-year-old female who presents today for intrathecal refill and reprogram as well as follow-up from her left hip intra-articular injection on 01/11/2025. Today she rates her pain a 4 out of 10. Patient denies any new falls or injuries. She does state that the injection did provide at least 55 to 60% improvement and feels like it is still helping. Patient does state that she definitely would like to do additional injections like these every 3 months if possible. Patient is currently managed with morphine 5 mg/mL with an daily dose of 1.05 mg/day. She denies any side effects from this medication. Her Bello has been reviewed and is appropriate. Physical Exam: General: Alert and oriented x3, no acute distress, pleasant and cooperative Lungs: Respirations even and unlabored, symmetrical chest expansion Eyes: PERRL Musculoskeletal: Flexion and extension of lumbar [spine] somewhat guarded secondary to pain, [antalgic gait noted] Neurological: Speech clear, no gross sensory deficit Procedure Details:: Informed consent was obtained and the risk and benefits of the procedure were explained to the patient. The patient had noninvasive monitoring placed including noninvasive blood pressure cuff and pulse oximeter. Patient's pump was interrogated. The area over the pump was cleansed with chlorhexidine as a cleansing solution. In sterile fashion the pump was accessed with a 22-gauge needle. Approximately 8 mls of the pump solution was removed and discarded appropriately. The pump was then refilled with 20 mL's of morphine 5 mg/mL. The needle was withdrawn and a bandage was placed over the puncture site. The infusion rate was reprogrammed and continued at its current dosage. The patient tolerated well with no complication. Patient did have a significant seroma during today's visit. We did access it with a sterile 18-gauge needle and removed 80 cc of serous fluid. Patient was counseled to use the abdominal binder to help minimize this in future. Patient does chronically have seromas and this is nothing out of the ordinary. Patient does however state that the last time we tried to get her an abdominal binder they were out of stock. I have counseled her that we will see if they have these back and get her 1 before she leaves today. Plan and Disposition:: Patient tolerated the procedure well with no complications and was discharged neurologically intact. Patient was also counseled we will definitely plan on future hip injections. I did mortgage loan counselor her to let us know at future visits if her hip starts bothering her more frequently. Patient was counseled that the soonest we could do another intra-articular injection would be in April. We will follow-up on this at future visits. Patient will return to clinic on or before their next intrathecal refill date. We will see the patient back in the clinic at the next intrathecal refill. Patient has been instructed to contact the clinic with any concerns before the next appointment. Dr. Stanton has reviewed this note and agrees with this plan of care. This note was dictated using voice recognition software and make contain errors or omissions. -- It Is medically necessary for this patient to continue to have their intrathecal pump refilled at regular intervals. This patient had an intrathecal pain pump implanted after meeting criteria of chronic intractable pain for greater than 3 months and failing conservative treatments. Patient has committed and been compliant to the treatment plan and all planned follow up care. Since implantation of the intrathecal pain pump, the patient has had decreased pain and been more functional. Oral medications have been reduced including intake of oral opioids. Patient continues to do well with intrathecal therapy with decrease in pain symptoms and increase in functional status. Stopping intrathecal medications can lead to life threatening withdrawal, seizures, c ardiac arrest, severe pain, and possible . Pumps that are not refilled at regular intervals can be damages and cause and need for replacement. We continually titrate dose and concentration to optimize pain relief and function. We are limited in concentration for certain drugs to safely deliver medications through the pump and stay within the recommendations from the Polyanalgesic Consensus Committee Guidelines. Depending on dose and concentration these pumps may need to be refilled sooner than 3 months as we titrate. A UDS is needed to verify patient's compliance with our office pain contract. This is ordered based off specific treatments related to chronic pain with the potential to abuse certain medications.
[2025-01-28 11:43] VITALS: BP 118/55; PULSE 58; RESP 18; O2SAT 98
[2025-01-28 11:46] VITALS: BP 123/63; PULSE 57; RESP 18; O2SAT 98
[2025-01-28 11:47] VITALS: BP 123/63; PULSE 57; RESP 18; O2SAT 98
--- NOTE | 2025-01-28 11:55 | PC.NURSE ---
PER PROVIDER REQUEST PT GIVEN ABD BINDER TO WEAR R/T SERMOA FORMATION AROUND PAIN PUMP. ASSISTED PT WITH PUTTING ABD BINDER ON, INSTRUCTIONS FOR USE TO GIVEN TO PT. PT VERBALIZED UNDERSTANDING.
== END 2025-01-28 11:55 | disposition home or self-care (01) ==
PROVIDERS: Visit Provider Nurse Practitioner Family
DX: M51.16 Intervertebral disc disorders with radiculopathy, lumbar region (principal)
CPT/HCPCS: 62370; 99212; G0463

== ENCOUNTER 2025-03-18 13:12 | Day surgery (SDC) | payer MEDICARE, SELFPAY ==
--- NOTE | 2025-03-18 13:15 | EXP.HP ---
History of Present Illness *Admission Date: 03/18/25 *Reason for visit:: Degenerative disc disease intrathecal refill *History of present illness: Same [facility] Disclaimer: The information contained in this section may have been updated after the patient was seen, as this information can be updated by other users. Medical History Depression Seizures DDD (degenerative disc disease) HTN (hypertension) Family History Other No significant family history Social History Smoking Status: Never smoker second hand exposure: No alcohol intake: never current occupational status: other Travel in the last 8 weeks?: None household members: children housing: house current occupational exposures/hazards: No caffeine: Yes Have you lived/traveled outside [place] in past 30 days?: No Contact w/someone who lives/traveled outside US past 30 days?: No Exposure to someone with infectious disease in past 14 days?: No Do you have a fever (greater than 100.4 F or 38 C)?: No Have you tested positive for COVID-19?: No Exposed to someone with COVID-19 in past 14 days?: No Do you have a sore throat?: No Do you have a cough?: No Do you have any weakness?: No Do you have any diarrhea?: No Are you experiencing any unusual bleeding?: No Do you have any muscle aches/pain?: No Do you have any abdominal pain?: No Are you experiencing loss of taste or smell?: No Other Medical History Have you received the Flu Vaccine for this season: No Have you received the Pneumonia Vaccine: No Review of Systems Review of Systems Review of systems:: pertinent systems reviewed and negative unless documented below Review of systems (narrative): Review of Systems: General: No recent weight changes, no fever, no sleep disturbances Respiratory: No cough, no shortness of air, no recurring pulmonary infections Cardiovascular/peripheral vascular: No chest pain, no palpitations, no edema, no shortness of breath Gastrointestinal: No new onset incontinence, normal bowel movements reported Genitourinary: No new onset incontinence Musculoskeletal: Chronic low back pain Psychiatric: [Normal mood/affect] Neurological: [Denies weakness in extremities], [denies balance issues] Meds Home Medications and Allergies Home Medications ?Medication ?Instructions ?Recorded ?Confirmed ?Type amlodipine 10 mg tablet (Norvasc) 10 mg PO DAILY BP 04/27/18 01/28/25 History fluoxetine 20 mg tablet 20 mg PO DAILY Depression 04/27/18 01/28/25 History levetiracetam 500 mg 500 mg PO BID SEIZURES 04/27/18 01/28/25 History tablet,extended release 24 hr (Keppra XR) aspirin 81 mg chewable tablet 81 mg PO DAILY heart health 12/21/21 01/28/25 History diclofenac sodium 75 mg 75 mg PO BID Pain 12/21/21 01/28/25 History tablet,delayed release hydrochlorothiazide 12.5 mg capsule 12.5 mg PO DAILY Fluid 12/21/21 01/28/25 History morphine 1 mg/mL (1 mL) in 0.9 % 1 mg IT CONT chronic pain 12/21/21 01/28/25 History sodium chloride intravenous syringe potassium chloride 20 mEq 20 meq PO DAILY Supplement 12/21/21 01/28/25 History tablet,extended release New Prescriptions to Start Prescriptions: Allergies Allergy/AdvReac Type Severity Reaction Status Date / Time Sulfa (Sulfonamide Allergy Mild Verified 05/24/24 10:40 Antibiotics) Exam Constitutional Constitutional: no acute distress *Routine HEENT Exam Head: Present normocephalic and atraumatic Eye: Present PERRL ENT: Present mucous membranes moist *Routine Neck Exam Neck: Present supple *Routine Respiratory Exam Respiratory: Present CTA bilaterally *Routine Cardiovascular Exam Cardiovascular: Present RRR *Routine Abdominal Exam Abdominal: Present soft *Routine Rectal Exam Rectal:: deferred *Routine Genitalia Exam Genitalia:: normal female Routine Back/Spine/Pelvis Exam Back/Spine: Present pain with flexion *Routine Neurological Exam Neurological: Present alert and oriented X3 Routine Psychiatric Exam Psychiatric: Present normal affect and normal thought process Assessment and Plan *Assessment and plan (1) Lumbar radiculopathy: Status: Acute Category: Medical Code(s): M54.16 - Radiculopathy, lumbar region (2) Degenerative joint disease (DJD) of lumbar spine: Status: Chronic Qualifiers: Spinal osteoarthritis complication: with radiculopathy Qualified Code(s): M47.26 - Other spondylosis with radiculopathy, lumbar region Category: Medical Code(s): M47.816 - Spondylosis without myelopathy or radiculopathy, lumbar region Plan Patient has been instructed to contact the clinic with any concerns before the next appointment. Dr. Stanton has reviewed this note and agrees with this plan of care. This note was dictated using voice recognition software and make contain errors or omissions. All injections are used with Lidocaine, Bupivacaine and dexamethasone. Occasionally urine drug screen is needed to verify patient's compliance with our office pain contract. This is ordered based off specific treatments related to chronic pain with the potential to abuse certain medications.
--- NOTE | 2025-03-18 13:17 | EXP.PAIN.PRO ---
Procedure Date: 03/18/25 Time: 13:57 Anesthesiologist:: Brittanie Mora APRN Complications:: None Pre-procedure Diagnosis:: Degenerative disc disease of lumbar spine with lumbar radiculopathy symptoms, chronic pain syndrome Post-procedure Diagnosis:: Same Indications for Procedure:: Patient is a pleasant 84-year-old female who presents today for intrathecal refill and reprogram. Today she rates her pain at 4 5 out of 10. She denies any new falls or injuries. She does state that she does have a whole lot more low back pain that goes across to her back. She denies any radiating symptoms to her legs. Patient states the pain is interfering with her ability perform activities of daily living such as cooking and cleaning. Patient is interested in additional injection therapy. Patient does states she still feels like her last hip injection has done wonderful and really did make a big change in her overall pain. She is currently managed with morphine 5 mg/mL with a daily dose of 1.05 mg/day. She denies any side effects. Her Bello has been reviewed and is appropriate. Physical Exam: General: Alert and oriented x3, no acute distress, pleasant and cooperative Lungs: Respirations even and unlabored, symmetrical chest expansion Eyes: PERRL Musculoskeletal: Flexion and extension of lumbar [spine] somewhat guarded secondary to pain, [antalgic gait noted] positive Kemps test Neurological: Speech clear, no gross sensory deficit Procedure Details:: Informed consent was obtained and the risk and benefits of the procedure were explained to the patient. The patient had noninvasive monitoring placed including noninvasive blood pressure cuff and pulse oximeter. Patient's pump was interrogated. The area over the pump was cleansed with chlorhexidine as a cleansing solution. In sterile fashion the pump was accessed with a 22-gauge needle. Approximately 9.8 mls of the pump solution was removed and discarded appropriately. The pump was then refilled with 20 mL's of morphine 5 mg/mL. The needle was withdrawn and a bandage was placed over the puncture site. The infusion rate was reprogrammed and increased 10% to morphine 1.155 mg/day. The patient tolerated well with no complication. Plan and Disposition:: Patient tolerated the procedure well with no complications and was discharged neurologically intact. Patient is experiencing significant pain in her low back that is worse with bending, twisting or lifting. Patient did have limited range of motion of her lumbar spine with a positive Kemps test during today's visit. I did discuss with the patient that I do believe she would benefit from a lumbar medial branch block. Risk and benefits were discussed with the patient and she would like to proceed forward with this plan of care. Patient has tried and failed conservative therapy including oral medications, heat and ice, topicals, at home stretching exercise for longer than 12 weeks. Patient has been experiencing chronic low back pain for longer than 2 years. Patient was counseled that if she does get significant relief with her first lumbar medial branch block that we will plan on repeating it with the plan to progress forward to a lumbar RFA at a later date. Patient agrees with this plan of care. Patient will be scheduled for her first diagnostic lumbar medial branch block bilaterally L4-L5 and L5-S1 under fluoroscopy. We did also drain her seroma that is a chronic issue and took off about 60 cc of fluid. Patient was given an abdominal binder and she states that she will use this about 3 hours. I did recommend that she use it more frequently on a daily basis. Patient does state that she will see if this makes a difference. Patient has been instructed to contact the clinic with any concerns before the next appointment. Dr. Stanton has reviewed this note and agrees with this plan of care. This note was dictated using voice recognition software and make contain errors or omissions. All injections are used with Lidocaine, Bupivacaine and dexamethasone. Occasionally urine drug screen is needed to verify patient's compliance with our office pain contract. This is ordered based off specific treatments related to chronic pain with the potential to abuse certain medications. Patient will return to clinic on or before their next intrathecal refill date. We will see the patient back in the clinic at the next intrathecal refill. Patient has been instructed to contact the clinic with any concerns before the next appointment. Dr. Stanton has reviewed this note and agrees with this plan of care. This note was dictated using voice recognition software and make contain errors or omissions. -- It Is medically necessary for this patient to continue to have their intrathecal pump refilled at regular intervals. This patient had an intrathecal pain pump implanted after meeting criteria of chronic intractable pain for greater than 3 months and failing conservative treatments. Patient has committed and been compliant to the treatment plan and all planned follow up care. Since implantation of the intrathecal pain pump, the patient has had decreased pain and been more functional. Oral medications have been reduced including intake of oral opioids. Patient continues to do well with intrathecal therapy with decrease in pain symptoms and increase in functional status. Stopping intrathecal medications can lead to life threatening withdrawal, seizures, cardiac arrest, severe pain, and possible . Pumps that are not refilled at regular intervals can be damages and cause and need for replacement. We continually titrate dose and concentration to optimize pain relief and function. We are limited in concentration for certain drugs to safely deliver medications through the pump and stay within the recommendations from the Polyanalgesic Consensus Committee Guidelines. Depending on dose and concentration these pumps may need to be refilled sooner than 3 months as we titrate. A UDS is needed to verify patient's compliance with our office pain contract. This is ordered based off specific treatments related to chronic pain with the potential to abuse certain medications.
[2025-03-18 13:26] VITALS: BP 114/50; PULSE 72; RESP 16; O2SAT 97; BMI 18.8
[2025-03-18 13:47] VITALS: BP 123/49; PULSE 35; RESP 18; O2SAT 97
[2025-03-18 14:03] VITALS: BP 123/59; PULSE 60; RESP 16; O2SAT 97
== END 2025-03-18 14:03 | disposition home or self-care (01) ==
PROVIDERS: PCP Family Medicine; Visit Provider Nurse Practitioner Family
DX: M47.26 Other spondylosis with radiculopathy, lumbar region (principal); M51.16 Intervertebral disc disorders with radiculopathy, lumbar region; G89.4 Chronic pain syndrome; Z73.89 Other problems related to life management difficulty
CPT/HCPCS: 62370; 99212; G0463

== ENCOUNTER 2025-04-19 10:24 | Day surgery (SDC) | payer MEDICARE, SELFPAY ==
[2025-04-19 10:34] VITALS: BP 113/52; PULSE 56; RESP 16; TEMP 36.5; O2SAT 98; BMI 18.8
--- NOTE | 2025-04-19 11:08 | P.PCN_ITS ---
Procedure Date: 04/19/25 Time: 10:55 Anesthesiologist:: Rudy Alejandra CRNA Complications:: None Pre-procedure Diagnosis:: Degenerative disc lumbar spine multilevels. Lumbar radiculopathy. Lumbar facet arthropathy. Lumbar spondylosis. Lumbar postlaminectomy syndrome. Post-procedure Diagnosis:: Same. Indications for Procedure:: Patient is a very pleasant 84-year-old female who comes our clinic today for ROUND ONE of lumbar medial branch blocks/facet injections. Patient describes low lumbar back pain as constant, dull, aching. She reports having difficulty doing light housework. This is due to the low back pain. Patient is currently being managed with intrathecal morphine 5 mg/mL at a daily dose of 1.05 mg/day. She is doing very well with her pump. She is not reporting side effects or complications. She is not requesting changes. Procedure Details:: Informed consent was obtained and the risk and benefits of the procedure was explained to the patient. Patient was taken to the procedure room where noninvasive monitors were placed, including noninvasive blood pressure cuff as well as pulse oximeter. The area over the lumbar spine was cleansed using chlorhexidine as a cleansing solution. I anesthetized the skin and subcutaneous tissues with 1% Lidocaine. I placed 22-gauge spinal needles into the facet joint/ medial branches of L4-L5, and L5-S1] bilaterally. Needle placement was confirmed with fluoroscopy. After confirmation of needle placement, each site was injected with 1 mL of 1% lidocaine and 0.25 % Marcaine and 10 mg of Depo- Medrol. A total of 80 mg of depo medrol was used for bilateral medial branch blocks of L4-L5, and L5-S1] bilaterally. Patient tolerated the procedure without difficulty. There were no complications. Plan and Disposition:: Patient was discharged without incident.
[2025-04-19 11:10] VITALS: BP 107/53; PULSE 61; RESP 16; O2SAT 97
[2025-04-19] MEDS: LIDOCAINE 1% 5ML PF VIAL 5 ML (11:28)
[2025-04-19] MEDS: BUPIVACAINE 0.25% 10ML INJ 25 MG IJ (11:28)
[2025-04-19 11:31] VITALS: BP 143/58; PULSE 64; RESP 18; O2SAT 98
[2025-04-19 11:43] VITALS: BP 143/58; PULSE 64; RESP 18; O2SAT 98
== END 2025-04-19 11:10 | disposition home or self-care (01) ==
PROVIDERS: PCP Family Medicine; Visit Provider Nurse Anesthetist, Certified Registered
DX: M47.816 Spondylosis without myelopathy or radiculopathy, lumbar region (principal); M51.16 Intervertebral disc disorders with radiculopathy, lumbar region; M96.1 Postlaminectomy syndrome, not elsewhere classified; F32.A Depression, unspecified; I10 Essential (primary) hypertension; R56.9 Unspecified convulsions; Z88.2 Allergy status to sulfonamides; Z79.899 Other long term (current) drug therapy; Z79.1 Long term (current) use of non-steroidal anti-inflammatories (NSAID); Z79.82 Long term (current) use of aspirin; Z79.891 Long term (current) use of opiate analgesic
CPT/HCPCS: 64493; 64494; J0665; J2003

== ENCOUNTER 2025-05-13 12:57 | Day surgery (SDC) | payer MEDICARE, SELFPAY ==
[2025-05-13 13:20] VITALS: BP 102/46; BP 113/51; PULSE 54; PULSE 55; RESP 18; O2SAT 97; O2SAT 98; BMI 18.8
--- NOTE | 2025-05-13 13:30 | EXP.PM.HP ---
History of Present Illness *Admission Date: 05/13/25 *Reason for visit:: Intrathecal refill; DDD *History of present illness: Same [facility] Disclaimer: The information contained in this section may have been updated after the patient was seen, as this information can be updated by other users. Medical History Depression Seizures DDD (degenerative disc disease) HTN (hypertension) Family History Other No significant family history Social History Smoking Status: Never smoker second hand exposure: No alcohol intake: never current occupational status: other Travel in the last 8 weeks?: None household members: children housing: house current occupational exposures/hazards: No caffeine: Yes Other Medical History Have you received the Flu Vaccine for this season: No Have you received the Pneumonia Vaccine: No Review of Systems Review of Systems Review of systems:: pertinent systems reviewed and negative unless documented below Review of systems (narrative): Review of Systems: General: No recent weight changes, no fever, no sleep disturbances Respiratory: No cough, no shortness of air, no recurring pulmonary infections Cardiovascular/peripheral vascular: No chest pain, no palpitations, no edema, no shortness of breath Gastrointestinal: No new onset incontinence, normal bowel movements reported Genitourinary: No new onset incontinence Musculoskeletal: Chronic back pain chronic back pain Psychiatric: [Normal mood/affect] Neurological: [Denies weakness in extremities], [denies balance issues] Meds Home Medications and Allergies Home Medications ?Medication ?Instructions ?Recorded ?Confirmed ?Type amlodipine 10 mg tablet (Norvasc) 10 mg PO DAILY BP 04/27/18 05/13/25 History fluoxetine 20 mg tablet 20 mg PO DAILY Depression 04/27/18 05/13/25 History levetiracetam 500 mg 500 mg PO BID SEIZURES 04/27/18 05/13/25 History tablet,extended release 24 hr (Keppra XR) aspirin 81 mg chewable tablet 81 mg PO DAILY heart health 12/21/21 05/13/25 History diclofenac sodium 75 mg 75 mg PO BID Pain 12/21/21 05/13/25 History tablet,delayed release hydrochlorothiazide 12.5 mg capsule 12.5 mg PO DAILY Fluid 12/21/21 05/13/25 History morphine 1 mg/mL (1 mL) in 0.9 % 1 mg IT CONT chronic pain 12/21/21 05/13/25 History sodium chloride intravenous syringe potassium chloride 20 mEq 20 meq PO DAILY Supplement 12/21/21 05/13/25 History tablet,extended release New Prescriptions to Start Prescriptions: Allergies Allergy/AdvReac Type Severity Reaction Status Date / Time Sulfa (Sulfonamide Allergy Mild Verified 05/24/24 10:40 Antibiotics) Exam Data for Last 24 hours Vital signs and Labs for Last 24 Hours: Pulse Resp BP Pulse Ox O2 Del Method 54 L 18 102/46 L 97 Room Air 05/13/25 13:20 05/13/25 13:20 05/13/25 13:20 05/13/25 13:20 05/13/25 13:20 I & O for Last 24 hours: Intake & Output 05/10/25 05/11/25 05/12/25 05/13/25 23:59 23:59 23:59 23:59 Weight 103 lb Constitutional Constitutional: no acute distress *Routine HEENT Exam Head: Present normocephalic and atraumatic Eye: Present PERRL ENT: Present mucous membranes moist *Routine Neck Exam Neck: Present supple *Routine Respiratory Exam Respiratory: Present CTA bilaterally *Routine Cardiovascular Exam Cardiovascular: Present RRR *Routine Abdominal Exam Abdominal: Present soft *Routine Rectal Exam Rectal:: deferred *Routine Genitalia Exam Genitalia:: deferred Routine Back/Spine/Pelvis Exam Back/Spine: Present pain with flexion *Routine Skin Exam Skin: Present intact and dry *Routine Neurological Exam Neurological: Present alert and oriented X3 Routine Psychiatric Exam Psychiatric: Present normal affect and normal thought process Assessment and Plan *Assessment and plan (1) Degenerative joint disease (DJD) of lumbar spine: Status: Chronic Qualifiers: Spinal osteoarthritis complication: with radiculopathy Qualified Code(s): M47.26 - Other spondylosis with radiculopathy, lumbar region Category: Medical Code(s): M47.816 - Spondylosis without myelopathy or radiculopathy, lumbar region Plan Patient has been instructed to contact the clinic with any concerns before the next appointment. Dr. Stanton has reviewed this note and agrees with this plan of care. This note was dictated using voice recognition software and make contain errors or omissions. All injections are used with Lidocaine, Bupivacaine and dexamethasone. Occasionally urine drug screen is needed to verify patient's compliance with our office pain contract. This is ordered based off specific treatments related to chronic pain with the potential to abuse certain medications.
--- NOTE | 2025-05-13 13:34 | P.PCN_ITS ---
Procedure Date: 05/13/25 Time: 13:25 Anesthesiologist:: Brittanie Mora APRN Complications:: None Pre-procedure Diagnosis:: Degenerative disc disease, chronic pain, left sacroiliitis Post-procedure Diagnosis:: Same Indications for Procedure:: Patient is a pleasant 85-year-old female who presents today for intrathecal refill and reprogram. Today she rates her pain as 3 out of 10 in the low back however is stating her left hip is at least a 5 out of 10 or more. She states that pain is really bothersome and interfering with her ability to perform activities of daily living such as cooking and cleaning. Patient does state it is going into her left groin and is worse with prolonged sitting or standing. Patient is interested in additional injection therapy if possible. Patient does also make mention the last injection she had with us did cause a little bit more pain and she feels like she has some shaking/quivering still that she had not noticed until after. Patient denies any other changes or falls or injuries since our last visit. She is currently managed with morphine 5 mg/mL with a daily dose of 1.155 mg/day. She denies any side effects. Her Bello has been reviewed and is appropriate. Physical Exam: General: Alert and oriented x3, no acute distress, pleasant and cooperative Lungs: Respirations even and unlabored, symmetrical chest expansion Eyes: PERRL Musculoskeletal: Flexion and extension of lumbar [spine] somewhat guarded secondary to pain, [antalgic gait noted] point tenderness along left SI with positive left Kait's, Pam's, Gaenslen's, compression and distraction exam Neurological: Speech clear, no gross sensory deficit Procedure Details:: Informed consent was obtained and the risk and benefits of the procedure were explained to the patient. The patient had noninvasive monitoring placed includ ing noninvasive blood pressure cuff and pulse oximeter. Patient's pump was interrogated. The area over the pump was cleansed with chlorhexidine as a cleansing solution. In sterile fashion the pump was accessed with a 22-gauge needle. Approximately 7 mls of the pump solution was removed and discarded appropriately. The pump was then refilled with 20 mL's of morphine 5 mg/mL. The needle was withdrawn and a bandage was placed over the puncture site. The infusion rate was reprogrammed and continued at its current dosage. The patient tolerated well with no complication. Plan and Disposition:: Patient tolerated the procedure well with no complications and was discharged neurologically intact. Patient is experiencing worsening pain along the low back and left hip and groin. They did have limited range of motion of the lumbar spine along with point tenderness along her left SI joints and a positive left Kait's, Pam's, Gaenslen's, compression and distraction exam. I did discuss with the patient that I do believe they would benefit from left SI injections. Risk and benefits were discussed with the patient and they would like to proceed forward with this option. Patient has tried and failed conservative therapy. Patient has been actively doing conservative treatment including oral medication, heat and ice, topicals, at home exercising and stretching for longer than 12 weeks. Patient is having to adjust their activity based off the increased pain resulting in activity modification. I do believe the patient would benefit from SI injection. Patient is not a surgical candidate due to her age and comorbidities. This will be a diagnostic injection with less than 1 mL solution to be injected. Patient will be scheduled for left SI injection under fluoroscopy. Patient has been instructed to contact the clinic with any concerns before the next appointment. Dr. Stanton has reviewed this note and agrees with this plan of care. This note was dictated using voice recognition software and make contain errors or omissions. All injections are used with Lidocaine or Bupivacaine and dexamethasone unless diagnostic in which no steroids were injected. Patient will be also given a intrathecal refill date. We will see the patient back in the clinic at the next intrathecal refill. Patient has been instructed to contact the clinic with any concerns before the next appointment. Dr. Stanton has reviewed this note and agrees with this plan of care. This note was dictated using voice recognition software and make contain errors or omissions. -- It Is medically necessary for this patient to continue to have their intrathecal pump refilled at regular intervals. This patient had an intrathecal pain pump implanted after meeting criteria of chronic intractable pain for greater than 3 months and failing conservative treatments. Patient has committed and been compliant to the treatment plan and all planned follow up care. Since implantation of the intrathecal pain pump, the patient has had decreased pain and been more functional. Oral medications have been reduced including intake of oral opioids. Patient continues to do well with intrathecal therapy with decrease in pain symptoms and increase in functional status. Stopping intrathecal medications can lead to life threatening withdrawal, seizures, cardiac arrest, severe pain, and possible . Pumps that are not refilled at regular intervals can be damages and cause and need for replacement. We continually titrate dose and concentration to optimize pain relief and function. We are limited in concentration for certain drugs to safely deliver medications through the pump and stay within the recommendations from the [employer] Consensus [employer] Guidelines. Depending on dose and concentration these pumps may need to be refilled sooner than 3 months as we titrate. A UDS is needed to verify patient's compliance with our office pain contract. This is ordered based off specific treatments related to chronic pain with the potential to abuse certain medications.
[2025-05-13 13:38] VITALS: BP 106/45; PULSE 53; RESP 18; O2SAT 99
== END 2025-05-13 13:38 | disposition home or self-care (01) ==
PROVIDERS: PCP Radiology Diagnostic Radiology; Visit Provider Nurse Practitioner Family
DX: Z45.1 Encounter for adjustment and management of infusion pump (principal); M51.369 Other intervertebral disc degeneration, lumbar region without mention of lumbar back pain or lower extremity pain; M46.1 Sacroiliitis, not elsewhere classified; G89.29 Other chronic pain; F32.A Depression, unspecified; I10 Essential (primary) hypertension; G40.909 Epilepsy, unspecified, not intractable, without status epilepticus; Z88.2 Allergy status to sulfonamides; Z79.891 Long term (current) use of opiate analgesic; Z79.82 Long term (current) use of aspirin; Z79.899 Other long term (current) drug therapy
CPT/HCPCS: 95991